=== PATIENT | female | born 1960 | race Caucasian/White ===

== ENCOUNTER 2023-08-17 10:16 | Outpatient (CLI) | payer MEDICARE, BC, SELFPAY ==
--- NOTE | ~2023-08-17 | CT_ITS ---
EXAMINATION: CT soft tissue neck w con DATE: 08/17/2023 10:47 INDICATION: Cystic mass of the tongue. TECHNIQUE: Computed tomography (CT) of the neck was performed with 75 mL Omnipaque-350 intravenous co ntrast. Automated exposure control and iterative reconstruction technique were employed. The dose-funmi gth product was 460.01 mGy-cm. COMPARISON: None FINDINGS: There are nodules in the thyroid measuring up to 5 mm, likely not clinically significant. T here are no pathologically enlarged lymph nodes. The mastoid air cells are normal. The paranasal sinu ses are clear. The tongue is unremarkable. There is severe cervical spondylosis. IMPRESSION: 1. Unremarkable tongue. No evidence of malignancy. Reviewed, dictated and finalized at location A.
[2023-08-17 10:33] LABS: Estimated Glomerular Filt Rate > 60
== END 2023-08-17 10:17 | disposition home or self-care (01) ==
LOC: ANHIMG 10:17
PROVIDERS: PCP Family Medicine; Visit Provider Otolaryngology
DX: K14.8 Other diseases of tongue (principal)
CPT/HCPCS: 70491; Q9967

== ENCOUNTER 2023-12-11 02:23 | Day surgery (SDC) | payer MEDICARE, BC, SELFPAY ==
[2023-12-11 09:16] VITALS: BP 130/81; PULSE 76; RESP 18; TEMP 36.3; O2SAT 98
--- NOTE | 2023-12-11 09:23 | WPDANESEPPF ---
Anes - Initial Pre Proc Eval Procedure: Operation Date: 12/11/23 10:30 Proposed Procedures p Esophagogastroduodenoscopy & Colonoscopy - Joe Bowman MD Date/Time: 12/11/23 09:23 Surgeon: Joe Bowman MD Pre Op Diagnosis: Benign neoplasm of tongue, GERD, Ulcer. colitis Patient Data Age: 63 Gender: F Height: 1.63 m Weight: 78 kg Last Vital Signs Temp 36.3 C L 12/11/23 09:16 Pulse 76 12/11/23 09:16 Resp 18 12/11/23 09:16 BP 130/81 12/11/23 09:16 Pulse Ox 98 12/11/23 09:16 O2 Del Method Room Air 12/11/23 09:16 Allergies Allergy/AdvReac Type Severity Reaction Status Date / Time levofloxacin [From Levaquin] Allergy Unknown Verified 12/11/23 09:15 lisinopril Allergy Unknown Verified 12/11/23 09:15 metformin Allergy Unknown Verified 12/11/23 09:15 NSAIDS (Non-Steroidal Allergy Unknown Verified 12/11/23 09:15 Anti-Inflamma Home Medications Medication Instructions Recorded Confirmed Type atorvastatin 80 mg tablet 80 mg PO HS 08/07/23 12/11/23 History ergocalciferol (vitamin D2) 1,250 1,250 mcg PO MONTHLY 08/07/23 12/11/23 History mcg (50,000 unit) capsule metoprolol succinate 25 mg 25 mg PO HS 08/07/23 12/11/23 History tablet,extended release 24 hr rizatriptan 10 mg tablet See Rx Instructions PO .COMPLEX 08/07/23 12/11/23 History fluticasone propionate 50 2 spray intranasal DAILY #18 mL 09/11/23 12/11/23 Rx mcg/actuation nasal spray,suspension (Flonase Allergy Relief) calcium 1 cap PO DAILY 11/29/23 12/11/23 History denosumab 60 mg/mL subcutaneous 60 mg subcut [id number] 11/29/23 12/11/23 History syringe (Prolia) irbesartan 150 mg tablet 150 mg PO HS 11/29/23 12/11/23 History omeprazole 40 mg capsule,delayed 40 mg PO HS 11/29/23 12/11/23 History release Patient hx anesthesia problems: none Family hx anesthesia problems: none Results Review: All pre-operative results and documents have been reviewed as part of the pre-operative evaluation. [facility] Past Medical History Medical History Gall bladder pain GERD (gastroesophageal reflux disease) Hypertension Family History Family History Father Diabetes mellitus Hypertension Mother Asthma Thyroid condition Social History Social History Smoking status: Never smoker Alcohol intake: current Substance use: never Substance use type: does not use Lack of Food: Never True Current Housing: I Have Housing Concerned About Future Housing: No Difficulty Paying Gas/Electric Bills: No Difficulty Paying for Meds: No Currently Unemployed: No Difficulty w/ Childcare or Family Care: No Living arrangements: with family Spiritual care concerns: No Anes - Eval Final PreProcedure Day of Procedure 12/11/23 09:23 Patient weight: overweight Heart: regular rate and rhythm Lungs: clear to auscultation Airway: Mallampati scale class II Neurological: alert and oriented Last oral intake: >/= 8 hours ASA classification: III Emergent: no Anesthetic plan: proceed Anesthesia type and monitoring: general GIVS and standard monitoring Results Review: All pre-operative results and documents have been reviewed as part of the pre-operative evaluation. Informed Consent: The patient's anesthetic plan and its attendant risks and benefits were discussed with the patient/family/POA. Questions were solicited and answers provided to the satisfaction of the patient/family/POA.
[2023-12-11] MEDS: LACTATED RINGERS 1,000 ML 150 ML IV CONT (09:27)
--- NOTE | 2023-12-11 09:52 | PM.HPGS ---
History of Present Illness History of Present Illness Consent: Risks, benefits, and alternatives have been discussed and questions answered. Patient agrees to proceed with procedure. Chief complaint: Benign neoplasm of tongue, GERD, Ulcer. colitis Narrative: Haley Vallejo is a 63 year old female with gerd on ppi, had bleeding ulcers years ago related to nsaid's, recently developed lesions in tongue- she is seeing ENT. Also needs screening colonoscopy Review of Systems Review of Systems: All systems reviewed & are unremarkable except as noted in HPI and below PMFSH Past Medical History Medical History (Updated 12/11/23 @ 09:54 by Joe Bowman MD) Colon cancer screening Gall bladder pain GERD (gastroesophageal reflux disease) Hypertension Family History Family History Father Diabetes mellitus Hypertension Mother Asthma Thyroid condition Social History Social History Smoking status: Never smoker Alcohol intake: current Substance use: never Substance use type: does not use Lack of Food: Never True Current Housing: I Have Housing Concerned About Future Housing: No Difficulty Paying Gas/Electric Bills: No Difficulty Paying for Meds: No Currently Unemployed: No Difficulty w/ Childcare or Family Care: No Living arrangements: with family Spiritual care concerns: No Meds Home Medications and Allergies Home Medications Medication Instructions Recorded Confirmed Type atorvastatin 80 mg tablet 80 mg PO HS 08/07/23 12/11/23 History ergocalciferol (vitamin D2) 1,250 1,250 mcg PO MONTHLY 08/07/23 12/11/23 History mcg (50,000 unit) capsule metoprolol succinate 25 mg 25 mg PO HS 08/07/23 12/11/23 History tablet,extended release 24 hr rizatriptan 10 mg tablet See Rx Instructions PO .COMPLEX 08/07/23 12/11/23 History fluticasone propionate 50 2 spray intranasal DAILY #18 mL 09/11/23 12/11/23 Rx mcg/actuation nasal spray,suspension (Flonase Allergy Relief) calcium 1 cap PO DAILY 11/29/23 12/11/23 History denosumab 60 mg/mL subcutaneous 60 mg subcut [id number] 11/29/23 12/11/23 History syringe (Prolia) irbesartan 150 mg tablet 150 mg PO HS 11/29/23 12/11/23 History omeprazole 40 mg capsule,delayed 40 mg PO HS 11/29/23 12/11/23 History release Allergies Allergy/AdvReac Type Severity Reaction Status Date / Time levofloxacin [From Levaquin] Allergy Unknown Verified 12/11/23 09:15 lisinopril Allergy Unknown Verified 12/11/23 09:15 metformin Allergy Unknown Verified 12/11/23 09:15 NSAIDS (Non-Steroidal Allergy Unknown Verified 12/11/23 09:15 Anti-Inflamma Vital Signs Vital Signs - 24 hr 12/11/23 09:16 Temperature 97.3 F L Pulse Rate 76 Respiratory Rate 18 Blood Pressure 130/81 Pulse Oximetry 98 Oxygen Delivery Room Air Exam Const: General: comfortable and no acute distress HENMT: Face/Nose/Sinus: Normal nares present Eyes: General: appearance normal, both eyes and all related structures Neck: Neck: no JVD Resp: Auscultation: clear to auscultation bilaterally Cardio: Rate: regular rate Rhythm: regular rhythm GI: Inspection: non-distended GI Palp: Yes Soft to palpation Skin: General skin exam: normal color Neuro: General: gait normal Speech: normal speech Extrem: General: normal to inspection Psych: Mental Status: mental status grossly normal Assessment and Plan Assessment and plan (1) Laryngopharyngeal reflux: Code(s): K21.9 - Gastro-esophageal reflux disease without esophagitis Status: Acute (2) GERD (gastroesophageal reflux disease): Code(s): K21.9 - Gastro-esophageal reflux disease without esophagitis Status: Acute Assessment and Plan: egd, on ppi (3) Colon cancer screening: Code(s): Z12.11 - Encounter for screening for malignant neoplasm of
--- NOTE | 2023-12-11 10:04 | SUR.OPER ---
EGD start 957 end 1001, Colonoscopy start 1006.
[2023-12-11 10:18] VITALS: BP 108/67; PULSE 87; RESP 22; O2SAT 93
[2023-12-11 10:28] VITALS: BP 121/73; PULSE 83; RESP 20; O2SAT 92
[2023-12-11 10:38] VITALS: BP 140/82; PULSE 71; RESP 16; O2SAT 95
== END 2023-12-11 10:52 | disposition home or self-care (01) ==
PROVIDERS: PCP Family Medicine; Referring Provider Otolaryngology; Visit Provider Internal Medicine Gastroenterology
PROC: 0DJ08ZZ Inspection of Upper Intestinal Tract, Via Natural or Artificial Opening Endoscopic (ICD-10-PCS; CPT 43235; principal; 2023-12-11 10:30)
DX: Z12.11 Encounter for screening for malignant neoplasm of colon (principal); K64.8 Other hemorrhoids; K29.50 Unspecified chronic gastritis without bleeding; K21.00 Gastro-esophageal reflux disease with esophagitis, without bleeding; I10 Essential (primary) hypertension; K14.8 Other diseases of tongue
CPT/HCPCS: 43239; G0121; 88305; J1596; J2704; J7120

== ENCOUNTER 2024-06-26 12:23 | Outpatient (CLI) | payer MEDICARE, BC, SELFPAY ==
--- NOTE | ~2024-06-26 | XR_ITS ---
Supine and upright views of the abdomen Clinical history: Diarrhea Findings: Bowel gas pattern is nonspecific. No evidence for obstruction or free air. Multiple rounded calcifications of the densities are present the right upper quadrant. Osseous structures are intact. Impression: Probable cholelithiasis, versus possibly artifactual/external densities. Reviewed, dictated and finalized at [facility]. 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
--- NOTE | ~2024-06-26 | XR_ITS ---
Thoracic spine: Clinical Indication: Pain AP and lateral views were performed. No fracture is seen. There is normal alignment of the vertebrae. There is mild degenerative disc akanksha rowing at the mid thoracic spine. Paravertebral soft tissues appear normal. Impression: Mild degenerative disc narrowing at the mid thoracic spine region. Reviewed, dictated and finalized at [facility]. [employer]G AID CONSULTANT Impression: Mild degenerative disc narrowing at the mid thoracic spine region.
--- NOTE | ~2024-06-26 | XR_ITS ---
Lumbosacral Spine: AP and lateral views Clinical History: Pain Findings: The normal lordotic curve is maintained. No fracture seen. There is 14 mm anterolisthesis o f L4 over L5, with severe degenerative disc narrowing at L4-L5. There is moderate facet arthropathy f rom L3 through S1. The sacroiliac joints are normally outlined. Rounded calcifications and right uppe r quadrant suggest cholelithiasis. Impression: 14 mm anterolisthesis of L4 over L5, with associated degenerative spondylosis, as above. Rounded calcifications/densities right upper quadrant are consistent with cholelithiasis. Reviewed, dictated and finalized at location . [employer] Impression: 14 mm anterolisthesis of L4 over L5, with associated degenerative spondylosis, as above. Rounded calcifications/densities right upper quadrant are consistent with amanda lithiasis.
--- OUTSIDE RECORDS SUMMARY | 2024-06-26 12:26 | XMS_ITS | Encounter Summary ---
Author Organization [facility] Address [facility] [place] [address] Care Team Providers Care Director Of Corporate Marketing Name Role Phone Sterling Freire MD Primary Care Provider [phone] Phi Lopez DO Unavailable [phone] Phi Lopez DO Unavailable [phone] Encounter Details Date Type Department Care Team (Late Contact Info) Description 02/21/2019 Hospital Orders Only [facility] [address] [place] [address] Sterling Freire MD [address] [place] [address] Social History Tobacco Use Types Packs/Day Years Used Date Smoking Tobacco: Never Alcohol Use Standard Drinks/Week Comments No 0 (1 standard drink = 0.6 oz pur e alcohol) AUDIT-C Answer Date Recorded Frequency of Alcohol Consumption Never 05/20/2018 Average Number of Drinks Not on file 019 Frequency of Binge Drinking Not on file 05/07 Comments No Sex and Gender Information Value Date Recorded Sex Assigned at Female 05/31/2024 11:24 AM LENS INSERTER Legal Sex Female 5:20 PM CDT Gender Identity Not on file Sexual Orientation Not on file documented as of this encounter Plan of Treatment Upcoming Encounters Date Type Department Care Team (Late Contact Info) Description 11/20/2024 1:00 PM CDT [facility] [address] [place] [address] 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, LITHOSTRIPPER [address] [facility] [address] [place] [address] documented as of this encounter Visit Diagnoses Not on filedocumented in this encounter Additional Health Concerns Infection Onset Date Last Indicated Resolved Time COVID-19 Rule Out 07/02/2021 07/02/2021 07/02/2021 6:39 PM LENS INSERTER COVID-19 Rule Out 12/21/2022 12/21/2022 12/21/2022 11:19 AM CDT COVID-19 Rule Out 08/29/2023 08/29/2023 08/29/2023 12:10 PM CDT COVID-19 Rule Out 09/02/2023 09/02/2023 09/02/2023 10:10 PM CDT Influenza - Seasonal 05/31/2024 05/31/2024 025 12:32 AM LENS INSERTER documented as of this encounter Care Teams Director Of Corporate Marketing Relationship Specialty Start Date End Date Sterling Freire MD [address] [facility] [place] [address] PCP - General FAMILY PRACTICE 05/17/18 Phi Lopez DO [address] [place] [address] SURGERY 12/10/23 12/10/23 Phi Lopez DO [address] [place] [address] SURGERY 12/10/23 documented as of this encounter
--- OUTSIDE RECORDS SUMMARY | 2024-06-26 12:27 | XMS_ITS | Referral Summary ---
Author Organization [facility] Address [facility] [place] [address] Care Team Providers Care Industrial Commercial Groundskeeper Name Role Phone Unavailable Primary Care Provider Unavailabl e Source Comments [facility],non-owned Affiliates and Associated Physician Practices is amultiple site organization consisting of ambulatory clinics and hospital sitesin [place], [place], [place] and [place]. This disclosure is being madepursuant to the Care Everywhere program and may not contain all information available regarding this patient. Last updated 18.[facility] [employer] Allergies Active Allergy Reactions Criticality Noted Date Comments Levofloxacin Other 01/23/2019 unknown Lisinopril Cough 01/23/2019 Metformin Nausea and/or Vomiting 01/23/2019 Social History Tobacco Use Types Packs/Day Years Used Date Smoking Tobacco: Never Assessed Sex and Gender Information Value Date Recorded Sex Assigned at Not on file Gender Identity Not on file Sexual Orientation Not on file Last Filed Vital Signs Vital Sign Reading Time Taken Comments Blood Pressure 136/84 01/23/2019 11:23 AM CDT Pulse 98 01/23/2019 11:23 AM CDT Temperature 36.8 C (98.2 F) 01/23/2019 11:23 AM CDT Respiratory Rate 16 01/23/2019 11:23 AM CDT Oxygen Saturation 96% 01/23/2019 11:23 AM CDT Inhaled Oxygen Concentration - - Weight 81.6 kg (180 lb) 01/23/2019 11:23 AM CDT Height 162.6 cm (5' 4 ) 01/23/2019 11:23 AM CDT Body Mass Index 30.9 01/23/2019 11:23 AM CDT Plan of Treatment Not on file
--- OUTSIDE RECORDS SUMMARY | 2024-06-26 12:27 | XMS_ITS | Referral Summary ---
Author Organization [facility] Address [address] [place] [address] Care Team Providers Care Mortgage Manager Name Role Phone Sterling Freire MD Primary Care Provider [phone] Allergies Active Allergy Reactions Criticality Noted Date Comments Levofloxacin Other (See comments),Palpitatio ns Low 10/31/2013 unknown Lisinopril Cough Low 03/16/2017 Metformin Stomach upset,Nausea And Vomiting,Swelling Medium 10/31/2013 Nsaids (Non-Steroidal Anti-Inflammatory Drug) Other (See comments) Low 03/16/2017 Avoid with hx of gastric ulcer Medications atorvastatin (LIPITOR) 80 mg tablet Take 1 tablet (80 mg total) by mouth daily 9 Active ergocalciferol (VITAMIN D) 50,000 unit capsule Take by mouth every 30 (thirty) days Active irbesartan (AVAPRO) 150 mg tablet Take 1 tablet (150 mg total) by mouth daily 4 Active irbesartan (AVAPRO) 75 mg tablet 2 tablets (150 mg total) 4 Active fluticasone propionate (FLONASE) 50 mcg/actuation nasal spray Administer 2 sprays into affected nostril(s) daily 4 Active metoprolol XL (TOPROL-XL) 25 mg extended release tablet Take 1 tablet (25 mg total) by mouth daily 0 Active omeprazole (PriLOSEC) 40 mg capsule TAKE 1 CAPSULE EVERY morning on empty STOMACH Active potassium chloride ER 20 mEq CR tablet TAKE 1 TABLET BY MOUTH THREE TIMES A DAY on day 1, then 1 TABLET TWO TIMES A DAY for days 2 THRU 5 4 Active rizatriptan (MAXALT) 10 mg tablet Take 1 tablet (10 mg total) by mouth as needed Active rizatriptan SCHOOL ATHLETIC DIRECTOR (MAXALT-SCHOOL ATHLETIC DIRECTOR) [address] one tablet on tongue and let dissolve slowly without chewing or swallowing at onset of migraine. May repeat in 2 hours if needed. MAXIMUM of 2 TABLETS in 24 hours Active Active Problems Problem Noted Date Diagnosed Date Tongue lesion 01/09/2024 Social History Tobacco Use Types Packs/Day Years Used Date Smoking Tobacco: Never Smokeless Tobacco: Never AUDIT-C Answer Date Recorded Q1: How often do you have a drink containing alc ohol? Monthly or less 01/09/2024 Q2: How many drinks containi ng alcohol do you have on a typical day when you are drinking? 1 or 2 01/09/2024 Frequency of Binge Drinking Not on file 08/2023 Personal Safety Answer Date Recorded Getting School Help Needed Not on file 11/15 Comments Unknown Sex and Gender Information Value Date Recorded Sex Assigned at Not on file Legal Sex Female 6:32 AM TEACHER BALLET Gender Identity Not on file Sexual Orientation Not on file Last Filed Vital Signs Vital Sign Reading Time Taken Comments Blood Pressure 121/83 01/09/2024 4:29 PM CDT Pulse 76 01/09/2024 4:29 PM CDT Temperature - - Respiratory Rate - - Oxygen Saturation - - Inhaled Oxygen Concentration - - Weight 81.1 kg (178 lb 12.8 oz) 01/09/2024 4:29 PM CDT Height 162.6 cm (5' 4 ) 01/09/2024 4:29 PM CDT Body Mass Index 30.69 01/09/2024 4:29 PM CDT Plan of Treatment Not on file Insurance MEDICARE [facility] Care Teams Mortgage Manager Relationship Specialty Start Date End Date Sterling Freire MD [facility] [place] [address] PCP - General Family Medicine 12/14/23
--- OUTSIDE RECORDS SUMMARY | 2024-06-26 12:27 | XMS_ITS | Encounter Summary ---
Author Organization [facility] Address [facility] [place] [address] Care Team Providers Care Movement Therapist Name Role Phone Sterling Freire MD Primary Care Provider Phi Lopez DO Unavailable [phone] Phi Lopez DO Unavailable [phone] Encounter Details Date Type Department Care Team (Late Contact Info) Description 10/12/2018 Abstract [facility] CONVERSION [address] [place] [address] , Generic Conversion, Social History Tobacco Use Types Packs/Day Years Used Date Smoking Tobacco: Never Alcohol Use Standard Drinks/Week Comments No 0 (1 standard drink = 0.6 oz pur e alcohol) AUDIT-C Answer Date Recorded Frequency of Alcohol Consumption Never 05/20/2018 Average Number of Drinks Not on file 019 Frequency of Binge Drinking Not on file 05/07 Comments Unknown Sex and Gender Information Value Date Recorded Sex Assigned at Female 05/31/2024 11:24 AM COMPRESSED GASES TESTER Legal Sex Female 5:20 PM CDT Gender Identity Not on file Sexual Orientation Not on file documented as of this encounter Plan of Treatment Upcoming Encounters Date Type Department Care Team (Late Contact Info) Description 11/20/2024 1:00 PM CDT Office Visit [facility] [address] [place] [address] 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, STAFF PSYCHIATRIST [address] [facility] [address] [address] documented as of this encounter Visit Diagnoses Not on filedocumented in this encounter Additional Health Concerns Infection Onset Date Last Indicated Resolved Time COVID-19 Rule Out 07/02/2021 07/02/2021 07/02/2021 6:39 PM COMPRESSED GASES TESTER COVID-19 Rule Out 12/21/2022 12/21/2022 12/21/2022 11:19 AM CDT COVID-19 Rule Out 08/29/2023 08/29/2023 08/29/2023 12:10 PM CDT COVID-19 Rule Out 09/02/2023 09/02/2023 09/02/2023 10:10 PM CDT Influenza - Seasonal 05/31/2024 05/31/2024 025 12:32 AM COMPRESSED GASES TESTER documented as of this encounter Care Teams Movement Therapist Relationship Specialty Start Date End Date Sterling Freire MD [address] [facility] [address] [place] [address] PCP - General FAMILY PRACTICE 05/17/18 Phi Lopez DO [address] [place] [address] SURGERY 12/10/23 12/10/23 Phi Lopez DO [address] [place] [address] SURGERY 12/10/23 documented as of this encounter
--- OUTSIDE RECORDS SUMMARY | 2024-06-26 12:27 | XMS_ITS | Clinical Summary ---
Author Organization [facility] Address [facility] [place] [address] Care Team Providers [employer] Name Role Phone Melba Freire MD Primary Care Provider [phone] Phi Lopez DO Unavailable Allergies Active Allergy Reactions Criticality Noted Date Comments Levofloxacin Palpitations Low 10/31/2013 Lisinopril Cough 03/16/2017 Metformin Swelling,GI Upset 10/31/2013 Nsaids Other (see comment) 03/16/2017 Avoid with hx of gastric ulcer Medications rizatriptan (MAXALT) 10 MG tablet Take 1 tablet (10 mg total) by mouth as needed. Active atorvastatin 80 MG tablet Take 1 tablet (80 mg total) by mouth daily. 3 05/15/19 19 Active vitamin D2, ergocalciferol, 16181 UNITS capsule Take 1 capsule (1.25 mg total) by mouth monthly. 0 05/06/20 18 Active metoprolol succinate ER 25 MG 24 hr tablet Take 1 tablet (25 mg total) by mouth daily. 07/29/19 20 Active potassium chloride CR (KLOR-CON M) 20 MEQ tablet TAKE 1 TABLET BY MOUTH THREE TIMES A DAY on day 1, then 1 TABLET TWO TIMES A DAY for days 2 THRU 5 08/29/19 24 Active irbesartan (AVAPRO) 75 MG tablet 2 tablets (150 mg total). 08/31/19 24 Active fluticasone propionate (FLONASE) 50 MCG/ACT nasal spray 2 sprays by Each Nostril route daily. 09/11/19 24 Active omeprazole (PRILOSEC) 40 MG capsule Take 1 capsule (40 mg total) by mouth daily. 11/12/19 24 Active oseltamivir (TAMIFLU) 75 MG capsule Take 1 capsule (75 mg total) by mouth 2 (two) times daily. 05/30/19 Active tirzepatide (MOUNJARO) 2.5 MG/0.5ML injectionIndicatio ns:Diabetes Mellitus Inject 2.5 mg into the skin every 7 days. Indications : Diabetes Active Denosumab (PROLIA SC) Inject 60 mg into the skin every 6 (six) months. Active fexofenadine (ATUL) 180 MG tablet Take 1 tablet (180 mg total) by mouth daily. Active predniSONE (DELTASONE) 20 MG tablet Take 2 tablets (40 mg total) by mouth daily. 08/29/19 24 025 Discontinued Calcium Carbonate Antacid 1000 MG Chew Tab Chew 1 tablet by mouth 2 (two) times daily. 025 Discontinued ondansetron (ZOFRAN-ODT) 4 MG disintegrating tablet Take 1 tablet (4 mg total) by mouth every 8 (eight) hours as needed for Nausea. 10 tablet 05/31/19 25 025 Discontinued benzonatate (TESSALON PERLES) 100 MG capsule Take 1 capsule (100 mg total) by mouth 3 (three) times daily as needed for Cough. 20 capsule 06/06/19 025 Active Problems Problem Noted Date Diagnosed Date Encounter for postoperative care 05/29/[address] of brain 03/16/2017 Cholelithiasis 06/04/2015 Allergic rhinitis 10/17/2013 Asthma ([facility]) 10/17/2013 Cough 10/17/2013 Esophageal reflux 10/17/2013 Sebaceous cyst of skin of left breast Vitamin D deficiency Sleep apnea Hypokalemia Hypertension, benign Hyperlipidemia GERD (gastroesophageal reflux disease) Bilateral hearing loss B12 deficiency Anxiety Anemia Osteopenia of spine Lumbar radiculopathy, chronic Insomnia, idiopathic Lumbar arthropathy Urinary frequency Glucose intolerance Prediabetes Resolved Problems Problem Noted Date Diagnosed Date Resolved Date Pre-op examination 11/05/2023 4 Pain of left lower extremity 03/16/2017 05/20/2018 Follow up 06/11/2015 05/20/2018 Backache 06/04/2015 05/20/2018 Sinusitis 10/17/2013 05/20/2018 Encounters Date Type Department Care Team Description 06/06/2024 3:37 PM AIR EXPORT LOGISTICS MANAGER - 06/06/2024 8:00 PM [facility] Emergency [place] [facility] [address] [place] [address] [place] [address] Piotr Vega MD Generalized Weakness Discharge Disposition: Home or Self Care (Routine Discharge) 06/06/2024 Travel 06/02/2024 2:48 PM AIR EXPORT LOGISTICS MANAGER - 06/02/2024 4:50 PM [facility] Emergency [place] [facility] [address] [place] [address] [place] [address] Feliciano Ferrer, DO Generalized Weakness Discharge Disposition: Home or Self Care (Routine Discharge) 06/02/2024 Travel 05/31/2024 11:20 AM AIR EXPORT LOGISTICS MANAGER - 05/31/2024 3:18 PM [facility] Emergency [place] [facility] [address] [place] [address] [place] [address] Ney Pappas, DO Near Syncope Discharge Disposition: Home or Self Care (Routine Discharge) 05/31/2024 Travel 05/15/2024 8:27 AM AIR EXPORT LOGISTICS MANAGER - 05/15/2024 11:59 PM [facility] Hospital Encounter [place] [address] [place] [address] [place] [address] Melba Freire MD Discharge Disposition: Home or Self Care (Routine Discharge) 05/15/2024 8:25 AM AIR EXPORT LOGISTICS MANAGER - 05/15/2024 8:26 AM [facility] Hospital Encounter [facility] [address] [place] [address] [place] [address] Melba Freire MD Injection Discharge Disposition: Home or Self Care (Routine Discharge) 05/15/2024 Travel from Last 3 Months Immunizations Name Administration Dates Next Due Influenza (Generic) 02/04/2013 Influenza Adult (Generic) 02/22/2018,,02/12/2015,01/31/20 11,2010 Pneumococcal (Prevnar 13) 05/07/2014 Tdap (Generic) 06/22/2015 Zoster (Zostavax) 86228 Unt/0.65Ml 06/22/2015 Family History Medical History Relation Comments None Daughter Colon Cancer Father age 85 Emphysema Mother Lupus Mother Thyroid Mother Stroke Paternal Grandmother Cancer Sister None Son Relation Status Comments Daughter Alive Father Mother Alive Paternal Grandmother Sister Son Alive Social History Tobacco Use Types Packs/Day Years Used Date Smoking Tobacco: Never Smokeless Tobacco: Never Tobacco Cessation:Counseling Given: Not Answered Alcohol Use Standard Drinks/Week Comments Yes 0 (1 standard drink = 0.6 oz pur e alcohol) occasionally AUDIT-C Answer Date Recorded Frequency of Alcohol Consumption Monthly or less 09/16/2019 Average Number of Drinks Not on file Frequency of Binge Drinking Not on file 09/04 Comments No Sex and Gender Information Value Date Recorded Sex Assigned at Female 05/31/2024 11:24 AM AIR EXPORT LOGISTICS MANAGER Legal Sex Female 5:20 PM CDT Gender Identity Not on file Sexual Orientation Not on file Last Filed Vital Signs Vital Sign Reading Time Taken Comments Blood Pressure 150/96 06/06/2024 7:00 PM AIR EXPORT LOGISTICS MANAGER Pulse 94 06/06/2024 3:55 PM AIR EXPORT LOGISTICS MANAGER Temperature 36.8 C (98.2 F) 06/06/2024 3:55 PM AIR EXPORT LOGISTICS MANAGER Respiratory Rate 16 06/06/2024 3:55 PM AIR EXPORT LOGISTICS MANAGER Oxygen Saturation 100% 06/06/2024 7:00 PM AIR EXPORT LOGISTICS MANAGER Inhaled Oxygen Concentration - - Weight 79.4 kg (175 lb) 06/06/2024 3:55 PM AIR EXPORT LOGISTICS MANAGER Height 162.6 cm (5' 4 ) 06/06/2024 3:55 PM AIR EXPORT LOGISTICS MANAGER Body Mass Index 30.04 06/06/2024 3:55 PM AIR EXPORT LOGISTICS MANAGER Plan of Treatment Upcoming Encounters Date Type Department Care Team (Late st Contact Info) Description 11/20/2024 1:00 PM CDT Office Visit [facility] eld [address] [place] [address] 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, [employer]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 CONTRACTS SUPERVISOR [address] [facility] [address] [address] Health Maintenance Due Date Last Done Comments ASCVD LDL 1960 ASCVD Statin 1960 Colorectal Cancer Screening Colonoscopy (10 Years) 1960 Hepatitis C 02/19/1976 Zoster Vaccines (2 of 3) 08/17/2015 06/22/2015 RSV Immunization or 60+ Years (1 - Risk 60-74 years 1-dose series) 2018 Annual Medicare Wellness Visit 2023 Dexa Scan (General) 2023 Pneumococcal Vaccine: 65+ Years (3 of 3 - PPSV23 or PCV20) 2023 05/07/2014, 01/15/2014 COVID-19 Vaccine (3 - season) 2024 05/18/2021, 07/19/2020 Influenza Adult (#1) 2024 05/25/2021, 06/11/2019, 02/22/2018, Additional history exists DTaP, Tdap and Td Vaccines (3 - Td or Tdap) 06/22/2025 06/22/2015, 08/10/2014 Mammogram Screening 05/15/2026 05/15/2024, 02/12/2023, 01/02/2022, Additional history exists Colorectal Cancer Screening FIT/FOBT (1 Year) Discontinued 12/18/2018 Meningococcal B Vaccine Aged Out No l onger eligible based on patient's age to complete this topic Meningococcal Vaccine Aged Out No amy moon eligible based on patient's age to complete this topic RSV Immunizations Under 20 Months Aged Out No longer eligible based on patient's age to complete this topic Procedures Procedure Name Priority Date/Time Associated Diagnosis Comments ECG 12-LEAD Routine 06/06/2024 7:31 PM AIR EXPORT LOGISTICS MANAGER CT ABD+PEL W CON STAT 06/06/2024 5:49 PM AIR EXPORT LOGISTICS MANAGER XR CHEST PORTABLE STAT 06/06/2024 5:1 1 PM AIR EXPORT LOGISTICS MANAGER LIPASE STAT 06/06/2024 4:59 PM AIR EXPORT LOGISTICS MANAGER TROPONIN, QUANT STAT 06/06/2024 4:59 PM AIR EXPORT LOGISTICS MANAGER COMPREHENSIVE METABOLIC PANEL STAT 06/06/2024 4:59 PM AIR EXPORT LOGISTICS MANAGER CBC W/DIFF AUTOMATED STAT 06/06/2024 4:59 PM AIR EXPORT LOGISTICS MANAGER URINE BACTERIA CULTURE STAT 3:58 PM AIR EXPORT LOGISTICS MANAGER HC URINALYSIS AUTO W/MICRO STAT 06/06/2024 3:58 PM AIR EXPORT LOGISTICS MANAGER MAGNESIUM STAT 06/02/2024 3:17 PM AIR EXPORT LOGISTICS MANAGER COMPREHENSIVE METABOLIC PANEL STAT 06/02/2024 3:17 PM AIR EXPORT LOGISTICS MANAGER CBC W/DIFF AUTOMATED STAT 06/02/2024 3:17 PM AIR EXPORT LOGISTICS MANAGER CT FACIAL BONES WO CON STAT 2:24 PM AIR EXPORT LOGISTICS MANAGER CT HEAD WO CON STAT 05/31/2024 2:24 PM AIR EXPORT LOGISTICS MANAGER XR SHOULDER LT MIN 2V STAT 05/31/2024 2:23 PM AIR EXPORT LOGISTICS MANAGER HC URINALYSIS AUTO W/MICRO STAT 05/31/2024 12:47 PM AIR EXPORT LOGISTICS MANAGER INFLUENZA A & B STAT 05/31/2024 12:07 PM AIR EXPORT LOGISTICS MANAGER ECG 12-LEAD Routine 05/31/2024 12:04 PM AIR EXPORT LOGISTICS MANAGER TROPONIN, QUANT STAT 05/31/2024 11:57 AM AIR EXPORT LOGISTICS MANAGER COMPREHENSIVE METABOLIC PANEL STAT 05/31/2024 11:57 AM AIR EXPORT LOGISTICS MANAGER CBC W/DIFF AUTOMATED STAT 05/31/2024 11:57 AM AIR EXPORT LOGISTICS MANAGER MG SCREENING W LISA CORETTA DIGI Routine 05/15/2024 9:54 AM AIR EXPORT LOGISTICS MANAGER Visit for screening mammogram OCCULT BLOOD, FECES Routine 12/18/2018 5 :00 PM CDT Chronic diarrhea of unknown origin from Last 3 Months or Most Recently Relevant to Health Maintenance Results * ECG 12 lead (06/06/2024 7:31 PM AIR EXPORT LOGISTICS MANAGER) Only the most recent of2 resultswithin the time period is included. 06/06/2024 7:31 PM AIR EXPORT LOGISTICS MANAGER Narrative [facility] - 06/07/2024 12:03 PM AIR EXPORT LOGISTICS MANAGER [address] 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 [address] Test Date: 2024-06-06 Pat Name: [facility] Department: 3 Room: EXAM 202 Gender: Female Downstream Biomanufacturing Technician: : 1960 Requested By: PIOTR VEGA Order Number: [id number] Reading : Tan Hodges Measurements Intervals [place] Rate: 75 P: 49 PA: 141 QRS: 4 QRSD: 75 T: 48 QT: 398 QTc: 447 Interpretive Statements SINUS RHYTHM LOW QRS VOLTAGE IN PRECORDIAL LEADS EXPORT LOGISTICS MANAGER us Piotr Vega MD ECG ORDERABLES Final Result [facility] * CT ABD+PEL W IV CON ONLY (06/06/2024 5:49 PM AIR EXPORT LOGISTICS MANAGER) Anatomical Region Laterality Modality Abdomen Computed Tomogra phy 06/06/2024 6:18 PM AIR EXPORT LOGISTICS MANAGER Impressions 06/06/2024 6:44 PM AIR EXPORT LOGISTICS MANAGER IMPRESSION: 1) No acute inflammatory change, abscess nor ascites. 2. No evidence of mechanical bowel obstruction or perforation. 3. No evidence of ureteral stone nor hydronephrosis on either side. 4. Cholelithiasis, no secondary findings of cholecystitis. No biliary duct dilatation. Ordered By: PIOTR VEGA Interpreted By: Piyush Burgos MD, 06/06/2024 6:18 PM Narrative 06/06/2024 6:44 PM AIR EXPORT LOGISTICS MANAGER [address] [place] [address] Examination: CT ABD+PEL W CON Exam time: 06/06/2024 5:30 PM Clinical history: Abdominal pain Comparison: 05/21/2022 Technique: Axial images obtained from level of xiphoid process to pubic symphysis with intravenous injection of 80 mL Isovue-370 contrast using low-dose CT technique. Sagittal and coronal reconstruction. Findings: CT ABDOMEN: Visualized portions of the lung bases demonstrate no acute abnormality. No significant hiatal hernia. The liver is normal in size. No significant focal intrahepatic lesion. There is cholelithiasis with numerous small stones in the gallbladder. No secondary findings of cholecystitis. No biliary duct dilatation. The spleen, pancreas, and the adrenal glands are unremarkable. The kidneys demonstrate no evidence of abnormal striated nephrogram nor acute perirenal inflammatory stranding or fluid. There is a 4 mm nonobstructing stone in the right kidney. There is no evidence of ureteral stone nor hydronephrosis on either side. There is no evidence of significant solid renal mass lesion. There is no acute inflammatory change, abscess nor ascites. No evidence of mechanical bowel obstruction or perforation. No significant lymphadenopathy. Abdominal aorta and IVC are unremarkable. CT PELVIS: No pelvic mass or adenopathy. No acute inflammatory change, abscess nor ascites. Chronic degenerative disc disease at L4-5 Procedure Note Piyush Burgos MD - 06/06/[address] [place] [address] Examination: CT ABD+PEL W CON Exam time: 06/06/2024 5:30 PM Clinical history: Abdominal pain Comparison: 05/21/2022 Technique: Axial images obtained from level of xiphoid process to pubicsymphysis with intravenous injection of 80 mL Isovue-370 contrast usinglow-dose CT technique. Sagittal and coronal reconstruction. Findings: CT ABDOMEN: Visualized portions of the lung bases demonstrate no acuteabnormality. No significant hiatal hernia. The liver is normal in size. No significant focal intrahepatic lesion.There is cholelithiasis with numerous small stones in the gallbladder. Nosecondary findings of cholecystitis. No biliary duct dilatation. The spleen, pancreas, and the adrenal glands are unremarkable. The kidneys demonstrate no evidence of abnormal striated nephrogram noracute perirenal inflammatory stranding or fluid. There is a 4 mmnonobstructing stone in the right kidney. There is no evidence of ureteralstone nor hydronephrosis on either side. There is no evidence ofsignificant solid renal mass lesion. There is no acute inflammatory change, abscess nor ascites. No evidence ofmechanical bowel obstruction or perforation. No significantlymphadenopathy. Abdominal aorta and IVC are unremarkable. CT PELVIS: No pelvic mass or adenopathy. No acute inflammatory change,abscess nor ascites. Chronic degenerative disc disease at L4-5 IMPRESSION: 1) No acute inflammatory change, abscess nor ascites. 2. No evidence of mechanical bowel obstruction or perforation. 3. No evidence of ureteral stone nor hydronephrosis on either side. 4. Cholelithiasis, no secondary findings of cholecystitis. No biliary ductdilatation. Ordered By: PIOTR VEGA Interpreted By: Piyush Burgos MD, 06/06/2024 6:18 PM us Piotr Vega MD CT Final Result * XR CHEST PORTABLE (06/06/2024 5:11 PM AIR EXPORT LOGISTICS MANAGER) Anatomical Region Laterality Modality Chest Radiographic Meaghan ging 06/06/2024 6:17 PM AIR EXPORT LOGISTICS MANAGER Impressions 06/06/2024 6:18 PM AIR EXPORT LOGISTICS MANAGER IMPRESSION: 1) No radiographic evidence of active disease the chest. Ordered By: PIOTR VEGA Interpreted By: Piyush Burgos MD, 06/06/2024 6:17 PM Narrative 06/06/2024 6:18 PM AIR EXPORT LOGISTICS MANAGER [address] [place] [address] Examination: XR CHEST PORTABLE Exam time: 06/06/2024 4:55 PM Clinical history: Weakness Comparison: None Technique: AP chest Findings: Heart size within normal limits. Pulmonary vasculature unremarkable. No acute focal pulmonary parenchymal opacity. No pleural effusion. No hyperinflation. Procedure Note Piyush Burgos MD - 06/06/[address] [place] [address] Examination: XR CHEST PORTABLE Exam time: 06/06/2024 4:55 PM Clinical history: Weakness Comparison: None Technique: AP chest Findings: Heart size within normal limits. Pulmonary vasculatureunremarkable. No acute focal pulmonary parenchymal opacity. No pleuraleffusion. No hyperinflation. IMPRESSION: 1) No radiographic evidence of active disease the chest. Ordered By: PIOTR VEGA Interpreted By: Piyush Burgos MD, 06/06/2024 6:17 PM Piotr Vega MD GENERAL IMAGING Final Result * (ABNORMAL) COMPREHENSIVE METABOLIC PANEL (06/06/2024 4:59 PM AIR EXPORT LOGISTICS MANAGER) Only the most recent of3 resultswithin the time period is included. SODIUM S/P/B 140 136 - 145 MMOL/L 06/06/2024 5:23 PM AIR EXPORT LOGISTICS MANAGER [facility] POTASSIUM S/P/B 3.5 3.5 - 5.1 MMOL/L 06/06/2024 5:23 PM AIR EXPORT LOGISTICS MANAGER [facility] CHLORIDE S/P/B 104 98 - 107 MMOL/L 06/06/2024 5:23 PM [facility] CO2 24.8 21.0 - 32.0 MMOL/L 06/06/2024 5:23 PM AIR EXPORT LOGISTICS MANAGER [facility] GLUCOSE 109(H) 70 - 99 MG/DL 06/06/2024 5:23 PM [facility] Comment: FASTING GLUCOSE 100 TO 125 MG/DL IS CONSISTENT WITH IMPAIRED FASTING GLUCOSE. FASTING GLUCOSE >125 MG/DL IS CONSISTENT WITH DIABETES. RANDOM GLUCOSE >200 MG/DL WITH HYPERGLYCEMIC SYMPTOMS IS CONSISTENT WITH DIABETES. PER ADA GUIDELINES BUN 13 6 - 24 MG/DL 06/06/2024 5:23 PM [facility] CREATININE S/P/B 0.85 0.55 - 1.02 MG/DL 06/06/2024 5:23 PM [facility] CALCIUM S/P/B 8.0(L) 8.4 - 10.5 MG/DL 06/06/2024 5:23 PM [facility] BILIRUBIN TOTAL S/P/B 0.8 0.2 - 1.0 MG/DL 06/06/2024 5:23 PM [facility] Comment: THIS ASSAY IS NOT RECOMMENDED FOR PATIENTS UNDERGOING TREATMENT WITH ELTROMBOPAG DUE TO THE POTENTIAL FOR FALSELY ELEVATED RESULTS. ALKALINE PHOSPHATASE S/P/B 84 50 - 130 U/L 06/06/2024 5:23 PM [facility] AST 41(H) 15 - 37 U/L 06/06/2024 5:23 PM [facility] ALT 59 14 - 59 U/L 06/06/2024 5:23 PM [facility] TOTAL PROTEIN S/P/B 6.5 6.4 - 8.2 G/DL 06/06/2024 5:23 PM [facility] ALBUMIN S/P/B 3.6 3.4 - 5.0 G/DL 06/06/2024 5:23 PM [facility] ANION GAP 11.2 5.0 - 15.0 MMOL/L 06/06/2024 5:23 PM [facility] OSMOLALITY (CALC) 291 MOSM/KG 025 5:23 PM [facility] Comment:REFERENCE RANGE NOT ESTABLISHED GFR ESTIMATE 76(L) >89 ML/MIN/1. 73 M2 06/06/2024 5:23 PM [facility] GFR NOTES GFR REFERENCE S: 06/06/2024 5:23 PM [facility] Comment: THE ESTIMATED GFR IS CALCULATED USING THE 2020 CKD-EPI EQUATION. THE FOLLOWING CATEGORIES FOR GRADING RENAL FUNCTION ARE RECOMMENDED BY THE INTERNATIONAL SOCIETY OF NEPHROLOGY (KDIGO 2012 CLINICAL PRACTICE GUIDELINE). G1,NORMAL OR HIGH: >89 ml/min/1.73 m2 G2,MILDLY DECREASED: 60-89 ml/min/1.73 m2 G3A,MILDLY TO MODERATELY DECREASED: 45-59 ml/min/1.73 m2 G3B,MODERATELY TO SEVERELY DECREASED: 30-44 ml/min/1.73 m2 G4,SEVERELY DECREASED: 15-29 ml/min/1.73 m2 G5,KIDNEY FAILURE: <15 ml/min/1.73 m2 06/06/2024 4:59 PM AIR EXPORT LOGISTICS MANAGER us Piotr Vega MD LABORATORY Final Result [facility] [address] [place] [address], * (ABNORMAL) CBC W/DIFF AUTOMATED (06/06/2024 4:59 PM AIR EXPORT LOGISTICS MANAGER) Only the most recent of3 resultswithin the time period is included. WBC 7.19 4.00 - 10.80 x10'3/uL 06/06/2024 5:04 PM [facility] RBC 4.45 4.10 - 5.40 x10'6/uL 06/06/2024 5:04 PM [facility] HGB 13.0 12.0 - 16.0 G/DL 06/06/2024 5:04 PM [facility] HCT 40.2 36.0 - 47.0 % 06/06/2024 5:04 PM [facility] MCV 90.3 78.0 - 100.0 FL 06/06/2024 5:04 PM [facility] MCH 29.2 27.0 - 31.0 PG 06/06/2024 5:04 PM [facility] MCHC 32.3(L) 33.0 - 36.0 G/DL 06/06/2024 5:04 PM [facility] RDW 13.7 11.5 - 14.5 % 06/06/2024 5:04 PM [facility] PLT 329 150 - 350 x10'3/uL 06/06/2024 5:04 PM [facility] MPV 9.4 7.4 - 10.4 FL 06/06/2024 5:04 PM [facility] CBC COMMENT NORMAL REFERENCE RANGE NOT ESTABLISHED FOR THE PROPORTIONAL LEUKOCYTE DIFFERENTIAL. 06/06/2024 5:04 PM [facility] NEUTROPHILS % 62.8 % 06/06/2024 5:04 PM [facility] LYMPHOCYTES % 27.3 % 06/06/2024 5:04 PM [facility] MONOCYTES % 8.5 % 06/06/2024 5:04 PM [facility] EOSINOPHILS % 0.7 % 06/06/2024 5:04 PM [facility] BASOPHILS % 0.1 % 06/06/2024 5:04 PM [facility] IMMATURE GRANS % 0.6 % 06/06/19 5:04 PM [facility] NRBC % 0.0 % 06/06/2024 5:04 PM [facility] ABS. NEUTROPHILS 4.52 1.60 - 8.30 x10'3/uL 06/06/2024 5:04 PM [facility] ABS. LYMPHOCYTES 1.96 0.80 - 4.70 x10'3/uL 06/06/2024 5:04 PM [facility] ABS. MONOCYTES 0.61 0.00 - 1.50 x10'3/uL 06/06/2024 5:04 PM [facility] ABS. EOSINOPHILS 0.05 0.00 - 0.40 x10'3/uL 06/06/2024 5:04 PM [facility] ABS. BASOPHILS 0.01 0.00 - 0.20 x10'3/uL 06/06/2024 5:04 PM [facility] ABS. IMMATURE GRANULOCYTES 0.04(H) 0.00 - 0.03 x10'3/uL 06/06/2024 5:04 PM AIR EXPORT LOGISTICS MANAGER [facility] ABS. NUCLEATED RBC'S 0.00 0.00 - 0.01 x10'3/uL 06/06/2024 5:04 PM AIR EXPORT LOGISTICS MANAGER [facility] 06/06/2024 4:59 PM AIR EXPORT LOGISTICS MANAGER us Piotr Vega MD LABORATORY Final Result Performing Organization Address City/[facility]/ZIP Co de Phone Number [facility] [address] [place] [address], [place] [phone] * TROPONIN, QUANT (06/06/2024 4:59 PM AIR EXPORT LOGISTICS MANAGER) Only the most recent of2 resultswithin the time period is included. TROPONIN I HIGH SENSITIVITY 7 0 - 51 ng/L 06/06/2024 5:23 PM AIR EXPORT LOGISTICS MANAGER [facility] 06/06/2024 4:59 PM AIR EXPORT LOGISTICS MANAGER us Piotr Vega MD LABORATORY Final Result Performing Organization Address [facility] Co de Phone Number [facility] [address] [place] [address], [place] [phone] * LIPASE (06/06/2024 4:59 PM AIR EXPORT LOGISTICS MANAGER) LIPASE 34 16 - 77 UNITS/L 06/06/2024 5:23 PM AIR EXPORT LOGISTICS MANAGER [facility] 06/06/2024 4:59 PM AIR EXPORT LOGISTICS MANAGER us Piotr Vega MD LABORATORY Final Result Performing Organization Address [facility] Co de Phone Number [facility] [address] [place], [place] [address], [place] [phone] * (ABNORMAL) URINALYSIS (06/06/2024 3:58 PM AIR EXPORT LOGISTICS MANAGER) Only the most recent of2 resultswithin the time period is included. COLOR (U) YELLOW 06/06/2024 4:12 PM AIR EXPORT LOGISTICS MANAGER [facility] TRANSPARENCY CLEAR 06/06/2024 4:12 PM AIR EXPORT LOGISTICS MANAGER [facility] SPECIFIC GRAVITY (U) 1.020 1.000 - 1.025 06/06/2024 4:12 PM AIR EXPORT LOGISTICS MANAGER [facility] U PH 8.5(H) 5.0 - 8.0 06/06/2024 4:12 PM AIR EXPORT LOGISTICS MANAGER [facility] LEUKOCYTES (U) NEGATIVE NEGATIVE 06/06/2024 4:12 PM AIR EXPORT LOGISTICS MANAGER [facility] NITRITES NEGATIVE NEGATIVE 06/06/2024 4:12 PM AIR EXPORT LOGISTICS MANAGER [facility] PROTEIN RANDOM (U) 1+(A) NEGATIVE 06/06/2024 4:12 PM AIR EXPORT LOGISTICS MANAGER [facility] GLUCOSE (U) NEGATIVE NEGATIVE 06/06/2024 4:12 PM [facility] KETONES MG/DL (U) 1+(A) NEGATIVE 06/06/2024 4:12 PM [facility] UROBILINOGEN 0.2 <1.0 EU/DL 06/06/2024 4:12 PM AIR EXPORT LOGISTICS MANAGER [facility] BLOOD (U) NEGATIVE NEGATIVE 06/06/2024 4:12 PM AIR EXPORT LOGISTICS MANAGER [facility] WBC/HPF 0-5 0 - 5 /HPF 06/06/2024 4:12 PM [facility] RBC/HPF 0-5 0 - 5 /HPF 06/06/2024 4:12 PM [facility] EPI/LPF RARE /LPF 06/06/2024 4:12 PM [facility] BACTERIA (U) TRACE /HPF 06/06/2024 4:12 PM AIR EXPORT LOGISTICS MANAGER [facility] MUCUS PRESENT 06/06/2024 4:12 PM AIR EXPORT LOGISTICS MANAGER [facility] BILIRUBIN CONF ICTO (U) NEGATIVE NEGATIVE 06/06/2024 4:12 PM [facility] URINE SPECIMEN OBTAINED BY CLEAN CATCH PROCEDURE / Unknown 06/06/2024 3:58 PM AIR EXPORT LOGISTICS MANAGER us Piotr Vega MD URINE ORDERABLES Final Result Performing Organization Address City/[facility]/ZIP Co de Phone Number [facility] [place] [address], * CULTURE URINE (06/06/2024 3:58 PM AIR EXPORT LOGISTICS MANAGER) SPEC DESCRIPTION URINE CLEAN CATCH 06/06/2024 4:01 PM AIR EXPORT LOGISTICS MANAGER [facility] SPECIAL REQUESTS NO SPECIAL REQUEST 06/06/2024 4:01 PM AIR EXPORT LOGISTICS MANAGER [facility] CULTURE RESULT FEW CONTAMINANTS 07/2024 10:34 AM AIR EXPORT LOGISTICS MANAGER [facility] URINE SPECIMEN OBTAINED BY CLEAN CATCH PROCEDURE / Unknown 06/06/2024 3:58 PM AIR EXPORT LOGISTICS MANAGER 06/06/2024 4:02 PM AIR EXPORT LOGISTICS MANAGER Piotr Vega MD MICROBIOLOGY - GENERAL ORDERABLE S Final Result Performing Organization Address [facility] Co de Phone Number [facility] [address] [place] [address], [place] [phone] [facility] [address] [place] [id number], * (ABNORMAL) MAGNESIUM (06/02/2024 3:17 PM AIR EXPORT LOGISTICS MANAGER) MAGNESIUM 2.8(H) 1.8 - 2.4 MG/DL 06/02/2024 3:36 PM AIR EXPORT LOGISTICS MANAGER [facility] 06/02/2024 3:17 PM AIR EXPORT LOGISTICS MANAGER Feliciano Ferrer DO LABORATORY Final Res ult Performing Organization Address City/[facility] Co de Phone Number [facility] [address] [place] [address], * CT HEAD WO CON (05/31/2024 2:24 PM AIR EXPORT LOGISTICS MANAGER) Anatomical Region Laterality Modality Head Computed Tomogra phy 05/31/2024 2:44 PM AIR EXPORT LOGISTICS MANAGER Impressions 05/31/2024 2:48 PM AIR EXPORT LOGISTICS MANAGER IMPRESSION: 1. No definite CT evidence for acute intracranial abnormality. 2. Chronic senescent changes. Please note that CT has limited sensitivity for the detection of acute ischemia Referred By: Interpreted By: Bryn Orona MD, 05/31/2024 2:44 PM Narrative 05/31/2024 2:48 PM AIR EXPORT LOGISTICS MANAGER [address] [place] [address] EXAMINATION: CT of the head CLINICAL HISTORY: Pain after fall COMPARISON: 11/17/2018 TECHNIQUE: CT examination of the head without contrast was performed with axial images obtained. A radiation dose lowering technique was used for this procedure, which may include, but is not limited to, dose reduction technique, automated exposure control, the use of iterative reconstruction, ALARA (As Low As Reasonably Achievable) techniques, and Image Gently techniques. FINDINGS: There is no evidence of acute intracranial hemorrhage, abnormal extra-axial collections, intracranial mass effect, or midline shift. There is mild to moderate volume loss with enlargement of the ventricles and extra-axial/subarachnoid spaces. There are scattered bilateral foci of periventricular and deep white matter hypoattenuation, probably related to chronic small vessel ischemic disease. Atherosclerotic calcifications of the intracranial arterial vasculature are evident. There is no definite CT evidence to suggest acute territorial infarction. The calvarium is unremarkable, without evidence of acute fracture. The visualized mastoid air cells, paranasal sinuses, and orbits are grossly unremarkable. Procedure Note Bryn Orona MD - 05/31/[address] [place] [address] EXAMINATION: CT of the head CLINICAL HISTORY: Pain after fall COMPARISON: 11/17/2018 TECHNIQUE: CT examination of the head without contrast was performed withaxial images obtained. A radiation dose lowering technique was used forthis procedure, which may include, but is not limited to, dose reductiontechnique, automated exposure control, the use of iterativereconstruction, ALARA (As Low As Reasonably Achievable) techniques, andImage Gently techniques. FINDINGS: There is no evidence of acute intracranial hemorrhage, abnormalextra-axial collections, intracranial mass effect, or midline shift. Thereis mild to moderate volume loss with enlargement of the ventricles andextra-axial/subarachnoid spaces. There are scattered bilateral foci ofperiventricular and deep white matter hypoattenuation, probably related tochronic small vessel ischemic disease. Atherosclerotic calcifications ofthe intracranial arterial vasculature are evident. There is no definite CTevidence to suggest acute territorial infarction. The calvarium isunremarkable, without evidence of acute fracture. The visualized mastoidair cells, paranasal sinuses, and orbits are grossly unremarkable. IMPRESSION: 1. No definite CT evidence for acute intracranial abnormality. 2. Chronic senescent changes. Please note that CT has limited sensitivity for the detection of acuteischemia Referred By: Interpreted By: Bryn Orona MD, 05/31/2024 2:44 PM us Ney Pappas DO CT Final Result * CT FACIAL BONES WO CON (05/31/2024 2:24 PM AIR EXPORT LOGISTICS MANAGER) Anatomical Region Laterality Modality Facial Computed Tomogra phy 05/31/2024 2:45 PM AIR EXPORT LOGISTICS MANAGER Impressions 05/31/2024 2:50 PM AIR EXPORT LOGISTICS MANAGER IMPRESSION: 1) No evidence of acute facial bone fracture. Ordered By: NEY PAPPAS Interpreted By: Piyush Burgos MD, 05/31/2024 2:45 PM Narrative 05/31/2024 2:50 PM AIR EXPORT LOGISTICS MANAGER [address] [place] [address] Examination: CT FACIAL BONES WO CON Exam time: 05/31/2024 12:08 PM Clinical history: Trauma Comparison: None Technique: Axial images obtained through the facial bones without contrast using low-dose CT technique. Sagittal and coronal reconstruction. Findings: There is no evidence of acute mandibular fracture. Zygomatic arches and pterygoid plates appear intact. No evidence of acute nasal bone fracture. Nasal septum is midline. Paranasal sinuses are well-developed and well aerated. No evidence of acute fracture involving the paranasal sinuses. Orbit contents are normal in appearance bilaterally. There is no evidence of acute orbital fracture. Mastoid air cells are clear bilaterally. Procedure Note Piyush Burgos MD - 05/31/[address] [place] [address] Examination: CT FACIAL BONES WO CON Exam time: 05/31/2024 12:08 PM Clinical history: Trauma Comparison: None Technique: Axial images obtained through the facial bones without contrastusing low-dose CT technique. Sagittal and coronal reconstruction. Findings: There is no evidence of acute mandibular fracture. Zygomaticarches and pterygoid plates appear intact. No evidence of acute nasal bonefracture. Nasal septum is midline. Paranasal sinuses are well-developed and well aerated. No evidence ofacute fracture involving the paranasal sinuses. Orbit contents are normalin appearance bilaterally. There is no evidence of acute orbital fracture.Mastoid air cells are clear bilaterally. IMPRESSION: 1) No evidence of acute facial bone fracture. Ordered By: NEY PAPPAS Interpreted By: Piyush Burgos MD, 05/31/2024 2:45 PM us Ney Pappas DO CT Final Result * XR SHOULDER LT MIN 2V (05/31/2024 2:23 PM AIR EXPORT LOGISTICS MANAGER) Anatomical Region Laterality Modality Shoulder Radiographic Meaghan ging 05/31/2024 2:39 PM AIR EXPORT LOGISTICS MANAGER Impressions 05/31/2024 2:41 PM AIR EXPORT LOGISTICS MANAGER IMPRESSION: No fracture or dislocation. Referred By: Interpreted By: Emiliano Adam MD, 05/31/2024 2:39 PM Narrative 05/31/2024 2:41 PM AIR EXPORT LOGISTICS MANAGER [address] [place] [address] Examination: XR SHOULDER LT MIN 2V Exam time: 05/31/2024 12:08 PM Indication: pt very combative tried 2 other times to get imaging done due to pt swinging at us and being uncooperative lt shoulder pain after fall Comparison: None Findings: 3 views of left shoulder. No fracture or dislocation. Mild glenohumeral joint osteoarthritis. Degenerative changes in the spine. Procedure Note Emiliano Adam MD - 05/31/2024 [place] [address] [facility] [place] [address] Examination: XR SHOULDER LT MIN 2V Exam time: 05/31/2024 12:08 PM Indication: pt very combative tried 2 other times to get imaging donedue to pt swinging at us and being uncooperative lt shoulder pain after fall Comparison: None Findings: 3 views of left shoulder. No fracture or dislocation. Mildglenohumeral joint osteoarthritis. Degenerative changes in the spine. IMPRESSION: No fracture or dislocation. Referred By: Interpreted By: Emiliano Adam MD, 05/31/2024 2:39 PM Ney Pappas DO GENERAL IMAGING Final Result * (ABNORMAL) INFLUENZA A & B (05/31/2024 12:07 PM AIR EXPORT LOGISTICS MANAGER) SPECIMEN TYPE (INFLUENZA) NASOPHARYNGEAL SWAB 05/31/2024 12:09 PM AIR EXPORT LOGISTICS MANAGER [facility] INFLUENZA A POSITIVE(A) NEGATIVE 05/31/2024 12:57 PM AIR EXPORT LOGISTICS MANAGER [facility] Comment: CALLED TO ROSEMARY HAWKINS [id number] BY AA READ BACK AND VERIFIED INFLUENZA B NEGATIVE NEGATIVE 05/31/2024 12:57 PM AIR EXPORT LOGISTICS MANAGER [facility] NASAL NASOPHARYNGEAL SWAB / Unknown 05/31/2024 12:07 PM AIR EXPORT LOGISTICS MANAGER us Ney Pappas DO MICROBIOLOGY - GENERAL ORDER HILDA Final Result [facility] [address] [place] [address], * MG SCREENING W LISA CORETTA DIGI (05/15/2024 9:54 AM AIR EXPORT LOGISTICS MANAGER) Anatomical Region Laterality Modality Breast Bilateral Mammography 05/15/2024 10:0 8 AM AIR EXPORT LOGISTICS MANAGER Impressions 05/15/2024 10:09 AM AIR EXPORT LOGISTICS MANAGER IMPRESSION: No suspicious change since the previous exams. Recommendation: 1: Routine Screening Bilateral in 1 Year Assessment: ACR BI-RADS 2 - BENIGN FINDING(S) Ordered By: MELBA FREIRE Interpreted By: Merritt Stephens MD, 05/15/2024 10:08 AM Narrative 05/15/2024 10:09 AM AIR EXPORT LOGISTICS MANAGER [place] [address] [facility] [place] [address] Examination: Digital screening mammogram with CAD. Clinical history: Asymptomatic patient presents for routine screening. Comparison: 02/12/2023, 01/02/2022, 12/05/2019, 04/13/2017. Technique: Bilateral digital mammograms. The exam was interpreted with the use of a computer-aided detection (CAD) system. Additional 3-D tomosynthesis images were acquired. Tissue density: There are scattered areas of fibroglandular density. Findings: The breast tissue contains scattered fibroglandular densities. Benign-appearing calcification, benign-appearing intramammary lymph nodes and benign dermal lesions again evident. No suspicious mass, microcalcification or area of architectural distortion can be identified. From a mammographic standpoint, routine followup in one year would seem adequate. Melba Freire MD MAMMO Final Resul t * OCCULT BLOOD, FECES (12/18/2018 5:00 PM CDT) OCCULT BLOOD FECAL NEGATIVE NEGATIVE 12/18/2018 6:09 PM CDT [facility] STOOL SPECIMEN / Unknown 12/18/2018 5:00 PM CDT Harika WRIGHTNP BODY FLUIDS AND STOOLS O RDERABLES Final Result [facility] [address] [place] [address], from Last 3 Months or Most Recently Relevant to Health Maintenance Insurance [facility] MEDICARE [facility] Care Teams [employer] Teacher Relationship Specialty Start Date End Date Melba Freire MD [address] [place] [address] [place] [address] PCP - General FAMILY PRACTICE 05/17/18 Phi Lopez DO [address] [place] [address] SURGERY 12/10/23
--- OUTSIDE RECORDS SUMMARY | 2024-06-26 12:27 | XMS_ITS | Encounter Summary ---
Author Organization [facility] Address [facility] [place] [address] Care Team Providers Care Four Corner Stayer Machine Operator Name Role Phone Sterling Freire MD Primary Care Provider [phone] Phi Lopez DO Unavailable [phone] Phi Lopez DO Unavailable [phone] Encounter Details Date Type Department Care Team (Late Contact Info) Description 03/21/2021 Hospital Orders Only [facility] [address] [facility] [place] [address] Sadia Pereyra, RN Social History Tobacco Use Types Packs/Day Years Used Date Smoking Tobacco: Never Smokeless Tobacco: Never Alcohol Use Standard Drinks/Week Comments Yes 0 (1 standard drink = 0.6 oz pur e alcohol) AUDIT-C Answer Date Recorded Frequency of Alcohol Consumption Monthly or less 09/16/2019 Average Number of Drinks Not on file 020 Frequency of Binge Drinking Not on file 09/04 Comments No Sex and Gender Information Value Date Recorded Sex Assigned at Female 05/31/2024 11:24 AM CHIEF RADIOLOGY Legal Sex Female 5:20 PM CDT Gender Identity Not on file Sexual Orientation Not on file COVID-19 Exposure Response Date Recorded In the last month, have you been in contact with someone who was confirmed or suspected to have Coronavirus / COVID-19? No / Unsure 03/21/2021 11:30 AM CHIEF RADIOLOGY documented as of this encounter Plan of Treatment Upcoming Encounters Date Type Department Care Team (Late Contact Info) Description 11/20/2024 1:00 PM CDT [facility] [address] [place] [address] 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, ELECTRICIANS TOP HELPER [address] [facility] [address] [place] [address] documented as of this encounter Visit Diagnoses Not on filedocumented in this encounter Additional Health Concerns Infection Onset Date Last Indicated Resolved Time COVID-19 Rule Out 07/02/2021 07/02/2021 07/02/2021 6:39 PM CHIEF RADIOLOGY COVID-19 Rule Out 12/21/2022 12/21/2022 12/21/2022 11:19 AM CDT COVID-19 Rule Out 08/29/2023 08/29/2023 08/29/2023 12:10 PM CDT COVID-19 Rule Out 09/02/2023 09/02/2023 09/02/2023 10:10 PM CDT Influenza - Seasonal 05/31/2024 05/31/2024 025 12:32 AM CHIEF RADIOLOGY documented as of this encounter Care Teams [employer] Stayer Machine Operator Relationship Specialty Start Date End Date Sterling Freire MD [address] [facility] [place] [id number] PCP - General FAMILY PRACTICE 05/17/18 Phi Lopez DO [address] [place] [address] SURGERY 12/10/23 12/10/23 Phi Lopez DO [address] [place] [address] SURGERY 12/10/23 documented as of this encounter
--- OUTSIDE RECORDS SUMMARY | 2024-06-26 12:27 | XMS_ITS | Clinical Summary ---
Author Organization [facility] Address [address] [place] [address] Care Team Providers Care Icing Mixer Name Role Phone Sterling Freire MD Primary Care Provider [phone] Allergies Active Allergy Reactions Criticality Noted Date [...] total) by mouth as needed Active rizatriptan PROTOTYPE ENGINEER (MAXALT-PROTOTYPE ENGINEER) [address] one tablet on tongue and let dissolve slowly without chewing or swallowing at onset of migraine. May repeat in 2 hours if needed. MAXIMUM of 2 TABLETS in 24 hours Active Active Problems Problem Noted Date Diagnosed Date Tongue lesion 01/09/2024 Medical History Medical History Date Comments Allergic rhinitis Asthma Dizziness High blood pressure Family History Medical History Relation Name Comments No Known Problems Father No Known Problems Mother Relation Name Status Comments Father Mother Social History Tobacco Use Types Packs/Day Years [...] on file Legal Sex Female 6:32 AM TACK PULLER Gender Identity Not on file Sexual Orientation Not on file Obstetrics History Last Filed Vital Signs Vital Sign Reading [...] 01/09/2024 4:29 PM CDT Plan of Treatment Health Maintenance Due Date Last Done Comments Colon Cancer Screening-Colonoscopy 1960 Depression Screening 1960 Fall Risk Assessment 1960 Hepatitis C Screening 1960 Osteoporosis Screening-Bone Density Scan 1960 Hepatitis B Screening 02/19/1976 Zoster Vaccine (2 of 3) 08/17/2015 06/22/2015 Pneumococcal vaccine 65+ (3 of 3 - PCV20 or PCV21) 05/07/2019 05/07/2014, 01/15/2014 Well Visit 65+ 2023 Covid-19 Vaccine (3 - 2023-2 5 season) 2024 05/18/2021, 07/19/2020 Influenza Vaccine (#1) 2024 , 05/25/2021, 06/11/2019, Additional history exists Breast Cancer Screening-Mammogram 02/13/2024 02/12/2023, 02/12/2023, 01/02/2022, Additional history exists DTaP/Tdap/Td Vaccine (3 - Td or Tdap) 06/22/2025 06/22/2015, 08/10/2014 Insurance MEDICARE [facility] Care Teams Icing Mixer Relationship Specialty [place] [address] [place] [address] [place] [address] PCP - General Family Medicine 12/14/23
--- OUTSIDE RECORDS SUMMARY | 2024-06-26 12:27 | XMS_ITS | Patient Health Summary ---
Author Organization [facility] Address [address] [place] [address] Care Team Providers Care Sheet Catcher Name Role Phone Unavailable Primary Care Provider Unavailabl e Note from [facility],non-owned Affiliates and Associated Physician Practices is amultiple site organization consisting of ambulatory clinics and hospital sitesin [place], [place], [place] and [place]. This disclosure is being madepursuant to the Care Everywhere program and may not contain all information available regarding this patient. Last updated 18.[facility] [employer] Allergies * Levofloxacin(Other) * Lisinopril(Cough) * Metformin(Nausea and/or Vomiting) Social History Tobacco Use Types Packs/Day Years [...]
--- OUTSIDE RECORDS SUMMARY | 2024-06-26 12:27 | XMS_ITS | Clinical Summary ---
Author Organization [facility] Address [address] [place] [address] Care Team Providers Care Accountant Assistant Name Role Phone Unavailable Primary Care Provider Unavailabl e Source Comments [facility],non-owned Affiliates and Associated Physician Practices is amultiple site organization consisting of ambulatory clinics and hospital sitesin [place], [place], [place] and [place]. This disclosure is being madepursuant to the Care Everywhere program and may not contain all information available regarding this patient. Last updated 18.[facility] Allergies Active Allergy Reactions Criticality Noted Date [...] 01/23/2019 11:23 AM CDT Plan of Treatment Health Maintenance Due Date Last Done Comments BONE DENSITY TESTING 1960 COLOGUARD (AGES 45-75) - COLON CA SCREENING 1958 COLON MONITORING 1958 COLONOSCOPY - COLON CA SCREENING 1958 CT COLONOGRAPHY - COLON CA SCREENING 1960 Colorectal Cancer Screening 1960 FIT - COLON CA SCREENING 1958 FLEX SIG - COLON CA SCREENING 1958 LIPID TESTING 1960 MAMMOGRAM 1960 MEDICARE AWV 12 MONTHS 1958 HEPATITIS C SCREENING 02/14/1976 DTAP/TDAP/TD VACCINES (1 - Tdap) 1977 PNEUMOCOCCAL VACCINE 50+ (1 of 1 - PCV) 02/19/2008 ZOSTER VACCINE (1 of 2) 02/19/2008 SCREENING FOR DIABETES 01/23/2019 COVID-19 VACCINE (1 - 2023- season) 2024 INFLUENZA VACCINE (#1) 2024 8, 02/22/2016, 02/12/2015, Additional history exists DEPRESSION SCREENING 05/07/2024 Respiratory Syncytial Virus (RSV) Vaccine Pt: or over 60 yrs (1 - 1-dose 75+ series) 2033 HEPATITIS B VACCINE Aged Out No longe r eligible based on patient's age to complete this topic HIB VACCINE Aged Out No longer eligi ble based on patient's age to complete this topic HPV VACCINE Aged Out No longer eligi ble based on patient's age to complete this topic MENINGOCOCCAL (Group B) VACCINE Aged Out No longer eligible based on patient's age to complete this topic MENINGOCOCCAL VACCINE Aged Out No amy moon eligible based on patient's age to complete this topic
== END 2024-06-26 12:24 | disposition home or self-care (01) ==
PROVIDERS: PCP Family Medicine; Visit Provider Nurse Practitioner Family
DX: R19.7 Diarrhea, unspecified (principal); M54.9 Dorsalgia, unspecified; M51.34 Other intervertebral disc degeneration, thoracic region
CPT/HCPCS: 72070; 72100; 74018

== ENCOUNTER 2024-06-26 13:05 | Outpatient (CLI) | payer MEDICARE, SELFPAY ==
--- NOTE | 2024-06-26 13:22 | ECG_ITS ---
Test Date: 2024-06-26 13:43:39 Measurements Intervals [place] Rate: 87 P: 2 CA: 142 QRS: -27 QRSD: 78 T: 11 QT: 369 QTc: 445 Interpretive Statements SINUS RHYTHM DELAYED PRECORDIAL R/S TRANSITION INFERIOR INFARCT, AGE INDETERMINATE ABNORMAL ECG No previous ECG available for comparison Electronically Signed On 06-26-2024 13:45:56 BRIM BLOCKER by Roberto Pham D.O.
--- OUTSIDE RECORDS SUMMARY | 2024-06-26 13:22 | XMS_ITS | Encounter Summary ---
Author Organization [facility] Address [facility] [place] [address] Care Team Providers Care International Trade Analyst Name Role Phone Sterling Freire MD Primary Care Provider Phi Lopez DO Unavailable [phone] Phi Lopez DO Unavailable [phone] Encounter Details Date Type Department Care Team (Late Contact Info) Description 02/21/2019 Hospital Orders Only [facility] [address] [place] [address] Sterling Freire MD [address] [place] [address] Social History Tobacco Use Types [...] Sex Assigned at Female 05/31/2024 11:24 AM CLOTH BOLT BANDER Legal Sex Female 5:20 PM CDT Gender Identity Not on file Sexual Orientation Not on file documented as of this encounter Plan of Treatment Upcoming Encounters Date Type Department Care Team (Late Contact Info) Description 11/20/2024 1:00 PM CDT [facility] [address] [place] [address] 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, SERVICE DIRECTOR [address] [facility] [address] [place] [address] documented as of this encounter Visit Diagnoses Not on filedocumented in this encounter Additional Health Concerns Infection Onset Date Last Indicated Resolved Time COVID-19 Rule Out 07/02/2021 07/02/2021 07/02/2021 6:39 PM CLOTH BOLT BANDER COVID-19 Rule Out 12/21/2022 12/21/2022 12/21/2022 11:19 AM CDT COVID-19 Rule Out 08/29/2023 08/29/2023 08/29/2023 12:10 PM CDT COVID-19 Rule Out 09/02/2023 09/02/2023 09/02/2023 10:10 PM CDT Influenza - Seasonal 05/31/2024 05/31/2024 025 12:32 AM CLOTH BOLT BANDER documented as of this encounter Care Teams International Trade Analyst Relationship Specialty Start Date End Date Sterling Freire MD [address] [facility] [place] [address] PCP - General FAMILY PRACTICE 05/17/18 Phi Lopez DO [address] [place] [address] SURGERY 12/10/23 12/10/23 Phi Lopez DO [address] [place] [address] SURGERY 12/10/23 documented as of this encounter
--- OUTSIDE RECORDS SUMMARY | 2024-06-26 13:22 | XMS_ITS | Encounter Summary ---
Author Organization [facility] Address [facility] [place] [address] Care Team Providers Care Mixer Crane Operator Name Role Phone Sterling Freire MD Primary Care Provider Phi Lopez DO Unavailable [phone] Phi Lopez DO Unavailable [phone] Encounter Details Date Type Department Care Team (Late Contact Info) Description 03/21/2021 Hospital Orders Only [facility] [address] [place] [address] Sadia Pereyra, RN Social History Tobacco Use [...] Sex Assigned at Female 05/31/2024 11:24 AM REFINERY OPERATOR HELPER Legal Sex Female 5:20 PM CDT Gender Identity Not on file Sexual Orientation Not on file COVID-19 Exposure Response Date Recorded In the last month, have you been in contact with someone who was confirmed or suspected to have Coronavirus / COVID-19? No / Unsure 03/21/2021 11:30 AM REFINERY OPERATOR HELPER documented as of this encounter Plan of Treatment Upcoming Encounters Date Type Department Care Team (Late Contact Info) Description 11/20/2024 1:00 PM CDT [facility] [address] [place] [address] 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, FRAUD PREVENTION ANALYST [address] [facility] [address] [place] [address] documented as of this encounter Visit Diagnoses Not on filedocumented in this encounter Additional Health Concerns Infection Onset Date Last Indicated Resolved Time COVID-19 Rule Out 07/02/2021 07/02/2021 07/02/2021 6:39 PM REFINERY OPERATOR HELPER COVID-19 Rule Out 12/21/2022 12/21/2022 12/21/2022 11:19 AM CDT COVID-19 Rule Out 08/29/2023 08/29/2023 08/29/2023 12:10 PM CDT COVID-19 Rule Out 09/02/2023 09/02/2023 09/02/2023 10:10 PM CDT Influenza - Seasonal 05/31/2024 05/31/2024 025 12:32 AM REFINERY OPERATOR HELPER documented as of this encounter Care Teams Mixer Crane Operator Relationship Specialty Start Date End Date Sterling Freire MD [address] [facility] [facility] [place] [id number] PCP - General FAMILY PRACTICE 05/17/18 Phi Lopez DO [address] [place] [address] SURGERY 12/10/23 12/10/23 Phi Lopez DO [address] [place] [address] SURGERY 12/10/23 documented as of this encounter
--- OUTSIDE RECORDS SUMMARY | 2024-06-26 13:23 | XMS_ITS | Encounter Summary ---
Author Organization [facility] Address [facility] [place] [address] Care Team Providers Care Water Plant Pump Operator Supervisor Name Role Phone Sterling Freire MD Primary Care Provider Phi Lopez DO Unavailable [phone] Phi Lopez DO Unavailable [phone] Encounter Details Date Type Department Care Team (Late Contact Info) Description 10/12/2018 Abstract [facility] CONVERSION [address] [place] [address] , Generic Conversion, Social History Tobacco Use [...] Sex Assigned at Female 05/31/2024 11:24 AM CIRCULATING NURSE Legal Sex Female 5:20 PM CDT Gender Identity Not on file Sexual Orientation Not on file documented as of this encounter Plan of Treatment Upcoming Encounters Date Type Department Care Team (Late Contact Info) Description 11/20/2024 1:00 PM CDT Office Visit [facility] [address] [place] [address] 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, STOREROOM ATTENDANT [address] [facility] [address] [address] documented as of this encounter Visit Diagnoses Not on filedocumented in this encounter Additional Health Concerns Infection Onset Date Last Indicated Resolved Time COVID-19 Rule Out 07/02/2021 07/02/2021 07/02/2021 6:39 PM CIRCULATING NURSE COVID-19 Rule Out 12/21/2022 12/21/2022 12/21/2022 11:19 AM CDT COVID-19 Rule Out 08/29/2023 08/29/2023 08/29/2023 12:10 PM CDT COVID-19 Rule Out 09/02/2023 09/02/2023 09/02/2023 10:10 PM CDT Influenza - Seasonal 05/31/2024 05/31/2024 025 12:32 AM CIRCULATING NURSE documented as of this encounter Care Teams Water Plant Pump Operator Supervisor Relationship Specialty Start Date End Date Sterling Freire MD [address] [place] [address] PCP - General FAMILY PRACTICE 05/17/18 Phi Lopez DO [address] [place] [address] SURGERY 12/10/23 12/10/23 Phi Lopez DO [address] [place] [address] SURGERY 12/10/23 documented as of this encounter
--- OUTSIDE RECORDS SUMMARY | 2024-06-26 13:23 | XMS_ITS | Clinical Summary ---
Author Organization [facility] Address [address] [place] [address] Care Team Providers Care Compressor Operator Portable Name Role Phone Unavailable Primary Care Provider Unavailabl e Source Comments [facility],non-owned Affiliates and Associated Physician Practices is amultiple site organization consisting of ambulatory clinics and hospital sitesin [place], [place], [place] and [place]. This disclosure is being madepursuant to the Care Everywhere program and may not contain all information available regarding this patient. Last updated 18.[facility] Allergies Active Allergy Reactions Criticality Noted Date [...]
--- OUTSIDE RECORDS SUMMARY | 2024-06-26 13:23 | XMS_ITS | Referral Summary ---
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 [place] [address] PCP - General Family Medicine 12/14/23
--- OUTSIDE RECORDS SUMMARY | 2024-06-26 13:23 | XMS_ITS | Clinical Summary ---
Author Organization [facility] Address [address] [place] [phone] Care Team Providers Care Animal Behaviorist Name Role Phone Sterling Freire MD Primary Care Provider [phone] Allergies Active Allergy Reactions Criticality Noted Date [...] total) by mouth as needed Active rizatriptan HAT MENDER (MAXALT-HAT MENDER) [address] tablet [address] one tablet [...] on file Legal Sex Female 6:32 AM CUT OFF MAN Gender Identity Not on file Sexual Orientation [...] or Tdap) 06/22/2025 06/22/2015, 08/10/2014 Insurance MEDICARE [facility]LY [facility] Care Teams Animal Behaviorist Relationship Specialty [place] [address] [place] [address] [place] [address] PCP - General Family Medicine 12/14/23
--- OUTSIDE RECORDS SUMMARY | 2024-06-26 13:23 | XMS_ITS | Clinical Summary ---
Author Organization [facility] Address Pending sale to [facility] [place] [address] Care Team Providers Care Inventory Management Specialist Name Role Phone Melba Freire MD Primary Care Provider [phone] Phi Lopez DO Unavailable [phone] Allergies Active Allergy Reactions Criticality Noted Date [...] 3 05/15/19 19 Active vitamin D2, ergocalciferol, 19775 UNITS capsule Take 1 capsule (1.25 mg [...] 03/16/2017 Cholelithiasis 06/04/2015 Allergic rhinitis 10/17/2013 Asthma ([facility]) 10/17/2013 Cough 10/17/2013 Esophageal reflux 10/17/2013 Sebaceous [...] Department Care Team Description 06/06/2024 3:37 PM MEAT CUTTING BLOCK REPAIRER - 06/06/2024 8:00 PM [facility] Emergency [facility] [address] [place] [address] [place] [address] Piotr Vega MD Generalized Weakness Discharge Disposition: Home or Self Care (Routine Discharge) 06/06/2024 Travel 06/02/2024 2:48 PM MEAT CUTTING BLOCK REPAIRER - 06/02/2024 4:50 PM [facility] Emergency [facility] [address] [place] [address] [place] [address] Feliciano Ferrer, DO Generalized Weakness Discharge Disposition: Home or Self Care (Routine Discharge) 06/02/2024 Travel 05/31/2024 11:20 AM MEAT CUTTING BLOCK REPAIRER - 05/31/2024 3:18 PM [facility] Emergency [facility] [address] [place] [address] [place] [address] Ney Pappas, DO Near Syncope Discharge Disposition: Home or Self Care (Routine Discharge) 05/31/2024 Travel 05/15/2024 8:27 AM MEAT CUTTING BLOCK REPAIRER - 05/15/2024 11:59 PM [facility] Hospital Encounter [facility] [address] [place] [address] [place] [address] Melba Freire MD Discharge Disposition: Home or Self Care (Routine Discharge) 05/15/2024 8:25 AM MEAT CUTTING BLOCK REPAIRER - 05/15/2024 8:26 AM [facility] Hospital Encounter [facility] [address] [place] [address] [place] [address] Melba Freire MD Injection Discharge Disposition: Home or Self Care (Routine Discharge) 05/15/2024 Travel from Last 3 Months Immunizations Name Administration Dates Next Due Influenza (Generic) 02/04/2013 Influenza Adult (Generic) 02/22/2018,,02/12/2015,01/31/20 11,2010 Pneumococcal (Prevnar 13) 05/07/2014 Tdap (Generic) 06/22/2015 Zoster (Zostavax) 91236 Unt/0.65Ml 06/22/2015 Family History Medical History Relation [...] Sex Assigned at Female 05/31/2024 11:24 AM MEAT CUTTING BLOCK REPAIRER Legal Sex Female 5:20 PM CDT Gender Identity Not on file Sexual Orientation Not on file Last Filed Vital Signs Vital Sign Reading Time Taken Comments Blood Pressure 150/96 06/06/2024 7:00 PM MEAT CUTTING BLOCK REPAIRER Pulse 94 06/06/2024 3:55 PM MEAT CUTTING BLOCK REPAIRER Temperature 36.8 C (98.2 F) 06/06/2024 3:55 PM MEAT CUTTING BLOCK REPAIRER Respiratory Rate 16 06/06/2024 3:55 PM MEAT CUTTING BLOCK REPAIRER Oxygen Saturation 100% 06/06/2024 7:00 PM MEAT CUTTING BLOCK REPAIRER Inhaled Oxygen Concentration - - Weight 79.4 kg (175 lb) 06/06/2024 3:55 PM MEAT CUTTING BLOCK REPAIRER Height 162.6 cm (5' 4 ) 06/06/2024 3:55 PM MEAT CUTTING BLOCK REPAIRER Body Mass Index 30.04 06/06/2024 3:55 PM MEAT CUTTING BLOCK REPAIRER Plan of Treatment Upcoming Encounters Date Type Department Care Team (Late st Contact Info) Description 11/20/2024 1:00 PM CDT Office Visit [facility] eld [address] [place] [address] 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, ELEVATOR INSTALLER [address] [facility] [address] [address] Health Maintenance Due Date Last Done Comments [...] Comments ECG 12-LEAD Routine 06/06/2024 7:31 PM MEAT CUTTING BLOCK REPAIRER CT ABD+PEL W CON STAT 06/06/2024 5:49 PM MEAT CUTTING BLOCK REPAIRER XR CHEST PORTABLE STAT 06/06/2024 5:1 1 PM MEAT CUTTING BLOCK REPAIRER LIPASE STAT 06/06/2024 4:59 PM MEAT CUTTING BLOCK REPAIRER TROPONIN, QUANT STAT 06/06/2024 4:59 PM MEAT CUTTING BLOCK REPAIRER COMPREHENSIVE METABOLIC PANEL STAT 06/06/2024 4:59 PM MEAT CUTTING BLOCK REPAIRER CBC W/DIFF AUTOMATED STAT 06/06/2024 4:59 PM MEAT CUTTING BLOCK REPAIRER URINE BACTERIA CULTURE STAT 3:58 PM MEAT CUTTING BLOCK REPAIRER HC URINALYSIS AUTO W/MICRO STAT 06/06/2024 3:58 PM MEAT CUTTING BLOCK REPAIRER MAGNESIUM STAT 06/02/2024 3:17 PM MEAT CUTTING BLOCK REPAIRER COMPREHENSIVE METABOLIC PANEL STAT 06/02/2024 3:17 PM MEAT CUTTING BLOCK REPAIRER CBC W/DIFF AUTOMATED STAT 06/02/2024 3:17 PM MEAT CUTTING BLOCK REPAIRER CT FACIAL BONES WO CON STAT 2:24 PM MEAT CUTTING BLOCK REPAIRER CT HEAD WO CON STAT 05/31/2024 2:24 PM MEAT CUTTING BLOCK REPAIRER XR SHOULDER LT MIN 2V STAT 05/31/2024 2:23 PM MEAT CUTTING BLOCK REPAIRER HC URINALYSIS AUTO W/MICRO STAT 05/31/2024 12:47 PM MEAT CUTTING BLOCK REPAIRER INFLUENZA A & B STAT 05/31/2024 12:07 PM MEAT CUTTING BLOCK REPAIRER ECG 12-LEAD Routine 05/31/2024 12:04 PM MEAT CUTTING BLOCK REPAIRER TROPONIN, QUANT STAT 05/31/2024 11:57 AM MEAT CUTTING BLOCK REPAIRER COMPREHENSIVE METABOLIC PANEL STAT 05/31/2024 11:57 AM MEAT CUTTING BLOCK REPAIRER CBC W/DIFF AUTOMATED STAT 05/31/2024 11:57 AM MEAT CUTTING BLOCK REPAIRER MG SCREENING W LISA CORETTA DIGI Routine 05/15/2024 9:54 AM MEAT CUTTING BLOCK REPAIRER Visit for screening mammogram OCCULT BLOOD, FECES Routine 12/18/2018 5 :00 PM CDT Chronic diarrhea of unknown origin from Last 3 Months or Most Recently Relevant to Health Maintenance Results * ECG 12 lead (06/06/2024 7:31 PM MEAT CUTTING BLOCK REPAIRER) Only the most recent of2 resultswithin the time period is included. 06/06/2024 7:31 PM MEAT CUTTING BLOCK REPAIRER Narrative [facility] - 06/07/2024 12:03 PM MEAT CUTTING BLOCK REPAIRER [address] [place] [address] Test Date: 2024-06-06 Pat Name: [facility] Department: 3 Room: EXAM 202 Gender: Female Psychological Operations Officer: : 1960 Requested By: PIOTR VEGA Order Number: [id number] Reading : Tan Hodges Measurements Intervals Weldon Rate: 75 P: 49 TX: 141 QRS: 4 QRSD: 75 T: 48 QT: 398 QTc: 447 Interpretive Statements SINUS RHYTHM LOW QRS VOLTAGE IN PRECORDIAL LEADS CUTTING BLOCK REPAIRER Procedure Note Tan Hodges MD - 06/07/[address] [place] [address] Test Date: 2024-06-06 Pat Name: [facility] Department: 3 Room: EXAM 202 Gender: Female Psychological Operations Officer: : 1960 Requested By: PIOTR VEGA Order Number: [id number] Reading : Tan Hodges Measurements Intervals Weldon Rate: 75 P: 49 TX: 141 QRS: 4 QRSD: 75 T: 48 QT: 398 QTc: 447 Interpretive Statements SINUS RHYTHM LOW QRS VOLTAGE IN PRECORDIAL LEADS CUTTING BLOCK REPAIRER us Piotr Vega MD ECG ORDERABLES Final Result [facility] * CT ABD+PEL W IV CON ONLY (06/06/2024 5:49 PM MEAT CUTTING BLOCK REPAIRER) Anatomical Region Laterality Modality Abdomen Computed Tomogra phy 06/06/2024 6:18 PM MEAT CUTTING BLOCK REPAIRER Impressions 06/06/2024 6:44 PM MEAT CUTTING BLOCK REPAIRER IMPRESSION: 1) No acute inflammatory change, abscess nor ascites. 2. No evidence of mechanical bowel obstruction or perforation. 3. No evidence of ureteral stone nor hydronephrosis on either side. 4. Cholelithiasis, no secondary findings of cholecystitis. No biliary duct dilatation. Ordered By: PIOTR VEGA Interpreted By: Piyush Burgos MD, 06/06/2024 6:18 PM Narrative 06/06/2024 6:44 PM MEAT CUTTING BLOCK REPAIRER [address] [place] [address] Examination: CT ABD+PEL W CON Exam time: [...] Procedure Note Piyush Burgos MD - 06/06/[address] [place] [address] Examination: CT ABD+PEL W CON Exam time: [...] * XR CHEST PORTABLE (06/06/2024 5:11 PM MEAT CUTTING BLOCK REPAIRER) Anatomical Region Laterality Modality Chest Radiographic Meaghan ging 06/06/2024 6:17 PM MEAT CUTTING BLOCK REPAIRER Impressions 06/06/2024 6:18 PM MEAT CUTTING BLOCK REPAIRER IMPRESSION: 1) No radiographic evidence of active disease the chest. Ordered By: PIOTR VEGA Interpreted By: Piyush Burgos MD, 06/06/2024 6:17 PM Narrative 06/06/2024 6:18 PM MEAT CUTTING BLOCK REPAIRER [address] [place] [address] Examination: XR CHEST PORTABLE Exam time: 06/06/2024 4:55 PM Clinical history: Weakness Comparison: None Technique: AP chest Findings: Heart size within normal limits. Pulmonary vasculature unremarkable. No acute focal pulmonary parenchymal opacity. No pleural effusion. No hyperinflation. Procedure Note Piyush Burgos MD - 06/06/[address] [place] [address] Examination: XR CHEST PORTABLE Exam time: 06/06/2024 [...] (ABNORMAL) COMPREHENSIVE METABOLIC PANEL (06/06/2024 4:59 PM MEAT CUTTING BLOCK REPAIRER) Only the most recent of3 resultswithin the time period is included. SODIUM S/P/B 140 136 - 145 MMOL/L 06/06/2024 5:23 PM MEAT CUTTING BLOCK REPAIRER [facility] POTASSIUM S/P/B 3.5 3.5 - 5.1 MMOL/L 06/06/2024 5:23 PM MEAT CUTTING BLOCK REPAIRER [facility] CHLORIDE S/P/B 104 98 - 107 MMOL/L 06/06/2024 5:23 PM [facility] CO2 24.8 21.0 - 32.0 MMOL/L 06/06/2024 5:23 PM MEAT CUTTING BLOCK REPAIRER [facility] GLUCOSE 109(H) 70 - 99 MG/DL 06/06/2024 5:23 PM [facility] Comment: FASTING GLUCOSE 100 TO 125 MG/DL IS CONSISTENT WITH IMPAIRED FASTING GLUCOSE. FASTING GLUCOSE >125 MG/DL IS CONSISTENT WITH DIABETES. RANDOM GLUCOSE >200 MG/DL WITH HYPERGLYCEMIC SYMPTOMS IS CONSISTENT WITH DIABETES. PER ADA GUIDELINES BUN 13 6 - 24 MG/DL 06/06/2024 5:23 PM [facility] CREATININE S/P/B 0.85 0.55 - 1.02 MG/DL 06/06/2024 5:23 PM [facility] CALCIUM S/P/B 8.0(L) 8.4 - 10.5 MG/DL 06/06/2024 5:23 PM [facility] BILIRUBIN TOTAL S/P/B 0.8 0.2 - 1.0 MG/DL 06/06/2024 5:23 PM [facility] Comment: THIS ASSAY IS NOT RECOMMENDED FOR PATIENTS UNDERGOING TREATMENT WITH ELTROMBOPAG DUE TO THE POTENTIAL FOR FALSELY ELEVATED RESULTS. ALKALINE PHOSPHATASE S/P/B 84 50 - 130 U/L 06/06/2024 5:23 PM [facility] AST 41(H) 15 - 37 U/L 06/06/2024 5:23 PM [facility] ALT 59 14 - 59 U/L 06/06/2024 5:23 PM [facility] TOTAL PROTEIN S/P/B 6.5 6.4 - 8.2 G/DL 06/06/2024 5:23 PM [facility] ALBUMIN S/P/B 3.6 3.4 - 5.0 G/DL 06/06/2024 5:23 PM [facility] ANION GAP 11.2 5.0 - 15.0 MMOL/L 06/06/2024 5:23 PM [facility] OSMOLALITY (CALC) 291 MOSM/KG 025 5:23 PM [facility] Comment:REFERENCE RANGE NOT ESTABLISHED GFR ESTIMATE 76(L) >89 ML/MIN/1. 73 M2 06/06/2024 5:23 PM [facility] GFR NOTES GFR REFERENCE S: 06/06/2024 5:23 PM [facility] Comment: THE ESTIMATED GFR IS CALCULATED [...] FAILURE: <15 ml/min/1.73 m2 06/06/2024 4:59 PM MEAT CUTTING BLOCK REPAIRER us Piotr Vega MD LABORATORY Final Result [facility] [address] [place] [address], * (ABNORMAL) CBC W/DIFF AUTOMATED (06/06/2024 4:59 PM MEAT CUTTING BLOCK REPAIRER) Only the most recent of3 resultswithin the time period is included. WBC 7.19 4.00 - 10.80 x10'3/uL 06/06/2024 5:04 PM [facility] RBC 4.45 4.10 - 5.40 x10'6/uL 06/06/2024 5:04 PM [facility] HGB 13.0 12.0 - 16.0 G/DL 06/06/2024 5:04 PM [facility] HCT 40.2 36.0 - 47.0 % 06/06/2024 5:04 PM [facility] MCV 90.3 78.0 - 100.0 FL 06/06/2024 5:04 PM [facility] MCH 29.2 27.0 - 31.0 PG 06/06/2024 5:04 PM [facility] MCHC 32.3(L) 33.0 - 36.0 G/DL 06/06/2024 5:04 PM [facility] RDW 13.7 11.5 - 14.5 % 06/06/2024 5:04 PM [facility] PLT 329 150 - 350 x10'3/uL 06/06/2024 5:04 PM [facility] MPV 9.4 7.4 - 10.4 FL 06/06/2024 5:04 PM [facility] CBC COMMENT NORMAL REFERENCE RANGE NOT ESTABLISHED FOR THE PROPORTIONAL LEUKOCYTE DIFFERENTIAL. 06/06/2024 5:04 PM [facility] NEUTROPHILS % 62.8 % 06/06/2024 5:04 PM [facility] LYMPHOCYTES % 27.3 % 06/06/2024 5:04 PM [facility] MONOCYTES % 8.5 % 06/06/2024 5:04 PM [facility] EOSINOPHILS % 0.7 % 06/06/2024 5:04 PM [facility] BASOPHILS % 0.1 % 06/06/2024 5:04 PM [facility] IMMATURE GRANS % 0.6 % 06/06/19 5:04 PM [facility] NRBC % 0.0 % 06/06/2024 5:04 PM [facility] ABS. NEUTROPHILS 4.52 1.60 - 8.30 x10'3/uL 06/06/2024 5:04 PM [facility] ABS. LYMPHOCYTES 1.96 0.80 - 4.70 x10'3/uL 06/06/2024 5:04 PM [facility] ABS. MONOCYTES 0.61 0.00 - 1.50 x10'3/uL 06/06/2024 5:04 PM [facility] ABS. EOSINOPHILS 0.05 0.00 - 0.40 x10'3/uL 06/06/2024 5:04 PM [facility] ABS. BASOPHILS 0.01 0.00 - 0.20 x10'3/uL 06/06/2024 5:04 PM [facility] ABS. IMMATURE GRANULOCYTES 0.04(H) 0.00 - 0.03 x10'3/uL 06/06/2024 5:04 PM MEAT CUTTING BLOCK REPAIRER [facility] ABS. NUCLEATED RBC'S 0.00 0.00 - 0.01 x10'3/uL 06/06/2024 5:04 PM MEAT CUTTING BLOCK REPAIRER [facility] 06/06/2024 4:59 PM MEAT CUTTING BLOCK REPAIRER us Piotr Vega MD LABORATORY Final Result Performing Organization Address City/[facility]/ZIP Co de Phone Number [facility] [address] [place] [address], [place] [phone] * TROPONIN, QUANT (06/06/2024 4:59 PM MEAT CUTTING BLOCK REPAIRER) Only the most recent of2 resultswithin the time period is included. TROPONIN I HIGH SENSITIVITY 7 0 - 51 ng/L 06/06/2024 5:23 PM MEAT CUTTING BLOCK REPAIRER [facility] 06/06/2024 4:59 PM MEAT CUTTING BLOCK REPAIRER us Piotr Vega MD LABORATORY Final Result Performing Organization Address [facility] Co de Phone Number [facility] [address] [place] [address], [place] [phone] * LIPASE (06/06/2024 4:59 PM MEAT CUTTING BLOCK REPAIRER) LIPASE 34 16 - 77 UNITS/L 06/06/2024 5:23 PM MEAT CUTTING BLOCK REPAIRER [facility] 06/06/2024 4:59 PM MEAT CUTTING BLOCK REPAIRER us Piotr Vega MD LABORATORY Final Result Performing Organization Address [facility] Co de Phone Number [facility] [address] [place], [place] [id number], [place] [phone] * (ABNORMAL) URINALYSIS (06/06/2024 3:58 PM MEAT CUTTING BLOCK REPAIRER) Only the most recent of2 resultswithin the time period is included. COLOR (U) YELLOW 06/06/2024 4:12 PM MEAT CUTTING BLOCK REPAIRER [facility] TRANSPARENCY CLEAR 06/06/2024 4:12 PM MEAT CUTTING BLOCK REPAIRER [facility] SPECIFIC GRAVITY (U) 1.020 1.000 - 1.025 06/06/2024 4:12 PM MEAT CUTTING BLOCK REPAIRER [facility] U PH 8.5(H) 5.0 - 8.0 06/06/2024 4:12 PM MEAT CUTTING BLOCK REPAIRER [facility] LEUKOCYTES (U) NEGATIVE NEGATIVE 06/06/2024 4:12 PM MEAT CUTTING BLOCK REPAIRER [facility] NITRITES NEGATIVE NEGATIVE 06/06/2024 4:12 PM MEAT CUTTING BLOCK REPAIRER [facility] PROTEIN RANDOM (U) 1+(A) NEGATIVE 06/06/2024 4:12 PM MEAT CUTTING BLOCK REPAIRER [facility] GLUCOSE (U) NEGATIVE NEGATIVE 06/06/2024 4:12 PM [facility] KETONES MG/DL (U) 1+(A) NEGATIVE 06/06/2024 4:12 PM [facility] UROBILINOGEN 0.2 <1.0 EU/DL 06/06/2024 4:12 PM MEAT CUTTING BLOCK REPAIRER [facility] BLOOD (U) NEGATIVE NEGATIVE 06/06/2024 4:12 PM MEAT CUTTING BLOCK REPAIRER [facility] WBC/HPF 0-5 0 - 5 /HPF 06/06/2024 4:12 PM [facility] RBC/HPF 0-5 0 - 5 /HPF 06/06/2024 4:12 PM [facility] EPI/LPF RARE /LPF 06/06/2024 4:12 PM [facility] BACTERIA (U) TRACE /HPF 06/06/2024 4:12 PM MEAT CUTTING BLOCK REPAIRER [facility] MUCUS PRESENT 06/06/2024 4:12 PM MEAT CUTTING BLOCK REPAIRER [facility] BILIRUBIN CONF ICTO (U) NEGATIVE NEGATIVE 06/06/2024 4:12 PM [facility] URINE SPECIMEN OBTAINED BY CLEAN CATCH PROCEDURE / Unknown 06/06/2024 3:58 PM MEAT CUTTING BLOCK REPAIRER us Piotr Vega MD URINE ORDERABLES Final Result Performing Organization Address City/[facility]/ZIP Co de Phone Number [facility] [place] [address], * CULTURE URINE (06/06/2024 3:58 PM MEAT CUTTING BLOCK REPAIRER) SPEC DESCRIPTION URINE CLEAN CATCH 06/06/2024 4:01 PM MEAT CUTTING BLOCK REPAIRER [facility] SPECIAL REQUESTS NO SPECIAL REQUEST 06/06/2024 4:01 PM MEAT CUTTING BLOCK REPAIRER [facility] CULTURE RESULT FEW CONTAMINANTS 07/2024 10:34 AM MEAT CUTTING BLOCK REPAIRER [facility] URINE SPECIMEN OBTAINED BY CLEAN CATCH PROCEDURE / Unknown 06/06/2024 3:58 PM MEAT CUTTING BLOCK REPAIRER 06/06/2024 4:02 PM MEAT CUTTING BLOCK REPAIRER Piotr Vega MD MICROBIOLOGY - GENERAL ORDERABLE S Final Result Performing Organization Address [facility] Co de Phone Number [facility] [address] [place] [address], [place] [phone] [facility] [address] [place] [phone], * (ABNORMAL) MAGNESIUM (06/02/2024 3:17 PM MEAT CUTTING BLOCK REPAIRER) MAGNESIUM 2.8(H) 1.8 - 2.4 MG/DL 06/02/2024 3:36 PM MEAT CUTTING BLOCK REPAIRER [facility] 06/02/2024 3:17 PM MEAT CUTTING BLOCK REPAIRER Feliciano Ferrer DO LABORATORY Final Res ult Performing Organization Address City/[facility] Co de Phone Number [facility] [address] [place] [phone], * CT HEAD WO CON (05/31/2024 2:24 PM MEAT CUTTING BLOCK REPAIRER) Anatomical Region Laterality Modality Head Computed Tomogra phy 05/31/2024 2:44 PM MEAT CUTTING BLOCK REPAIRER Impressions 05/31/2024 2:48 PM MEAT CUTTING BLOCK REPAIRER IMPRESSION: 1. No definite CT evidence for acute intracranial abnormality. 2. Chronic senescent changes. Please note that CT has limited sensitivity for the detection of acute ischemia Referred By: Interpreted By: Bryn Orona MD, 05/31/2024 2:44 PM Narrative 05/31/2024 2:48 PM MEAT CUTTING BLOCK REPAIRER [address] [place] [address] EXAMINATION: CT of the head CLINICAL HISTORY: [...] Procedure Note Bryn Orona MD - 05/31/[address] [place] [address] EXAMINATION: CT of the head CLINICAL HISTORY: [...] Bryn Orona MD, 05/31/2024 2:44 PM us eNy Pappas DO CT Final Result * CT FACIAL BONES WO CON (05/31/2024 2:24 PM MEAT CUTTING BLOCK REPAIRER) Anatomical Region Laterality Modality Facial Computed Tomogra phy 05/31/2024 2:45 PM MEAT CUTTING BLOCK REPAIRER Impressions 05/31/2024 2:50 PM MEAT CUTTING BLOCK REPAIRER IMPRESSION: 1) No evidence of acute facial bone fracture. Ordered By: NEY PAPPAS Interpreted By: Piyush Burgos MD, 05/31/2024 2:45 PM Narrative 05/31/2024 2:50 PM MEAT CUTTING BLOCK REPAIRER [address] [place] [address] Examination: CT FACIAL BONES WO CON Exam [...] Procedure Note Piyush Burgos MD - 05/31/[address] [place] [address] Examination: CT FACIAL BONES WO CON Exam [...] SHOULDER LT MIN 2V (05/31/2024 2:23 PM MEAT CUTTING BLOCK REPAIRER) Anatomical Region Laterality Modality Shoulder Radiographic Meaghan ging 05/31/2024 2:39 PM MEAT CUTTING BLOCK REPAIRER Impressions 05/31/2024 2:41 PM MEAT CUTTING BLOCK REPAIRER IMPRESSION: No fracture or dislocation. Referred By: Interpreted By: Emiliano Adam MD, 05/31/2024 2:39 PM Narrative 05/31/2024 2:41 PM MEAT CUTTING BLOCK REPAIRER [address] [place] [address] Examination: XR SHOULDER LT MIN 2V Exam [...] Procedure Note Emiliano Adam MD - 05/31/2024 [place] [address] [facility] [place] [address] Examination: XR SHOULDER LT MIN 2V Exam [...] INFLUENZA A & B (05/31/2024 12:07 PM MEAT CUTTING BLOCK REPAIRER) SPECIMEN TYPE (INFLUENZA) NASOPHARYNGEAL SWAB 05/31/2024 12:09 PM MEAT CUTTING BLOCK REPAIRER [facility] INFLUENZA A POSITIVE(A) NEGATIVE 05/31/2024 12:57 PM MEAT CUTTING BLOCK REPAIRER [facility] Comment: CALLED TO ROSEMARY HAWKINS [id number] BY AA READ BACK AND VERIFIED INFLUENZA B NEGATIVE NEGATIVE 05/31/2024 12:57 PM MEAT CUTTING BLOCK REPAIRER [facility] NASAL NASOPHARYNGEAL SWAB / Unknown 05/31/2024 12:07 PM MEAT CUTTING BLOCK REPAIRER us Ney Pappas DO MICROBIOLOGY - GENERAL ORDER HILDA Final Result [facility] [address] [place] [address], * MG SCREENING W LISA CORETTA DIGI (05/15/2024 9:54 AM MEAT CUTTING BLOCK REPAIRER) Anatomical Region Laterality Modality Breast Bilateral Mammography 05/15/2024 10:0 8 AM MEAT CUTTING BLOCK REPAIRER Impressions 05/15/2024 10:09 AM MEAT CUTTING BLOCK REPAIRER IMPRESSION: No suspicious change since the previous exams. Recommendation: 1: Routine Screening Bilateral in 1 Year Assessment: ACR BI-RADS 2 - BENIGN FINDING(S) Ordered By: MELBA FREIRE Interpreted By: Merritt Stephens MD, 05/15/2024 10:08 AM Narrative 05/15/2024 10:09 AM MEAT CUTTING BLOCK REPAIRER [place] [id number] [facility] [place] [address] Examination: Digital screening mammogram with CAD. Clinical [...] FECAL NEGATIVE NEGATIVE 12/18/2018 6:09 PM CDT [facility] STOOL SPECIMEN / Unknown 12/18/2018 5:00 PM CDT Harika WRIGHTNP BODY FLUIDS AND STOOLS O RDERABLES Final Result [facility] [address] [place] [address], from Last 3 Months or Most Recently Relevant to Health Maintenance Insurance [facility] MEDICARE [facility] Care Teams Inventory Management Specialist Relationship Specialty Start Date End Date Melba Freire MD [address] [place] [address] [place] [address] PCP - General FAMILY PRACTICE 05/17/18 Phi Lopez DO [address] [place] [place] [address] SURGERY 12/10/23
--- OUTSIDE RECORDS SUMMARY | 2024-06-26 13:23 | XMS_ITS | Patient Health Summary ---
Author Organization [facility] Address [address] [place] [address] Care Team Providers Care Ophthalmologist Name Role Phone Unavailable Primary Care Provider Unavailabl e Note from [facility],non-owned Affiliates and Associated Physician Practices is amultiple site organization consisting of ambulatory clinics and hospital sitesin [place], [place], [place] and [place]. This disclosure is being madepursuant to the Care Everywhere program and may not contain all information available regarding this patient. Last updated 18.[facility] [employer] Allergies * Levofloxacin(Other) * Lisinopril(Cough) * Metformin(Nausea [...]
--- OUTSIDE RECORDS SUMMARY | 2024-06-26 13:23 | XMS_ITS | Referral Summary ---
Author Organization [facility] [employer] Address [facility] [place] [address] Care Team Providers Care Security Professional Name Role Phone Unavailable Primary Care Provider Unavailabl e Source Comments [facility],non-owned Affiliates and Associated Physician Practices is amultiple site organization consisting of ambulatory clinics and hospital sitesin [place], [place] and [place]. This disclosure is being madepursuant to the Care Everywhere program and may not contain all information available regarding this patient. Last updated 18.[facility] [employer] Allergies Active Allergy Reactions Criticality Noted Date [...]
[2024-06-26 14:01] LABS: Basophils Percent Auto 0.4 % (0.2-1.2); Eosinophils Absolute Auto 0.1 K/mm3 (0-0.3); Eosinophils Percent Auto 2.5 % (0-4.4); Hematocrit 41.5 % (37.0-47.0); Hemoglobin 13.1 g/dL (12.0-15.0); Immature Granulocyte Absolute 0.01 K/mm3 (0.00-0.031); Immature Granulocyte Percent A 0.2 % (0-0.5); Lymphocytes Absolute Auto 1.97 K/mm3 (0.9-3.2); Lymphocytes Percent Auto 34.9 % (18.3-44.2); Mean Corpuscular HGB Conc 31.6 g/dl (32-36); Mean Corpuscular Hemoglobin 29.4 pg (26-34); Mean Corpuscular Volume 93.3 fl (80-100); Mean Platelet Volume 10.6 fl (7.4-10.4); Monocytes Absolute Auto 0.4 K/mm3 (0.1-0.6); Monocytes Percent Auto 7.6 % (2.6-8.5); Neutrophils Absolute Auto 3.1 K/mm3 (1.3-6.7); Neutrophils Percent Auto 54.4 % (45.5-73.1); Platelet Count Result 283 k/mm3 (150-375); Red Blood Count 4.45 M/mm3 (4.2-5.4); White Blood Count 5.7 K/mm3 (4.5-10.0)
== END 2024-06-26 13:06 | disposition home or self-care (01) ==
PROVIDERS: PCP Family Medicine; Visit Provider Obstetrics & Gynecology
DX: N80.9 Endometriosis, unspecified (principal); I10 Essential (primary) hypertension; M51.34 Other intervertebral disc degeneration, thoracic region
CPT/HCPCS: 36415; 85025; 86850; 86900; 86901; 93005

== ENCOUNTER 2024-06-27 13:18 | Outpatient (NON) | payer MEDICARE, SELFPAY ==
--- OUTSIDE RECORDS SUMMARY | 2024-06-27 13:22 | XMS_ITS | Clinical Summary ---
Author Organization [facility] Address [facility] [place] [address] Care Team Providers Care Cloth Handler Name Role Phone Melba Freire MD Primary Care Provider Phi Lopez DO Unavailable Allergies Active Allergy [...] 3 05/15/19 19 Active vitamin D2, ergocalciferol, 82489 UNITS capsule Take 1 capsule (1.25 mg [...] 03/16/2017 Cholelithiasis 06/04/2015 Allergic rhinitis 10/17/2013 Asthma ([facility]) 10/17/2013 Cough 10/17/2013 Esophageal reflux 10/17/2013 Sebaceous [...] Department Care Team Description 06/06/2024 3:37 PM HEALTH RECORD TECHNICIAN - 06/06/2024 8:00 PM [facility] Emergency [facility] [address] [place] [address] [place] [address] Piotr Vega MD Generalized Weakness Discharge Disposition: Home or Self Care (Routine Discharge) 06/06/2024 Travel 06/02/2024 2:48 PM HEALTH RECORD TECHNICIAN - 06/02/2024 4:50 PM [facility] Emergency [facility] [address] [place] [address] [place] [address] Feliciano Ferrer, DO Generalized Weakness Discharge Disposition: Home or Self Care (Routine Discharge) 06/02/2024 Travel 05/31/2024 11:20 AM HEALTH RECORD TECHNICIAN - 05/31/2024 3:18 PM [facility] Emergency [facility] [address] [place] [address] [place] [address] Ney Pappas, DO Near Syncope Discharge Disposition: Home or Self Care (Routine Discharge) 05/31/2024 Travel 05/15/2024 8:27 AM HEALTH RECORD TECHNICIAN - 05/15/2024 11:59 PM [facility] Hospital Encounter [facility] [address] [place] [address] [place] [address] Melba Freire MD Discharge Disposition: Home or Self Care (Routine Discharge) 05/15/2024 8:25 AM HEALTH RECORD TECHNICIAN - 05/15/2024 8:26 AM [facility] Hospital Encounter [facility] [address] [place] [address] [place] [address] Melba Freire MD Injection Discharge Disposition: Home or Self Care (Routine Discharge) 05/15/2024 Travel from Last 3 Months Immunizations Name Administration Dates Next Due Influenza (Generic) 02/04/2013 Influenza Adult (Generic) 02/22/2018,,02/12/2015,01/31/20 11,2010 Pneumococcal (Prevnar 13) 05/07/2014 Tdap (Generic) 06/22/2015 Zoster (Zostavax) 24060 Unt/0.65Ml 06/22/2015 Family History Medical History Relation [...] Sex Assigned at Female 05/31/2024 11:24 AM HEALTH RECORD TECHNICIAN Legal Sex Female 5:20 PM CDT Gender Identity Not on file Sexual Orientation Not on file Last Filed Vital Signs Vital Sign Reading Time Taken Comments Blood Pressure 150/96 06/06/2024 7:00 PM HEALTH RECORD TECHNICIAN Pulse 94 06/06/2024 3:55 PM HEALTH RECORD TECHNICIAN Temperature 36.8 C (98.2 F) 06/06/2024 3:55 PM HEALTH RECORD TECHNICIAN Respiratory Rate 16 06/06/2024 3:55 PM HEALTH RECORD TECHNICIAN Oxygen Saturation 100% 06/06/2024 7:00 PM HEALTH RECORD TECHNICIAN Inhaled Oxygen Concentration - - Weight 79.4 kg (175 lb) 06/06/2024 3:55 PM HEALTH RECORD TECHNICIAN Height 162.6 cm (5' 4 ) 06/06/2024 3:55 PM HEALTH RECORD TECHNICIAN Body Mass Index 30.04 06/06/2024 3:55 PM HEALTH RECORD TECHNICIAN Plan of Treatment Upcoming Encounters Date Type Department Care Team (Late st Contact Info) Description 11/20/2024 1:00 PM CDT Office Visit [facility] eld [address] [place] [address] 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, MACHINE TECH [address] [facility] [address] [address] Health Maintenance Due Date Last Done Comments [...] Comments ECG 12-LEAD Routine 06/06/2024 7:31 PM [address] RECORD [address]IAN CT ABD+PEL W CON STAT 06/06/2024 5:49 PM HEALTH RECORD TECHNICIAN XR CHEST PORTABLE STAT 06/06/2024 5:1 1 PM HEALTH RECORD TECHNICIAN LIPASE STAT 06/06/2024 4:59 PM HEALTH RECORD TECHNICIAN TROPONIN, QUANT STAT 06/06/2024 4:59 PM HEALTH RECORD TECHNICIAN COMPREHENSIVE METABOLIC PANEL STAT 06/06/2024 4:59 PM HEALTH RECORD TECHNICIAN CBC W/DIFF AUTOMATED STAT 06/06/2024 4:59 PM HEALTH RECORD TECHNICIAN URINE BACTERIA CULTURE STAT 3:58 PM HEALTH RECORD TECHNICIAN HC URINALYSIS AUTO W/MICRO STAT 06/06/2024 3:58 PM HEALTH RECORD TECHNICIAN MAGNESIUM STAT 06/02/2024 3:17 PM HEALTH RECORD TECHNICIAN COMPREHENSIVE METABOLIC PANEL STAT 06/02/2024 3:17 PM HEALTH RECORD TECHNICIAN CBC W/DIFF AUTOMATED STAT 06/02/2024 3:17 [address] FACIAL BONES WO CON STAT 2:24 PM HE[address] RECORD TECH[address]ICIAN CT HEAD WO CON STAT 05/31/2024 2:24 PM HEALTH RECORD TECHNICIAN XR SHOULDER LT MIN 2V STAT 05/31/2024 2:23 PM HEALTH RECORD TECHNICIAN HC URINALYSIS AUTO W/MICRO STAT 05/31/2024 12:47 PM HEALTH RECORD TECHNICIAN INFLUENZA A & B STAT 05/31/2024 12:07 PM HEALTH RECORD TECHNICIAN ECG 12-LEAD Routine 05/31/2024 12:04 PM HEALTH RECORD TECHNICIAN TROPONIN, QUANT STAT 05/31/2024 11:57 AM HEALTH RECORD TECHNICIAN COMPREHENSIVE METABOLIC PANEL STAT 05/31/2024 11:57 AM HEALTH RECORD TECHNICIAN CBC W/DIFF AUTOMATED STAT 05/31/2024 11:57 AM HEALTH RECORD TECHNICIAN MG SCREENING W LISA CORETTA DIGI Routine 05/15/2024 9:54 AM HEALTH RECORD TECHNICIAN Visit for screening mammogram OCCULT BLOOD, FECES Routine 12/18/2018 5 :00 PM CDT Chronic diarrhea of unknown origin from Last 3 Months or Most Recently Relevant to Health Maintenance Results * ECG 12 lead (06/06/2024 7:31 PM HEALTH RECORD TECHNICIAN) Only the most recent of2 resultswithin the time period is included. 06/06/2024 7:31 PM HEALTH RECORD TECHNICIAN Narrative [facility] - 06/07/2024 12:03 PM HEALTH RECORD TECHNICIAN [address] 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1960 Requested By: PIOTR VEGA Order Number: [id number] Reading : Tan Hodges Measurements Intervals [place] Rate: 75 P: 49 CO: 141 QRS: 4 QRSD: 75 T: 48 QT: 398 QTc: 447 Interpretive Statements SINUS RHYTHM LOW QRS VOLTAGE IN PRECORDIAL LEADS TH RECORD TECHNICIAN us Piotr Vega MD ECG ORDERABLES Final Result [facility] * CT ABD+PEL W IV CON ONLY (06/06/2024 5:49 PM HEALTH RECORD TECHNICIAN) Anatomical Region Laterality Modality Abdomen Computed Tomogra phy 06/06/2024 6:18 PM HEALTH RECORD TECHNICIAN Impressions 06/06/2024 6:44 PM HEALTH RECORD TECHNICIAN IMPRESSION: 1) No acute inflammatory change, abscess nor ascites. 2. No evidence of mechanical bowel obstruction or perforation. 3. No evidence of ureteral stone nor hydronephrosis on either side. 4. Cholelithiasis, no secondary findings of cholecystitis. No biliary duct dilatation. Ordered By: PIOTR VEGA Interpreted By: Piyush Burgos MD, 06/06/2024 6:18 PM Narrative 06/06/2024 6:44 PM HEALTH RECORD TECHNICIAN [address] [place] [address] Examination: CT ABD+PEL W CON Exam time: [...] Procedure Note Piyush Burgos MD - 06/06/[address] [place] [address] Examination: CT ABD+PEL W CON Exam time: [...] * XR CHEST PORTABLE (06/06/2024 5:11 PM HEALTH RECORD TECHNICIAN) Anatomical Region Laterality Modality Chest Radiographic Meaghan ging 06/06/2024 6:17 PM HEALTH RECORD TECHNICIAN Impressions 06/06/2024 6:18 PM HEALTH RECORD TECHNICIAN IMPRESSION: 1) No radiographic evidence of active disease the chest. Ordered By: PIOTR VEGA Interpreted By: Piyush Burgos MD, 06/06/2024 6:17 PM Narrative 06/06/2024 6:18 PM HEALTH RECORD TECHNICIAN [address] [place] [address] Examination: XR CHEST PORTABLE Exam time: 06/06/2024 4:55 PM Clinical history: Weakness Comparison: None Technique: AP chest Findings: Heart size within normal limits. Pulmonary vasculature unremarkable. No acute focal pulmonary parenchymal opacity. No pleural effusion. No hyperinflation. Procedure Note Piyush Burgos MD - 06/06/[address] [place] [address] Examination: XR CHEST PORTABLE Exam time: 06/06/2024 [...] (ABNORMAL) COMPREHENSIVE METABOLIC PANEL (06/06/2024 4:59 PM HEALTH RECORD TECHNICIAN) Only the most recent of3 resultswithin the time period is included. SODIUM S/P/B 140 136 - 145 MMOL/L 06/06/2024 5:23 PM HEALTH RECORD TECHNICIAN [facility] POTASSIUM S/P/B 3.5 3.5 - 5.1 MMOL/L 06/06/2024 5:23 PM HEALTH RECORD TECHNICIAN [facility] CHLORIDE S/P/B 104 98 - 107 MMOL/L 06/06/2024 5:23 PM [facility] CO2 24.8 21.0 - 32.0 MMOL/L 06/06/2024 5:23 PM HEALTH RECORD TECHNICIAN [facility] GLUCOSE 109(H) 70 - 99 MG/DL 06/06/2024 5:23 PM [facility] Comment: FASTING GLUCOSE 100 TO 125 MG/DL IS CONSISTENT WITH IMPAIRED FASTING GLUCOSE. FASTING GLUCOSE >125 MG/DL IS CONSISTENT WITH DIABETES. RANDOM GLUCOSE >200 MG/DL WITH HYPERGLYCEMIC SYMPTOMS IS CONSISTENT WITH DIABETES. PER ADA GUIDELINES BUN 13 6 - 24 MG/DL 06/06/2024 5:23 PM [facility] CREATININE S/P/B 0.85 0.55 - 1.02 MG/DL 06/06/2024 5:23 PM [facility] CALCIUM S/P/B 8.0(L) 8.4 - 10.5 MG/DL 06/06/2024 5:23 PM [facility] BILIRUBIN TOTAL S/P/B 0.8 0.2 - 1.0 MG/DL 06/06/2024 5:23 PM [facility] Comment: THIS ASSAY IS NOT RECOMMENDED FOR PATIENTS UNDERGOING TREATMENT WITH ELTROMBOPAG DUE TO THE POTENTIAL FOR FALSELY ELEVATED RESULTS. ALKALINE PHOSPHATASE S/P/B 84 50 - 130 U/L 06/06/2024 5:23 PM [facility] AST 41(H) 15 - 37 U/L 06/06/2024 5:23 PM [facility] ALT 59 14 - 59 U/L 06/06/2024 5:23 PM [facility] TOTAL PROTEIN S/P/B 6.5 6.4 - 8.2 G/DL 06/06/2024 5:23 PM [facility] ALBUMIN S/P/B 3.6 3.4 - 5.0 G/DL 06/06/2024 5:23 PM [facility] ANION GAP 11.2 5.0 - 15.0 MMOL/L 06/06/2024 5:23 PM [facility] OSMOLALITY (CALC) 291 MOSM/KG 025 5:23 PM [facility] Comment:REFERENCE RANGE NOT ESTABLISHED GFR ESTIMATE 76(L) >89 ML/MIN/1. 73 M2 06/06/2024 5:23 PM [facility] GFR NOTES GFR REFERENCE S: 06/06/2024 5:23 PM [facility] Comment: THE ESTIMATED GFR IS CALCULATED [...] FAILURE: <15 ml/min/1.73 m2 06/06/2024 4:59 PM HEALTH RECORD TECHNICIAN us Piotr Vega MD LABORATORY Final Result [facility] [address] [place] [address], * (ABNORMAL) CBC W/DIFF AUTOMATED (06/06/2024 4:59 PM HEALTH RECORD TECHNICIAN) Only the most recent of3 resultswithin the time period is included. WBC 7.19 4.00 - 10.80 x10'3/uL 06/06/2024 5:04 PM [facility] RBC 4.45 4.10 - 5.40 x10'6/uL 06/06/2024 5:04 PM [facility] HGB 13.0 12.0 - 16.0 G/DL 06/06/2024 5:04 PM [facility] HCT 40.2 36.0 - 47.0 % 06/06/2024 5:04 PM [facility] MCV 90.3 78.0 - 100.0 FL 06/06/2024 5:04 PM [facility] MCH 29.2 27.0 - 31.0 PG 06/06/2024 5:04 PM [facility] MCHC 32.3(L) 33.0 - 36.0 G/DL 06/06/2024 5:04 PM [facility] RDW 13.7 11.5 - 14.5 % 06/06/2024 5:04 PM [facility] PLT 329 150 - 350 x10'3/uL 06/06/2024 5:04 PM [facility] MPV 9.4 7.4 - 10.4 FL 06/06/2024 5:04 PM [facility] CBC COMMENT NORMAL REFERENCE RANGE NOT ESTABLISHED FOR THE PROPORTIONAL LEUKOCYTE DIFFERENTIAL. 06/06/2024 5:04 PM [facility] NEUTROPHILS % 62.8 % 06/06/2024 5:04 PM [facility] LYMPHOCYTES % 27.3 % 06/06/2024 5:04 PM [facility] MONOCYTES % 8.5 % 06/06/2024 5:04 PM [facility] EOSINOPHILS % 0.7 % 06/06/2024 5:04 PM [facility] BASOPHILS % 0.1 % 06/06/2024 5:04 PM [facility] IMMATURE GRANS % 0.6 % 06/06/19 5:04 PM [facility] NRBC % 0.0 % 06/06/2024 5:04 PM [facility] ABS. NEUTROPHILS 4.52 1.60 - 8.30 x10'3/uL 06/06/2024 5:04 PM [facility] ABS. LYMPHOCYTES 1.96 0.80 - 4.70 x10'3/uL 06/06/2024 5:04 PM [facility] ABS. MONOCYTES 0.61 0.00 - 1.50 x10'3/uL 06/06/2024 5:04 PM [facility] ABS. EOSINOPHILS 0.05 0.00 - 0.40 x10'3/uL 06/06/2024 5:04 PM [facility] ABS. BASOPHILS 0.01 0.00 - 0.20 x10'3/uL 06/06/2024 5:04 PM [facility] ABS. IMMATURE GRANULOCYTES 0.04(H) 0.00 - 0.03 x10'3/uL 06/06/2024 5:04 PM HEALTH RECORD TECHNICIAN [facility] ABS. NUCLEATED RBC'S 0.00 0.00 - 0.01 x10'3/uL 06/06/2024 5:04 PM HEALTH RECORD TECHNICIAN [facility] 06/06/2024 4:59 PM HEALTH RECORD TECHNICIAN us Piotr Vega MD LABORATORY Final Result Performing Organization Address City/[facility]/ZIP Co de Phone Number [facility] [address] [place] [address], [place] [phone] * TROPONIN, QUANT (06/06/2024 4:59 PM HEALTH RECORD TECHNICIAN) Only the most recent of2 resultswithin the time period is included. TROPONIN I HIGH SENSITIVITY 7 0 - 51 ng/L 06/06/2024 5:23 PM HEALTH RECORD TECHNICIAN [facility] 06/06/2024 4:59 PM HEALTH RECORD TECHNICIAN us Piotr Vega MD LABORATORY Final Result Performing Organization Address [facility] Co de Phone Number [facility] [address] [place] [address], [place] [phone] * LIPASE (06/06/2024 4:59 PM HEALTH RECORD TECHNICIAN) LIPASE 34 16 - 77 UNITS/L 06/06/2024 5:23 PM HEALTH RECORD TECHNICIAN [facility] 06/06/2024 4:59 PM HEALTH RECORD TECHNICIAN us Piotr Vega MD LABORATORY Final Result Performing Organization Address [facility] Co de Phone Number [facility] [address] [place], [place] [address], [place] [phone] * (ABNORMAL) URINALYSIS (06/06/2024 3:58 PM HEALTH RECORD TECHNICIAN) Only the most recent of2 resultswithin the time period is included. COLOR (U) YELLOW 06/06/2024 4:12 PM HEALTH RECORD TECHNICIAN [facility] TRANSPARENCY CLEAR 06/06/2024 4:12 PM HEALTH RECORD TECHNICIAN [facility] SPECIFIC GRAVITY (U) 1.020 1.000 - 1.025 06/06/2024 4:12 PM HEALTH RECORD TECHNICIAN [facility] U PH 8.5(H) 5.0 - 8.0 06/06/2024 4:12 PM HEALTH RECORD TECHNICIAN [facility] LEUKOCYTES (U) NEGATIVE NEGATIVE 06/06/2024 4:12 PM HEALTH RECORD TECHNICIAN [facility] NITRITES NEGATIVE NEGATIVE 06/06/2024 4:12 PM HEALTH RECORD TECHNICIAN [facility] PROTEIN RANDOM (U) 1+(A) NEGATIVE 06/06/2024 4:12 PM HEALTH RECORD TECHNICIAN [facility] GLUCOSE (U) NEGATIVE NEGATIVE 06/06/2024 4:12 PM [facility] KETONES MG/DL (U) 1+(A) NEGATIVE 06/06/2024 4:12 PM [facility] UROBILINOGEN 0.2 <1.0 EU/DL 06/06/2024 4:12 PM HEALTH RECORD TECHNICIAN [facility] BLOOD (U) NEGATIVE NEGATIVE 06/06/2024 4:12 PM HEALTH RECORD TECHNICIAN [facility] WBC/HPF 0-5 0 - 5 /HPF 06/06/2024 4:12 PM [facility] RBC/HPF 0-5 0 - 5 /HPF 06/06/2024 4:12 PM [facility] EPI/LPF RARE /LPF 06/06/2024 4:12 PM [facility] BACTERIA (U) TRACE /HPF 06/06/2024 4:12 PM HEALTH RECORD TECHNICIAN [facility] MUCUS PRESENT 06/06/2024 4:12 PM HEALTH RECORD TECHNICIAN [facility] BILIRUBIN CONF ICTO (U) NEGATIVE NEGATIVE 06/06/2024 4:12 PM [facility] URINE SPECIMEN OBTAINED BY CLEAN CATCH PROCEDURE / Unknown 06/06/2024 3:58 PM HEALTH RECORD TECHNICIAN us Piotr Vega MD URINE ORDERABLES Final Result Performing Organization Address City/[facility]/ZIP Co de Phone Number [facility] [place] [address], * CULTURE URINE (06/06/2024 3:58 PM HEALTH RECORD TECHNICIAN) SPEC DESCRIPTION URINE CLEAN CATCH 06/06/2024 4:01 PM HEALTH RECORD TECHNICIAN [facility] SPECIAL REQUESTS NO SPECIAL REQUEST 06/06/2024 4:01 PM HEALTH RECORD TECHNICIAN [facility] CULTURE RESULT FEW CONTAMINANTS 07/2024 10:34 AM HEALTH RECORD TECHNICIAN [facility] URINE SPECIMEN OBTAINED BY CLEAN CATCH PROCEDURE / Unknown 06/06/2024 3:58 PM HEALTH RECORD TECHNICIAN 06/06/2024 4:02 PM HEALTH RECORD TECHNICIAN Piotr Vega MD MICROBIOLOGY - GENERAL ORDERABLE S Final Result Performing Organization Address [facility] Co de Phone Number [facility] [address] [place] [address], [place] [phone] [facility] [address] [place] [address], * (ABNORMAL) MAGNESIUM (06/02/2024 3:17 PM HEALTH RECORD TECHNICIAN) MAGNESIUM 2.8(H) 1.8 - 2.4 MG/DL 06/02/2024 3:36 PM HEALTH RECORD TECHNICIAN [facility] 06/02/2024 3:17 PM HEALTH RECORD TECHNICIAN Feliciano Ferrer DO LABORATORY Final Res ult Performing Organization Address City/[facility] Co de Phone Number [facility] [address] [place] [phone], * CT HEAD WO CON (05/31/2024 2:24 PM HEALTH RECORD TECHNICIAN) Anatomical Region Laterality Modality Head Computed Tomogra phy 05/31/2024 2:44 PM HEALTH RECORD TECHNICIAN Impressions 05/31/2024 2:48 PM HEALTH RECORD TECHNICIAN IMPRESSION: 1. No definite CT evidence for acute intracranial abnormality. 2. Chronic senescent changes. Please note that CT has limited sensitivity for the detection of acute ischemia Referred By: Interpreted By: Bryn Orona MD, 05/31/2024 2:44 PM Narrative 05/31/2024 2:48 PM HEALTH RECORD TECHNICIAN [address] [place] [address] EXAMINATION: CT of the head CLINICAL HISTORY: [...] Procedure Note Bryn Orona MD - 05/31/[address] [place] [address] EXAMINATION: CT of the head CLINICAL HISTORY: [...] FACIAL BONES WO CON (05/31/2024 2:24 PM HEALTH RECORD TECHNICIAN) Anatomical Region Laterality Modality Facial Computed Tomogra phy 05/31/2024 2:45 PM HEALTH RECORD TECHNICIAN Impressions 05/31/2024 2:50 PM HEALTH RECORD TECHNICIAN IMPRESSION: 1) No evidence of acute facial bone fracture. Ordered By: NEY PAPPAS Interpreted By: Piyush Burgos MD, 05/31/2024 2:45 PM Narrative 05/31/2024 2:50 PM HEALTH RECORD TECHNICIAN [address] [place] [address] Examination: CT FACIAL BONES WO CON Exam [...] Procedure Note Piyush Burgos MD - 05/31/[address] [place] [address] Examination: CT FACIAL BONES WO CON Exam [...] SHOULDER LT MIN 2V (05/31/2024 2:23 PM HEALTH RECORD TECHNICIAN) Anatomical Region Laterality Modality Shoulder Radiographic Meaghan ging 05/31/2024 2:39 PM HEALTH RECORD TECHNICIAN Impressions 05/31/2024 2:41 PM HEALTH RECORD TECHNICIAN IMPRESSION: No fracture or dislocation. Referred By: Interpreted By: Emiliano Adam MD, 05/31/2024 2:39 PM Narrative 05/31/2024 2:41 PM HEALTH RECORD TECHNICIAN [address] [place] [address] Examination: XR SHOULDER LT MIN 2V Exam [...] Procedure Note Emiliano Adam MD - 05/31/2024 [place] [address] [facility] [place] [address] Examination: XR SHOULDER LT MIN 2V Exam [...] INFLUENZA A & B (05/31/2024 12:07 PM HEALTH RECORD TECHNICIAN) SPECIMEN TYPE (INFLUENZA) NASOPHARYNGEAL SWAB 05/31/2024 12:09 PM HEALTH RECORD TECHNICIAN [facility] INFLUENZA A POSITIVE(A) NEGATIVE 05/31/2024 12:57 PM HEALTH RECORD TECHNICIAN [facility] Comment: CALLED TO ROSEMARY HAWKINS [id number] BY AA READ BACK AND VERIFIED INFLUENZA B NEGATIVE NEGATIVE 05/31/2024 12:57 PM HEALTH RECORD TECHNICIAN [facility] NASAL NASOPHARYNGEAL SWAB / Unknown 05/31/2024 12:07 PM HEALTH RECORD TECHNICIAN us Ney Pappas DO MICROBIOLOGY - GENERAL ORDER HILDA Final Result [facility] [address] [place] [address], * MG SCREENING W LISA CORETTA DIGI (05/15/2024 9:54 AM HEALTH RECORD TECHNICIAN) Anatomical Region Laterality Modality Breast Bilateral Mammography 05/15/2024 10:0 8 AM HEALTH RECORD TECHNICIAN Impressions 05/15/2024 10:09 AM HEALTH RECORD TECHNICIAN IMPRESSION: No suspicious change since the previous exams. Recommendation: 1: Routine Screening Bilateral in 1 Year Assessment: ACR BI-RADS 2 - BENIGN FINDING(S) Ordered By: MELBA FREIRE Interpreted By: Merritt Stephens MD, 05/15/2024 10:08 AM Narrative 05/15/2024 10:09 AM HEALTH RECORD TECHNICIAN [place] [id number] [facility] [place] [address] Examination: Digital screening mammogram with CAD. Clinical [...] FECAL NEGATIVE NEGATIVE 12/18/2018 6:09 PM CDT [facility] STOOL SPECIMEN / Unknown 12/18/2018 5:00 PM CDT Harika WRIGHTNP BODY FLUIDS AND STOOLS O RDERABLES Final Result [facility] [address] [place] [address], from Last 3 Months or Most Recently Relevant to Health Maintenance Insurance [facility] MEDICARE [facility] Care Teams Cloth Handler Relationship Specialty Start Date End Date Melba Freire MD [address] [place] [address] [place] [address] PCP - General FAMILY PRACTICE 05/17/18 Phi Lopez DO [address] [place] [address] SURGERY 12/10/23
--- OUTSIDE RECORDS SUMMARY | 2024-06-27 13:22 | XMS_ITS | Clinical Summary ---
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
--- OUTSIDE RECORDS SUMMARY | 2024-06-27 13:22 | XMS_ITS | Encounter Summary ---
Author Organization [facility] Address [facility] [place] [address] Care Team Providers Care Mill Hand Name Role Phone Sterling Freire MD Primary Care Provider Phi Lopez DO Unavailable [phone] Phi Lopez DO Unavailable [phone] Encounter Details Date Type Department Care Team (Late Contact Info) Description 02/21/2019 Hospital Orders Only [facility] [address] [place] [address] Sterling Freire MD [address] [place] [address] Social History Tobacco Use Types [...] Sex Assigned at Female 05/31/2024 11:24 AM DICTAPHONE TECHNICIAN Legal Sex Female 5:20 PM CDT Gender Identity Not on file Sexual Orientation Not on file documented as of this encounter Plan of Treatment Upcoming Encounters Date Type Department Care Team (Late Contact Info) Description 11/20/2024 1:00 PM CDT Office Visit [facility] [address] [place] [address] 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, CLASSIFICATION ANALYST [address] [facility] [address] [place] [address] documented as of this encounter Visit Diagnoses Not on filedocumented in this encounter Additional Health Concerns Infection Onset Date Last Indicated Resolved Time COVID-19 Rule Out 07/02/2021 07/02/2021 07/02/2021 6:39 PM DICTAPHONE TECHNICIAN COVID-19 Rule Out 12/21/2022 12/21/2022 12/21/2022 11:19 AM CDT COVID-19 Rule Out 08/29/2023 08/29/2023 08/29/2023 12:10 PM CDT COVID-19 Rule Out 09/02/2023 09/02/2023 09/02/2023 10:10 PM CDT Influenza - Seasonal 05/31/2024 05/31/2024 025 12:32 AM DICTAPHONE TECHNICIAN documented as of this encounter Care Teams Mill Hand Relationship Specialty Start Date End Date Sterling Freire MD [address] [facility] [place] [address] PCP - General FAMILY PRACTICE 05/17/18 Phi Lopez DO [address] [place] [address] SURGERY 12/10/23 12/10/23 Phi Lopez DO [address] [place] [address] SURGERY 12/10/23 documented as of this encounter
--- OUTSIDE RECORDS SUMMARY | 2024-06-27 13:22 | XMS_ITS | Patient Health Summary ---
Author Organization [facility] Address [address] [place] [address] Care Team Providers Care Stone Gluer Name Role Phone Unavailable Primary Care Provider Unavailabl e Note from [facility],non-owned Affiliates and Associated Physician Practices is amultiple site organization consisting of ambulatory clinics and hospital sitesin [place], [place], [place] and [place]. This disclosure is being madepursuant to the Care Everywhere program and may not contain all information available regarding this patient. Last updated 18.[facility] Allergies * Levofloxacin(Other) * Lisinopril(Cough) * Metformin(Nausea [...]
--- OUTSIDE RECORDS SUMMARY | 2024-06-27 13:22 | XMS_ITS | Data Portability ---
Author Organization [facility], [address] [place] [address] [place]rology ([place]) Address [address] [place] [address] Care Team Providers Care Transfer Engineer Name Role Phone EMI DILLARD Primary Care Provider [facility] Referring Provider [phone] Assessment No assessment recorded. Plan of Treatment Reminders Order Date Submit Date Provider Last Modified By Organization Details Last Modified Time Details Appointments New Patient Visit 15.NEW 2024 09:00A M Mia Moon Not available Not available Not available Establish ed Patient 10.EST 2024 11:20A M Dr. Taty Chairez Not available Not available Not available Lab None recorded. Referral None recorded. Procedures None recorded. Surgeries None recorded. Imaging None recorded. Medication Orders None recorded. Patient TargetsNo targets recorded. Patient InstructionsNo instructions recorded. Reason for Referral None Reported. Problems Name Problem SNOMED Code Status Onset Date Resolution Date Notes Provider Name and Address Organization Details Recorded Time Lentiginos is 315872061 Active 2023 Joanna Thayer [facility] 4 12:19:44 Seborrheic keratosis 980581868 Active 2023 Joanna Thayer [facility] 4 12:19:49 Multiple benign melanocyti c nevi 381381601 Active 2023 Joanna Thayer [facility] 4 12:19:53 Open comedone 834618768 Active 2023 Joanna Leka [facility] 4 12:24:52 Rhytide of forehead 996356733 Active 2023 Joanna Thayer [facility] 4 12:25:24 Wrinkled skin 437665528 Active 2023 Joanna Thayer [facility] 4 12:25:34 Pain of left shoulder joint 417318529199 95753 Active 2024 Yajaira Last [facility] 5 14:57:49 Problem Notes None recorded. Procedures Surgical History Date Name Laterality Status Provider Name and Address Organization Details Recorded Time Colonoscopy with biopsy completed Not Available Health Note 05/18/2024 15:22:44 Imaging Results None recorded. Procedure Notes None recorded. Medical Equipment None Reported. Allergies Allergen ID Allergen Name Allergen Category Reaction Reaction Severity Criticality Documentation Date Start Date Code Code System Note Provider Name and Address Organization Details Recorded Time 480126 metformin hydrochlo ride medicatio n Not available Not available Not available 06/04/20232008 57215 3 RxNorm Not Available Not Available Not Available 170906 Non-stero idal anti-infl ammatory agent (product) medicatio n Not available Not available Not available 06/04/20232019 14313 005 SNOMED Not Available Not Available Not Available 136664 lisinopri l medicatio n Not available Not available Not available 06/04/20232019 68263 RxNorm Not Available Not Available Not Available 937966 Levaquin medicatio n Not available Not available Not available 06/04/20232019 77152 2 RxNorm Not Available Not Available Not Available Medications Name Sig Start Date Stop Date Status Note LastModified by Organization Details LastModified Time atorvastatin 80 mg tablet Take 1 tablet every day by oral route. active Not Available Not Available No t Available Klor-Con 10 mEq tablet,exten ded release Take 1 tablet every day by oral route. active Not Available Not Available No t Available Maxalt-WORKFORCE ADVISOR 10 mg disintegrati ng tablet Take by oral route. active Not Available Not Available Not Available prednisone 20 mg tablet TAKE 2 TABLETS BY MOUTH EVERY DAY active Not Available Not Available No t Available Maxalt 10 mg tablet Take by oral route. active Not Available Not Available Not Available omeprazole 40 mg capsule,nas yed release TAKE 1 CAPSULE BY MOUTH AT BEDTIME active Not Available Not Available No t Available amoxicillin 875 mg tablet TAKE 1 TABLET BY MOUTH TWO TIMES A DAY FOR 10 DAYS UNTIL ALL IS GONE active Not Available Not Available No t Available potassium chloride ER 20 mEq tablet,exten ded release(part /cryst) TAKE 1 TABLET BY MOUTH THREE TIMES A DAY on day 1, then 1 TABLET TWO TIMES A DAY for days two thru five active Not Available Not Available No t Available benzonatate 100 mg capsule TAKE 1 CAPSULE (100 MG TOTAL) BY MOUTH 3 (THREE) TIMES DAILY NEEDED FOR COUGH active Not Available Not Available No t Available oseltamivir 75 mg capsule TAKE 1 CAPSULE BY MOUTH TWO TIMES A DAY FOR 5 DAYS active Not Available Not Available N ot Available irbesartan 75 mg tablet TAKE 1 TABLET BY MOUTH EVERY DAY for hypertensio n active Not Available Not Available No t Available metoprolol succinate ER 25 mg tablet,exten ded release 24 hr Take 1 tablet every day by oral route. active Not Available Not Available No t Available ergocalcifer ol (vitamin D2) 1,250 mcg (50,000 unit) capsule TAKE 1 CAPSULE BY MOUTH EVERY MONTH active Not Available Not Available No t Available irbesartan 150 mg tablet Take 1 tablet every day by oral route. active Not Available Not Available No t Available ondansetron 4 mg disintegrati ng tablet Place one tablet on tongue and let dissolve slowly without chewing or swallowing EVERY EIGHT HOURS NEEDED for nausea active Not Available Not Available No t Available fluticasone propionate 50 mcg/actuatio n nasal spray,suspen sonal Instill two sprays IN EACH NOSTRIL EVERY DAY for allergy symptoms active Not Available Not Available No t Available amoxicillin 875 mg-potassium clavulanate 125 mg tablet Take 1 tablet (875 mg total) by mouth 2 (two) times daily for 10 days. active Not Available Not Available No t Available Prolia 60 mg/mL subcutaneous syringe Inject 1 mL by subcutaneou s route. active Not Available Not Available No t Available Vitals None Recorded Social History Question Answer Notes LastModified by Organizat ion Details LastModified Time Tobacco Smoking Status Never Smoker Not Available Health Note 06/23/2024 18:35:48 Do You Have An Advance Directive? No [email or web address] Information not available 06/23/2024 What Is Your Level Of Alcohol Consumption? Occasional [email or web address] Information not available 06/23/2024 How Many Times Per Week Do You Consume Alcohol? Less Than 1 Time Per Week [email or web address] Information not available 06/23/2024 What Is Your Level Of Caffeine Consumption? Heavy [email or web address] Information not available 06/23/2024 Are You Currently Employed? No [email or web address] Information not available 06/23/2024 What Is Your Occupation? Retired [email or web address] Information not available 06/23/2024 How Many Times Per Week Do You Exercise? Less Than 1 Time Per Week [email or web address] Information not available 06/23/2024 What Was The Date Of Your Most Recent Tobacco Screening? 06/30/2024 [email or web address] Information not available 06/23/2024 What Is Your Relationship Status? [email or web address] Information not available 06/23/2024 Do You Use Any Illicit Or Recreational Drugs? No [email or web address] Information not available 06/23/2024 Sex: Unknown Functional Status Question Answer Note LastModified by Organization D etails LastModified Time What is your exercise level? None [email or web address] Information not available 06/23/2024 Mental Status None recorded. Family History Relationship Description Onset Age of this Age Resolved Age Notes LastModified by Organization Details LastModified Time Mother Arthritis [email or web address] Not available 05/18/2024 15:22:43 Mother Family history of malignant neoplasm [email or web address] Not available 2024 15:22:43 Mother Chronic obstructive pulmonary disease [email or web address] Not available 2024 15:22:43 Mother Hypertensive disorder [email or web address] Not available 2024 15:22:43 Mother Hypercholest erolemia [email or web address] Not available 2024 15:22:43 Mother Osteoporosis [email or web address] Not availa ble 05/18/2024 15:22:43 Mother Disorder of thyroid gland [email or web address] Not available 2024 15:22:43 Mother Asthma [email or web address] Not available 18:35:47 Father Arthritis [email or web address] Not available 05/18/2024 15:22:43 Father Family history of malignant neoplasm [email or web address] Not available 2024 15:22:43 Father Diabetes mellitus [email or web address] Not available 2024 15:22:43 Father Hypertensive disorder [email or web address] Not available 2024 15:22:43 Father Cerebrovascu lar accident [email or web address] Not available 18:35:47 Paternal Grandmother Cerebrovascu lar accident [email or web address] Not available 04/2025 15:22:43 Maternal Grandfather Hypercholest erolemia [email or web address] Not available 2024 18:35:47 Medical History Condition Response Anxiety Disorder N Diabetes N Attention-deficit Hyperactivity Disorder N Bleeding Disorder N High Blood Pressure Y Arthritis N Hyperlipidemia N Cancer N Stroke N Thyroid Problems N Asthma N Depression N COPD N Anemia N Seizures N Heart Disease N Fibromyalgia N Osteoporosis Y Kidney Disease N Gynecological HistoryNo gynecological history recorded. Obstetrics History GPAL:G 0 P 0 0 0 0 Past Encounters Encounter ID Performer Location Encounter Start Date Encounter Closed Date Diagnosis/Indication Diagnosis SNOMED-CT Code Diagnosis ICD10 Code Diagnosis Note [id number] TTAY CHAIREZ MD [facility] [address] [place] [address] 03/25/2024 12:03:46 03/25/2024 13:47:57 Lentiginosis 529959181 L81.4 Lentigines (Sun damaged skin)The benign nature of these spots was reviewed with the patient, but that they do indicate a history of sun-damage . We discussed that they should be watched for change, and are related to chronic sun exposure.W e discussed the importance of UV protection and its role in the aid of prevention of sun damage and skin cancers. Advised the patient on daily sunscreen use, use of wide brimmed hats, and other protective measures. Seborrheic keratosis 394 942385 L82.1 Seborrheic keratoses, numerous- Discussed benign etiology. Reassuranc e provided. No treatment required.- Lesions on chest were treated with liquid nitrogen. No charge for this procedure. The patient tolerated the procedure well. Post-treat ment instructio ns were discussed. - pt is interested in cosmetic Sk removal. Contract signed today. Multiple b enign melanocytic nevi 616418258 D22.9 Multiple melanocyti c nevi of trunk and extremitie s - family hx of skin cancer (father)Th e patient was reassured of benign exam today. We discussed the need to call if there are any concerning changes in the color, size, shape, or symptoms of the lesions, or if certain lesions begin to stand out as being different from the rest ( u gly duckling sign ). Open comedone 028316454 L70.0 open comedone- Discussed benign etiology. Reassuranc e provided. No treatment required. Wrinkled skin 459615750 L98.8 Wrinkles, acne scars- recommende d ablative laser treatments for optimal results- discussed use of OTC retinol vs rx retinoid. She would like to hold off at this time. [id number] TATY CHAIREZ MD [facility] [address] [place] [address] 05/19/2024 13:11:10 05/19/2024 15:19:05 Seborrheic keratosis 002029392 L82.1 Seborrheic keratoses We discussed the benign nature of the lesions. None of these lesions are clinically inflamed. We discussed the fact that insurance will not cover removal of these lesions as this is considered a cosmetic procedure. The patient understand s and wishes to proceed with treatment. The risks and benefits of the procedure, the risks and benefits of alternativ e procedures , as well as the possible consequenc es of not undergoing the procedure were discussed. The potential for recurrence and developmen t of further lesions was discussed. The potential pigmentary changes was discussed. The patient verbalizes understand ing and gives consent to proceed with treatment. Lesions (approxima tely 40) on the {{_ trunk, neck, and face#}} were treated with liquid nitrogen. The patient tolerated the procedure well. Post-treat ment instructio ns were discussed. Health Concerns Section Related Observation LastModified by Organization Detai ls LastModified Time None Recorded Concern Status LastModified by Organization Details LastModified Time None Recorded Advance Directives Directive N: Payers Encounter Date Sequence Insurance Name Policy Number Policy Carty Covered Member ID Carty Member ID Guarantor Name 03/25/2024 1 [place] Haley A Spinner [id number] 1 Haley A Spinner 05/19/2024 1 [place] Haley A Spinner [id number] 1 Haley A Spinner 05/19/2024 2 [place] [id number] Haley Arnold Spinner [id number] Haley Arnold Spinkal Notes Date Note Type Note Provider Name and Address Organization Details Recorded Time 03/25/2024 text/html Haley is here for follow up. They have no history of skin cancer. Here today for a total body skin exam.They deny any concerning spots on their skin today. No growing, bleeding, or changing lesions that they have noticed. TATY CHAIREZ MD [address] [place] [address], [phone], [facility] 03/25/2024 13:13:42 05/19/2024 text/html Haley is here today for cosmetic treatment of {{seborrheic keratoses* milia acrochorda}} with {{cryotherapy* co medone extraction}}. They have picked some spots out that they would like treated. TATY CHAIREZ MD [address] [place] [address], [phone], [facility] 05/19/2024 14:49:57 OBGyn Episode No OBEpisode recorded.
--- OUTSIDE RECORDS SUMMARY | 2024-06-27 13:22 | XMS_ITS | Clinical Summary ---
Author Organization [facility] Address [address] [place] [address] Care Team Providers Care Manager Registration Name Role Phone Unavailable Primary Care Provider Unavailabl e Source Comments [facility],non-owned Affiliates and Associated Physician Practices is amultiple site organization consisting of ambulatory clinics and hospital sitesin [place], [place], [place]. This disclosure is being madepursuant to the Care Everywhere program and may not contain all information available regarding this patient. Last updated 18.[facility] Allergies Active Allergy Reactions Criticality Noted Date [...]
--- OUTSIDE RECORDS SUMMARY | 2024-06-27 13:22 | XMS_ITS | Encounter Summary ---
Author Organization [facility] Address [facility] [place] [address] Care Team Providers Care Chaser Apprentice Name Role Phone Sterling Freire MD Primary Care Provider Phi Lopez DO Unavailable [phone] Phi Lopez DO Unavailable [phone] Encounter Details Date Type Department Care Team (Late Contact Info) Description 03/21/2021 Hospital Orders Only [facility] [address] [facility] [place] [address] Sadia Pereyra, RN Social History Tobacco Use [...] Sex Assigned at Female 05/31/2024 11:24 AM FINANCIAL AID ADVISOR Legal Sex Female 5:20 PM CDT Gender Identity Not on file Sexual Orientation Not on file COVID-19 Exposure Response Date Recorded In the last month, have you been in contact with someone who was confirmed or suspected to have Coronavirus / COVID-19? No / Unsure 03/21/2021 11:30 AM FINANCIAL AID ADVISOR documented as of this encounter Plan of Treatment Upcoming Encounters Date Type Department Care Team (Late Contact Info) Description 11/20/2024 1:00 PM CDT [facility] [address] [place] [address] 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, GRAIN WAFER MACHINE OPERATOR [address] [facility] [address] [place] [address] documented as of this encounter Visit Diagnoses Not on filedocumented in this encounter Additional Health Concerns Infection Onset Date Last Indicated Resolved Time COVID-19 Rule Out 07/02/2021 07/02/2021 07/02/2021 6:39 PM FINANCIAL AID ADVISOR COVID-19 Rule Out 12/21/2022 12/21/2022 12/21/2022 11:19 AM CDT COVID-19 Rule Out 08/29/2023 08/29/2023 08/29/2023 12:10 PM CDT COVID-19 Rule Out 09/02/2023 09/02/2023 09/02/2023 10:10 PM CDT Influenza - Seasonal 05/31/2024 05/31/2024 025 12:32 AM FINANCIAL AID ADVISOR documented as of this encounter Care Teams Chaser Apprentice Relationship Specialty Start Date End Date Sterling Freire MD [address] [place] [address] PCP - General FAMILY PRACTICE 05/17/18 Phi Lopez DO [address] [place] [address] SURGERY 12/10/23 12/10/23 Phi Lopez DO [address] [place] [address] SURGERY 12/10/23 documented as of this encounter
--- OUTSIDE RECORDS SUMMARY | 2024-06-27 13:22 | XMS_ITS | Referral Summary ---
Author Organization [facility] Address [facility] [place] [address] Care Team Providers Care Serology Technician Name Role Phone Unavailable Primary Care Provider Unavailabl e Source Comments [facility],non-owned Affiliates and Associated Physician Practices is amultiple site organization consisting of ambulatory clinics and hospital sitesin [place], [place], [place] and [place]. This disclosure is being madepursuant to the Care Everywhere program and may not contain all information available regarding this patient. Last updated 18.[facility] Allergies Active Allergy Reactions Criticality Noted Date [...]
--- OUTSIDE RECORDS SUMMARY | 2024-06-27 13:22 | XMS_ITS | Encounter Summary ---
Author Organization [facility] Address [facility] [place] [address] Care Team Providers Care Grain Farmer Name Role Phone Sterling Freire MD Primary Care Provider Phi Lopez DO Unavailable [phone] Phi Lopez DO Unavailable [phone] Encounter Details Date Type Department Care Team (Late Contact Info) Description 10/12/2018 Abstract [facility] CONVERSION [address] [place] [address] , Generic Conversion, Social History Tobacco Use [...] Sex Assigned at Female 05/31/2024 11:24 AM CORROSION CONTROL SPECIALIST Legal Sex Female 5:20 PM CDT Gender Identity Not on file Sexual Orientation Not on file documented as of this encounter Plan of Treatment Upcoming Encounters Date Type Department Care Team (Late Contact Info) Description 11/20/2024 1:00 PM CDT Office Visit [facility] [address] [place] [address] 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, IOS ARCHITECT [address] [facility] [address] [address] documented as of this encounter Visit Diagnoses Not on filedocumented in this encounter Additional Health Concerns Infection Onset Date Last Indicated Resolved Time COVID-19 Rule Out 07/02/2021 07/02/2021 07/02/2021 6:39 PM CORROSION CONTROL SPECIALIST COVID-19 Rule Out 12/21/2022 12/21/2022 12/21/2022 11:19 AM CDT COVID-19 Rule Out 08/29/2023 08/29/2023 08/29/2023 12:10 PM CDT COVID-19 Rule Out 09/02/2023 09/02/2023 09/02/2023 10:10 PM CDT Influenza - Seasonal 05/31/2024 05/31/2024 025 12:32 AM CORROSION CONTROL SPECIALIST documented as of this encounter Care Teams Grain Farmer Relationship Specialty Start Date End Date Sterling Freire MD [address] [place] [address] PCP - General FAMILY PRACTICE 05/17/18 Phi Lopez DO [address] [place] [address] SURGERY 12/10/23 12/10/23 Phi Lopez DO [address] [place] [address] SURGERY 12/10/23 documented as of this encounter
--- OUTSIDE RECORDS SUMMARY | 2024-06-27 13:22 | XMS_ITS | Referral Summary ---
Author Organization [facility] Address [address] [place] [address] Care Team Providers Care Engineering Test Mechanic Name Role Phone Sterling Freire MD Primary Care Provider [phone] Allergies Active Allergy Reactions Criticality Noted Date [...] total) by mouth as needed Active rizatriptan AIR CARGO GROUND CREW SUPERVISOR (MAXALT-AIR CARGO GROUND CREW SUPERVISOR) [address] one tablet [...] on file Legal Sex Female 6:32 AM OUTPATIENT CLERK Gender Identity Not on file Sexual Orientation [...] of Treatment Not on file Insurance MEDICARE [facility] Care Teams Engineering Test Mechanic Relationship Specialty Start Date End Date Sterling Freire MD [facility] [place] [address] PCP - General Family Medicine 12/14/23
== END 2024-06-27 13:19 | disposition home or self-care (01) ==
LOC: ANHLAB 13:19
PROVIDERS: PCP Family Medicine; Visit Provider Nurse Practitioner Family
DX: R14.0 Abdominal distension (gaseous) (principal); R19.7 Diarrhea, unspecified
CPT/HCPCS: 82653; 87045; 87177; 87209; 87269; 87427; 87449; 87493

== ENCOUNTER 2024-06-29 08:12 | Emergency (ER) | payer MEDICARE, SELFPAY ==
--- NOTE | ~2024-06-29 | CT_ITS ---
EXAMINATION: CT abdomen pelvis w con DATE: 06/29/2024 09:22 INDICATION: Abdominal pain. TECHNIQUE: Computed tomography (CT) of the abdomen and pelvis was performed with 100 mL Omnipaque 350 intravenous contrast. Automated exposure control and iterative reconstruction technique were employe d. The dose-length product was 744.66 mGy-cm. COMPARISON: None. FINDINGS: The visualized portions of the lung bases demonstrate minimal atelectasis. There are 3 mm 2 mm nodules in left lower lobe, likely benign. No pleural effusion. The heart size is normal. No uma cardial effusion. The liver and spleen are normal. There are gallstones in the gallbladder which is n ormal in size. The pancreas and adrenal glands are normal. There is a 4 mm stone in right kidney. The re are peripelvic cysts in the kidneys measuring up to 2.0 cm on the right. There are no dilated loop s of bowel. The appendix is normal. There are no pathologically enlarged lymph nodes. There is no bob e intraperitoneal fluid. There is severe lumbar spondylosis. IMPRESSION: 1. No specific etiology for the patient's symptoms. Reviewed, dictated and finalized at location A. N OPERATOR
--- OUTSIDE RECORDS SUMMARY | 2024-06-29 08:14 | XMS_ITS | Patient Health Summary ---
Author Organization [facility] Address [address] [place] [address] Care Team Providers Care Certified Detention Deputy Name Role Phone Unavailable Primary Care Provider Unavailabl e Note from [facility],non-owned Affiliates and Associated Physician Practices is amultiple site organization consisting of ambulatory clinics and hospital sitesin [place], [place], [place] and [place]. This disclosure is being madepursuant to the Care Everywhere program and may not contain all information available regarding this patient. Last updated 18.[facility] Allergies * Levofloxacin(Other) * Lisinopril(Cough) * Metformin(Nausea [...]
--- OUTSIDE RECORDS SUMMARY | 2024-06-29 08:14 | XMS_ITS | Referral Summary ---
Author Organization [facility] [place] Address [facility] [place] [address] Care Team Providers Care Pharmacy Technician Assistant Name Role Phone Unavailable Primary Care Provider Unavailabl e Source Comments [facility],non-owned Affiliates and Associated Physician Practices is amultiple site organization consisting of ambulatory clinics and hospital sitesin [place], [place], [place] and [place]. This disclosure is being madepursuant to the Care Everywhere program and may not contain all information available regarding this patient. Last updated 18.[facility] [place] Allergies Active Allergy Reactions Criticality Noted Date [...]
--- OUTSIDE RECORDS SUMMARY | 2024-06-29 08:14 | XMS_ITS | Clinical Summary ---
Author Organization [facility] Address [address] [place] [address] Care Team Providers Care Photo Specialist Name Role Phone Unavailable Primary Care Provider Unavailabl e Source Comments [facility],non-owned Affiliates and Associated Physician Practices is amultiple site organization consisting of ambulatory clinics and hospital sitesin [place], [place], [place] and [place]. This disclosure is being madepursuant to the Care Everywhere program and may not contain all information available regarding this patient. Last updated 18.[facility] Allergies Active Allergy Reactions Criticality Noted Date [...]
--- OUTSIDE RECORDS SUMMARY | 2024-06-29 08:14 | XMS_ITS | Data Portability ---
Author Organization [facility], [address] [place] [address] Neurology ([place]) Address [address] [place] [address] Care Team Providers Care Honey Blender Name Role Phone EMI DILLARD Primary Care Provider [facility] Referring Provider Assessment No assessment recorded. Plan of Treatment [...] Address Organization Details Recorded Time Lentiginos is 238903374 Active 2023 Joanna Thayer [facility] 4 12:19:44 Seborrheic keratosis 551307043 Active 2023 Joanna Thayer [facility] 4 12:19:49 Multiple benign melanocyti c nevi 774181747 Active 2023 Joanna Thayer [facility] 4 12:19:53 Open comedone 984303553 Active 2023 Joanna Leka [facility] 4 12:24:52 Rhytide of forehead 361630870 Active 2023 Joanna Thayer [facility] 4 12:25:24 Wrinkled skin 979182381 Active 2023 Joanna Thayer [facility] 4 12:25:34 Pain of left shoulder joint 889561807874 99372 Active 2024 Yajaira Last [facility] 5 14:57:49 Problem Notes None recorded. [...] Name and Address Organization Details Recorded Time 109984 metformin hydrochlo ride medicatio n Not available Not available Not available 06/04/20232008 42510 3 RxNorm Not Available Not Available Not Available 084100 Non-stero idal anti-infl ammatory agent (product) medicatio n Not available Not available Not available 06/04/20232019 18117 005 SNOMED Not Available Not Available Not Available 033713 lisinopri l medicatio n Not available Not available Not available 06/04/20232019 23341 RxNorm Not Available Not Available Not Available 553783 Levaquin medicatio n Not available Not available Not available 06/04/20232019 21650 2 RxNorm Not Available Not Available Not [...] Not Available Not Available No t Available Maxalt-PROSTHETIC TECHNICIAN 10 mg disintegrati ng tablet Take by [...] Condition Response Anxiety Disorder N Diabetes N Bleeding Disorder N Attention-deficit Hyperactivity Disorder N High Blood Pressure Y Arthritis N Hyperlipidemia N Cancer N Thyroid Problems N Stroke N COPD N Depression N Asthma N Seizures N Anemia N Heart Disease N Fibromyalgia N Osteoporosis Y Kidney Disease N Gynecological HistoryNo gynecological history recorded. Obstetrics History GPAL:G 0 P 0 0 0 0 Past Encounters Encounter ID Performer Location Encounter Start Date Encounter Closed Date Diagnosis/Indication Diagnosis SNOMED-CT Code Diagnosis ICD10 Code Diagnosis Note [id number] TATY CHAIREZ MD [facility] [address] [place] [address] 03/25/2024 12:03:46 03/25/2024 13:47:57 Lentiginosis 506272671 L81.4 Lentigines (Sun damaged skin)The benign nature [...] and other protective measures. Seborrheic keratosis 394 157257 L82.1 Seborrheic keratoses, numerous- Discussed benign etiology. Reassuranc e provided. No treatment required.- Lesions on chest were treated with liquid nitrogen. No charge for this procedure. The patient tolerated the procedure well. Post-treat ment instructio ns were discussed. - pt is interested in cosmetic Sk removal. Contract signed today. Multiple b enign melanocytic nevi 316090332 D22.9 Multiple melanocyti c nevi of trunk and extremitie s - family hx of skin cancer (father)Th e patient was reassured of benign exam today. We discussed the need to call if there are any concerning changes in the color, size, shape, or symptoms of the lesions, or if certain lesions begin to stand out as being different from the rest ( ugly duckling sign ). Open comedone 219943545 L70.0 open comedone- Discussed benign etiology. Reassuranc e provided. No treatment required. Wrinkled skin 304590122 L98.8 Wrinkles, acne scars- recommende d ablative laser treatments for optimal results- discussed use of OTC retinol vs rx retinoid. She would like to hold off at this time. [id number] TATY CHAIREZ MD [facility] [address] [place] [address] 05/19/2024 13:11:10 05/19/2024 15:19:05 Seborrheic keratosis 262725569 L82.1 Seborrheic keratoses We discussed the benign [...] 03/25/2024 1 [place] Haley A Spinner [id number] 1 Haley A Spinner 05/19/2024 1 [place] Haley A Spinner [id number] 1 Haley A Spinner 05/19/2024 2 [place] [id number] Haley Arnold Spinner [id number] Haley Arnold Spinkal Notes Date Note Type Note Provider Name and Address Organization Details Recorded Time 03/25/2024 text/html Haley is here for follow up. They have no history of skin cancer. Here today for a total body skin exam.They deny any concerning spots on their skin today. No growing, bleeding, or changing lesions that they have noticed. TATY CHAIREZ MD [address] [place] [address], [phone], [facility] 03/25/2024 13:13:42 05/19/2024 text/html Haley is here today for cosmetic treatment of {{seborrheic keratoses* milia acrochorda}} with {{cryotherapy* co medone extraction}}. They have picked some spots out that they would like treated. TATY CHAIREZ MD [address] [place] [address], [phone], [facility] 05/19/2024 14:49:57 OBGyn Episode No OBEpisode recorded.
--- OUTSIDE RECORDS SUMMARY | 2024-06-29 08:14 | XMS_ITS | Clinical Summary ---
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
--- OUTSIDE RECORDS SUMMARY | 2024-06-29 08:14 | XMS_ITS | Referral Summary ---
Author Organization [facility] Address [address] [place] [address] Care Team Providers Care Deck Specialist Name Role Phone Sterling Freire MD Primary Care Provider [phone] Allergies Active Allergy Reactions Criticality Noted Date [...] total) by mouth as needed Active rizatriptan AUTO COLLISION REPAIR INSTRUCTOR (MAXALT-AUTO COLLISION REPAIR INSTRUCTOR) [address] one tablet [...] on file Legal Sex Female 6:32 AM ADHESIVE SPRAYER Gender Identity Not on file Sexual Orientation [...] of Treatment Not on file Insurance MEDICARE [facility] Care Teams Deck Specialist Relationship Specialty Start Date End Date Sterling Freire MD [facility] [place] [address] PCP - General Family Medicine 12/14/23
[2024-06-29 08:20] VITALS: BP 122/92; PULSE 112; RESP 18; TEMP 36.3; O2SAT 100
--- NOTE | 2024-06-29 08:24 | ECG_ITS ---
Test Date: 2024-06-29 08:44:37 Measurements Intervals [place] Rate: 94 P: 33 [place]: 138 QRS: -22 QRSD: 73 T: 36 QT: 354 QTc: 444 Interpretive Statements SINUS RHYTHM INFERIOR INFARCT, AGE INDETERMINATE BASELINE WANDER- V5-V6 ABNORMAL ECG Compared to ECG 06/26/2024 13:43:39 NO SIGNIFICANT CHANGE Electronically Signed On 06-29-2024 10:09:45 SPLICING MACHINE OPERATOR AUTOMATIC by Roberto Pham D.O.
--- OUTSIDE RECORDS SUMMARY | 2024-06-29 08:25 | XMS_ITS | Encounter Summary ---
Author Organization [facility] Address Pending sale to [facility] [place] [address] Care Team Providers Care Statistical Developer Name Role Phone Sterling Freire MD Primary Care Provider [phone] Phi Lopez DO Unavailable [phone] Phi Lopez DO Unavailable [phone] Encounter Details Date Type Department Care Team (Late Contact Info) Description 02/21/2019 Hospital Orders Only [facility] [address] [place] [address] Sterling Freire MD [address] [place] [address] Social History Tobacco Use Types [...] Sex Assigned at Female 05/31/2024 11:24 AM FIREARMS INSTRUCTOR Legal Sex Female 5:20 PM CDT Gender Identity Not on file Sexual Orientation Not on file documented as of this encounter Plan of Treatment Upcoming Encounters Date Type Department Care Team (Late Contact Info) Description 11/20/2024 1:00 PM CDT Office Visit [facility] [address] [place] [address] 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, GASTROENTEROLOGIST [address] [facility] [address] [place] [address] documented as of this encounter Visit Diagnoses Not on filedocumented in this encounter Additional Health Concerns Infection Onset Date Last Indicated Resolved Time COVID-19 Rule Out 07/02/2021 07/02/2021 07/02/2021 6:39 PM FIREARMS INSTRUCTOR COVID-19 Rule Out 12/21/2022 12/21/2022 12/21/2022 11:19 AM CDT COVID-19 Rule Out 08/29/2023 08/29/2023 08/29/2023 12:10 PM CDT COVID-19 Rule Out 09/02/2023 09/02/2023 09/02/2023 10:10 PM CDT Influenza - Seasonal 05/31/2024 05/31/2024 025 12:32 AM FIREARMS INSTRUCTOR documented as of this encounter Care Teams Statistical Developer Relationship Specialty Start Date End Date Sterling Freire MD [address] [facility] [place] [address] PCP - General FAMILY PRACTICE 05/17/18 Phi Lopez DO [address] [place] [address] SURGERY 12/10/23 12/10/23 Phi Lopez DO [address] [place] [address] SURGERY 12/10/23 documented as of this encounter
--- OUTSIDE RECORDS SUMMARY | 2024-06-29 08:25 | XMS_ITS | Encounter Summary ---
Author Organization [facility] Address [facility] [place] [address] Care Team Providers Care Freezing Machine Operator Name Role Phone Sterling Freire MD Primary Care Provider Phi Lopez DO Unavailable [phone] Phi Lopez DO Unavailable [phone] Encounter Details Date Type Department Care Team (Late Contact Info) Description 10/12/2018 Abstract [facility] CONVERSION [address] [place] [address] , Generic Conversion, Social History Tobacco Use [...] Sex Assigned at Female 05/31/2024 11:24 AM ARTIFICIAL FLOWER MAKER Legal Sex Female 5:20 PM CDT Gender Identity Not on file Sexual Orientation Not on file documented as of this encounter Plan of Treatment Upcoming Encounters Date Type Department Care Team (Late Contact Info) Description 11/20/2024 1:00 PM CDT Office Visit [facility] [address] [place] [address] 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, SERVER ASSISTANT [address] [facility] [address] [address] documented as of this encounter Visit Diagnoses Not on filedocumented in this encounter Additional Health Concerns Infection Onset Date Last Indicated Resolved Time COVID-19 Rule Out 07/02/2021 07/02/2021 07/02/2021 6:39 PM ARTIFICIAL FLOWER MAKER COVID-19 Rule Out 12/21/2022 12/21/2022 12/21/2022 11:19 AM CDT COVID-19 Rule Out 08/29/2023 08/29/2023 08/29/2023 12:10 PM CDT COVID-19 Rule Out 09/02/2023 09/02/2023 09/02/2023 10:10 PM CDT Influenza - Seasonal 05/31/2024 05/31/2024 025 12:32 AM ARTIFICIAL FLOWER MAKER documented as of this encounter Care Teams Freezing Machine Operator Relationship Specialty Start Date End Date Sterling Freire MD [address] [place] [address] PCP - General FAMILY PRACTICE 05/17/18 Phi Lopez DO [address] [place] [address] SURGERY 12/10/23 12/10/23 Phi Lopez DO [address] [place] [address] SURGERY 12/10/23 documented as of this encounter
--- OUTSIDE RECORDS SUMMARY | 2024-06-29 08:25 | XMS_ITS | Encounter Summary ---
Author Organization [facility] Address [facility] [place] [address] Care Team Providers Care Dietitian Research Name Role Phone Sterling Freire MD Primary Care Provider Phi Lopez DO Unavailable [phone] Phi Lopez DO Unavailable [phone] Encounter Details Date Type Department Care Team (Late Contact Info) Description 03/21/2021 Hospital Orders Only [facility] [address] [facility] [facility] [place] [address] Sadia Pereyra, RN Social History Tobacco Use [...] Sex Assigned at Female 05/31/2024 11:24 AM CATTLE INSPECTOR Legal Sex Female 5:20 PM CDT Gender Identity Not on file Sexual Orientation Not on file COVID-19 Exposure Response Date Recorded In the last month, have you been in contact with someone who was confirmed or suspected to have Coronavirus / COVID-19? No / Unsure 03/21/2021 11:30 AM CATTLE INSPECTOR documented as of this encounter Plan of Treatment Upcoming Encounters Date Type Department Care Team (Late Contact Info) Description 11/20/2024 1:00 PM CDT [facility] [address] [place] [address] 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, HOSE WRAPPER [address] [facility] [address] [place] [address] documented as of this encounter Visit Diagnoses Not on filedocumented in this encounter Additional Health Concerns Infection Onset Date Last Indicated Resolved Time COVID-19 Rule Out 07/02/2021 07/02/2021 07/02/2021 6:39 PM CATTLE INSPECTOR COVID-19 Rule Out 12/21/2022 12/21/2022 12/21/2022 11:19 AM CDT COVID-19 Rule Out 08/29/2023 08/29/2023 08/29/2023 12:10 PM CDT COVID-19 Rule Out 09/02/2023 09/02/2023 09/02/2023 10:10 PM CDT Influenza - Seasonal 05/31/2024 05/31/2024 025 12:32 AM CATTLE INSPECTOR documented as of this encounter Care Teams Dietitian Research Relationship Specialty Start Date End Date Sterling Freire MD [address] [place] [address] PCP - General FAMILY PRACTICE 05/17/18 Phi Lopez DO [address] [place] [address] SURGERY 12/10/23 12/10/23 Phi Lopez DO [address] [place] [address] SURGERY 12/10/23 documented as of this encounter
--- OUTSIDE RECORDS SUMMARY | 2024-06-29 08:25 | XMS_ITS | Clinical Summary ---
Author Organization [facility] Address [facility] [place] [address] Care Team Providers Care Water Filter Cleaner Name Role Phone Melba Freire MD Primary [...] 3 05/15/19 19 Active vitamin D2, ergocalciferol, 22104 UNITS capsule Take 1 capsule (1.25 mg [...] 03/16/2017 Cholelithiasis 06/04/2015 Allergic rhinitis 10/17/2013 Asthma ([facility]) 10/17/2013 Cough 10/17/2013 Esophageal reflux [...] Department Care Team Description 06/06/2024 3:37 PM CHARTERED FINANCIAL ANALYST - 06/06/2024 8:00 PM [facility] Emergency [place] [address] [place] [address] [place] [address] Piotr Vega MD Generalized Weakness Discharge Disposition: Home or Self Care (Routine Discharge) 06/06/2024 Travel 06/02/2024 2:48 PM CHARTERED FINANCIAL ANALYST - 06/02/2024 4:50 PM [facility] Emergency [facility] [address] [place] [address] [place] [address] Feliciano Ferrer, DO Generalized Weakness Discharge Disposition: Home or Self Care (Routine Discharge) 06/02/2024 Travel 05/31/2024 11:20 AM CHARTERED FINANCIAL ANALYST - 05/31/2024 3:18 PM [facility] Emergency [place] [address] [place] [address] [place] [address] Ney Pappas, DO Near Syncope Discharge Disposition: Home or Self Care (Routine Discharge) 05/31/2024 Travel 05/15/2024 8:27 AM CHARTERED FINANCIAL ANALYST - 05/15/2024 11:59 PM [facility] Hospital Encounter [facility] [address] [place] [address] [place] [address] Melba Freire MD Discharge Disposition: Home or Self Care (Routine Discharge) 05/15/2024 8:25 AM CHARTERED FINANCIAL ANALYST - 05/15/2024 8:26 AM [facility] Hospital Encounter [place] [address] [place] [address] [place] [address] Melba Freire MD Injection Discharge Disposition: Home or Self Care (Routine Discharge) 05/15/2024 Travel from Last 3 Months Immunizations Name Administration Dates Next Due Influenza (Generic) 02/04/2013 Influenza Adult (Generic) 02/22/2018,,02/12/2015,01/31/20 11,2010 Pneumococcal (Prevnar 13) 05/07/2014 Tdap (Generic) 06/22/2015 Zoster (Zostavax) 87661 Unt/0.65Ml 06/22/2015 Family History Medical History Relation [...] Sex Assigned at Female 05/31/2024 11:24 AM CHARTERED FINANCIAL ANALYST Legal Sex Female 5:20 PM CDT Gender Identity Not on file Sexual Orientation Not on file Last Filed Vital Signs Vital Sign Reading Time Taken Comments Blood Pressure 150/96 06/06/2024 7:00 PM CHARTERED FINANCIAL ANALYST Pulse 94 06/06/2024 3:55 PM CHARTERED FINANCIAL ANALYST Temperature 36.8 C (98.2 F) 06/06/2024 3:55 PM CHARTERED FINANCIAL ANALYST Respiratory Rate 16 06/06/2024 3:55 PM CHARTERED FINANCIAL ANALYST Oxygen Saturation 100% 06/06/2024 7:00 PM CHARTERED FINANCIAL ANALYST Inhaled Oxygen Concentration - - Weight 79.4 kg (175 lb) 06/06/2024 3:55 PM CHARTERED FINANCIAL ANALYST Height 162.6 cm (5' 4 ) 06/06/2024 3:55 PM CHARTERED FINANCIAL ANALYST Body Mass Index 30.04 06/06/2024 3:55 PM CHARTERED FINANCIAL ANALYST Plan of Treatment Upcoming Encounters Date Type Department Care Team (Late st Contact Info) Description 11/20/2024 1:00 PM CDT Office Visit [facility] eld [address] [place] [address] 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, DIRECTOR OUTCOMES [address] [facility] [address] [address] Health Maintenance Due Date Last Done Comments [...] Comments ECG 12-LEAD Routine 06/06/2024 7:31 PM CHARTERED FINANCIAL ANALYST CT ABD+PEL W CON STAT 06/06/2024 5:49 PM CHARTERED FINANCIAL ANALYST XR CHEST PORTABLE STAT 06/06/2024 5:1 1 PM CHARTERED FINANCIAL ANALYST LIPASE STAT 06/06/2024 4:59 PM CHARTERED FINANCIAL ANALYST TROPONIN, QUANT STAT 06/06/2024 4:59 PM CHARTERED FINANCIAL ANALYST COMPREHENSIVE METABOLIC PANEL STAT 06/06/2024 4:59 PM CHARTERED FINANCIAL ANALYST CBC W/DIFF AUTOMATED STAT 06/06/2024 4:59 PM CHARTERED FINANCIAL ANALYST URINE BACTERIA CULTURE STAT 3:58 PM CHARTERED FINANCIAL ANALYST HC URINALYSIS AUTO W/MICRO STAT 06/06/2024 3:58 PM CHARTERED FINANCIAL ANALYST MAGNESIUM STAT 06/02/2024 3:17 PM CHARTERED FINANCIAL ANALYST COMPREHENSIVE METABOLIC PANEL STAT 06/02/2024 3:17 PM CHARTERED FINANCIAL ANALYST CBC W/DIFF AUTOMATED STAT 06/02/2024 3:17 PM CHARTERED FINANCIAL ANALYST CT FACIAL BONES WO CON STAT 2:24 PM CHARTERED FINANCIAL ANALYST CT HEAD WO CON STAT 05/31/2024 2:24 PM CHARTERED FINANCIAL ANALYST XR SHOULDER LT MIN 2V STAT 05/31/2024 2:23 PM CHARTERED FINANCIAL ANALYST HC URINALYSIS AUTO W/MICRO STAT 05/31/2024 12:47 PM CHARTERED FINANCIAL ANALYST INFLUENZA A & B STAT 05/31/2024 12:07 PM CHARTERED FINANCIAL ANALYST ECG 12-LEAD Routine 05/31/2024 12:04 PM CHARTERED FINANCIAL ANALYST TROPONIN, QUANT STAT 05/31/2024 11:57 AM CHARTERED FINANCIAL ANALYST COMPREHENSIVE METABOLIC PANEL STAT 05/31/2024 11:57 AM CHARTERED FINANCIAL ANALYST CBC W/DIFF AUTOMATED STAT 05/31/2024 11:57 AM CHARTERED FINANCIAL ANALYST MG SCREENING W LISA CORETTA DIGI Routine 05/15/2024 9:54 AM CHARTERED FINANCIAL ANALYST Visit for screening mammogram OCCULT BLOOD, FECES Routine 12/18/2018 5 :00 PM CDT Chronic diarrhea of unknown origin from Last 3 Months or Most Recently Relevant to Health Maintenance Results * ECG 12 lead (06/06/2024 7:31 PM CHARTERED FINANCIAL ANALYST) Only the most recent of2 resultswithin the time period is included. 06/06/2024 7:31 PM CHARTERED FINANCIAL ANALYST Narrative [facility] - 06/07/2024 12:03 PM CHARTERED FINANCIAL ANALYST [address] [place] [address] Test Date: 2024-06-06 Pat Name: [facility] Department: 3 Room: EXAM 202 Gender: Female Feed In Worker: : 1960 Requested By: PIOTR VEGA Order Number: [id number] Reading : Tan Hodges Measurements Intervals [place] Rate: 75 P: 49 GA: 141 QRS: 4 QRSD: 75 T: 48 QT: 398 QTc: 447 Interpretive Statements SINUS RHYTHM LOW QRS VOLTAGE IN PRECORDIAL LEADS TERED FINANCIAL ANALYST Procedure Note Tan Hodges MD - 06/07/[address] [place] [address] Test Date: 2024-06-06 Pat Name: [facility] Department: 3 Room: EXAM 202 Gender: Female Feed In Worker: : 1960 Requested By: PIOTR VEGA Order Number: [id number] Reading : Tan Hodges Measurements Intervals [place] Rate: 75 P: 49 GA: 141 QRS: 4 QRSD: 75 T: 48 QT: 398 QTc: 447 Interpretive Statements SINUS RHYTHM LOW QRS VOLTAGE IN PRECORDIAL LEADS TERED FINANCIAL ANALYST us Piotr Vega MD ECG ORDERABLES Final Result [facility] * CT ABD+PEL W IV CON ONLY (06/06/2024 5:49 PM CHARTERED FINANCIAL ANALYST) Anatomical Region Laterality Modality Abdomen Computed Tomogra phy 06/06/2024 6:18 PM CHARTERED FINANCIAL ANALYST Impressions 06/06/2024 6:44 PM CHARTERED FINANCIAL ANALYST IMPRESSION: 1) No acute inflammatory change, abscess nor ascites. 2. No evidence of mechanical bowel obstruction or perforation. 3. No evidence of ureteral stone nor hydronephrosis on either side. 4. Cholelithiasis, no secondary findings of cholecystitis. No biliary duct dilatation. Ordered By: PIOTR VEGA Interpreted By: Piyush Burgos MD, 06/06/2024 6:18 PM Narrative 06/06/2024 6:44 PM CHARTERED FINANCIAL ANALYST [address] [place] [address] Examination: CT ABD+PEL W CON Exam time: [...] Procedure Note Piyush Burgos MD - 06/06/[address] [place] [address] Examination: CT ABD+PEL W CON Exam time: [...] * XR CHEST PORTABLE (06/06/2024 5:11 PM CHARTERED FINANCIAL ANALYST) Anatomical Region Laterality Modality Chest Radiographic Meaghan ging 06/06/2024 6:17 PM CHARTERED FINANCIAL ANALYST Impressions 06/06/2024 6:18 PM CHARTERED FINANCIAL ANALYST IMPRESSION: 1) No radiographic evidence of active disease the chest. Ordered By: PIOTR VEGA Interpreted By: Piyush Burgos MD, 06/06/2024 6:17 PM Narrative 06/06/2024 6:18 PM CHARTERED FINANCIAL ANALYST [address] [place] [address] Examination: XR CHEST PORTABLE Exam time: 06/06/2024 4:55 PM Clinical history: Weakness Comparison: None Technique: AP chest Findings: Heart size within normal limits. Pulmonary vasculature unremarkable. No acute focal pulmonary parenchymal opacity. No pleural effusion. No hyperinflation. Procedure Note Piyush Burgos MD - 06/06/[address] [place] [address] Examination: XR CHEST PORTABLE Exam time: 06/06/2024 [...] (ABNORMAL) COMPREHENSIVE METABOLIC PANEL (06/06/2024 4:59 PM CHARTERED FINANCIAL ANALYST) Only the most recent of3 resultswithin the time period is included. SODIUM S/P/B 140 136 - 145 MMOL/L 06/06/2024 5:23 PM CHARTERED FINANCIAL ANALYST [facility] POTASSIUM S/P/B 3.5 3.5 - 5.1 MMOL/L 06/06/2024 5:23 PM CHARTERED FINANCIAL ANALYST [facility] CHLORIDE S/P/B 104 98 - 107 MMOL/L 06/06/2024 5:23 PM [facility] CO2 24.8 21.0 - 32.0 MMOL/L 06/06/2024 5:23 PM CHARTERED FINANCIAL ANALYST [facility] GLUCOSE 109(H) 70 - 99 MG/DL 06/06/2024 5:23 PM [facility] Comment: FASTING GLUCOSE 100 TO 125 MG/DL IS CONSISTENT WITH IMPAIRED FASTING GLUCOSE. FASTING GLUCOSE >125 MG/DL IS CONSISTENT WITH DIABETES. RANDOM GLUCOSE >200 MG/DL WITH HYPERGLYCEMIC SYMPTOMS IS CONSISTENT WITH DIABETES. PER ADA GUIDELINES BUN 13 6 - 24 MG/DL 06/06/2024 5:23 PM [facility] CREATININE S/P/B 0.85 0.55 - 1.02 MG/DL 06/06/2024 5:23 PM [facility] CALCIUM S/P/B 8.0(L) 8.4 - 10.5 MG/DL 06/06/2024 5:23 PM [facility] BILIRUBIN TOTAL S/P/B 0.8 0.2 - 1.0 MG/DL 06/06/2024 5:23 PM [facility] Comment: THIS ASSAY IS NOT RECOMMENDED FOR PATIENTS UNDERGOING TREATMENT WITH ELTROMBOPAG DUE TO THE POTENTIAL FOR FALSELY ELEVATED RESULTS. ALKALINE PHOSPHATASE S/P/B 84 50 - 130 U/L 06/06/2024 5:23 PM [facility] AST 41(H) 15 - 37 U/L 06/06/2024 5:23 PM [facility] ALT 59 14 - 59 U/L 06/06/2024 5:23 PM [facility] TOTAL PROTEIN S/P/B 6.5 6.4 - 8.2 G/DL 06/06/2024 5:23 PM [facility] ALBUMIN S/P/B 3.6 3.4 - 5.0 G/DL 06/06/2024 5:23 PM [facility] ANION GAP 11.2 5.0 - 15.0 MMOL/L 06/06/2024 5:23 PM [facility] OSMOLALITY (CALC) 291 MOSM/KG 025 5:23 PM [facility] Comment:REFERENCE RANGE NOT ESTABLISHED GFR ESTIMATE 76(L) >89 ML/MIN/1. 73 M2 06/06/2024 5:23 PM [facility] GFR NOTES GFR REFERENCE S: 06/06/2024 5:23 PM [facility] Comment: THE ESTIMATED GFR IS CALCULATED [...] FAILURE: <15 ml/min/1.73 m2 06/06/2024 4:59 PM CHARTERED FINANCIAL ANALYST us Piotr Vega MD LABORATORY Final Result [facility] [address] [place] [address], * (ABNORMAL) CBC W/DIFF AUTOMATED (06/06/2024 4:59 PM CHARTERED FINANCIAL ANALYST) Only the most recent of3 resultswithin the time period is included. WBC 7.19 4.00 - 10.80 x10'3/uL 06/06/2024 5:04 PM [facility] RBC 4.45 4.10 - 5.40 x10'6/uL 06/06/2024 5:04 PM [facility] HGB 13.0 12.0 - 16.0 G/DL 06/06/2024 5:04 PM [facility] HCT 40.2 36.0 - 47.0 % 06/06/2024 5:04 PM [facility] MCV 90.3 78.0 - 100.0 FL 06/06/2024 5:04 PM [facility] MCH 29.2 27.0 - 31.0 PG 06/06/2024 5:04 PM [facility] MCHC 32.3(L) 33.0 - 36.0 G/DL 06/06/2024 5:04 PM [facility] RDW 13.7 11.5 - 14.5 % 06/06/2024 5:04 PM [facility] PLT 329 150 - 350 x10'3/uL 06/06/2024 5:04 PM [facility] MPV 9.4 7.4 - 10.4 FL 06/06/2024 5:04 PM [facility] CBC COMMENT NORMAL REFERENCE RANGE NOT ESTABLISHED FOR THE PROPORTIONAL LEUKOCYTE DIFFERENTIAL. 06/06/2024 5:04 PM [facility] NEUTROPHILS % 62.8 % 06/06/2024 5:04 PM [facility] LYMPHOCYTES % 27.3 % 06/06/2024 5:04 PM [facility] MONOCYTES % 8.5 % 06/06/2024 5:04 PM [facility] EOSINOPHILS % 0.7 % 06/06/2024 5:04 PM [facility] BASOPHILS % 0.1 % 06/06/2024 5:04 PM [facility] IMMATURE GRANS % 0.6 % 06/06/19 5:04 PM [facility] NRBC % 0.0 % 06/06/2024 5:04 PM [facility] ABS. NEUTROPHILS 4.52 1.60 - 8.30 x10'3/uL 06/06/2024 5:04 PM [facility] ABS. LYMPHOCYTES 1.96 0.80 - 4.70 x10'3/uL 06/06/2024 5:04 PM [facility] ABS. MONOCYTES 0.61 0.00 - 1.50 x10'3/uL 06/06/2024 5:04 PM [facility] ABS. EOSINOPHILS 0.05 0.00 - 0.40 x10'3/uL 06/06/2024 5:04 PM [facility] ABS. BASOPHILS 0.01 0.00 - 0.20 x10'3/uL 06/06/2024 5:04 PM [facility] ABS. IMMATURE GRANULOCYTES 0.04(H) 0.00 - 0.03 x10'3/uL 06/06/2024 5:04 PM CHARTERED FINANCIAL ANALYST [facility] ABS. NUCLEATED RBC'S 0.00 0.00 - 0.01 x10'3/uL 06/06/2024 5:04 PM CHARTERED FINANCIAL ANALYST [facility] 06/06/2024 4:59 PM CHARTERED FINANCIAL ANALYST us Piotr Vega MD LABORATORY Final Result Performing Organization Address City/[facility]/ZIP Co de Phone Number [facility] [address] [place] [address], [place] [phone] * TROPONIN, QUANT (06/06/2024 4:59 PM CHARTERED FINANCIAL ANALYST) Only the most recent of2 resultswithin the time period is included. TROPONIN I HIGH SENSITIVITY 7 0 - 51 ng/L 06/06/2024 5:23 PM CHARTERED FINANCIAL ANALYST [facility] 06/06/2024 4:59 PM CHARTERED FINANCIAL ANALYST us Piotr Vega MD LABORATORY Final Result Performing Organization Address [facility] Co de Phone Number [facility] [address] [place] [address], [place] [phone] * LIPASE (06/06/2024 4:59 PM CHARTERED FINANCIAL ANALYST) LIPASE 34 16 - 77 UNITS/L 06/06/2024 5:23 PM CHARTERED FINANCIAL ANALYST [facility] 06/06/2024 4:59 PM CHARTERED FINANCIAL ANALYST us Piotr Vega MD LABORATORY Final Result Performing Organization Address [facility] Co de Phone Number [facility] [address] [place], [place] [id number], [place] [phone] * (ABNORMAL) URINALYSIS (06/06/2024 3:58 PM CHARTERED FINANCIAL ANALYST) Only the most recent of2 resultswithin the time period is included. COLOR (U) YELLOW 06/06/2024 4:12 PM CHARTERED FINANCIAL ANALYST [facility] TRANSPARENCY CLEAR 06/06/2024 4:12 PM CHARTERED FINANCIAL ANALYST [facility] SPECIFIC GRAVITY (U) 1.020 1.000 - 1.025 06/06/2024 4:12 PM CHARTERED FINANCIAL ANALYST [facility] U PH 8.5(H) 5.0 - 8.0 06/06/2024 4:12 PM CHARTERED FINANCIAL ANALYST [facility] LEUKOCYTES (U) NEGATIVE NEGATIVE 06/06/2024 4:12 PM CHARTERED FINANCIAL ANALYST [facility] NITRITES NEGATIVE NEGATIVE 06/06/2024 4:12 PM CHARTERED FINANCIAL ANALYST [facility] PROTEIN RANDOM (U) 1+(A) NEGATIVE 06/06/2024 4:12 PM CHARTERED FINANCIAL ANALYST [facility] GLUCOSE (U) NEGATIVE NEGATIVE 06/06/2024 4:12 PM [facility] KETONES MG/DL (U) 1+(A) NEGATIVE 06/06/2024 4:12 PM [facility] UROBILINOGEN 0.2 <1.0 EU/DL 06/06/2024 4:12 PM CHARTERED FINANCIAL ANALYST [facility] BLOOD (U) NEGATIVE NEGATIVE 06/06/2024 4:12 PM CHARTERED FINANCIAL ANALYST [facility] WBC/HPF 0-5 0 - 5 /HPF 06/06/2024 4:12 PM [facility] RBC/HPF 0-5 0 - 5 /HPF 06/06/2024 4:12 PM [facility] EPI/LPF RARE /LPF 06/06/2024 4:12 PM [facility] BACTERIA (U) TRACE /HPF 06/06/2024 4:12 PM CHARTERED FINANCIAL ANALYST [facility] MUCUS PRESENT 06/06/2024 4:12 PM CHARTERED FINANCIAL ANALYST [facility] BILIRUBIN CONF ICTO (U) NEGATIVE NEGATIVE 06/06/2024 4:12 PM [facility] URINE SPECIMEN OBTAINED BY CLEAN CATCH PROCEDURE / Unknown 06/06/2024 3:58 PM CHARTERED FINANCIAL ANALYST us Piotr Vega MD URINE ORDERABLES Final Result Performing Organization Address City/[facility]/ZIP Co de Phone Number [facility] [place] [address], * CULTURE URINE (06/06/2024 3:58 PM CHARTERED FINANCIAL ANALYST) SPEC DESCRIPTION URINE CLEAN CATCH 06/06/2024 4:01 PM CHARTERED FINANCIAL ANALYST [facility] SPECIAL REQUESTS NO SPECIAL REQUEST 06/06/2024 4:01 PM CHARTERED FINANCIAL ANALYST [facility] CULTURE RESULT FEW CONTAMINANTS 07/2024 10:34 AM CHARTERED FINANCIAL ANALYST [facility] URINE SPECIMEN OBTAINED BY CLEAN CATCH PROCEDURE / Unknown 06/06/2024 3:58 PM CHARTERED FINANCIAL ANALYST 06/06/2024 4:02 PM CHARTERED FINANCIAL ANALYST Piotr Vega MD MICROBIOLOGY - GENERAL ORDERABLE S Final Result Performing Organization Address [facility] Co de Phone Number [facility] [address] [place] [address], [place] [phone] [facility] [address] [place] [phone], * (ABNORMAL) MAGNESIUM (06/02/2024 3:17 PM CHARTERED FINANCIAL ANALYST) MAGNESIUM 2.8(H) 1.8 - 2.4 MG/DL 06/02/2024 3:36 PM CHARTERED FINANCIAL ANALYST [facility] 06/02/2024 3:17 PM CHARTERED FINANCIAL ANALYST Feliciano Ferrer DO LABORATORY Final Res ult Performing Organization Address City/[facility] Co de Phone Number [facility] [address] [place] [phone], * CT HEAD WO CON (05/31/2024 2:24 PM CHARTERED FINANCIAL ANALYST) Anatomical Region Laterality Modality Head Computed Tomogra phy 05/31/2024 2:44 PM CHARTERED FINANCIAL ANALYST Impressions 05/31/2024 2:48 PM CHARTERED FINANCIAL ANALYST IMPRESSION: 1. No definite CT evidence for acute intracranial abnormality. 2. Chronic senescent changes. Please note that CT has limited sensitivity for the detection of acute ischemia Referred By: Interpreted By: Bryn Orona MD, 05/31/2024 2:44 PM Narrative 05/31/2024 2:48 PM CHARTERED FINANCIAL ANALYST [address] [place] [address] EXAMINATION: CT of the head CLINICAL HISTORY: [...] Procedure Note Bryn Orona MD - 05/31/[address] [place] [address] EXAMINATION: CT of the head CLINICAL HISTORY: [...] FACIAL BONES WO CON (05/31/2024 2:24 PM CHARTERED FINANCIAL ANALYST) Anatomical Region Laterality Modality Facial Computed Tomogra phy 05/31/2024 2:45 PM CHARTERED FINANCIAL ANALYST Impressions 05/31/2024 2:50 PM CHARTERED FINANCIAL ANALYST IMPRESSION: 1) No evidence of acute facial bone fracture. Ordered By: NEY PAPPAS Interpreted By: Piyush Burgos MD, 05/31/2024 2:45 PM Narrative 05/31/2024 2:50 PM CHARTERED FINANCIAL ANALYST [address] [place] [address] Examination: CT FACIAL BONES WO CON Exam [...] Procedure Note Piyush Burgos MD - 05/31/[address] [place] [address] Examination: CT FACIAL BONES WO CON Exam [...] SHOULDER LT MIN 2V (05/31/2024 2:23 PM CHARTERED FINANCIAL ANALYST) Anatomical Region Laterality Modality Shoulder Radiographic Meaghan ging 05/31/2024 2:39 PM CHARTERED FINANCIAL ANALYST Impressions 05/31/2024 2:41 PM CHARTERED FINANCIAL ANALYST IMPRESSION: No fracture or dislocation. Referred By: Interpreted By: Emiliano Adam MD, 05/31/2024 2:39 PM Narrative 05/31/2024 2:41 PM CHARTERED FINANCIAL ANALYST [address] [place] [address] Examination: XR SHOULDER LT MIN 2V Exam [...] Procedure Note Emiliano Adam MD - 05/31/2024 [place] [address] [place] [address] Examination: XR SHOULDER LT MIN 2V Exam [...] INFLUENZA A & B (05/31/2024 12:07 PM CHARTERED FINANCIAL ANALYST) SPECIMEN TYPE (INFLUENZA) NASOPHARYNGEAL SWAB 05/31/2024 12:09 PM CHARTERED FINANCIAL ANALYST [facility] INFLUENZA A POSITIVE(A) NEGATIVE 05/31/2024 12:57 PM CHARTERED FINANCIAL ANALYST [facility] Comment: CALLED TO ROSEMARY HAWKINS [id number] BY AA READ BACK AND VERIFIED INFLUENZA B NEGATIVE NEGATIVE 05/31/2024 12:57 PM CHARTERED FINANCIAL ANALYST [facility] NASAL NASOPHARYNGEAL SWAB / Unknown 05/31/2024 12:07 PM CHARTERED FINANCIAL ANALYST us Ney Pappas DO MICROBIOLOGY - GENERAL ORDER HILDA Final Result [facility] [address] [place] [address], * MG SCREENING W LISA CORETTA DIGI (05/15/2024 9:54 AM CHARTERED FINANCIAL ANALYST) Anatomical Region Laterality Modality Breast Bilateral Mammography 05/15/2024 10:0 8 AM CHARTERED FINANCIAL ANALYST Impressions 05/15/2024 10:09 AM CHARTERED FINANCIAL ANALYST IMPRESSION: No suspicious change since the previous exams. Recommendation: 1: Routine Screening Bilateral in 1 Year Assessment: ACR BI-RADS 2 - BENIGN FINDING(S) Ordered By: MELBA FREIRE Interpreted By: Merritt Stephens MD, 05/15/2024 10:08 AM Narrative 05/15/2024 10:09 AM CHARTERED FINANCIAL ANALYST [place] [id number] [facility] [address] Examination: Digital screening mammogram with CAD. Clinical [...] FECAL NEGATIVE NEGATIVE 12/18/2018 6:09 PM CDT [facility] STOOL SPECIMEN / Unknown 12/18/2018 5:00 PM CDT Harika WRIGHTNP BODY FLUIDS AND STOOLS O RDERABLES Final Result [facility] [address] [place] [address], from Last 3 Months or Most Recently Relevant to Health Maintenance Insurance [facility] MEDICARE [facility] Care Teams Water Filter Cleaner Relationship Specialty Start Date End Date Melba Freire MD [address] [place] [address] [place] [address] PCP - General FAMILY PRACTICE 05/17/18 Phi Lopez DO [address] [place] [address] SURGERY 12/10/23
[2024-06-29 08:37] VITALS: PULSE 88
[2024-06-29 08:46] VITALS: BP 112/87; PULSE 95; RESP 20; O2SAT 100
[2024-06-29 08:46] LABS: Basophils Percent Auto 0.5 % (0.2-1.2); Eosinophils Absolute Auto 0.2 K/mm3 (0-0.3); Eosinophils Percent Auto 3.2 % (0-4.4); Hemoglobin 14.4 g/dL (12.0-15.0); Immature Granulocyte Absolute 0.01 K/mm3 (0.00-0.031); Immature Granulocyte Percent A 0.2 % (0-0.5); Lymphocytes Absolute Auto 2.03 K/mm3 (0.9-3.2); Lymphocytes Percent Auto 31.2 % (18.3-44.2); Mean Corpuscular Hemoglobin 29.6 pg (26-34); Mean Corpuscular Volume 92.4 fl (80-100); Mean Platelet Volume 10.2 fl (7.4-10.4); Monocytes Absolute Auto 0.5 K/mm3 (0.1-0.6); Monocytes Percent Auto 7.8 % (2.6-8.5); Neutrophils Absolute Auto 3.7 K/mm3 (1.3-6.7); Neutrophils Percent Auto 57.1 % (45.5-73.1); Platelet Count Result 332 k/mm3 (150-375); Red Blood Count 4.87 M/mm3 (4.2-5.4); Red Cell Distribution Width 14.2 % (11.5-14.5); White Blood Count 6.5 K/mm3 (4.5-10.0)
--- NOTE | 2024-06-29 08:48 | ED.GENADULT ---
HPI - General Adult General Chief complaint: Weakness Stated complaint: diarrhea, back pain Time Seen by Provider: 06/29/24 08:17 History of Present Illness HPI narrative: 64-year-old female presented to the emergency department for evaluation for multiple complaints. Patient reports she has had chronic issues with her back. Patient stated she recently had EGD done at Dr. Nash's office, after clarification she had an EKG.. Patient states she is scheduled to have hysterectomy by OB [facility] on the . Patient states she has had increased nausea vomiting and abdominal bloating. Patient does report chronic back pain and she was worried that the abdominal bloating was worsening her back pain. Related Data Home Medications ?Medication ?Instructions ?Recorded ?Confirmed ?Last Taken ?Type atorvastatin 80 mg tablet 80 mg PO HS 08/07/23 06/26/24 Unknown History ergocalciferol (vitamin D2) 1,250 1,250 mcg PO MONTHLY 08/07/23 06/26/24 Unknown History mcg (50,000 unit) capsule rizatriptan 10 mg tablet See Rx Instructions PO .COMPLEX 08/07/23 06/26/24 Unknown History calcium 1 cap PO DAILY 11/29/23 06/26/24 Unknown History denosumab 60 mg/mL subcutaneous 60 mg subcut [id number] 11/29/23 06/26/24 Unknown History syringe (Prolia) irbesartan 150 mg tablet 150 mg PO HS 11/29/23 06/26/24 Unknown History fexofenadine 180 mg tablet 180 mg PO Q24H 06/23/24 06/26/24 Unknown History fluticasone propionate 50 2 spray intranasal DAILY PRN nasal 06/23/24 06/26/24 Unknown History mcg/actuation nasal congestion spray,suspension (Flonase Allergy Relief) Allergies Allergy/AdvReac Type Severity Reaction Status Date / Time levofloxacin (From Levaquin) Allergy Unknown Verified 06/29/24 09:02 lisinopril Allergy Unknown Verified 06/29/24 09:02 metformin Allergy Unknown Verified 06/29/24 09:02 aspirin AdvReac AVOIDS- Verified 06/29/24 09:02 MULTIPLE BLEEDING ULCERS NSAIDS (Non-Steroidal AdvReac AVOIDS-MULTIPLE Verified 06/29/24 09:02 Anti-Inflamma BLEEDING ULCERS Review of Systems Review of Systems: All systems reviewed & are unremarkable except as noted in HPI and below PMFSH Past Medical History Medical History (Updated 06/29/24 @ 10:48 by Conor Hurtado MD) Belching Diarrhea Colon cancer screening Hypertension GERD (gastroesophageal reflux disease) Gall bladder pain Family History Family History Father Diabetes mellitus Hypertension Mother Asthma Thyroid condition Social History Social History Smoking status: Never smoker Alcohol intake: current Substance use: never Substance use type: does not use Lack of Food: Never True Current Housing: I Have Housing Concerned About Future Housing: No Difficulty Paying Gas/Electric Bills: No Difficulty Paying for Meds: No Currently Unemployed: No Difficulty w/ Childcare or Family Care: No Living arrangements: with family Additional living arrangements comments: [facility] Spiritual care concerns: No Exam Narrative: APPEARANCE: Well appearing, no pain, no distress, well-nourished. HEAD: normocephalic, atraumatic. EYES: PERRLA/EOMI, conjunctivae clear. NOSE: Normal no drainage EARS:TMS clear with good light reflex. THROAT: Pharynx clear, no exudate. NECK: Supple. No adenopathy, no masses. RESPIRATORY: Airway patent, respirations nonlabored. Clear to auscultation bilaterally, no rales, rhonchi, wheezing. CARDIOVASCULAR: Regular rate and rhythm without murmurs rubs or gallops. ABDOMINAL: Soft, nontender, nondistended, normal bowel sounds MUSCULOSKELETAL: Moves all extremities. Strength/ROM intact, No edema, No calf tenderness. NEURO: Alert. Cranial nerves II through XII intact. Good gait. Good coordination SKIN: Warm, dry. Normal Color Course Vital Signs Vital signs: Vital Signs Temperature 97.3 F L 06/29/24 08:20 Pulse Rate 112 H 06/29/24 08:20 Respiratory Rate 18 06/29/24 08:20 Blood Pressure 122/92 H 06/29/24 08:20 Pulse Oximetry 100 06/29/24 08:20 Oxygen Delivery Room Air 06/29/24 08:20 Temperature 97.3 F L 06/29/24 08:20 Pulse Rate 80 06/29/24 11:03 Respiratory Rate 20 06/29/24 11:03 Blood Pressure 100/67 06/29/24 11:03 Pulse Oximetry 97 02/23/25 11:03 Oxygen Delivery Room Air 06/29/24 08:20 Medical Decision Making MDM Narrative Medical decision making narrative: 64-year-old female presents to the emergency department for evaluation for abdominal discomfort. Patient does have a hysterectomy scheduled for the . Patient clarified stated that she had an EKG not an EGD done recently. Patient was advised that if she has history of ulcers that she will need to have close follow-up with GI again. Patient is currently afebrile with no leukocytosis and hemoglobin of 14.4, normal platelets, INR 0.9. Patient has no significant abnormalities on her CMP, UA was negative for infection, patient was negative for C diff influenza RSV and for COVID, no acute abnormalities were identified on the CT scan. Patient was advised to switch to a clear liquid diet if she is having persistent diarrhea. Patient was also encouraged close follow-up with GI. Differential Diagnosis Differential Diagnosis: Colitis, diverticulitis, pneumonia, cover RSV, influenza, UTI Vital Signs Vital Signs: Vital Signs Temperature 97.3 F L 06/29/24 08:20 Pulse Rate 112 H 06/29/24 08:20 Respiratory Rate 18 06/29/24 08:20 Blood Pressure 122/92 H 06/29/24 08:20 Pulse Oximetry 100 06/29/24 08:20 Oxygen Delivery Room Air 06/29/24 08:20 Temperature 97.3 F L 06/29/24 08:20 Pulse Rate 80 06/29/24 11:03 Respiratory Rate 20 06/29/24 11:03 Blood Pressure 100/67 06/29/24 11:03 Pulse Oximetry 97 06/29/24 11:03 Oxygen Delivery Room Air 06/29/24 08:20 Lab Data Lab results reviewed: Yes I reviewed the patient's lab results. 06/29/24 08:38 06/29/24 08:38 Labs: Lab Results 06/29/24 06/29/24 Range/Units 08:38 09:46 WBC 6.5 (4.5-10.0) K/mm3 RBC 4.87 (4.2-5.4) M/mm3 Hgb 14.4 (12.0-15.0) g/dL Hct 45.0 (37.0-47.0) % MCV 92.4 (80-100) fl MCH 29.6 (26-34) pg MCHC 32.0 (32-36) g/dl RDW 14.2 (11.5-14.5) % Plt Count 332 (150-375) k/mm3 MPV 10.2 (7.4-10.4) fl Immature Gran % (Auto) 0.2 (0-0.5) % Neut % (Auto) 57.1 (45.5-73.1) % Lymph % (Auto) 31.2 (18.3-44.2) % [place] % (Auto) 7.8 (2.6-8.5) % Eos % (Auto) 3.2 (0-4.4) % Baso % (Auto) 0.5 (0.2-1.2) % Lymph # (Auto) 2.03 (0.9-3.2) K/mm3 [place] # (Auto) 0.5 (0.1-0.6) K/mm3 Eos # (Auto) 0.2 (0-0.3) K/mm3 Baso # (Auto) 0.0 (0.0-0.1) K/mm3 Abs Immat Gran (auto) 0.01 (0.00-0.031) K/mm3 Absolute Neuts (auto) 3.7 (1.3-6.7) K/mm3 Absolute Nucleated RBC 0.000 (0.0-0.012) K/mm3 Nucleated RBC % 0.0 (0.0-0.2) % PT 12.5 (11.1-14.7) Seconds INR 0.9 APTT 25.5 (22.3-36.8) Seconds Sodium 138 (137-145) mmol/L Potassium 3.5 (3.4-5.0) mmol/L Chloride 101 (98-107) mmol/L Carbon Dioxide 26 (22-30) mmol/L Anion Gap 11 (4-12) mmol/L BUN 11 (7-17) mg/dL Creatinine 0.63 L (0.7-1.0) mg/dL Estim Creat Clear Calc 74 ml/min Estimated GFR > 60 (59 - ) Glucose 133 H (65-110) mg/dL Calcium 9.3 (8.4-10.2) mg/dL Total Bilirubin 0.8 (0.2-1.3) mg/dL AST 47 H (14-36) U/L ALT 29 (6-35) U/L Alkaline Phosphatase 93 (38-126) U/L Total Protein 7.0 (6.3-8.2) g/dL Albumin 4.3 (3.5-5.1) g/dL Urine Color Yellow (Yellow) Urine Appearance Clear (Clear) Urine pH >=9.0 H (5.0-9.0) Ur Specific [place] > 1.045 H (1.001-1.035) Urine Protein 1+ H (Negative) mg/dL Urine Glucose (UA) Negative (Negative) mg/dL Urine Ketones Negative (Negative) mg/dL Ur Blood (Man) Negative (Negative) Urine Nitrate Negative (Negative) Urine Bilirubin Negative (Negative) Urine Urobilinogen 0.2 (<2.0) mg/dL Add Ur Microanalysis Reviewed Leukocyte Esterase Rfl Negative (Negative) EUGENE/UL Urine RBC 6-10 H (0-2) /hpf Urine WBC 0-5 (0-3) /hpf Ur Squamous Epith Cells None seen (Few) /hpf Urine Bacteria None seen /hpf Urine Casts 0-2 C. difficile (PCR) Negative (NEGATIVE) Influenza A (RT-PCR) Negative (Negative) Influenza B (RT-PCR) Negative (Negative) RSV (RT-PCR) Negative (Negative) SARS-CoV-2 RNA (RT-PCR) Negative (Negative) Imaging Data Radiologist's impression: Impressions Abdomen/Pelvis CT 06/29/24 09:25 IMPRESSION: 1. No specific etiology for the patient's symptoms. Discharge Plan Discharge Clinical Impression: Abdominal pain, Diarrhea Patient Disposition: Home, Self-Care Condition: Stable Instructions: Antibiotic Form, Clear Liquid Diet (ED), Abdominal Pain (ED) Additional Instructions: Continue home medications as directed. I recommend you follow a clear liquid diet for the next 1-3 days to help with the diarrhea. You would also benefit from follow-up with GI. If you have any worsening symptoms then please call or return to the emergency department. Patient Language: Ivorian Prescriptions: No Action atorvastatin 80 mg tablet 80 mg PO HS ergocalciferol (vitamin D2) 1,250 mcg (50,000 unit) capsule 1,250 mcg PO MONTHLY rizatriptan 10 mg tablet See Rx Instructions PO .COMPLEX Rx Instructions: take 1 tab at onset of headache; if no relief may repeat 1 tab after at least 2 hrs; max = 3 tabs/24 hr PO Xifaxan 550 mg tablet 550 mg PO TID 14 Days Qty: 42 2RF irbesartan 150 mg tablet 150 mg PO HS Prolia 60 mg/mL Syringe 60 mg SUBCUT [id number] calcium 1 cap PO DAILY fluticasone propionate [Flonase Allergy Relief] 50 mcg/actuation spray,suspension 2 spray intranasal DAILY PRN (Reason: nasal congestion) Rx Instructions: administer into each nostril fexofenadine 180 mg tablet 180 mg PO Q24H omeprazole 40 mg capsule,delayed release(DR/EC) 40 mg PO HS Qty: 30 5RF Follow-up/Referrals: Sterling Freire M.D. [Primary Care Provider] -
[2024-06-29 08:56] LABS: Alanine Aminotransferase 29 U/L (6-35); Albumin Level 4.3 g/dL (3.5-5.1); Alkaline Phosphatase 93 U/L (38-126); Anion Gap 11 mmol/L (4-12); Aspartate Amino Transferase 47 U/L (14-36); Bilirubin,Total 0.8 mg/dL (0.2-1.3); Blood Urea Nitrogen 11 mg/dL (7-17); Calcium 9.3 mg/dL (8.4-10.2); Carbon Dioxide 26 mmol/L (22-30); Chloride 101 mmol/L (98-107); Estimated CRCL calculation 74 ml/min; Estimated Glomerular Filt Rate > 60; Glucose 133 mg/dL (65-110); INR 0.9; Potassium 3.5 mmol/L (3.4-5.0); Prothrombin Time 12.5 Seconds (11.1-14.7); Sodium 138 mmol/L (137-145)
[2024-06-29 08:57] LABS: Partial Thromboplastin Time 25.5 Seconds (22.3-36.8)
[2024-06-29] MEDS: SODIUM CHLORIDE 0.9% IV 1,000 ML 999 ML IV CONT (09:02)
[2024-06-29] MEDS: ONDANSETRON INJ 4 MG/2 ML VIAL IV PUSH (09:02)
[2024-06-29 09:51] LABS: Influenza A QL RT-PCR Negative (Negative); Influenza B QL RT-PCR Negative (Negative); RSV RNA, RT-PCR Negative (Negative); SARS-CoV-2 RNA PCR Negative (Negative)
[2024-06-29 10:09] LABS: Add Urine Microscopic? YES; Appearance Urine Clear (Clear); Bacteria Urine None Seen /hpf; Bilirubin Urine Negative (Negative); Blood Urine Negative (Negative); Color Urine Yellow (Yellow); Glucose Urine UA Negative (Negative); Ketones Urine Negative (Negative); Leukocyte Esterase Ur Negative LEU/UL (Negative); Need Manual Microscopic Reviewed; Nitrate Urine Negative (Negative); Non Pathogenic Casts 0-2; Protein Urine 1+ mg/dL (Negative); Specific Grav Ur > 1.045 (1.001-1.035); Squamous Epithelial Cell Urine None Seen /hpf (Few); Urobilinogen Urine 0.2 mg/dL (<2.0); WBC Urine 0-5 /hpf (0-3); pH Urine >=9.0 (5.0-9.0)
[2024-06-29 10:41] LABS: Toxigenic C. Diff NEGATIVE (NEGATIVE)
[2024-06-29 11:03] VITALS: BP 100/67; PULSE 80; RESP 20; O2SAT 97
[2024-06-29] MEDS: HYDROcodone/acetaminophen (*CRX) 5-325 MG TABLET 1 TAB PO (11:04)
== END 2024-06-29 11:20 | disposition home or self-care (01) ==
PROVIDERS: Emergency Provider Emergency Medicine; PCP Family Medicine
DX: R19.7 Diarrhea, unspecified (principal); R10.9 Unspecified abdominal pain; Z20.822 Contact with and (suspected) exposure to COVID-19; I10 Essential (primary) hypertension; K21.9 Gastro-esophageal reflux disease without esophagitis; Z79.899 Other long term (current) drug therapy
CPT/HCPCS: 36415; 74177; 80053; 81001; 85025; 85610; 85730; 87493; 87637; 93005; 96361; 96374; 99284; A9270; J2405; J7030; Q9967

== ENCOUNTER 2024-07-04 01:05 | Day surgery (SDC) | payer MEDICARE, SELFPAY ==
[2024-06-23 10:38] VITALS: BMI 29.5
--- NOTE | 2024-06-23 14:30 | PC.NURSE ---
Report to the Outpatient Waiting Room, entrance under the green pavilion located off [facility], at time __6:00AM____ on date ____07/04/24___. Planned Procedure Time: ___7:30AM .? Time changes happen often and if your time is changed the preop area will call you the afternoon before. - You and your visitor will be asked to self-screen and do not enter if you have any COVID symptoms. Please call surgeon if you need to reschedule. - A mask is optional within the hospital at this time. Patients may have clear liquids (water, carbonated beverages, clear teas, apple juice) until 3 hours prior to surgery (4:30AM) with a maximum of 20 ounces. - No food from midnight until time of surgery and no smoking, or chewing tobacco (or any form of nicotine). No chewing gum, candy or mints. Take only the following medications with a SIP of water on the morning of surgery: __NONE DO NOT STOP ANY OF YOUR OTHER PRESCRIPTION MEDICATIONS PRIOR TO SURGERY EXCEPT THE FOLLOWING Hold all vitamins and supplements for 3 days per anesthesiologist -LAST DOSE 06/30/24. Please no make-up, nail moroccan, hairspray, perfume, deodorant, or body powder the day of surgery.? No jewelry (including any body piercings) or valuables the day of surgery, leave them at home.? Please take a shower or bath the night before, or the morning of, surgery with an antibacterial soap.? Wear comfortable, loose fitting clothing.? - Jewelry must be removed prior to entering the operating room.? Rings and piercings that are not removed may be cut off. - The hospital will not accept responsibility for valuables.? - Please leave all valuables, including medications, at home the day of surgery. If you are going home after surgery, a licensed regional flatbed truck driver must drive you home.? - NO public transportation without another adult if you receive anesthesia. - We recommend that an adult stay with you for 24 hours following discharge. - We also recommend that you do not drive, make important decision, drink alcoholic beverages, or take any drugs that were not prescribed by your health care provider for at least 24 hours after your discharge time. Follow any additional instructions given to you from your surgeon. Telephone instructions given to ____PATIENT and asked if any additional questions and then verbalized understanding. Patient advised to call surgeon office or pre surgery nurse liaison [phone] if any additional questions.
--- NOTE | 2024-07-02 12:12 | P.HP_ITS ---
H&P: HPI History of Present Illness Date/Time: 07/02/24 12:12 Chief Complaint: Enlarged uterus/pelvic pain Narrative: 64-year-old female admitted for hysterectomy bilateral salpingo-oophorectomy robotically secondary to severe pelvic pain and dyspareunia. The uterus is enlarged. Risks and benefits were reviewed including but not exclusive of , aspiration pneumonia, bleeding, transfusion, perforation injury to bowel, bladder, ureters, or other internal organs with need for open laparotomy. She received the ACOG handout entitled hysterectomy as well as the Sal handout. She had all questions answered. She asked to proceed. Review of Systems Review of Systems: All systems reviewed & are unremarkable except as noted in HPI and below PMFSH Past Medical History Medical History Belching Diarrhea Colon cancer screening Hypertension GERD (gastroesophageal reflux disease) Gall bladder pain Family History Family History Father Diabetes mellitus Hypertension Mother Asthma Thyroid condition Social History Social History Smoking status: Never smoker Alcohol intake: current Substance use: never Substance use type: does not use Lack of Food: Never True Current Housing: I Have Housing Concerned About Future Housing: No Difficulty Paying Gas/Electric Bills: No Difficulty Paying for Meds: No Currently Unemployed: No Difficulty w/ Childcare or Family Care: No Living arrangements: with family Additional living arrangements comments: [facility] Spiritual care concerns: No Meds Home Medications and Allergies Home Medications ?Medication ?Instructions ?Recorded ?Confirmed ?Type atorvastatin 80 mg tablet 80 mg PO HS 08/07/23 06/26/24 History ergocalciferol (vitamin D2) 1,250 1,250 mcg PO MONTHLY 08/07/23 06/26/24 History mcg (50,000 unit) capsule rizatriptan 10 mg tablet See Rx Instructions PO .COMPLEX 08/07/23 06/26/24 History calcium 1 cap PO DAILY 11/29/23 06/26/24 History denosumab 60 mg/mL subcutaneous 60 mg subcut [id number] 11/29/23 06/26/24 History syringe (Prolia) irbesartan 150 mg tablet 150 mg PO HS 11/29/23 06/26/24 History omeprazole 40 mg capsule,delayed 40 mg PO HS #30 caps 04/23/24 06/26/24 Rx release fexofenadine 180 mg tablet 180 mg PO Q24H 06/23/24 06/26/24 History fluticasone propionate 50 2 spray intranasal DAILY PRN nasal 06/23/24 06/26/24 History mcg/actuation nasal congestion spray,suspension (Flonase Allergy Relief) rifaximin 550 mg tablet (Xifaxan) 550 mg PO TID 2 weeks #42 tabs 06/26/24 06/26/24 Rx Allergies Allergy/AdvReac Type Severity Reaction Status Date / Time levofloxacin (From Levaquin) Allergy Unknown Verified 06/29/24 09:02 lisinopril Allergy Unknown Verified 06/29/24 09:02 metformin Allergy Unknown Verified 06/29/24 09:02 aspirin AdvReac AVOIDS- Verified 06/29/24 09:02 MULTIPLE BLEEDING ULCERS NSAIDS (Non-Steroidal AdvReac AVOIDS-MULTIPLE Verified 06/29/24 09:02 Anti-Inflamma BLEEDING ULCERS Exam Const: General: cooperative, healthy appearing and comfortable Nutritional Appearance: overweight Orientation/consciousness: oriented to person, oriented to place and oriented to time HENMT: Head: normal to inspection Resp: Effort & Inspection: normal respiratory effort Cardio: Rate: regular rate Rhythm: regular rhythm Heart sounds: S1 normal heart sound present and S2 normal heart sound present GI: Inspection: normal to inspection : External Female Exam: normal external appearance Speculum Exam - Vagina: normal appearance of the vagina Speculum Exam - Cervix: normal appearance of the cervix Bimanual exam- vagina & uterus: Cervical tenderness present and enlarged Bimanual Exam- Adnexa, other: normal adnexae Assessment and Plan Assessment and plan (1) Enlarged uterus: Code(s): N85.2 - Hypertrophy of uterus Status: Acute (2) Pelvic pain: Code(s): R10.2 - Pelvic and perineal pain Status: Acute (3) Dyspareunia: Status: Acute Plan Proceed with robotic total vaginal hysterectomy and bilateral salpingo- oophorectomy
[2024-07-04 06:05] VITALS: BP 129/82; PULSE 89; RESP 18; TEMP 36.5; O2SAT 100
--- NOTE | 2024-07-04 06:47 | SUR.PREOP ---
Dr. Cordell Hawthorne notified of concerns of patient surgery possibly needing to be cancelled d/t acute stabbing left flank pain with diarrhea along with other concerns voiced by patient associated with multiple ER visits in the last couple of weeks. Per Dr Cordell Hawthorne okay to proceed as long as anesthesia is okay with proceeding. Dr. Shoemaker in room talking to patient at this time.
--- NOTE | 2024-07-04 07:07 | SUR.PREOP ---
Procedure cancelled and patient d/c. Patient taken to [place] ER upon patient and spouse request by Nurse Aircraft Pneudraulics Repairer, Victoria Venegas, via wheelchair.
== END 2024-07-04 07:07 | disposition home or self-care (01) ==
PROVIDERS: PCP Family Medicine; Visit Provider Obstetrics & Gynecology
DX: R10.2 Pelvic and perineal pain (principal); N94.10 Unspecified dyspareunia; F43.0 Acute stress reaction; I10 Essential (primary) hypertension; K21.9 Gastro-esophageal reflux disease without esophagitis; Z53.8 Procedure and treatment not carried out for other reasons
CPT/HCPCS: 99212; G0463

== ENCOUNTER 2024-07-04 07:07 | Emergency (ER) | payer MEDICARE, SELFPAY ==
[2024-07-04 07:12] VITALS: BP 140/96; PULSE 83; RESP 21; TEMP 36.6; O2SAT 100
--- NOTE | 2024-07-04 07:26 | ED.ABDPAIN ---
HPI - Abdominal Pain General Chief Complaint: Abdominal Pain Stated Complaint: abd pain Time Seen by Provider: 07/04/24 07:26 Source: patient Mode of arrival: ambulatory History of Present Illness HPI narrative: 64 years old white female came from home with her by private car complaining of abdominal pain, patient is scheduled for hysterectomy this morning. She denies any fever or chills. Related Data Home Medications ?Medication ?Instructions ?Recorded ?Confirmed ?Last Taken ?Type atorvastatin 80 mg tablet 80 mg PO HS 08/07/23 06/26/24 Unknown History ergocalciferol (vitamin D2) 1,250 1,250 mcg PO MONTHLY 08/07/23 06/26/24 Unknown History mcg (50,000 unit) capsule rizatriptan 10 mg tablet See Rx Instructions PO .COMPLEX 08/07/23 06/26/24 Unknown History calcium 1 cap PO DAILY 11/29/23 06/26/24 Unknown History denosumab 60 mg/mL subcutaneous 60 mg subcut [id number] 11/29/23 06/26/24 Unknown History syringe (Prolia) irbesartan 150 mg tablet 150 mg PO HS 11/29/23 06/26/24 Unknown History fexofenadine 180 mg tablet 180 mg PO Q24H 06/23/24 06/26/24 Unknown History fluticasone propionate 50 2 spray intranasal DAILY PRN nasal 06/23/24 06/26/24 Unknown History mcg/actuation nasal congestion spray,suspension (Flonase Allergy Relief) Allergies Allergy/AdvReac Type Severity Reaction Status Date / Time levofloxacin (From Levaquin) Allergy Unknown Verified 07/04/24 07:26 lisinopril Allergy Unknown Verified 07/04/24 07:26 metformin Allergy Unknown Verified 07/04/24 07:26 oseltamivir (From Tamiflu) Allergy Unknown Verified 07/04/24 07:26 aspirin AdvReac AVOIDS- Verified 07/04/24 07:26 MULTIPLE BLEEDING ULCERS NSAIDS (Non-Steroidal AdvReac AVOIDS-MULTIPLE Verified 07/04/24 07:26 Anti-Inflamma BLEEDING ULCERS Review of Systems Review of Systems: All systems reviewed & are unremarkable except as noted in HPI and below PMFSH Past Medical History Medical History Belching Diarrhea Colon cancer screening Hypertension GERD (gastroesophageal reflux disease) Gall bladder pain Family History Family History Father Diabetes mellitus Hypertension Mother Asthma Thyroid condition Social History Social History Smoking status: Never smoker Alcohol intake: current Substance use: never Substance use type: does not use Lack of Food: Never True Current Housing: I Have Housing Concerned About Future Housing: No Difficulty Paying Gas/Electric Bills: No Difficulty Paying for Meds: No Currently Unemployed: No Difficulty w/ Childcare or Family Care: No Living arrangements: with family Additional living arrangements comments: [facility] Spiritual care concerns: No Exam Narrative: General appearance: Well-developed, well-nourished, crying, restless, hyperventilating Skin: Normal color Head: Normocephalic, nontraumatic Eyes: Clear conjunctiva ENT: Oropharynx normal, ears normal, nose normal Neck: Supple, nontender Chest and respiratory: Airway patent, no respiratory distress, no accessory muscle use Heart: Regular rate/rhythm Abdomen: Soft, diffuse abdominal tenderness, no organomegaly, quiet bowel sounds Vascular: Normal peripheral pulses, normal capillary refill. Musculoskeletal: Normal range of motion, nontender back Neurologic: Alert and oriented ?3, DOCUMENT CONTROL CLERK is normal as tested, no gross motor deficit Course Consultations Consultation #1: DR ACOSTA AGREED WITH THE PLAN TO DISCHARGE PATIENT HOME, OUTPATIENT FOLLOW-UP FOR FUTURE HYSTERECTOMY Date: 07/04/24 Vital Signs Vital signs: Vital Signs Temperature 36.6 C 07/04/24 07:12 Pulse Rate 83 07/04/24 07:12 Respiratory Rate 21 H 07/04/24 07:12 Blood Pressure 140/96 H 07/04/24 07:12 Pulse Oximetry 100 07/04/24 07:12 Oxygen Delivery Room Air 07/04/24 07:12 Temperature 36.6 C 07/04/24 07:12 Pulse Rate 87 07/04/24 09:41 Respiratory Rate 18 07/04/24 09:41 Blood Pressure 118/66 07/04/24 09:41 Pulse Oximetry 97 07/04/24 09:41 Oxygen Delivery Room Air 07/04/24 09:41 Oxygen Flow Rate 2 07/04/24 08:38 MDM - Abdominal Pain MDM Narrative Medical decision making narrative: Patient came with abdominal pain and anxiety like symptoms Vital signs are stable Physical examination showing hyperventilating, anxious, restless patient with mild diffuse abdominal pain Differential diagnosis include anxiety like symptoms, cholecystitis appendicitis diverticulitis colitis esophagitis gastritis constipation Blood workup today includes CBC, CMP, lactic acid, lipase showed lactic acid of 2.8 otherwise within normal limit Urinalysis showed no significant abnormalities Chest x-ray showed slight pleural effusion CT abdomen and pelvis with IV contrast showed cholelithiasis no evidence of cholecystitis DR. ACOSTA REQUESTED TO DISCHARGE PATIENT HOME AND RESCHEDULE FOR HYSTERECTOMY OUTPATIENT Differential Diagnosis Differential diagnosis: Likely other (As above) Medical Records Attestation: I reviewed the patient's medical records. Lab Data Attestation: I reviewed the patient's lab results. 07/04/24 07:43 07/04/24 07:43 Labs: Lab Results 07/04/24 07/04/24 Range/Units 07:43 08:30 WBC 4.8 (4.5-10.0) K/mm3 RBC 4.56 (4.2-5.4) M/mm3 Hgb 13.7 (12.0-15.0) g/dL Hct 41.7 (37.0-47.0) % MCV 91.4 (80-100) fl MCH 30.0 (26-34) pg MCHC 32.9 (32-36) g/dl RDW 14.6 H (11.5-14.5) % Plt Count 346 (150-375) k/mm3 MPV 9.9 (7.4-10.4) fl Immature Gran % (Auto) 0.2 (0-0.5) % Neut % (Auto) 48.7 (45.5-73.1) % Lymph % (Auto) 40.2 (18.3-44.2) % [place] % (Auto) 8.2 (2.6-8.5) % Eos % (Auto) 2.1 (0-4.4) % Baso % (Auto) 0.6 (0.2-1.2) % Lymph # (Auto) 1.92 (0.9-3.2) K/mm3 [place] # (Auto) 0.4 (0.1-0.6) K/mm3 Eos # (Auto) 0.1 (0-0.3) K/mm3 Baso # (Auto) 0.0 (0.0-0.1) K/mm3 Abs Immat Gran (auto) 0.01 (0.00-0.031) K/mm3 Absolute Neuts (auto) 2.3 (1.3-6.7) K/mm3 Absolute Nucleated RBC 0.000 (0.0-0.012) K/mm3 Nucleated RBC % 0.0 (0.0-0.2) % Sodium 138 (137-145) mmol/L Potassium 3.7 (3.4-5.0) mmol/L Chloride 106 (98-107) mmol/L Carbon Dioxide 21 L (22-30) mmol/L Anion Gap 11 (4-12) mmol/L BUN 8 (7-17) mg/dL Creatinine 0.57 L (0.7-1.0) mg/dL Estim Creat Clear Calc 83 ml/min Estimated GFR > 60 (59 - ) Glucose 108 (65-110) mg/dL Lactic Acid 2.8 H (0.7-2.0) mmol/L Calcium 8.3 L (8.4-10.2) mg/dL Total Bilirubin 1.0 (0.2-1.3) mg/dL AST 44 H (14-36) U/L ALT 33 (6-35) U/L Alkaline Phosphatase 88 (38-126) U/L Total Protein 7.0 (6.3-8.2) g/dL Albumin 4.0 (3.5-5.1) g/dL Lipase 114 (23-300) U/L Urine Color Yellow (Yellow) Urine Appearance Clear (Clear) Urine pH >=9.0 H (5.0-9.0) Ur Specific [place] 1.019 (1.001-1.035) Urine Protein 1+ H (Negative) mg/dL Urine Glucose (UA) Negative (Negative) mg/dL Urine Ketones 2+ H (Negative) mg/dL Ur Blood (Man) Negative (Negative) Urine Nitrate Negative (Negative) Urine Bilirubin Negative (Negative) Urine Urobilinogen 1.0 (<2.0) mg/dL Add Ur Microanalysis Reviewed Leukocyte Esterase Rfl Negative (Negative) EUGENE/UL Urine RBC 6-10 H (0-2) /hpf Urine WBC 0-5 (0-3) /hpf Ur Squamous Epith Cells None seen (Few) /hpf Urine Bacteria None seen /hpf Urine Casts 0-2 Imaging Data Radiologist's impression: ITS Impressions Abdomen/Pelvis CT 07/04/24 09:06 IMPRESSION: 1. Cholelithiasis. No evidence of acute cholecystitis. Chest X-Ray 07/04/24 09:07 IMPRESSION: Prominence of the superior mediastinum, possibly secondary to patient rotation and positioning. Small left-sided pleural effusion. Critical Care Time Critical Care Time Critical Care Time: No Discharge Plan Discharge Clinical Impression: Panic attack, Abdominal pain Patient Disposition: Home, Self-Care Condition: Improved Instructions: Abdominal Pain (ED) Additional Instructions: RETURN IF SYMPTOMS ARE WORSENING , CALL YOUR FAMILY PHYSICIAN FOR APPOINTMENT, TAKE TYLENOL NEEDED FOR ACHES AND PAIN, CONTINUE HOME MEDICATIONS. Patient Language: Gambian Prescriptions: No Action atorvastatin 80 mg tablet 80 mg PO HS ergocalciferol (vitamin D2) 1,250 mcg (50,000 unit) capsule 1,250 mcg PO MONTHLY rizatriptan 10 mg tablet See Rx Instructions PO .COMPLEX Rx Instructions: take 1 tab at onset of headache; if no relief may repeat 1 tab after at least 2 hrs; max = 3 tabs/24 hr PO Xifaxan 550 mg tablet 550 mg PO TID 14 Days Qty: 42 2RF irbesartan 150 mg tablet 150 mg PO HS Prolia 60 mg/mL Syringe 60 mg SUBCUT [id number] calcium 1 cap PO DAILY fluticasone propionate [Flonase Allergy Relief] 50 mcg/actuation spray,suspension 2 spray intranasal DAILY PRN (Reason: nasal congestion) Rx Instructions: administer into each nostril fexofenadine 180 mg tablet 180 mg PO Q24H omeprazole 40 mg capsule,delayed release(DR/EC) 40 mg PO HS Qty: 30 5RF Follow-up/Referrals: Sterling Freire M.D. [Primary Care Provider] -
[2024-07-04 07:54] LABS: Basophils Percent Auto 0.6 % (0.2-1.2); Eosinophils Absolute Auto 0.1 K/mm3 (0-0.3); Eosinophils Percent Auto 2.1 % (0-4.4); Hematocrit 41.7 % (37.0-47.0); Hemoglobin 13.7 g/dL (12.0-15.0); Immature Granulocyte Absolute 0.01 K/mm3 (0.00-0.031); Immature Granulocyte Percent A 0.2 % (0-0.5); Lymphocytes Absolute Auto 1.92 K/mm3 (0.9-3.2); Lymphocytes Percent Auto 40.2 % (18.3-44.2); Mean Corpuscular HGB Conc 32.9 g/dl (32-36); Mean Corpuscular Volume 91.4 fl (80-100); Mean Platelet Volume 9.9 fl (7.4-10.4); Monocytes Absolute Auto 0.4 K/mm3 (0.1-0.6); Monocytes Percent Auto 8.2 % (2.6-8.5); Neutrophils Absolute Auto 2.3 K/mm3 (1.3-6.7); Neutrophils Percent Auto 48.7 % (45.5-73.1); Platelet Count Result 346 k/mm3 (150-375); Red Blood Count 4.56 M/mm3 (4.2-5.4); Red Cell Distribution Width 14.6 % (11.5-14.5); White Blood Count 4.8 K/mm3 (4.5-10.0)
[2024-07-04 08:07] LABS: Lactic Acid Reflex 2.8 mmol/L (0.7-2.0)
[2024-07-04] MEDS: SODIUM CHLORIDE 0.9% IV 1,000 ML 999 ML IV CONT (08:07)
[2024-07-04 08:08] LABS: Alanine Aminotransferase 33 U/L (6-35); Alkaline Phosphatase 88 U/L (38-126); Anion Gap 11 mmol/L (4-12); Aspartate Amino Transferase 44 U/L (14-36); Blood Urea Nitrogen 8 mg/dL (7-17); Calcium 8.3 mg/dL (8.4-10.2); Carbon Dioxide 21 mmol/L (22-30); Chloride 106 mmol/L (98-107); Estimated CRCL calculation 83 ml/min; Estimated Glomerular Filt Rate > 60; Glucose 108 mg/dL (65-110); Lipase 114 U/L (23-300); Potassium 3.7 mmol/L (3.4-5.0); Sodium 138 mmol/L (137-145)
[2024-07-04] MEDS: HYDROmorphone HCL INJ (*CRX) 1 MG/ML SYR 0.5 MG IV PUSH (08:13)
[2024-07-04 08:16] VITALS: BP 146/97; PULSE 94; RESP 24; O2SAT 100
[2024-07-04] MEDS: LORazepam INJ (*CRX) 2 MG/ML VIAL 1 MG IV PUSH (08:22)
[2024-07-04 08:38] VITALS: O2SAT 98
[2024-07-04 09:03] LABS: Add Urine Microscopic? YES; Appearance Urine Clear (Clear); Bacteria Urine None Seen /hpf; Bilirubin Urine Negative (Negative); Blood Urine Negative (Negative); Color Urine Yellow (Yellow); Glucose Urine UA Negative (Negative); Ketones Urine 2+ mg/dL (Negative); Leukocyte Esterase Ur Negative LEU/UL (Negative); Need Manual Microscopic Reviewed; Nitrate Urine Negative (Negative); Non Pathogenic Casts 0-2; Protein Urine 1+ mg/dL (Negative); Specific Grav Ur 1.019 (1.001-1.035); Squamous Epithelial Cell Urine None Seen /hpf (Few); WBC Urine 0-5 /hpf (0-3); pH Urine >=9.0 (5.0-9.0)
[2024-07-04 09:41] VITALS: BP 118/66; PULSE 87; RESP 18; O2SAT 97
[2024-07-04 10:33] VITALS: BP 124/83; PULSE 80; RESP 11; O2SAT 100
[2024-07-04 10:51] LABS: Reflex Lactic Acid Yes or No Add Lactic
[2024-07-04 10:53] VITALS: BP 124/83; PULSE 80; RESP 16; TEMP 36.4; O2SAT 100
== END 2024-07-04 10:54 | disposition home or self-care (01) ==
PROVIDERS: Emergency Provider Emergency Medicine; PCP Family Medicine
DX: F41.0 Panic disorder [episodic paroxysmal anxiety] (principal); R10.9 Unspecified abdominal pain; I10 Essential (primary) hypertension; K21.9 Gastro-esophageal reflux disease without esophagitis; Z79.899 Other long term (current) drug therapy; K80.20 Calculus of gallbladder without cholecystitis without obstruction
CPT/HCPCS: 36415; 71045; 74177; 80053; 81001; 83605; 83690; 85025; 96361; 96374; 96375; 99284; J1171; J2060; J7030; Q9967

== ENCOUNTER 2024-07-15 01:06 | Day surgery (SDC) | payer MEDICARE, SELFPAY ==
[2024-07-14 14:57] VITALS: BMI 28.3
--- OUTSIDE RECORDS SUMMARY | 2024-07-15 01:10 | XMS_ITS | Data Portability ---
Author Organization [facility], [address] [place] [address] [place]rology ([place]) Address [address] [place] [address] Care Team Providers Care Obgyn Nurse Name Role Phone EMI DILLARD Primary Care Provider [facility] Referring Provider Assessment Encounter Date Assessment Date Assessment LastModified by Organization Details LastModified Time 06/30/2024 06/30/2024 Chief complaint: Left shoulder and right thumb pain History of present illness: Patient is a 64-year-old female presenting to the clinic for evaluation of left shoulder and right thumb pain. Patient reports that she has had left shoulder pain for the last 3 years or so. She denies any known injury. She reports her symptoms have been worsening over the last year or so. Patient describes a deep achy pain and frequent grinding and popping of the left shoulder. She does not report any significant issues with movement of the left shoulder but also states she tries to use the left shoulder as little as possible to prevent the pain. Patient images taken in office today which show evidence of glenohumeral joint osteoarthritis of the left shoulder. Patient also has pain at the base of her right thumb reports catching and locking of this finger. She denies any known injury. She denies any numbness and tingling. Exam: Patient is in no acute distress and is well-dressed and well-nourished. Patient has appropriate mood and affect. Respirations are nonlabored. Sclera are nonicteric. Patient is able to fully forward flex and abduct the left shoulder with mild pain. She has a negative empty can and speeds test. Negative Johnson impingement signs. She is able to externally rotate the left shoulder to 60 degrees and internally rotate to the region of T12. Patient has good strength of the left shoulder on exam. Patient is tender over the A1 deny of the right thumb and this visibly triggers in office today. Patient has good sap specialist strength and is able to flex and extend all other fingers without difficulty. Assessment: Left glenohumeral joint osteoarthritis and right trigger thumb Plan: Treatment options for the patient's shoulder including observation, oral medications, and injections were discussed with the patient in office today. Treatment options for the patient's trigger thumb including observation, oral medications, injections, and surgery were discussed with the patient as well. Patient would like an injection for her left glenohumeral joint osteoarthritis and right trigger thumb but is set up for total hysterectomy in 4 days. She would like to wait until the surgery is completed to go forward with further treatment for these 2 issues. Patient will follow-up in a month or so for these injections. She will call the office with any questions or concerns. jina Not available 06/30/2024 10:43:07 Plan of Treatment Reminders Order Date Submit Date Provider Last Modified By Organization Details Last Modified Time Details Appointments Establish ed Patient 15.EST 2024 09:30A M Mia Moon Not available Not available [...] Address Organization Details Recorded Time Lentiginos is 881374015 Active 2023 Joanna Leka [facility] 4 12:19:44 Seborrheic keratosis 377232277 Active 2023 Joanna Leka [facility] 4 12:19:49 Multiple benign melanocyti c nevi 936085825 [facility] 12:[facility] Open comedone 408653854 Active 2023 Joanna Thayer [facility] 4 12:24:52 Rhytide of forehead 537664349 Active 2023 Joanna Thayer [facility] 4 12:25:24 Wrinkled skin 072639574 Active 2023 Joanna Thayer [facility] 4 12:25:34 Pain of left shoulder joint 085161615548 65705 Active 2024 Yajaira Last [facility] 5 14:57:49 Osteoarthr itis of left glenohumer al joint 164781425645 9104 Active 2024 MIA MOON PA-C [address] [place] [address], [phone], [facility] 5 10:37:23 Trigger thumb of right hand 869150657249 105 Active 2024 MIA MOON PA-C [address] [place] [address], [phone], [facility] 5 10:37:33 Problem Notes None recorded. Procedures Surgical History [...] Name and Address Organization Details Recorded Time 762255 metformin hydrochlo ride medicatio n Not available Not available Not available 06/04/20232008 06581 3 RxNorm Not Available Not Available Not Available 013658 Non-stero idal anti-infl ammatory agent (product) medicatio n Not available Not available Not available 06/04/20232019 08156 005 SNOMED Not Available Not Available Not Available 964941 lisinopri l medicatio n Not available Not available Not available 06/04/20232019 92692 RxNorm Not Available Not Available Not Available 570366 Levaquin medicatio n Not available Not available Not available 06/04/20232019 44216 2 RxNorm Not Available Not Available Not [...] Not Available Not Available No t Available Maxalt-SCREEN PRINTING PRESS OPERATOR 10 mg disintegrati ng tablet Take by oral route. active Not Available Not Available Not Available hydrocodone 5 mg-acetamino phen 325 mg tablet TAKE 1 OR 2 TABLETS TWO TIMES A DAY for severe pain active Not Available Not Available No t Available sucralfate 1 gram tablet TAKE 1 TABLET BY MOUTH FOUR TIMES A DAY active Not Available Not Available Not Available prednisone 20 mg tablet TAKE 2 TABLETS BY MOUTH EVERY DAY active Not Available Not Available No t Available Maxalt 10 mg tablet Take by oral route. active Not Available Not Available Not Available omeprazole 40 mg capsule,nas yed release TAKE 1 CAPSULE BY MOUTH TWO TIMES A DAY active Not Available Not Available Not Available amoxicillin 875 mg tablet TAKE 1 [...] Not Available Not Available N ot Available nitrofuranto in macrocrystal 100 mg capsule TAKE 1 CAPSULE BY MOUTH TWO TIMES A DAY FOR 7 DAYS UNTIL ALL IS GONE active Not Available Not Available No t Available irbesartan 75 mg tablet TAKE 1 [...] Not Available Not Available No t Available metocloprami de 10 mg tablet TAKE 1 TABLET BY MOUTH TWO TIMES A DAY NEEDED FOR NAUSEA AND/OR VOMITING FOR 2 WEEKS active Not Available Not Available Not Available amoxicillin 875 mg-potassium clavulanate 125 mg tablet Take 1 tablet (875 mg total) by mouth 2 (two) times daily for 10 days. active Not Available Not Available No t Available Xifaxan 550 mg tablet TAKE 1 TABLET BY MOUTH THREE TIMES A DAY FOR 14 DAYS active Not Available Not Available Not Available Prolia 60 mg/mL subcutaneous syringe Inject [...] Cancer N Thyroid Problems N Stroke N Asthma N Depression N COPD N Seizures N Anemia N Heart Disease N Fibromyalgia N Osteoporosis Y Kidney Disease N Gynecological HistoryNo gynecological history recorded. Obstetrics History GPAL:G 0 P 0 0 0 0 Past Encounters Encounter ID Performer Location Encounter Start Date Encounter Closed Date Diagnosis/Indication Diagnosis SNOMED-CT Code Diagnosis ICD10 Code Diagnosis Note [id number] TATY CHAIREZ MD [facility] ([place]) [address] [place] [address] 03/25/2024 12:03:46 03/25/2024 13:47:57 Lentiginosis 179463183 L81.4 Lentigines (Sun damaged skin)The benign nature [...] and other protective measures. Seborrheic keratosis 394 671782 L82.1 Seborrheic keratoses, numerous- Discussed benign etiology. Reassuranc e provided. No treatment required.- Lesions on chest were treated with liquid nitrogen. No charge for this procedure. The patient tolerated the procedure well. Post-treat ment instructio ns were discussed. - pt is interested in cosmetic Sk removal. Contract signed today. Multiple b enign melanocytic nevi 735360884 D22.9 Multiple melanocyti c nevi of trunk [...] ( ugly duckling sign ). Open comedone 148781693 L70.0 open comedone- Discussed benign etiology. Reassuranc e provided. No treatment required. Wrinkled skin 800570258 L98.8 Wrinkles, acne scars- recommende d ablative laser treatments for optimal results- discussed use of OTC retinol vs rx retinoid. She would like to hold off at this time. [id number] TATY CHAIREZ MD [facility] ([place]) [address] [facility] [place] [address] 05/19/2024 13:11:10 05/19/2024 15:19:05 Seborrheic keratosis 816364915 L82.1 Seborrheic keratoses We discussed the benign [...] well. Post-treat ment instructio ns were discussed. [id number] Tushar Caruso MD [facility] ([place]) [address] [place] [address] 06/30/2024 10:17:04 06/30/2024 10:46:18 Osteoarthritis of left glenohumeral joint 2676596356 351527 M19.012 Trigger th umb of right hand 1057636216 40359 M65.311 [id number] MIA MOON PA-C [facility] ([place]) [address] [place] [address] 07/14/2024 11:35:27 07/14/2024 12:34:44 Osteoarthritis of left glenohumeral joint 4521978466 867034 M19.012 Trigger th umb of right hand 8974847904 77274 M65.311 Health Concerns Section Related Observation LastModified by Organization Detai ls LastModified Time None Recorded Concern Status LastModified by Organization Details LastModified Time None Recorded Advance Directives Directive N: Payers Encounter Date Sequence Insurance Name Policy Number Policy Carty Covered Member ID Carty Member ID Guarantor Name 03/25/2024 1 [place] Haley A Spinner [id number] 1 Haley A Spinner 05/19/2024 1 [place] Haley A Spinner [id number] Haley A Spinner 05/19/2024 2 [place] [id number] Haley A Spinner [id number] Haley A Spinner 06/30/2024 1 [place] Haley Arnold Spinner [id number] Haley A Spinner 06/30/2024 2 [place] [id number] Haley A Spinner [id number] Haley A Spinner Notes Date Note Type Note Provider Name and Address Organization Details Recorded Time 4 text/html Haley is here for follow up. They have no history of skin cancer. Here today for a total body skin exam.They deny any concerning spots on their skin today. No growing, bleeding, or changing lesions that they have noticed. TATY CHAIREZ MD [address] [place] [address], [phone], [facility] 03/25/2024 13:13:42 5 text/html Haley is here today for cosmetic treatment of {{seborrheic keratoses* milia acrocho repair service dispatcher}} with {{cryotherapy* comedone extraction}}. They have picked some spots out that they would like treated. TATY CHAIREZ MD [address] [place] [address], [phone], [facility] 05/19/2024 14:49:57 5 text/html Haley Vallejois a 64 year oldfemalepresenting for care. MIA MOON PA-C [address] [place] [address], [phone], [facility] 07/04/2024 10:31:23 OBGyn Episode No OBEpisode recorded.
--- OUTSIDE RECORDS SUMMARY | 2024-07-15 01:10 | XMS_ITS | Encounter Summary ---
Author Organization [facility] Address [facility] [place] [address] Care Team Providers Care Operative Supervisor Name Role Phone Sterling Freire MD Primary Care Provider [phone] Phi Lopez DO Unavailable [phone] Phi Lopez DO Unavailable [phone] Encounter Details Date Type Department Care Team (Late Contact Info) Description 02/21/2019 Hospital Orders Only [facility] [address] [place] [address] Sterling Freire MD [address] [place] [address] Social History Tobacco Use Types [...] Sex Assigned at Female 05/31/2024 11:24 AM LOCUM TENENS PSYCHIATRIST Legal Sex Female 5:20 PM CDT Gender Identity Not on file Sexual Orientation Not on file documented as of this encounter Plan of Treatment Upcoming Encounters Date Type Department Care Team (Late Contact Info) Description 11/20/2024 1:00 PM CDT Office Visit [facility] [address] [place] [address] 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, RADIAL DRILL PRESS SET UP OPERATOR [address] [facility] [address] [place] [address] documented as of this encounter Visit Diagnoses Not on filedocumented in this encounter Additional Health Concerns Infection Onset Date Last Indicated Resolved Time COVID-19 Rule Out 07/02/2021 07/02/2021 07/02/2021 6:39 PM LOCUM TENENS PSYCHIATRIST COVID-19 Rule Out 12/21/2022 12/21/2022 12/21/2022 11:19 AM CDT COVID-19 Rule Out 08/29/2023 08/29/2023 08/29/2023 12:10 PM CDT COVID-19 Rule Out 09/02/2023 09/02/2023 09/02/2023 10:10 PM CDT Influenza - Seasonal 05/31/2024 05/31/2024 025 12:32 AM LOCUM TENENS PSYCHIATRIST documented as of this encounter Care Teams Operative Supervisor Relationship Specialty Start Date End Date Sterling Freire MD [address] [place] [address] PCP - General FAMILY PRACTICE 05/17/18 Phi Lopez DO [address] [place] [address] SURGERY 12/10/23 12/10/23 Phi Lopez DO [address] [place] [address] SURGERY 12/10/23 documented as of this encounter
--- OUTSIDE RECORDS SUMMARY | 2024-07-15 01:11 | XMS_ITS | Clinical Summary ---
Author Organization [facility] Address [address] [place] [address] Care Team Providers Care Hand Coke Drawer Name Role Phone Unavailable Primary Care Provider Unavailabl e Source Comments [facility],non-owned Affiliates and Associated Physician Practices is amultiple site organization consisting of ambulatory clinics and hospital sitesin [place], [place], [place] and [place]. This disclosure is being madepursuant to the Care Everywhere program and may not contain all information available regarding this patient. Last updated 18.[facility] Allergies Active Allergy Reactions Criticality Noted Date [...]
--- OUTSIDE RECORDS SUMMARY | 2024-07-15 01:11 | XMS_ITS | Encounter Summary ---
Author Organization [facility] Address [facility] [place] [address] Care Team Providers Care Peeler Operator Name Role Phone Sterling Freire MD Primary Care Provider Phi Lopez DO Unavailable [phone] Phi Lopez DO Unavailable [phone] Encounter Details Date Type Department Care Team (Late Contact Info) Description 03/21/2021 Hospital Orders Only [facility] [address] [place] [address] Sadia Pereyra, RN Social History Tobacco Use [...] Sex Assigned at Female 05/31/2024 11:24 AM ENROLLMENT SPECIALIST Legal Sex Female 5:20 PM CDT Gender Identity Not on file Sexual Orientation Not on file COVID-19 Exposure Response Date Recorded In the last month, have you been in contact with someone who was confirmed or suspected to have Coronavirus / COVID-19? No / Unsure 03/21/2021 11:30 AM ENROLLMENT SPECIALIST documented as of this encounter Plan of Treatment Upcoming Encounters Date Type Department Care Team (Late Contact Info) Description 11/20/2024 1:00 PM CDT [facility] [address] [place] [address] 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, REROLLING MACHINE OPERATOR [address] [facility] [address] [place] [address] documented as of this encounter Visit Diagnoses Not on filedocumented in this encounter Additional Health Concerns Infection Onset Date Last Indicated Resolved Time COVID-19 Rule Out 07/02/2021 07/02/2021 07/02/2021 6:39 PM ENROLLMENT SPECIALIST COVID-19 Rule Out 12/21/2022 12/21/2022 12/21/2022 11:19 AM CDT COVID-19 Rule Out 08/29/2023 08/29/2023 08/29/2023 12:10 PM CDT COVID-19 Rule Out 09/02/2023 09/02/2023 09/02/2023 10:10 PM CDT Influenza - Seasonal 05/31/2024 05/31/2024 025 12:32 AM ENROLLMENT SPECIALIST documented as of this encounter Care Teams Peeler Operator Relationship Specialty Start Date End Date Sterling Freire MD [address] [facility] [place] [id number] PCP - General FAMILY PRACTICE 05/17/18 Phi Lopez DO [address] [place] [address] SURGERY 12/10/23 12/10/23 Phi Lopez DO [address] [place] [address] SURGERY 12/10/23 documented as of this encounter
--- OUTSIDE RECORDS SUMMARY | 2024-07-15 01:11 | XMS_ITS | Patient Health Summary ---
Author Organization [facility] Address [address] [place] [address] Care Team Providers Care Guest Relations Officer Name Role Phone Unavailable Primary Care Provider Unavailabl e Note from [facility],non-owned Affiliates and Associated Physician Practices is amultiple site organization consisting of ambulatory clinics and hospital sitesin [place], [place], [place] and [place]. This disclosure is being madepursuant to the Care Everywhere program and may not contain all information available regarding this patient. Last updated 18.[facility] Abcodia Allergies * Levofloxacin(Other) * Lisinopril(Cough) * Metformin(Nausea [...]
--- OUTSIDE RECORDS SUMMARY | 2024-07-15 01:11 | XMS_ITS | Clinical Summary ---
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 3 05/15/2018 Active vitamin D2, ergocalciferol, 53299 UNITS capsule Take 1 capsule (1.25 mg total) by mouth monthly. 0 05/06/2018 Active metoprolol succinate ER 25 MG 24 hr tablet Take 1 tablet (25 mg total) by mouth daily. 07/29/2019 Active potassium chloride CR (KLOR-CON M) 20 MEQ tablet TAKE 1 TABLET BY MOUTH THREE TIMES A DAY on day 1, then 1 TABLET TWO TIMES A DAY for days 2 THRU 5 08/29/2023 Active irbesartan (AVAPRO) 75 MG tablet 2 tablets (150 mg total). 08/31/2023 Active fluticasone propionate (FLONASE) 50 MCG/ACT nasal spray 2 sprays by Each Nostril route daily. 09/11/2023 Active omeprazole (PRILOSEC) 40 MG capsule Take 1 capsule (40 mg total) by mouth daily. 11/12/2023 Active oseltamivir (TAMIFLU) 75 MG capsule Take 1 capsule (75 mg total) by mouth 2 (two) times daily. 05/30/2024 Active tirzepatide (MOUNJARO) 2.5 MG/0.5ML injectionIndica tions:Diabetes Mellitus Inject 2.5 mg into the skin every 7 days. Indications: Diabetes Active Denosumab (PROLIA SC) Inject 60 mg into the skin every 6 (six) months. Active fexofenadine (ATUL) 180 MG tablet Take 1 tablet (180 mg total) by mouth daily. Active Active Problems Problem Noted Date Diagnosed Date Encounter for postoperative care 05/29/[address] of brain 03/16/2017 Cholelithiasis 06/04/2015 Allergic rhinitis 10/17/2013 Asthma ([facility]) 10/17/2013 Cough 10/17/2013 Esophageal reflux 10/17/2013 Sebaceous cyst of skin of left breast Vitamin D deficiency Sleep apnea Hypokalemia Hypertension, benign Hyperlipidemia GERD (gastroesophageal reflux disease) Bilateral hearing loss B12 deficiency Anxiety Anemia Osteopenia of spine Lumbar radiculopathy, chronic Insomnia, idiopathic Lumbar arthropathy Urinary frequency Glucose intolerance Prediabetes Resolved Problems Problem Noted Date Diagnosed Date Resolved Date Pre-op examination 11/05/2023 Pain of left lower extremity 03/16/2017 05/20/2018 Follow up 06/11/2015 05/20/2018 Backache 06/04/2015 05/20/2018 Sinusitis 10/17/2013 05/20/2018 Encounters Date Type Department Care Team Description 07/11/2024 10:39 AM [facility] - 07/11/2024 11:59 PM [facility] Hospital Encounter [facility] [address] [place] [address] Melba Freire MD Discharge Disposition: Home or Self Care (Routine Discharge) 07/11/2024 Travel 06/06/2024 3:37 PM [facility] - 06/06/2024 8:00 PM [facility] Emergency [place] [address] [place] [address] Piotr Vega MD Generalized Weakness Discharge Disposition: Home or Self Care (Routine Discharge) 06/06/2024 Travel 06/02/2024 2:48 PM RN PROVIDER RELATIONS - 06/02/2024 4:50 PM [facility] Emergency [place] [facility] [address] [place] [address] [place] [address] Feliciano Ferrer, DO Generalized Weakness Discharge Disposition: Home or Self Care (Routine Discharge) 06/02/2024 Travel 05/31/2024 11:20 AM RN PROVIDER RELATIONS - 05/31/2024 3:18 PM [facility] Emergency [facility] [address] [place] [address] [place] [address] Ney Pappas, DO Near Syncope Discharge Disposition: Home or Self Care (Routine Discharge) 05/31/2024 Travel 05/15/2024 8:27 AM RN PROVIDER RELATIONS - 05/15/2024 11:59 PM RN PROVIDER RELATIONS Hospital Encounter [facility] [address] [place] [address] [place] [address] Melba Freire MD Discharge Disposition: Home or Self Care (Routine Discharge) 05/15/2024 8:25 AM RN PROVIDER RELATIONS - 05/15/2024 8:26 AM RN PROVIDER RELATIONS Hospital Encounter [facility] [address] [place] [address] [place] [address] Melba Freire MD Injection Discharge Disposition: Home or Self Care (Routine Discharge) 05/15/2024 Travel from Last 3 Months Immunizations Name Administration Dates Next Due Influenza (Generic) 02/04/2013 Influenza Adult (Generic) 02/22/2018,,02/12/2015,01/31/20 11,2010 Pneumococcal (Prevnar 13) 05/07/2014 Tdap (Generic) 06/22/2015 Zoster (Zostavax) 47541 Unt/0.65Ml 06/22/2015 Family History Medical History Relation [...] Sex Assigned at Female 05/31/2024 11:24 AM RN PROVIDER RELATIONS Legal Sex Female 5:20 PM CDT Gender Identity Not on file Sexual Orientation Not on file Last Filed Vital Signs Vital Sign Reading Time Taken Comments Blood Pressure 150/96 06/06/2024 7:00 PM RN PROVIDER RELATIONS Pulse 94 06/06/2024 3:55 PM RN PROVIDER RELATIONS Temperature 36.8 C (98.2 F) 06/06/2024 3:55 PM RN PROVIDER RELATIONS Respiratory Rate 16 06/06/2024 3:55 PM RN PROVIDER RELATIONS Oxygen Saturation 100% 06/06/2024 7:00 PM RN PROVIDER RELATIONS Inhaled Oxygen Concentration - - Weight 79.4 kg (175 lb) 06/06/2024 3:55 PM RN PROVIDER RELATIONS Height 162.6 cm (5' 4 ) 06/06/2024 3:55 PM RN PROVIDER RELATIONS Body Mass Index 30.04 06/06/2024 3:55 PM RN PROVIDER RELATIONS Plan of Treatment Upcoming Encounters Date Type Department Care Team (Late st Contact Info) Description 11/20/2024 1:00 PM CDT Office Visit [facility] [address] [place] [address] 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, 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 [address] [facility] [address] [address] Health Maintenance Due Date Last Done Comments [...] Procedure Name Priority Date/Time Associated Diagnosis Comments MRI LUMB SPINE WO CON Routine 07/11/2024 11:56 AM RN PROVIDER RELATIONS Thoracic back pain, unspecified back pain laterality, unspecified chronicity MRI THOR SPINE WO CON Routine 07/11/2024 11:28 AM RN PROVIDER RELATIONS Thoracic back pain, unspecified back pain laterality, unspecified chronicity ECG 12-LEAD Routine 06/06/2024 7:31 PM RN PROVIDER RELATIONS CT ABD+PEL W CON STAT 06/06/2024 5:49 PM RN PROVIDER RELATIONS XR CHEST PORTABLE STAT 06/06/2024 5:1 1 PM RN PROVIDER RELATIONS LIPASE STAT 06/06/2024 4:59 PM RN PROVIDER RELATIONS TROPONIN, QUANT STAT 06/06/2024 4:59 PM RN PROVIDER RELATIONS COMPREHENSIVE METABOLIC PANEL STAT 06/06/2024 4:59 PM RN PROVIDER RELATIONS CBC W/DIFF AUTOMATED STAT 06/06/2024 4:59 PM RN PROVIDER RELATIONS URINE BACTERIA CULTURE STAT 3:58 PM RN PROVIDER RELATIONS HC URINALYSIS AUTO W/MICRO STAT 06/06/2024 3:58 PM RN PROVIDER RELATIONS MAGNESIUM STAT 06/02/2024 3:17 PM RN PROVIDER RELATIONS COMPREHENSIVE METABOLIC PANEL STAT 06/02/2024 3:17 PM RN PROVIDER RELATIONS CBC W/DIFF AUTOMATED STAT 06/02/2024 3:17 PM RN PROVIDER RELATIONS CT FACIAL BONES WO CON STAT 2:24 PM RN PROVIDER RELATIONS CT HEAD WO CON STAT 05/31/2024 2:24 PM RN PROVIDER RELATIONS XR SHOULDER LT MIN 2V STAT 05/31/2024 2:23 PM RN PROVIDER RELATIONS HC URINALYSIS AUTO W/MICRO STAT 05/31/2024 12:47 PM RN PROVIDER RELATIONS INFLUENZA A & B STAT 05/31/2024 12:07 PM RN PROVIDER RELATIONS ECG 12-LEAD Routine 05/31/2024 12:04 PM RN PROVIDER RELATIONS TROPONIN, QUANT STAT 05/31/2024 11:57 AM RN PROVIDER RELATIONS COMPREHENSIVE METABOLIC PANEL STAT 05/31/2024 11:57 AM RN PROVIDER RELATIONS CBC W/DIFF AUTOMATED STAT 05/31/2024 11:57 AM RN PROVIDER RELATIONS MG SCREENING W LISA CORETTA DIGI Routine 05/15/2024 9:54 AM RN PROVIDER RELATIONS Visit for screening mammogram OCCULT BLOOD, FECES Routine 12/18/2018 5 :00 PM CDT Chronic diarrhea of unknown origin from Last 3 Months or Most Recently Relevant to Health Maintenance Results * MRI LUMB SPINE WO CON (07/11/2024 11:56 AM RN PROVIDER RELATIONS) Anatomical Region Laterality Modality Spine Magnetic Resonan ce 07/14/2024 4:03 PM CDT Impressions 07/14/2024 4:10 PM CDT IMPRESSION: Multilevel lumbar spondylosis as detailed within the body of the report. Findings are again most notable at L4-L5, where there is anterolisthesis and severe bilateral neural foraminal stenosis. Ordered By: MELBA FREIRE Interpreted By: Maciej Campa MD, 07/14/2024 4:03 PM Narrative 07/14/2024 4:10 PM CDT [place] [id number] [place] [address] EXAMINATION: MRI lumbar spine without contrast. INDICATION: Back pain. TECHNIQUE: Sagittal STIR, and sagittal and axial T1 and T2 images of the lumbosacral spine were obtained. COMPARISON: CT June 06, 2024. MRI December 01, 2019. FINDINGS: There are 5 lumbar type vertebral bodies designated as L1 through L5; using this numbering system, the conus medullaris terminates at L1-L2 and appears unremarkable. Degenerative anterolisthesis of L4-L5 redemonstrated measuring approximately 7.5 mm, similar to the previous MRI from 2019. The vertebral body heights are preserved. Significant degenerative disc space narrowing with endplate marrow signal changes at L4-L5, also similar to prior. Facet alignment is preserved. Multiple T2 hyperintense perineural cysts are identified at the sacral levels, similar to prior. Visualized portions of the soft tissues reveal bilateral parapelvic cysts also similar to prior. T12-L1: Facet arthropathy. No spinal canal or neural foraminal stenosis. L1-L2: Facet arthropathy and ligamentous thickening. No spinal canal or neural foraminal stenosis. L2-L3: Facet arthropathy and ligamentous thickening. Small diffuse disc bulge. Minimal spinal canal stenosis. Mild bilateral neural foraminal stenosis. L3-L4: Facet arthropathy and ligamentous thickening. Tiny disc bulge. No significant spinal canal stenosis. Mild bilateral neural foraminal stenosis. L4-L5: Facet arthropathy. Anterolisthesis with uncovering of the disc and small superimposed disc bulge. Mild spinal canal stenosis. Severe narrowing of the bilateral lateral recesses and neural foramina. L5-S1: Facet arthropathy. No significant spinal canal or neural foraminal stenosis. Procedure Note Maciej Campa MD - 07/14/2024 [place] [id number] [place] [address] EXAMINATION: MRI lumbar spine without contrast. INDICATION: Back pain. TECHNIQUE: Sagittal STIR, and sagittal and axial T1 and T2 images of the lumbosacralspine were obtained. COMPARISON: CT June 06, 2024. MRI December 01, 2019. FINDINGS: There are 5 lumbar type vertebral bodies designated as L1 through L5;using this numbering system, the conus medullaris terminates at L1-L2 andappears unremarkable. Degenerative anterolisthesis of L4-L5 redemonstratedmeasuring approximately 7.5 mm, similar to the previous MRI from 2019. Thevertebral body heights are preserved. Significant degenerative disc spacenarrowing with endplate marrow signal changes at L4-L5, also similar toprior. Facet alignment is preserved. Multiple T2 hyperintense perineuralcysts are identified at the sacral levels, similar to prior. Visualizedportions of the soft tissues reveal bilateral parapelvic cysts alsosimilar to prior. T12-L1: Facet arthropathy. No spinal canal or neural foraminal stenosis. L1-L2: Facet arthropathy and ligamentous thickening. No spinal canal orneural foraminal stenosis. L2-L3: Facet arthropathy and ligamentous thickening. Small diffuse discbulge. Minimal spinal canal stenosis. Mild bilateral neural foraminalstenosis. L3-L4: Facet arthropathy and ligamentous thickening. Tiny disc bulge. Nosignificant spinal canal stenosis. Mild bilateral neural foraminalstenosis. L4-L5: Facet arthropathy. Anterolisthesis with uncovering of the disc andsmall superimposed disc bulge. Mild spinal canal stenosis. Severenarrowing of the bilateral lateral recesses and neural foramina. L5-S1: Facet arthropathy. No significant spinal canal or neural foraminalstenosis. IMPRESSION: Multilevel lumbar spondylosis as detailed within the body of the report.Findings are again most notable at L4-L5, where there is anterolisthesisand severe bilateral neural foraminal stenosis. Ordered By: MELBA FREIRE Interpreted By: Maciej Campa MD, 07/14/2024 4:03 PM us Melba Freire MD MRI Final Resul t * MRI THOR SPINE WO CON (07/11/2024 11:28 AM RN PROVIDER RELATIONS) Anatomical Region Laterality Modality Spine Magnetic Resonan ce 07/14/2024 4:10 PM CDT Impressions 07/14/2024 4:15 PM CDT IMPRESSION: 1. Mild multilevel thoracic spondylosis as described. No clinically significant spinal canal or neural foraminal stenosis is identified. 2. Provided furnace mason images of the cervical spine demonstrate multiple levels of disc osteophyte complexes of uncertain clinical significance. Could further correlate with dedicated MRI of the cervical spine if clinically warranted. Ordered By: MELBA FREIRE Interpreted By: Maciej Campa MD, 07/14/2024 4:10 PM Narrative 07/14/2024 4:15 PM [address] [place] [address] Examination: MRI THOR SPINE WO CON Exam time: 07/11/2024 11:07 AM Clinical history: Back pain. Comparison: CT 06/06/2024 and MRI 01/21/2020. Technique: Multiplanar, multisequence MR images of the thoracic spine were obtained without contrast. Findings: There is normal alignment of the thoracic spine. Vertebral body heights are preserved. Mild multilevel degenerative disc space narrowing with small marginal osteophytes. Facet alignment appears preserved bilaterally. No fracture or destructive bone process. No marrow replacing lesion is seen. The thoracic spinal cord demonstrates no abnormal signal. Paraspinous soft tissues demonstrate no distinct abnormalities. There are multiple small disc bulges throughout the thoracic spine, most notable at T8-T9. No clinically significant spinal canal or neural foraminal stenosis is identified throughout the thoracic spine. Provided furnace mason images of the cervical spine demonstrate multiple levels of disc osteophyte complexes of uncertain clinical significance. Procedure Note Maciej Campa MD - 07/14/[address] [place] [address] Examination: MRI THOR SPINE WO CON Exam time: 07/11/2024 11:07 AM Clinical history: Back pain. Comparison: CT 06/06/2024 and MRI 01/21/2020. Technique: Multiplanar, multisequence MR images of the thoracic spine wereobtained without contrast. Findings: There is normal alignment of the thoracic spine. Vertebral body heightsare preserved. Mild multilevel degenerative disc space narrowing withsmall marginal osteophytes. Facet alignment appears preserved bilaterally.No fracture or destructive bone process. No marrow replacing lesion isseen. The thoracic spinal cord demonstrates no abnormal signal.Paraspinous soft tissues demonstrate no distinct abnormalities. There are multiple small disc bulges throughout the thoracic spine, mostnotable at T8-T9. No clinically significant spinal canal or neuralforaminal stenosis is identified throughout the thoracic spine. Provided furnace mason images of the cervical spine demonstrate multiple levels ofdisc osteophyte complexes of uncertain clinical significance. IMPRESSION: 1. Mild multilevel thoracic spondylosis as described. No clinicallysignificant spinal canal or neural foraminal stenosis is identified. 2. Provided furnace mason images of the cervical spine demonstrate multiplelevels of disc osteophyte complexes of uncertain clinical significance.Could further correlate with dedicated MRI of the cervical spine ifclinically warranted. Ordered By: MELBA FREIRE Interpreted By: Maciej Campa MD, 07/14/2024 4:10 PM Melba Freire MD MRI Final Resul t * ECG 12 lead (06/06/2024 7:31 PM RN PROVIDER RELATIONS) Only the most recent of2 resultswithin the time period is included. 06/06/2024 7:31 PM RN PROVIDER RELATIONS Narrative [facility] - 06/07/2024 12:03 PM RN PROVIDER RELATIONS [place] [id number] 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1960 Requested By: PIOTR VEGA Order Number: [id number] Reading MD: Tan Hodges Measurements Intervals Marion Rate: 75 P: 49 VT: 141 QRS: 4 QRSD: 75 T: 48 QT: 398 QTc: 447 Interpretive Statements SINUS RHYTHM LOW QRS VOLTAGE IN PRECORDIAL LEADS PROVIDER RELATIONS us Piotr Vega MD ECG ORDERABLES Final Result [facility] * CT ABD+PEL W IV CON ONLY (06/06/2024 5:49 PM RN PROVIDER RELATIONS) Anatomical Region Laterality Modality Abdomen Computed Tomogra phy 06/06/2024 6:18 PM RN PROVIDER RELATIONS Impressions 06/06/2024 6:44 PM RN PROVIDER RELATIONS IMPRESSION: 1) No acute inflammatory change, abscess nor ascites. 2. No evidence of mechanical bowel obstruction or perforation. 3. No evidence of ureteral stone nor hydronephrosis on either side. 4. Cholelithiasis, no secondary findings of cholecystitis. No biliary duct dilatation. Ordered By: PIOTR VEGA Interpreted By: Piyush Burgos MD, 06/06/2024 6:18 PM Narrative 06/06/2024 6:44 PM RN PROVIDER RELATIONS [address] [place] [address] Examination: CT ABD+PEL W CON Exam time: [...] Procedure Note Piyush Burgos MD - 06/06/2024 [place] [id number] [place] [address] Examination: CT ABD+PEL W CON Exam time: [...] By: Piyush Burgos MD, 06/06/2024 6:18 PM Piotr Vega MD CT Final Result * XR CHEST PORTABLE (06/06/2024 5:11 PM RN PROVIDER RELATIONS) Anatomical Region Laterality Modality Chest Radiographic Meaghan ging 06/06/2024 6:17 PM RN PROVIDER RELATIONS Impressions 06/06/2024 6:18 PM RN PROVIDER RELATIONS IMPRESSION: 1) No radiographic evidence of active disease the chest. Ordered By: PIOTR VEGA Interpreted By: Piyush Burgos MD, 06/06/2024 6:17 PM Narrative 06/06/2024 6:18 PM RN PROVIDER RELATIONS [place] [address] [place] [address] Examination: XR CHEST PORTABLE Exam time: 06/06/2024 4:55 PM Clinical history: Weakness Comparison: None Technique: AP chest Findings: Heart size within normal limits. Pulmonary vasculature unremarkable. No acute focal pulmonary parenchymal opacity. No pleural effusion. No hyperinflation. Procedure Note Piyush Burgos MD - 06/06/[address] [facility] [address] [place] [address] Examination: XR CHEST PORTABLE Exam time: 06/06/2024 4:55 PM Clinical history: Weakness Comparison: None Technique: AP chest Findings: Heart size within normal limits. Pulmonary vasculatureunremarkable. No acute focal pulmonary parenchymal opacity. No pleuraleffusion. No hyperinflation. IMPRESSION: 1) No radiographic evidence of active disease the chest. Ordered By: PIOTR VEGA Interpreted By: Piyush Burgos MD, 06/06/2024 6:17 PM us Piotr Vega MD GENERAL IMAGING Final Result * (ABNORMAL) COMPREHENSIVE METABOLIC PANEL (06/06/2024 4:59 PM RN PROVIDER RELATIONS) Only the most recent of3 resultswithin the time period is included. SODIUM S/P/B 140 136 - 145 MMOL/L 06/06/2024 5:23 PM [facility] POTASSIUM S/P/B 3.5 3.5 - 5.1 MMOL/L 06/06/2024 5:23 PM [facility] CHLORIDE S/P/B 104 98 - 107 MMOL/L 06/06/2024 5:23 PM [facility] CO2 24.8 21.0 - 32.0 MMOL/L 06/06/2024 5:23 PM [facility] GLUCOSE 109(H) 70 - 99 MG/DL 06/06/2024 5:23 PM [facility] Comment: FASTING GLUCOSE 100 TO 125 MG/DL IS CONSISTENT WITH IMPAIRED FASTING GLUCOSE. FASTING GLUCOSE >125 MG/DL IS CONSISTENT WITH DIABETES. RANDOM GLUCOSE >200 MG/DL WITH HYPERGLYCEMIC SYMPTOMS IS CONSISTENT WITH DIABETES. PER ADA GUIDELINES BUN 13 6 - 24 MG/DL 06/06/2024 5:23 PM [facility] CREATININE S/P/B 0.85 0.55 - 1.02 MG/DL 06/06/2024 5:23 PM [facility] CALCIUM S/P/B 8.0(L) 8.4 - 10.5 MG/DL 06/06/2024 5:23 PM [facility] BILIRUBIN TOTAL S/P/B 0.8 0.2 - 1.0 MG/DL 06/06/2024 5:23 PM [facility] Comment: THIS ASSAY IS NOT RECOMMENDED FOR PATIENTS UNDERGOING TREATMENT WITH ELTROMBOPAG DUE TO THE POTENTIAL FOR FALSELY ELEVATED RESULTS. ALKALINE PHOSPHATASE S/P/B 84 50 - 130 U/L 06/06/2024 5:23 PM [facility] AST 41(H) 15 - 37 U/L 06/06/2024 5:23 PM [facility] ALT 59 14 - 59 U/L 06/06/2024 5:23 PM [facility] TOTAL PROTEIN S/P/B 6.5 6.4 - 8.2 G/DL 06/06/2024 5:23 PM [facility] ALBUMIN S/P/B 3.6 3.4 - 5.0 G/DL 06/06/2024 5:23 PM [facility] ANION GAP 11.2 5.0 - 15.0 MMOL/L 06/06/2024 5:23 PM [facility] OSMOLALITY (CALC) 291 MOSM/KG 025 5:23 PM [facility] Comment:REFERENCE RANGE NOT ESTABLISHED GFR ESTIMATE 76(L) >89 ML/MIN/1. 73 M2 06/06/2024 5:23 PM [facility] GFR NOTES GFR REFERENCE S: 06/06/2024 5:23 PM [facility] Comment: THE ESTIMATED GFR IS CALCULATED [...] FAILURE: <15 ml/min/1.73 m2 06/06/2024 4:59 PM RN PROVIDER RELATIONS Piotr Vega MD LABORATORY Final Result [facility] [address] [place] [address], * (ABNORMAL) CBC W/DIFF AUTOMATED (06/06/2024 4:59 PM RN PROVIDER RELATIONS) Only the most recent of3 resultswithin the time period is included. WBC 7.19 4.00 - 10.80 x10'3/uL 06/06/2024 5:04 PM RN PROVIDER RELATIONS [facility] RBC 4.45 4.10 - 5.40 x10'6/uL 06/06/2024 5:04 PM [facility] HGB 13.0 12.0 - 16.0 G/DL 06/06/2024 5:04 PM [facility] HCT 40.2 36.0 - 47.0 % 06/06/2024 5:04 PM [facility] MCV 90.3 78.0 - 100.0 FL 06/06/2024 5:04 PM [facility] MCH 29.2 27.0 - 31.0 PG 06/06/2024 5:04 PM [facility] MCHC 32.3(L) 33.0 - 36.0 G/DL 06/06/2024 5:04 PM [facility] RDW 13.7 11.5 - 14.5 % 06/06/2024 5:04 PM [facility] PLT 329 150 - 350 x10'3/uL 06/06/2024 5:04 PM [facility] MPV 9.4 7.4 - 10.4 FL 06/06/2024 5:04 PM [facility] CBC COMMENT NORMAL REFERENCE RANGE NOT ESTABLISHED FOR THE PROPORTIONAL LEUKOCYTE DIFFERENTIAL. 06/06/2024 5:04 PM [facility] NEUTROPHILS % 62.8 % 06/06/2024 5:04 PM RN PROVIDER RELATIONS [facility] LYMPHOCYTES % 27.3 % 06/06/2024 5:04 PM RN PROVIDER RELATIONS [facility] MONOCYTES % 8.5 % 06/06/2024 5:04 PM RN PROVIDER RELATIONS [facility] EOSINOPHILS % 0.7 % 06/06/2024 5:04 PM RN PROVIDER RELATIONS [facility] BASOPHILS % 0.1 % 06/06/2024 5:04 PM RN PROVIDER RELATIONS [facility] IMMATURE GRANS % 0.6 % 06/06/19 5:04 PM RN PROVIDER RELATIONS [facility] NRBC % 0.0 % 06/06/2024 5:04 PM RN PROVIDER RELATIONS [facility] ABS. NEUTROPHILS 4.52 1.60 - 8.30 x10'3/uL 06/06/2024 5:04 PM RN PROVIDER RELATIONS [facility] ABS. LYMPHOCYTES 1.96 0.80 - 4.70 x10'3/uL 06/06/2024 5:04 PM RN PROVIDER RELATIONS [facility] ABS. MONOCYTES 0.61 0.00 - 1.50 x10'3/uL 06/06/2024 5:04 PM RN PROVIDER RELATIONS [facility] ABS. EOSINOPHILS 0.05 0.00 - 0.40 x10'3/uL 06/06/2024 5:04 PM RN PROVIDER RELATIONS [facility] ABS. BASOPHILS 0.01 0.00 - 0.20 x10'3/uL 06/06/2024 5:04 PM RN PROVIDER RELATIONS [facility] ABS. IMMATURE GRANULOCYTES 0.04(H) 0.00 - 0.03 x10'3/uL 06/06/2024 5:04 PM RN PROVIDER RELATIONS [facility] ABS. NUCLEATED RBC'S 0.00 0.00 - 0.01 x10'3/uL 06/06/2024 5:04 PM RN PROVIDER RELATIONS [facility] 06/06/2024 4:59 PM RN PROVIDER RELATIONS us Piotr Vega MD LABORATORY Final Result [facility] [address] [place] [address], * TROPONIN, QUANT (06/06/2024 4:59 PM RN PROVIDER RELATIONS) Only the most recent of2 resultswithin the time period is included. TROPONIN I HIGH SENSITIVITY 7 0 - 51 ng/L 06/06/2024 5:23 PM RN PROVIDER RELATIONS [facility] 06/06/2024 4:59 PM RN PROVIDER RELATIONS us Piotr Vega MD LABORATORY Final Result Performing Organization Address City/[facility]/ZIP Co de Phone Number [facility] [address] [place] [address], * LIPASE (06/06/2024 4:59 PM RN PROVIDER RELATIONS) LIPASE 34 16 - 77 UNITS/L 06/06/2024 5:23 PM RN PROVIDER RELATIONS [facility] [facility] 06/06/2024 4:59 PM RN PROVIDER RELATIONS us Piotr Vega MD LABORATORY Final Result Performing Organization Address [facility]/ZIP Co de Phone Number [facility] [address] [place] [address], * (ABNORMAL) URINALYSIS (06/06/2024 3:58 PM RN PROVIDER RELATIONS) Only the most recent of2 resultswithin the time period is included. COLOR (U) YELLOW 06/06/2024 4:12 PM RN PROVIDER RELATIONS [facility] TRANSPARENCY CLEAR 06/06/2024 4:12 PM RN PROVIDER RELATIONS [facility] SPECIFIC GRAVITY (U) 1.020 1.000 - 1.025 06/06/2024 4:12 PM RN PROVIDER RELATIONS [facility] U PH 8.5(H) 5.0 - 8.0 06/06/2024 4:12 PM RN PROVIDER RELATIONS [facility] LEUKOCYTES (U) NEGATIVE NEGATIVE 06/06/2024 4:12 PM RN PROVIDER RELATIONS [facility] NITRITES NEGATIVE NEGATIVE 06/06/2024 4:12 PM RN PROVIDER RELATIONS [facility] PROTEIN RANDOM (U) 1+(A) NEGATIVE 06/06/2024 4:12 PM RN PROVIDER RELATIONS [facility] GLUCOSE (U) NEGATIVE NEGATIVE 06/06/2024 4:12 PM RN PROVIDER RELATIONS [facility] KETONES MG/DL (U) 1+(A) NEGATIVE 06/06/2024 4:12 PM RN PROVIDER RELATIONS [facility] UROBILINOGEN 0.2 <1.0 EU/DL 06/06/2024 4:12 PM RN PROVIDER RELATIONS [facility] BLOOD (U) NEGATIVE NEGATIVE 06/06/2024 4:12 PM RN PROVIDER RELATIONS [facility] WBC/HPF 0-5 0 - 5 /HPF 06/06/2024 4:12 PM RN PROVIDER RELATIONS [facility] RBC/HPF 0-5 0 - 5 /HPF 06/06/2024 4:12 PM RN PROVIDER RELATIONS [facility] EPI/LPF RARE /LPF 06/06/2024 4:12 PM RN PROVIDER RELATIONS [facility] BACTERIA (U) TRACE /HPF 06/06/2024 4:12 PM RN PROVIDER RELATIONS [facility] MUCUS PRESENT 06/06/2024 4:12 PM RN PROVIDER RELATIONS [facility] BILIRUBIN CONF ICTO (U) NEGATIVE NEGATIVE 06/06/2024 4:12 PM RN PROVIDER RELATIONS [facility] URINE SPECIMEN OBTAINED BY CLEAN CATCH PROCEDURE / Unknown 06/06/2024 3:58 PM RN PROVIDER RELATIONS Piotr Vega MD URINE ORDERABLES Final Result [facility] [address] [place] [address], * CULTURE URINE (06/06/2024 3:58 PM RN PROVIDER RELATIONS) SPEC DESCRIPTION URINE CLEAN CATCH 06/06/2024 4:01 PM RN PROVIDER RELATIONS [facility] SPECIAL REQUESTS NO SPECIAL REQUEST 06/06/2024 4:01 PM RN PROVIDER RELATIONS [facility] CULTURE RESULT FEW CONTAMINANTS 07/2024 10:34 AM RN PROVIDER RELATIONS [facility] URINE SPECIMEN OBTAINED BY CLEAN CATCH PROCEDURE / Unknown 06/06/2024 3:58 PM RN PROVIDER RELATIONS 06/06/2024 4:02 PM RN PROVIDER RELATIONS Piotr Vega MD MICROBIOLOGY - GENERAL ORDERABLE S Final Result Performing Organization Address [facility] Co de Phone Number [facility] [address] [place] [address], [place] [phone] [facility] [address] [place] [address], [place] [phone] * (ABNORMAL) MAGNESIUM (06/02/2024 3:17 PM RN PROVIDER RELATIONS) MAGNESIUM 2.8(H) 1.8 - 2.4 MG/DL 06/02/2024 3:36 PM RN PROVIDER RELATIONS [facility] 06/02/2024 3:17 PM RN PROVIDER RELATIONS Feliciano Ferrer DO LABORATORY Final Res ult Performing Organization Address [facility] Co de Phone Number [address] [address], * CT HEAD WO CON (05/31/2024 2:24 PM RN PROVIDER RELATIONS) Anatomical Region Laterality Modality Head Computed Tomogra phy 05/31/2024 2:44 PM RN PROVIDER RELATIONS Impressions 05/31/2024 2:48 PM RN PROVIDER RELATIONS IMPRESSION: 1. No definite CT evidence for acute intracranial abnormality. 2. Chronic senescent changes. Please note that CT has limited sensitivity for the detection of acute ischemia Referred By: Interpreted By: Bryn Orona MD, 05/31/2024 2:44 PM Narrative 05/31/2024 2:48 PM RN PROVIDER RELATIONS [address] [place] [address] EXAMINATION: CT of the head CLINICAL HISTORY: [...] Procedure Note Bryn Orona MD - 05/31/2024 [place] [id number] [place] [address] EXAMINATION: CT of the head CLINICAL HISTORY: [...] By: Bryn Orona MD, 05/31/2024 2:44 PM Ney Pappas DO CT Final Result * CT FACIAL BONES WO CON (05/31/2024 2:24 PM RN PROVIDER RELATIONS) Anatomical Region Laterality Modality Facial Computed Tomogra phy 05/31/2024 2:45 PM RN PROVIDER RELATIONS Impressions 05/31/2024 2:50 PM RN PROVIDER RELATIONS IMPRESSION: 1) No evidence of acute facial bone fracture. Ordered By: NEY PAPPAS Interpreted By: Piyush Burgos MD, 05/31/2024 2:45 PM Narrative 05/31/2024 2:50 PM RN PROVIDER RELATIONS [address] [place] [address] Examination: CT FACIAL BONES WO CON Exam [...] Procedure Note Piyush Burgos MD - 05/31/[address] [place] [address] Examination: CT FACIAL BONES WO CON Exam [...] SHOULDER LT MIN 2V (05/31/2024 2:23 PM RN PROVIDER RELATIONS) Anatomical Region Laterality Modality Shoulder Radiographic Meaghan ging 05/31/2024 2:39 PM RN PROVIDER RELATIONS Impressions 05/31/2024 2:41 PM RN PROVIDER RELATIONS IMPRESSION: No fracture or dislocation. Referred By: Interpreted By: Emiliano Adam MD, 05/31/2024 2:39 PM Narrative 05/31/2024 2:41 PM RN PROVIDER RELATIONS [address] [place] [address] Examination: XR SHOULDER LT MIN 2V Exam [...] Procedure Note Emiliano Adam MD - 05/31/[address] [place] [address] Examination: XR SHOULDER LT MIN 2V Exam [...] INFLUENZA A & B (05/31/2024 12:07 PM RN PROVIDER RELATIONS) SPECIMEN TYPE (INFLUENZA) NASOPHARYNGEAL SWAB 05/31/2024 12:09 PM RN PROVIDER RELATIONS [facility] INFLUENZA A POSITIVE(A) NEGATIVE 05/31/2024 12:57 PM RN PROVIDER RELATIONS [facility] Comment: CALLED TO ROSEMARY HAWKINS [id number] BY AA READ BACK AND VERIFIED INFLUENZA B NEGATIVE NEGATIVE 05/31/2024 12:57 PM RN PROVIDER RELATIONS [facility] NASAL NASOPHARYNGEAL SWAB / Unknown 05/31/2024 12:07 PM RN PROVIDER RELATIONS Ney Pappas DO MICROBIOLOGY - GENERAL ORDER HILDA Final Result [facility] [address] [place] [address], * MG SCREENING W LISA CORETTA DIGI (05/15/2024 9:54 AM RN PROVIDER RELATIONS) Anatomical Region Laterality Modality Breast Bilateral Mammography 05/15/2024 10:0 8 AM RN PROVIDER RELATIONS Impressions 05/15/2024 10:09 AM RN PROVIDER RELATIONS IMPRESSION: No suspicious change since the previous exams. Recommendation: 1: Routine Screening Bilateral in 1 Year Assessment: ACR BI-RADS 2 - BENIGN FINDING(S) Ordered By: MELBA FREIRE Interpreted By: Merritt Stephens MD, 05/15/2024 10:08 AM Narrative 05/15/2024 10:09 AM RN PROVIDER RELATIONS [address] [place] [address] Examination: Digital screening mammogram with CAD. Clinical [...] FECAL NEGATIVE NEGATIVE 12/18/2018 6:09 PM CDT [facility] STOOL SPECIMEN / Unknown 12/18/2018 5:00 PM CDT Harika Freire APJOEL BODY FLUIDS AND STOOLS O RDERABLES Final Result [facility] [place] [address], from Last 3 Months or Most Recently Relevant to Health Maintenance Insurance MEDICARE [employer] Care Teams Boat Worker Relationship Specialty Start Date End Date Melba Freire MD [address] [place] [address] [place] [address] PCP - General FAMILY PRACTICE 05/17/18 Phi Lopez DO [address] [place] [address] SURGERY 12/10/23
--- OUTSIDE RECORDS SUMMARY | 2024-07-15 01:11 | XMS_ITS | Encounter Summary ---
Author Organization [facility] Address [facility] [place] [address] Care Team Providers Care Digital Computer Operator Name Role Phone Sterling Freire MD Primary Care Provider [phone] Phi Lopez DO Unavailable [phone] Phi Lopez DO Unavailable [phone] Encounter Details Date Type Department Care Team (Late Contact Info) Description 10/12/2018 Abstract SFL CONVERSION [address] [place] [address] , Generic Conversion, Social History Tobacco Use [...] Assigned at Female 05/31/2024 11:24 AM HEALTH UNIT CLERK Legal Sex Female 5:20 PM CDT Gender Identity Not on file Sexual Orientation Not on file documented as of this encounter Plan of Treatment Upcoming Encounters Date Type Department Care Team (Late Contact Info) Description 11/20/2024 1:00 PM CDT Office Visit [facility] eld [address] [place] [address] 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, TRADE SHOW MANAGER [address] [facility] [address] [address] documented as of this encounter Visit Diagnoses Not on filedocumented in this encounter Additional Health Concerns Infection Onset Date Last Indicated Resolved Time COVID-19 Rule Out 07/02/2021 07/02/2021 07/02/2021 6:39 PM HEALTH UNIT CLERK COVID-19 Rule Out 12/21/2022 12/21/2022 12/21/2022 11:19 AM CDT COVID-19 Rule Out 08/29/2023 08/29/2023 08/29/2023 12:10 PM CDT COVID-19 Rule Out 09/02/2023 09/02/2023 09/02/2023 10:10 PM CDT Influenza - Seasonal 05/31/2024 05/31/2024 025 12:32 AM HEALTH UNIT CLERK documented as of this encounter Care Teams Digital Computer Operator Relationship Specialty Start Date End Date Sterling Freire MD [address] [place] [address] PCP - General FAMILY PRACTICE 05/17/18 Phi Lopez DO [address] [place] [address] SURGERY 12/10/23 12/10/23 Phi Lopez DO [address] [place] [address] SURGERY 12/10/23 documented as of this encounter
--- OUTSIDE RECORDS SUMMARY | 2024-07-15 01:11 | XMS_ITS | Clinical Summary ---
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
--- OUTSIDE RECORDS SUMMARY | 2024-07-15 01:11 | XMS_ITS | Referral Summary ---
Author Organization [facility] Address [address] [place] [address] Care Team Providers Care Fine Grader Name Role Phone Unavailable Primary Care Provider Unavailabl e Source Comments [facility],non-owned Affiliates and Associated Physician Practices is amultiple site organization consisting of ambulatory clinics and hospital sitesin [place], [place], [place]. This disclosure is being madepursuant to the Care Everywhere program and may not contain all information available regarding this patient. Last updated 18.[facility] Allergies Active Allergy Reactions Criticality Noted Date [...]
--- OUTSIDE RECORDS SUMMARY | 2024-07-15 01:11 | XMS_ITS | Referral Summary ---
Author Organization [facility] Address [address] [place] [address] Care Team Providers Care Paper Testing Supervisor Name Role Phone Sterling Freire MD Primary Care Provider [phone] Allergies Active Allergy Reactions Criticality Noted Date [...] total) by mouth as needed Active rizatriptan PROFESSOR OF PHYSICAL EDUCATION (MAXALT-PROFESSOR OF PHYSICAL EDUCATION) [address] one tablet [...] on file Legal Sex Female 6:32 AM RESIDENTIAL PROGRAM MANAGER Gender Identity Not on file Sexual Orientation [...] of Treatment Not on file Insurance MEDICARE [facility] Care Teams Paper Testing Supervisor Relationship Specialty Start Date End Date Sterling Freire MD [facility] [place] [address] PCP - General Family Medicine 12/14/23
[2024-07-15 10:30] VITALS: BP 133/88; PULSE 91; RESP 16; TEMP 36.6; O2SAT 98
[2024-07-15] MEDS: LACTATED RINGERS 1,000 ML 150 ML IV CONT (10:49)
--- NOTE | 2024-07-15 11:01 | P.PNAN_ITS ---
Anes - Initial Pre Proc Eval Procedure: Operation Date: 07/15/24 11:45 Proposed Procedures p Esophagogastroduodenoscopy EGD - Joe Bowman MD Date/Time: 07/15/24 11:01 Surgeon: Joe Bowman MD Pre Op Diagnosis: Eructation, Gaseous, GERD Patient Data Age: 64 Gender: F Height: 1.63 m Weight: 76 kg Last Vital Signs Temp 36.6 C 07/15/24 10:30 Pulse 91 07/15/24 10:30 Resp 16 07/15/24 10:30 BP 133/88 07/15/24 10:30 Pulse Ox 98 07/15/24 10:30 O2 Del Method Room Air 07/15/24 10:30 Allergies Allergy/AdvReac Type Severity Reaction Status Date / Time levofloxacin (From Levaquin) Allergy Unknown Verified 07/15/24 10:20 lisinopril Allergy Unknown Verified 07/15/24 10:20 metformin Allergy Unknown Verified 07/15/24 10:20 oseltamivir (From Tamiflu) Allergy Unknown Verified 07/15/24 10:20 aspirin AdvReac AVOIDS- Verified 07/15/24 10:20 MULTIPLE BLEEDING ULCERS NSAIDS (Non-Steroidal AdvReac AVOIDS-MULTIPLE Verified 07/15/24 10:20 Anti-Inflamma BLEEDING ULCERS Home Medications ?Medication ?Instructions ?Recorded ?Confirmed ?Type atorvastatin 80 mg tablet 80 mg PO HS 08/07/23 07/15/24 History ergocalciferol (vitamin D2) 1,250 1,250 mcg PO MONTHLY 08/07/23 07/14/24 History mcg (50,000 unit) capsule rizatriptan 10 mg tablet See Rx Instructions PO .COMPLEX 08/07/23 07/14/24 History calcium 1 cap PO DAILY 11/29/23 07/15/24 History denosumab 60 mg/mL subcutaneous 60 mg subcut [id number] 11/29/23 07/14/24 History syringe (Prolia) irbesartan 150 mg tablet 150 mg PO HS 11/29/23 07/15/24 History omeprazole 40 mg capsule,delayed 40 mg PO HS #30 caps 04/23/24 07/15/24 Rx release fexofenadine 180 mg tablet 180 mg PO Q24H 06/23/24 07/15/24 History fluticasone propionate 50 2 spray intranasal DAILY PRN nasal 06/23/24 07/15/24 History mcg/actuation nasal congestion spray,suspension (Flonase Allergy Relief) metoclopramide HCl 10 mg tablet 10 mg PO BID PRN nausea and 07/09/24 07/15/24 Rx (Reglan) vomiting 2 weeks #28 tabs hydrocodone 5 mg-acetaminophen 325 1 - 2 tablet PO Q12H PRN pain 07/14/24 07/15/24 History mg tablet nitrofurantoin macrocrystal 100 mg 100 mg PO BID 07/14/24 07/15/24 History capsule rifaximin 550 mg tablet (Xifaxan) 550 mg PO TID 07/14/24 07/14/24 History Patient hx anesthesia problems: none Family hx anesthesia problems: none Results Review: All pre-operative results and documents have been reviewed as part of the pre- operative evaluation. [facility] Past Medical History Medical History Belching Diarrhea Colon cancer screening Hypertension GERD (gastroesophageal reflux disease) Gall bladder pain Family History Family History Father Diabetes mellitus Hypertension Mother Asthma Thyroid condition Social History Social History Smoking status: Never smoker Alcohol intake: current Alcohol use details: 1 per month Substance use: never Substance use type: does not use Lack of Food: Never True Current Housing: I Have Housing Concerned About Future Housing: No Difficulty Paying Gas/Electric Bills: No Difficulty Paying for Meds: No Currently Unemployed: No Difficulty w/ Childcare or Family Care: No Living arrangements: with family Additional living arrangements comments: [facility] Spiritual care concerns: No Anes - Eval Final PreProcedure Day of Procedure 07/15/24 11:01 Patient weight: overweight Heart: regular rate and rhythm Lungs: clear to auscultation Airway: Mallampati scale class II Neurological: alert and oriented Last oral intake: >/= 8 hours ASA classification: III Emergent: no Anesthetic plan: proceed Anesthesia type and monitoring: general Results Review: All pre-operative results and documents have been reviewed as part of the pre- operative evaluation. Informed Consent: The patient's anesthetic plan and its attendant risks and benefits were discussed with the patient/family/POA. Questions were solicited and answers provided to the satisfaction of the patient/family/POA.
--- NOTE | 2024-07-15 11:06 | WPDHPUPDATE1 ---
History and Physical Update Update Date/Time: 07/15/24 11:06 History and Physical has been reviewed, including an updated exam of the patient. There are NO changes in the patient's condition. Risks, benefits, and alternatives have been discussed and questions answered. Patient agrees to proceed with procedure.
[2024-07-15 11:16] VITALS: BP 114/72; PULSE 83; RESP 24; O2SAT 97
[2024-07-15 11:26] VITALS: BP 105/53; PULSE 78; RESP 19; O2SAT 97
[2024-07-15 11:36] VITALS: BP 127/79; PULSE 78; RESP 21; O2SAT 99
== END 2024-07-15 11:55 | disposition home or self-care (01) ==
PROVIDERS: PCP Family Medicine; Referring Provider Nurse Practitioner Family; Visit Provider Internal Medicine Gastroenterology
PROC: 0DJ08ZZ Inspection of Upper Intestinal Tract, Via Natural or Artificial Opening Endoscopic (ICD-10-PCS; CPT 43239; principal; 2024-07-15 11:45)
DX: K21.9 Gastro-esophageal reflux disease without esophagitis (principal); R14.0 Abdominal distension (gaseous); R14.2 Eructation
CPT/HCPCS: 43239; 88305; J2704; J7120

== ENCOUNTER 2024-07-31 14:41 | Outpatient (NON) | payer MEDICARE, SELFPAY ==
--- OUTSIDE RECORDS SUMMARY | 2024-07-31 15:32 | XMS_ITS | Encounter Summary ---
Author Organization [facility] Address [address] [place] [address] Care Team Providers Care Drill Sharpener Operator Name Role Phone Sterling Freire MD Primary Care Provider Phi Lopez DO Unavailable [phone] Phi Lopez DO Unavailable [phone] Marichuy Suarez MD Unavailable Yajaira Cannon [facility] Unavailable [phone] Encounter Details Date Type Department Care Team (Late Contact Info) Description 03/21/2021 Hospital Orders Only [facility] [address] [facility] [place] [id number] Sadia Pereyra, RN Social History Tobacco Use [...] Sex Assigned at Female 05/31/2024 11:24 AM ADDICTIONS COUNSELOR ASSISTANT Legal Sex Female 5:20 PM CDT Gender Identity Not on file Sexual Orientation Not on file COVID-19 Exposure Response Date Recorded In the last month, have you been in contact with someone who was confirmed or suspected to have Coronavirus / COVID-19? No / Unsure 03/21/2021 11:30 AM ADDICTIONS COUNSELOR ASSISTANT documented as of this encounter Plan of Treatment Upcoming Encounters Date Type Department Care Team (Late Contact Info) Description 11/21/2024 1:45 PM CDT Office Visit [facility] eld [address] [place] [address] Marichuy Suarez MD [address] [place] [address] documented as of this encounter Visit Diagnoses Not on filedocumented in this encounter Additional Health Concerns Infection Onset Date Last Indicated Resolved Time COVID-19 Rule Out 07/02/2021 07/02/2021 07/02/2021 6:39 PM ADDICTIONS COUNSELOR ASSISTANT COVID-19 Rule Out 12/21/2022 12/21/2022 12/21/2022 11:19 AM CDT COVID-19 Rule Out 08/29/2023 08/29/2023 08/29/2023 12:10 PM CDT COVID-19 Rule Out 09/02/2023 09/02/2023 09/02/2023 10:10 PM CDT Influenza - Seasonal 05/31/2024 05/31/2024 025 12:32 AM ADDICTIONS COUNSELOR ASSISTANT documented as of this encounter Care Teams Drill Sharpener Operator Relationship Specialty Start Date End Date Sterling Freire MD [address] [facility] [place] [address] PCP - General FAMILY PRACTICE 05/17/18 Phi Lopez DO [address] [place] [address] SURGERY 12/10/23 12/10/23 Phi Lopez DO [address] [place] [address] SURGERY 12/10/23 Marichuy Suarez MD [address] [place] [address] Consulting Physician CARDIOVASCULAR DISEASE 07/28/24 Yajaira Cannon, ANP- [address] [facility] [address] [place] [phone] NURSE PRACTITIONER ADULT HEALTH 07/28/24 documented as of this encounter
--- OUTSIDE RECORDS SUMMARY | 2024-07-31 15:32 | XMS_ITS | Data Portability ---
Author Organization [facility], [address] [place] [address] [place]rology ([place]) Address [address] [place] [address] Care Team Providers Care Tobacco Stemmer Machine Name Role Phone EMI DILLARD Primary Care Provider [facility] Referring Provider [phone] Assessment Encounter Date Assessment Date Assessment LastModified [...] triggers in office today. 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 jina Not available 06/30/2024 10:43:07 07/14/2024 07/14/2024 Chief complaint: Left shoulder and right thumb pain History of present illness: Patient is a 64-year-old female presenting to the clinic requesting a left shoulder and right thumb injection. Patient was seen in office 2 weeks ago for left shoulder and right thumb pain. For treatment she had decided on a left glenohumeral joint and right trigger thumb corticosteroid injection however she was scheduled for a major surgery a few days following her last appointment. This surgery ended up being canceled she she is returning today for these injections. He denies any injuries or changes since she was last seen. Exam: Patient is in no acute distress and is well-dressed and well-nourished. Patient has appropriate mood and affect. Respirations are nonlabored. Sclera are nonicteric. Patient has good range of motion and strength on exam of the left shoulder. She is tender over the A1 deny of the right thumb and this visibly triggers in office today. Assessment: Left glenohumeral joint osteoarthritis and right trigger thumb Plan: The patient did receive a left glenohumeral joint and right trigger thumb corticosteroid injection. Risks and benefits were discussed with the patient and she voiced her understanding. She will follow-up in 6 weeks for reevaluation if necessary. She will call the office with any questions or concerns. Procedure: Informed consent was discussed and obtained. An explanation of the procedure was provided. The risks and benefits of the procedure, the risks and benefits of alternative procedures, as well as the possible consequences of not undergoing the procedure were discussed. The patient verbalized understanding and gives consent to proceed. The left shoulder was sterilely prepped. A mixture of 2 mL of betamethasone 6 mg/mL combined with 4 mL of 0.5% Bupivacaine without epinephrine was injected into the shoulder joint without difficulty. The patient was given the appropriate instructions for after-care of the injection into the shoulder joint. Informed consent was discussed and obtained. An explanation of the procedure was provided. The risks and benefits of the procedure, the risks and benefits of alternative procedures, as well as the possible consequences of not undergoing the procedure were discussed. The patient verbalized understanding and gives consent to proceed. The right hand was sterilely prepped. A trigger injection was performed in the region of the A1 deny of the right thumb. The injection included 0.5 mL of betamethasone 6 mg/mL mixed 0.5 mL of 0.5% Bupivicaine without epinephrine. The patient was given the appropriate instructions and after-care of the injection. jina Not available 07/14/2024 11:45:47 Plan of Treatment Reminders Order Date Submit [...] Address Organization Details Recorded Time Lentiginos is 593376480 Active 2023 [facility] 4 12:19:44 Seborrheic keratosis 722132036 Active 2023 [facility] 4 12:19:49 Multiple benign melanocyti c nevi 785584182 Active 2023 Joanna Thayer [facility] 4 12:19:53 Open comedone 246986021 Active 2023 Joanna Thayer [facility] 4 12:24:52 Rhytide of forehead 703033631 Active 2023 Joanna Thayer [facility] 4 12:25:24 Wrinkled skin 457732205 [facility] 2023 [facility] 4 12:25:34 Pain of left shoulder joint 983377913370 99554 Active 2024 Yajaira Last [facility] 5 14:57:49 Osteoarthr itis of left glenohumer al joint 988589613348 9104 Active 2024 MIA MOON PA-C [address] [place] [address], [phone], [facility] 5 10:37:23 Trigger thumb of right hand 168188549245 105 Active 2024 MIA MOON PA-C [address] [place] [address], [phone], [facility] 5 10:37:33 Problem Notes None recorded. Procedures [...] Name and Address Organization Details Recorded Time 843412 metformin hydrochlo ride medicatio n Not available Not available Not available 06/04/20232008 09948 3 RxNorm Not Available Not Available Not Available 749829 Non-stero idal anti-infl ammatory agent (product) medicatio n Not available Not available Not available 06/04/20232019 55509 005 SNOMED Not Available Not Available Not Available 198888 lisinopri l medicatio n Not available Not available Not available 06/04/20232019 01629 RxNorm Not Available Not Available Not Available 671135 Levaquin medicatio n Not available Not available Not available 06/04/20232019 64832 2 RxNorm Not Available Not Available Not [...] Not Available Not Available No t Available [employer]-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 Seborrheic keratosis 394 908929 L82.1 Seborrheic keratoses, numerous- Discussed benign etiology. Reassuranc e provided. No treatment required.- Lesions on chest were treated with liquid nitrogen. No charge for this procedure. The patient tolerated the procedure well. Post-treat ment instructio ns were discussed. - pt is interested in cosmetic Sk removal. Contract signed today. Multiple b enign melanocytic nevi 627511718 D22.9 Multiple melanocyti c nevi of trunk and extremitie s - family hx of skin cancer (father) e patient was reassured of benign exam today. We discussed the need to call if there are any concerning changes in the color, size, shape, or symptoms of the lesions, or if certain lesions begin to stand out as being different from the rest ( ugly duckling sign ). Open comedone 908503007 L70.0 open comedone- Discussed benign etiology. Reassuranc e provided. No treatment required. Wrinkled skin 169582395 L98.8 Wrinkles, acne scars- recommende d ablative laser treatments for optimal results- discussed use of OTC retinol vs rx retinoid. She would like to hold off at this time. [id number] TATY CHAIREZ MD [facility] 4[facility] ([place]) [address] [facility]4[address] [place] [address] 05/19/2024 13:11:10 05/19/2024 15:19:05 Seborrheic keratosis 904871683 L82.1 Seborrheic keratoses We discussed the benign [...] well. Post-treat ment instructio ns were discussed. [id number] Tushar Caruso MD [facility] ([place]) [address] [place] [address] 06/30/2024 10:17:04 06/30/2024 10:46:18 Osteoarthritis of left glenohumeral joint 2894299366 398442 M19.012 Trigger th umb of right hand 9849783675 82559 M65.311 [id number] Tushar Caruso MD [facility] ([place]) [address] [place] [address] 07/14/2024 11:35:27 07/14/2024 12:34:44 Osteoarthritis of left glenohumeral joint 2111842682 435607 M19.012 Trigger th umb of right hand 2016444350 89963 M65.311 Health Concerns Section Related Observation LastModified by Organization Detai ls LastModified Time None Recorded Concern Status LastModified by Organization Details LastModified Time None Recorded Advance Directives Directive N: Payers Encounter Date Sequence Insurance Name Policy Number Policy Carty Covered Member ID Carty Member ID Guarantor Name 03/25/2024 1 [place] Haley A Spinner [id number] 1 Haley A Spinner 05/19/2024 1 [place] Haley A Spinner [id number] Haley A Spinner 05/19/2024 2 [place] [id number] Haley A Spinner [id number] Haley A Spinner 06/30/2024 1 [place] Haley A Spinner [id number] 1 Haley A Spinner 06/30/2024 2 [id number] Haley A Spinner [id number] Haley A Spinner 07/14/2024 1 [place] Haley A Spinner [id number] Haley A Spinner 07/14/2024 2 [place] [id number] Haley A Spinner [id number] Haley A Spinner Notes Date Note Type Note Provider Name and Address Organization Details Recorded Time 4 text/html Haley is here for follow up. They have no history of skin cancer. Here today for a total body skin exam.They deny any concerning spots on their skin today. No growing, bleeding, or changing lesions that they have noticed. 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 They have picked some spots out that they would like treated. TATY CHAIREZ MD [address] [place] [address], [phone], [facility] 05/19/2024 14:49:57 5 text/html Haley Vallejois a 64 year oldfemalepresenting for care. MIA MOON PA-C [address] [place] [address], [phone], [facility] 07/04/2024 10:31:23 OBGyn Episode No OBEpisode recorded.
--- OUTSIDE RECORDS SUMMARY | 2024-07-31 15:32 | XMS_ITS | Encounter Summary ---
Author Organization [facility] Address [facility] [place] [address] Care Team Providers Care Thermal Spray Operator Name Role Phone Sterling Freire MD Primary Care Provider [phone] Phi Lopez DO Unavailable [phone] Phi Lopez DO Unavailable [phone] Marichuy Suarez MD Unavailable Yajaira Cannon [facility] Unavailable [phone] Encounter Details Date Type Department Care Team (Late st Contact Info) Description 02/21/2019 Hospital Orders Only [facility] [address] [place] [address] Sterling Freire MD [address] [place] [address] Social History Tobacco Use Types [...] Sex Assigned at Female 05/31/2024 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 Legal Sex Female 5:20 PM CDT Gender Identity Not on file Sexual Orientation Not on file documented as of this encounter Plan of Treatment Upcoming Encounters Date Type Department Care Team (Late st Contact Info) Description 11/21/2024 1:45 PM CDT Office Visit [facility] [address] [place] [address] Marichuy Suarez MD [address] [place] [address] documented as of this encounter Visit Diagnoses Not on filedocumented in this encounter Additional Health Concerns Infection Onset Date Last Indicated Resolved Time COVID-19 Rule Out 07/02/2021 07/02/2021 07/02/2021 6:39 PM FURNITURE REMOVALIST COVID-19 Rule Out 12/21/2022 12/21/2022 12/21/2022 11:19 AM CDT COVID-19 Rule Out 08/29/2023 08/29/2023 08/29/2023 12:10 PM CDT COVID-19 Rule Out 09/02/2023 09/02/2023 09/02/2023 10:10 PM CDT Influenza - Seasonal 05/31/2024 05/31/2024 025 12:32 AM FURNITURE REMOVALIST documented as of this encounter Care Teams Thermal Spray Operator Relationship Specialty Start Date End Date Sterling Freire MD [address] [place] [id number] PCP - General FAMILY PRACTICE 05/17/18 Phi Lopez DO [address] [place] [phone] SURGERY 12/10/23 12/10/23 Phi Lopez DO [address] [place] [address] SURGERY 12/10/23 Marichuy Suarez MD [address] [place], [place] [address] Consulting Physician CARDIOVASCULAR DISEASE 07/28/24 Yajaira Cannon, ANP- [address] [facility] [address] [place] [address] NURSE PRACTITIONER ADULT HEALTH 07/28/24 documented as of this encounter
--- OUTSIDE RECORDS SUMMARY | 2024-07-31 15:33 | XMS_ITS | Clinical Summary ---
Author Organization [facility] Address [address] [place] [address] Care Team Providers Care Integration Assistant Name Role Phone Unavailable Primary Care Provider Unavailabl e Source Comments [facility],non-owned Affiliates and Associated Physician Practices is amultiple site organization consisting of ambulatory clinics and hospital sitesin [place], [place], [place]. This disclosure is being madepursuant to the Care Everywhere program and may not contain all information available regarding this patient. Last updated 18.[facility] Allergies Active Allergy Reactions Criticality Noted Date [...] complete this topic MENINGOCOCCAL (Group B) VACCINE SHARED DECISION-MAKING Aged Out No longer eligible based on patient's age to complete this topic MENINGOCOCCAL GROUPS A/C/Y/W VACCINE Aged Out No longer eligible based on patient's age to complete this topic
--- OUTSIDE RECORDS SUMMARY | 2024-07-31 15:33 | XMS_ITS | Clinical Summary ---
Author Organization [facility] Address [address] [place] [address] Care Team Providers Care In Flight Refueling Manager Name Role Phone Melba Freire MD Primary Care Provider Phi Lopez DO Unavailable [phone] Marichuy Suarez MD Unavailable Yajaira Cannon [facility]- Unavailable [phone] Allergies Active Allergy Reactions Criticality Noted Date [...] daily. 3 05/15/2018 Active vitamin D2, ergocalciferol, 60882 UNITS capsule Take 1 capsule (1.25 mg [...] 03/16/2017 Cholelithiasis 06/04/2015 Allergic rhinitis 10/17/2013 Asthma ([facility]) 10/17/2013 Cough 10/17/2013 Esophageal reflux [...] Encounters Date Type Department Care Team Description 07/28/2024 Telephone [facility] [address] [place] [address] Marichuy Suarez MD Reschedule 07/11/2024 10:39 AM CLASSIFICATION CLERK - 07/11/2024 11:59 PM CLASSIFICATION CLERK Hospital Encounter [facility] [address] [place] [address] eMlba Freire MD Discharge Disposition: Home or Self Care (Routine Discharge) 07/11/2024 Travel 06/06/2024 3:37 PM CLASSIFICATION CLERK - 06/06/2024 8:00 PM [facility] [address] [place] [address] [place] [address] Piotr Vega MD Generalized Weakness Discharge Disposition: Home or Self Care (Routine Discharge) 06/06/2024 Travel 06/02/2024 2:48 PM CLASSIFICATION CLERK - 06/02/2024 4:50 PM [facility] [address] [place] [address] [place] [address] Feliciano Ferrer, DO Generalized Weakness Discharge Disposition: Home or Self Care (Routine Discharge) 06/02/2024 Travel 05/31/2024 11:20 AM CLASSIFICATION CLERK - 05/31/2024 3:18 PM [facility] [address] [place] [address] [place] [address] Ney Pappas, DO Near Syncope Discharge Disposition: Home or Self Care (Routine Discharge) 05/31/2024 Travel 05/15/2024 8:27 AM CLASSIFICATION CLERK - 05/15/2024 11:59 PM CLASSIFICATION CLERK Hospital Encounter [facility] [address] [place] [address] [place] [address] Melba Freire MD Discharge Disposition: Home or Self Care (Routine Discharge) 05/15/2024 8:25 AM CLASSIFICATION CLERK - 05/15/2024 8:26 AM [facility] Hospital Encounter [facility] [address] [place] [address] [place] [address] Melba Freire MD Injection Discharge Disposition: Home or Self Care (Routine Discharge) 05/15/2024 Travel from Last 3 Months Immunizations Name Administration Dates Next Due Influenza (Generic) 02/04/2013 Influenza Adult (Generic) 02/22/2018,,02/12/2015,01/31/20 11,2010 Pneumococcal (Prevnar 13) 05/07/2014 Tdap (Generic) 06/22/2015 Zoster (Zostavax) [address] Unt/0.65Ml 06/22/2015 Family History Medical History Relation [...] Sex Assigned at Female 05/31/2024 11:24 AM CLASSIFICATION CLERK Legal Sex Female 5:20 PM CDT Gender Identity Not on file Sexual Orientation Not on file Last Filed Vital Signs Vital Sign Reading Time Taken Comments Blood Pressure 150/96 06/06/2024 7:00 PM CLASSIFICATION CLERK Pulse 94 06/06/2024 3:55 PM CLASSIFICATION CLERK Temperature 36.8 C (98.2 F) 06/06/2024 3:55 PM CLASSIFICATION CLERK Respiratory Rate 16 06/06/2024 3:55 PM CLASSIFICATION CLERK Oxygen Saturation 100% 06/06/2024 7:00 PM CLASSIFICATION CLERK Inhaled Oxygen Concentration - - Weight 79.4 kg (175 lb) 06/06/2024 3:55 PM CLASSIFICATION CLERK Height 162.6 cm (5' 4 ) 06/06/2024 3:55 PM CLASSIFICATION CLERK Body Mass Index 30.04 06/06/2024 3:55 PM CLASSIFICATION CLERK Plan of Treatment Upcoming Encounters Date Type Department Care Team (Late st Contact Info) Description 11/21/2024 1:45 PM CDT [facility] [address] [place] [phone] Marichuy Suarez MD [address] [place] [address] Health Maintenance Due Date Last Done Comments [...] SPINE WO CON Routine 07/11/2024 11:56 AM CLASSIFICATION CLERK Thoracic back pain, unspecified back pain laterality, unspecified chronicity MRI THOR SPINE WO CON Routine 07/11/2024 11:28 AM CLASSIFICATION CLERK Thoracic back pain, unspecified back pain laterality, unspecified chronicity ECG 12-LEAD Routine 06/06/2024 7:[address] ABD+PEL W CON STAT 06/06/2024 5:49 PM CLASSIFICATION CLERK XR CHEST PORTABLE STAT 06/06/2024 5:1 1 PM CLASSIFICATION CLERK LIPASE STAT 06/06/2024 4:59 PM CLASSIFICATION CLERK TROPONIN, QUANT STAT 06/06/2024 4:59 PM CLASSIFICATION CLERK COMPREHENSIVE METABOLIC PANEL STAT 06/06/2024 4:59 PM CLASSIFICATION CLERK CBC W/DIFF AUTOMATED STAT 06/06/2024 4:59 PM CLASSIFICATION CLERK URINE BACTERIA CULTURE STAT 3:58 PM CLASSIFICATION CLERK HC URINALYSIS AUTO W/MICRO STAT 06/06/2024 3:58 PM CLASSIFICATION CLERK MAGNESIUM STAT 06/02/2024 3:17 PM CLASSIFICATION CLERK COMPREHENSIVE METABOLIC PANEL STAT 06/02/2024 3:17 PM CLASSIFICATION CLERK CBC W/DIFF AUTOMATED STAT 06/02/2024 3:[address] FACIAL BONES WO CON STAT 2:[address] HEAD WO CON STAT 05/31/2024 2:24 PM CLASSIFICATION CLERK XR SHOULDER LT MIN 2V STAT 05/31/2024 2:23 PM CLASSIFICATION CLERK HC URINALYSIS AUTO W/MICRO STAT 05/31/2024 12:47 PM CLASSIFICATION CLERK INFLUENZA A & B STAT 05/31/2024 12:07 PM CLASSIFICATION CLERK ECG 12-LEAD Routine 05/31/2024 12:04 PM CLASSIFICATION CLERK TROPONIN, QUANT STAT 05/31/2024 11:57 AM CLASSIFICATION CLERK COMPREHENSIVE METABOLIC PANEL STAT 05/31/2024 11:57 AM CLASSIFICATION CLERK CBC W/DIFF AUTOMATED STAT 05/31/2024 11:57 AM CLASSIFICATION CLERK MG SCREENING W LISA CORETTA DIGI Routine 05/15/2024 9:54 AM CLASSIFICATION CLERK Visit for screening mammogram OCCULT BLOOD, FECES Routine 12/18/2018 5 :00 PM CDT Chronic diarrhea of unknown origin from Last 3 Months or Most Recently Relevant to Health Maintenance Results * MRI LUMB SPINE WO CON (07/11/2024 11:56 AM CLASSIFICATION CLERK) Anatomical Region Laterality Modality Spine Magnetic Resonan ce 07/14/2024 4:03 PM CDT Impressions 07/14/2024 4:10 PM CDT IMPRESSION: Multilevel lumbar spondylosis as detailed within the body of the report. Findings are again most notable at L4-L5, where there is anterolisthesis and severe bilateral neural foraminal stenosis. Ordered By: MELBA FREIRE Interpreted By: Maciej Campa MD, 07/14/2024 4:03 PM Narrative 07/14/2024 4:[address] [place] [address] EXAMINATION: MRI lumbar spine without contrast. INDICATION: [...] Procedure Note Maciej Campa MD - 07/14/2024 [facility] [address] [place] [address] EXAMINATION: MRI lumbar spine without contrast. INDICATION: [...] THOR SPINE WO CON (07/11/2024 11:28 AM CLASSIFICATION CLERK) Anatomical Region Laterality Modality Spine Magnetic Resonan ce 07/14/2024 4:10 PM CDT Impressions 07/14/2024 4:15 PM CDT IMPRESSION: 1. Mild multilevel thoracic spondylosis as described. No clinically significant spinal canal or neural foraminal stenosis is identified. 2. Provided aircraft line assembler images of the cervical spine demonstrate multiple levels of disc osteophyte complexes of uncertain clinical significance. Could further correlate with dedicated MRI of the cervical spine if clinically warranted. Ordered By: MELBA FREIRE Interpreted By: Maciej Campa MD, 07/14/2024 4:10 PM Narrative 07/14/2024 4:15 PM [address] [place] [address] Examination: MRI THOR SPINE WO CON Exam [...] is identified throughout the thoracic spine. Provided aircraft line assembler images of the cervical spine demonstrate multiple levels of disc osteophyte complexes of uncertain clinical significance. Procedure Note Maciej Campa MD - 07/14/[address] [place] [address] Examination: MRI THOR SPINE WO CON Exam [...] is identified throughout the thoracic spine. Provided aircraft line assembler images of the cervical spine demonstrate multiple levels ofdisc osteophyte complexes of uncertain clinical significance. IMPRESSION: 1. Mild multilevel thoracic spondylosis as described. No clinicallysignificant spinal canal or neural foraminal stenosis is identified. 2. Provided aircraft line assembler images of the cervical spine demonstrate multiplelevels of disc osteophyte complexes of uncertain clinical significance.Could further correlate with dedicated MRI of the cervical spine ifclinically warranted. Ordered By: MELBA FREIRE Interpreted By: Maciej Campa MD, 07/14/2024 4:10 PM us Melba Freire MD MRI Final Resul t * ECG 12 lead (06/06/2024 7:31 PM CLASSIFICATION CLERK) Only the most recent of2 resultswithin the time period is included. 06/06/2024 7:31 PM CLASSIFICATION CLERK Narrative [facility] - 06/07/2024 12:03 PM CLASSIFICATION CLERK [address] [place] [address] Test Date: 2024-06-06 Pat Name: HALEY FRANCE Department: 3 Room: EXAM 202 Gender: Female Manager Financial Reporting: : 1960 Requested By: PIOTR VEGA Order Number: [id number] Reading DYLAN Hodges Measurements Intervals [place] Rate: 75 P: 49 SD: 141 QRS: 4 QRSD: 75 T: 48 QT: 398 QTc: 447 Interpretive Statements SINUS RHYTHM LOW QRS VOLTAGE IN PRECORDIAL LEADS SIFICATION CLERK Procedure Note Tan Hodges MD - 06/07/[address] [place] [address] Test Date: 2024-06-06 Pat Name: HALEY FRANCE Department: 3 Room: EXAM 202 Gender: Female Manager Financial Reporting: : 1960 Requested By: PIOTR VEGA Order Number: [id number] Reading MDAlvaro Hodges Measurements Intervals [place] Rate: 75 P: 49 SD: 141 QRS: 4 QRSD: 75 T: 48 QT: 398 QTc: 447 Interpretive Statements SINUS RHYTHM LOW QRS VOLTAGE IN PRECORDIAL LEADS SIFICATION CLERK us Piotr Vega MD ECG ORDERABLES Final Result [facility] * CT ABD+PEL W IV CON ONLY (06/06/2024 5:49 PM CLASSIFICATION CLERK) Anatomical Region Laterality Modality Abdomen Computed Tomogra phy 06/06/2024 6:18 PM CLASSIFICATION CLERK Impressions 06/06/2024 6:44 PM CLASSIFICATION CLERK IMPRESSION: 1) No acute inflammatory change, abscess nor ascites. 2. No evidence of mechanical bowel obstruction or perforation. 3. No evidence of ureteral stone nor hydronephrosis on either side. 4. Cholelithiasis, no secondary findings of cholecystitis. No biliary duct dilatation. Ordered By: PIOTR VEGA Interpreted By: Piyush Burgos MD, 06/06/2024 6:18 PM Narrative 06/06/2024 6:44 PM CLASSIFICATION CLERK [address] [place] [address] Examination: CT ABD+PEL W CON Exam time: [...] Procedure Note Piyush Burgos MD - 06/06/[address] [place] [address] Examination: CT ABD+PEL W CON Exam time: [...] * XR CHEST PORTABLE (06/06/2024 5:11 PM CLASSIFICATION CLERK) Anatomical Region Laterality Modality Chest Radiographic Meaghan ging 06/06/2024 6:17 PM CLASSIFICATION CLERK Impressions 06/06/2024 6:18 PM CLASSIFICATION CLERK IMPRESSION: 1) No radiographic evidence of active disease the chest. Ordered By: PIOTR VEGA Interpreted By: Piyush Burgos MD, 06/06/2024 6:17 PM Narrative 06/06/2024 6:18 PM CLASSIFICATION CLERK [address] [place] [address] Examination: XR CHEST PORTABLE Exam time: 06/06/2024 4:55 PM Clinical history: Weakness Comparison: None Technique: AP chest Findings: Heart size within normal limits. Pulmonary vasculature unremarkable. No acute focal pulmonary parenchymal opacity. No pleural effusion. No hyperinflation. Procedure Note Piyush Burgos MD - 06/06/2024 [facility] [address] [place] [address] Examination: XR CHEST PORTABLE Exam time: 06/06/2024 [...] (ABNORMAL) COMPREHENSIVE METABOLIC PANEL (06/06/2024 4:59 PM CLASSIFICATION CLERK) Only the most recent of3 resultswithin the time period is included. SODIUM S/P/B 140 136 - 145 MMOL/L 06/06/2024 5:23 PM CLASSIFICATION CLERK [facility] POTASSIUM S/P/B 3.5 3.5 - 5.1 MMOL/L 06/06/2024 5:23 PM CLASSIFICATION CLERK [facility] CHLORIDE S/P/B 104 98 - 107 MMOL/L 06/06/2024 5:23 PM [facility] CO2 24.8 21.0 - 32.0 MMOL/L 06/06/2024 5:23 PM CLASSIFICATION CLERK [facility] GLUCOSE 109(H) 70 - 99 MG/DL 06/06/2024 5:23 PM [facility] Comment: FASTING GLUCOSE 100 TO 125 MG/DL IS CONSISTENT WITH IMPAIRED FASTING GLUCOSE. FASTING GLUCOSE >125 MG/DL IS CONSISTENT WITH DIABETES. RANDOM GLUCOSE >200 MG/DL WITH HYPERGLYCEMIC SYMPTOMS IS CONSISTENT WITH DIABETES. PER ADA GUIDELINES BUN 13 6 - 24 MG/DL 06/06/2024 5:23 PM [facility] CREATININE S/P/B 0.85 0.55 - 1.02 MG/DL 06/06/2024 5:23 PM [facility] CALCIUM S/P/B 8.0(L) 8.4 - 10.5 MG/DL 06/06/2024 5:23 PM [facility] BILIRUBIN TOTAL S/P/B 0.8 0.2 - 1.0 MG/DL 06/06/2024 5:23 PM [facility] Comment: THIS ASSAY IS NOT RECOMMENDED FOR PATIENTS UNDERGOING TREATMENT WITH ELTROMBOPAG DUE TO THE POTENTIAL FOR FALSELY ELEVATED RESULTS. ALKALINE PHOSPHATASE S/P/B 84 50 - 130 U/L 06/06/2024 5:23 PM [facility] AST 41(H) 15 - 37 U/L 06/06/2024 5:23 PM [facility] ALT 59 14 - 59 U/L 06/06/2024 5:23 PM [facility] TOTAL PROTEIN S/P/B 6.5 6.4 - 8.2 G/DL 06/06/2024 5:23 PM [facility] ALBUMIN S/P/B 3.6 3.4 - 5.0 G/DL 06/06/2024 5:23 PM [facility] ANION GAP 11.2 5.0 - 15.0 MMOL/L 06/06/2024 5:23 PM [facility] OSMOLALITY (CALC) 291 MOSM/KG 025 5:23 PM [facility] Comment:REFERENCE RANGE NOT ESTABLISHED GFR ESTIMATE 76(L) >89 ML/MIN/1. 73 M2 06/06/2024 5:23 PM [facility] GFR NOTES GFR REFERENCE S: 06/06/2024 5:23 PM [facility] Comment: THE ESTIMATED GFR IS [...] FAILURE: <15 ml/min/1.73 m2 06/06/2024 4:59 PM CLASSIFICATION CLERK us Piotr Vega MD LABORATORY Final Result [facility] [address] [place] [address], * (ABNORMAL) CBC W/DIFF AUTOMATED (06/06/2024 4:59 PM CLASSIFICATION CLERK) Only the most recent of3 resultswithin the time period is included. WBC 7.19 4.00 - 10.80 x10'3/uL 06/06/2024 5:04 PM [facility] RBC 4.45 4.10 - 5.40 x10'6/uL 06/06/2024 5:04 PM [facility] HGB 13.0 12.0 - 16.0 G/DL 06/06/2024 5:04 PM [facility] HCT 40.2 36.0 - 47.0 % 06/06/2024 5:04 PM [facility] MCV 90.3 78.0 - 100.0 FL 06/06/2024 5:04 PM [facility] MCH 29.2 27.0 - 31.0 PG 06/06/2024 5:04 PM [facility] MCHC 32.3(L) 33.0 - 36.0 G/DL 06/06/2024 5:04 PM [facility] RDW 13.7 11.5 - 14.5 % 06/06/2024 5:04 PM [facility] PLT 329 150 - 350 x10'3/uL 06/06/2024 5:04 PM [facility] MPV 9.4 7.4 - 10.4 FL 06/06/2024 5:04 PM [facility] CBC COMMENT NORMAL REFERENCE RANGE NOT ESTABLISHED FOR THE PROPORTIONAL LEUKOCYTE DIFFERENTIAL. 06/06/2024 5:04 PM [facility] NEUTROPHILS % 62.8 % 06/06/2024 5:04 PM [facility] LYMPHOCYTES % 27.3 % 06/06/2024 5:04 PM [facility] MONOCYTES % 8.5 % 06/06/2024 5:04 PM [facility] EOSINOPHILS % 0.7 % 06/06/2024 5:04 PM [facility] BASOPHILS % 0.1 % 06/06/2024 5:04 PM [facility] IMMATURE GRANS % 0.6 % 06/06/19 5:04 PM [facility] NRBC % 0.0 % 06/06/2024 5:04 PM [facility] ABS. NEUTROPHILS 4.52 1.60 - 8.30 x10'3/uL 06/06/2024 5:04 PM [facility] ABS. LYMPHOCYTES 1.96 0.80 - 4.70 x10'3/uL 06/06/2024 5:04 PM [facility] ABS. MONOCYTES 0.61 0.00 - 1.50 x10'3/uL 06/06/2024 5:04 PM [facility] ABS. EOSINOPHILS 0.05 0.00 - 0.40 x10'3/uL 06/06/2024 5:04 PM [facility] ABS. BASOPHILS 0.01 0.00 - 0.20 x10'3/uL 06/06/2024 5:04 PM [facility] ABS. IMMATURE GRANULOCYTES 0.04(H) 0.00 - 0.03 x10'3/uL 06/06/2024 5:04 PM [facility] ABS. NUCLEATED RBC'S 0.00 0.00 - 0.01 x10'3/uL 06/06/2024 5:04 PM CLASSIFICATION CLERK [facility] 06/06/2024 4:59 PM CLASSIFICATION CLERK us Piotr Vega MD LABORATORY Final Result Performing Organization Address City/[facility]/ZIP Co de Phone Number [facility] [address] [place] [phone], * TROPONIN, QUANT (06/06/2024 4:59 PM CLASSIFICATION CLERK) Only the most recent of2 resultswithin the time period is included. TROPONIN I HIGH SENSITIVITY 7 0 - 51 ng/L 06/06/2024 5:23 PM CLASSIFICATION CLERK [facility] 06/06/2024 4:59 PM CLASSIFICATION CLERK us Piotr Vega MD LABORATORY Final Result Performing Organization Address [facility] Co de Phone Number [facility] [address] [place] [address], * LIPASE (06/06/2024 4:59 PM CLASSIFICATION CLERK) LIPASE 34 16 - 77 UNITS/L 06/06/2024 5:23 PM CLASSIFICATION CLERK [facility] 06/06/2024 4:59 PM CLASSIFICATION CLERK us Piotr Vega MD LABORATORY Final Result Performing Organization Address [facility] Co de Phone Number [facility] [address] [place] [phone], [place] [phone] * (ABNORMAL) URINALYSIS (06/06/2024 3:58 PM CLASSIFICATION CLERK) Only the most recent of2 resultswithin the time period is included. COLOR (U) YELLOW 06/06/2024 4:12 PM CLASSIFICATION CLERK [facility] TRANSPARENCY CLEAR 06/06/2024 4:12 PM CLASSIFICATION CLERK [facility] SPECIFIC GRAVITY (U) 1.020 1.000 - 1.025 06/06/2024 4:12 PM CLASSIFICATION CLERK [facility] U PH 8.5(H) 5.0 - 8.0 06/06/2024 4:12 PM CLASSIFICATION CLERK [facility] LEUKOCYTES (U) NEGATIVE NEGATIVE 06/06/2024 4:12 PM CLASSIFICATION CLERK [facility] NITRITES NEGATIVE NEGATIVE 06/06/2024 4:12 PM CLASSIFICATION CLERK [facility] PROTEIN RANDOM (U) 1+(A) NEGATIVE 06/06/2024 4:12 PM CLASSIFICATION CLERK [facility] GLUCOSE (U) NEGATIVE NEGATIVE 06/06/2024 4:12 PM CLASSIFICATION CLERK [facility] KETONES MG/DL (U) 1+(A) NEGATIVE 06/06/2024 4:12 PM CLASSIFICATION CLERK [facility] UROBILINOGEN 0.2 <1.0 EU/DL 06/06/2024 4:12 PM CLASSIFICATION CLERK [facility] BLOOD (U) NEGATIVE NEGATIVE 06/06/2024 4:12 PM CLASSIFICATION CLERK [facility] WBC/HPF 0-5 0 - 5 /HPF 06/06/2024 4:12 PM CLASSIFICATION CLERK [facility] RBC/HPF 0-5 0 - 5 /HPF 06/06/2024 4:12 PM CLASSIFICATION CLERK [facility] EPI/LPF RARE /LPF 06/06/2024 4:12 PM CLASSIFICATION CLERK [facility] BACTERIA (U) TRACE /HPF 06/06/2024 4:12 PM CLASSIFICATION CLERK [facility] MUCUS PRESENT 06/06/2024 4:12 PM CLASSIFICATION CLERK [facility] BILIRUBIN CONF ICTO (U) NEGATIVE NEGATIVE 06/06/2024 4:12 PM CLASSIFICATION CLERK [facility] URINE SPECIMEN OBTAINED BY CLEAN CATCH PROCEDURE / Unknown 06/06/2024 3:58 PM CLASSIFICATION CLERK us Piotr Vega MD URINE ORDERABLES Final Result [facility] [address] [place] [address], * CULTURE URINE (06/06/2024 3:58 PM CLASSIFICATION CLERK) SPEC DESCRIPTION URINE CLEAN CATCH 06/06/2024 4:01 PM CLASSIFICATION CLERK [facility] SPECIAL REQUESTS NO SPECIAL REQUEST 06/06/2024 4:01 PM CLASSIFICATION CLERK [facility] CULTURE RESULT FEW CONTAMINANTS 07/2024 10:34 AM CLASSIFICATION CLERK [facility] URINE SPECIMEN OBTAINED BY CLEAN CATCH PROCEDURE / Unknown 06/06/2024 3:58 PM CLASSIFICATION CLERK 06/06/2024 4:02 PM CLASSIFICATION CLERK Piotr Vega MD MICROBIOLOGY - GENERAL ORDERABLE S Final Result Performing Organization Address [facility]/ZIP Co de Phone Number [facility] [address] [place] [address], [id number] [facility] [address] [place] [address], * (ABNORMAL) MAGNESIUM (06/02/2024 3:17 PM CLASSIFICATION CLERK) MAGNESIUM 2.8(H) 1.8 - 2.4 MG/DL 06/02/2024 3:36 PM CLASSIFICATION CLERK [facility] 06/02/2024 3:17 PM CLASSIFICATION CLERK Feliciano Ferrer DO LABORATORY Final Res ult Performing Organization Address City/[facility]/ZIP Co de Phone Number [facility] [address] [place] [phone], * CT HEAD WO CON (05/31/2024 2:24 PM CLASSIFICATION CLERK) Anatomical Region Laterality Modality Head Computed Tomogra phy 05/31/2024 2:44 PM CLASSIFICATION CLERK Impressions 05/31/2024 2:48 PM CLASSIFICATION CLERK IMPRESSION: 1. No definite CT evidence for acute intracranial abnormality. 2. Chronic senescent changes. Please note that CT has limited sensitivity for the detection of acute ischemia Referred By: Interpreted By: Bryn Orona MD, 05/31/2024 2:44 PM Narrative 05/31/2024 2:48 PM CLASSIFICATION CLERK [address] [place] [address] EXAMINATION: CT of the head CLINICAL HISTORY: [...] Procedure Note Bryn Orona MD - 05/31/[address] [place] [address] EXAMINATION: CT of the head CLINICAL HISTORY: [...] FACIAL BONES WO CON (05/31/2024 2:24 PM CLASSIFICATION CLERK) Anatomical Region Laterality Modality Facial Computed Tomogra phy 05/31/2024 2:45 PM CLASSIFICATION CLERK Impressions 05/31/2024 2:50 PM CLASSIFICATION CLERK IMPRESSION: 1) No evidence of acute facial bone fracture. Ordered By: NEY PAPPAS Interpreted By: Piyush Burgos MD, 05/31/2024 2:45 PM Narrative 05/31/2024 2:50 PM CLASSIFICATION CLERK [address] [place] [address] Examination: CT FACIAL BONES WO CON Exam [...] Procedure Note Piyush Burgos MD - 05/31/[address] [place] [address] Examination: CT FACIAL BONES WO CON Exam [...] SHOULDER LT MIN 2V (05/31/2024 2:23 PM CLASSIFICATION CLERK) Anatomical Region Laterality Modality Shoulder Radiographic Meaghan ging 05/31/2024 2:39 PM CLASSIFICATION CLERK Impressions 05/31/2024 2:41 PM CLASSIFICATION CLERK IMPRESSION: No fracture or dislocation. Referred By: Interpreted By: Emiliano Adam MD, 05/31/2024 2:39 PM Narrative 05/31/2024 2:41 PM CLASSIFICATION CLERK [facility] [address] [place] [address] Examination: XR SHOULDER LT MIN 2V Exam [...] Procedure Note Emiliano Adam MD - 05/31/2024 [id number] [place] [address] Examination: XR SHOULDER LT MIN 2V Exam [...] Emiliano Adam MD, 05/31/2024 2:39 PM Ney Papaps DO GENERAL IMAGING Final Result * (ABNORMAL) INFLUENZA A & B (05/31/2024 12:07 PM CLASSIFICATION CLERK) SPECIMEN TYPE (INFLUENZA) NASOPHARYNGEAL SWAB 05/31/2024 12:09 PM CLASSIFICATION CLERK [facility] INFLUENZA A POSITIVE(A) NEGATIVE 05/31/2024 12:57 PM CLASSIFICATION CLERK [facility] Comment: CALLED [place] [id number] BY AA READ BACK AND VERIFIED INFLUENZA B NEGATIVE NEGATIVE 05/31/2024 12:57 PM CLASSIFICATION CLERK [facility] NASAL NASOPHARYNGEAL SWAB / Unknown 05/31/2024 12:07 PM CLASSIFICATION CLERK Ney Pappas DO MICROBIOLOGY - GENERAL ORDER HILDA Final Result [facility] [address] [place] [address], * MG SCREENING W LISA CORETTA DIGI (05/15/2024 9:54 AM CLASSIFICATION CLERK) Anatomical Region Laterality Modality Breast Bilateral Mammography 05/15/2024 10:0 8 AM CLASSIFICATION CLERK Impressions 05/15/2024 10:09 AM CLASSIFICATION CLERK IMPRESSION: No suspicious change since the previous exams. Recommendation: 1: Routine Screening Bilateral in 1 Year Assessment: ACR BI-RADS 2 - BENIGN FINDING(S) Ordered By: MELBA FREIRE Interpreted By: Merritt Stephens MD, 05/15/2024 10:08 AM Narrative 05/15/2024 10:09 AM CLASSIFICATION CLERK [address] [id number] [place] [address] Examination: Digital screening mammogram with CAD. Clinical [...] FECAL NEGATIVE NEGATIVE 12/18/2018 6:09 PM CDT [facility] STOOL SPECIMEN / Unknown 12/18/2018 5:00 PM CDT Harika Freire APNP BODY FLUIDS AND STOOLS O RDERABLES Final Result [facility] [address] [place] [address], from Last 3 Months or Most Recently Relevant to Health Maintenance Insurance MEDICARE [facility] [facility] Care Teams In Flight Refueling Manager Relationship Specialty [place] [address] [place] [address] [place] [address] PCP - General FAMILY PRACTICE 05/17/18 Phi Lopez DO [address] [place] [address] SURGERY 12/10/23 Marichuy Suarez MD [address] [place] [address] [phone] Consulting Physician CARDIOVASCULAR DISEASE 07/28/24 Yajaira Cannon, ANP-BC [address] [place] [address] [phone] NURSE PRACTITIONER ADULT HEALTH 07/28/24
--- OUTSIDE RECORDS SUMMARY | 2024-07-31 15:33 | XMS_ITS | Clinical Summary ---
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
--- OUTSIDE RECORDS SUMMARY | 2024-07-31 15:33 | XMS_ITS | Encounter Summary ---
Author Organization [facility] Address [facility] [place] [address] Care Team Providers Care Fish Protector Name Role Phone Sterling Freire MD Primary Care Provider [phone] Phi Lopez DO Unavailable [phone] Phi Lopez DO Unavailable [phone] Marichuy Suarez MD Unavailable Yajaira Cannon [facility] Unavailable [phone] Encounter Details Date Type Department Care Team (Late st Contact Info) Description 10/12/2018 Abstract SFL CONVERSION [address] [place] [address] , Generic MD León Social History Tobacco Use Types Packs/Day Years [...] Sex Assigned at Female 05/31/2024 11:24 AM STERILIZATION TECHNICIAN Legal Sex Female 5:20 PM CDT Gender Identity Not on file Sexual Orientation Not on file documented as of this encounter Plan of Treatment Upcoming Encounters Date Type Department Care Team (Late st Contact Info) Description 11/21/2024 1:45 PM CDT [facility] [address] [place] [address] Marichuy Suarez MD [address] [place] [address] documented as of this encounter Visit Diagnoses Not on filedocumented in this encounter Additional Health Concerns Infection Onset Date Last Indicated Resolved Time COVID-19 Rule Out 07/02/2021 07/02/2021 07/02/2021 6:39 PM STERILIZATION TECHNICIAN COVID-19 Rule Out 12/21/2022 12/21/2022 12/21/2022 11:19 AM CDT COVID-19 Rule Out 08/29/2023 08/29/2023 08/29/2023 12:10 PM CDT COVID-19 Rule Out 09/02/2023 09/02/2023 09/02/2023 10:10 PM CDT Influenza - Seasonal 05/31/2024 05/31/2024 025 12:32 AM STERILIZATION TECHNICIAN documented as of this encounter Care Teams Fish Protector Relationship Specialty [place] [address] [place] [address] [place] [address] PCP - General FAMILY PRACTICE 05/17/18 Phi Lopez DO [address] [place] [address] SURGERY 12/10/23 12/10/23 Phi Lopez DO [address] [place] [address] SURGERY 12/10/23 Marichuy Suarez MD [address] [place], [place] 79[address] Consulting Physician CARDIOVASCULAR DISEASE 07/28/24 Yajaira Cannon, ANP- [address] [place] [address] [address] [place] [address] NURSE PRACTITIONER ADULT HEALTH 07/28/24 documented as of this encounter
--- OUTSIDE RECORDS SUMMARY | 2024-07-31 15:33 | XMS_ITS | Referral Summary ---
Author Organization [facility] Address [address] [place] [address] Care Team Providers Care Wastewater Treatment Plant Attendant Name Role Phone Sterling Freire MD Primary Care Provider [phone] Allergies Active Allergy Reactions Criticality Noted Date [...] total) by mouth as needed Active rizatriptan SALES PROMOTION COORDINATOR (MAXALT-SALES PROMOTION COORDINATOR) [address] one tablet [...] on file Legal Sex Female 6:32 AM CURRICULUM DESIGNER Gender Identity Not on file Sexual Orientation [...] of Treatment Not on file Insurance MEDICARE [facility] Care Teams Wastewater Treatment Plant Attendant Relationship Specialty Start Date End Date Sterling Freire MD [facility] [facility] [place] [address] PCP - General Family Medicine 12/14/23
== END 2024-07-31 14:42 | disposition home or self-care (01) ==
LOC: ANHLAB 14:42
PROVIDERS: PCP Family Medicine; Visit Provider Nurse Practitioner Family
DX: R14.0 Abdominal distension (gaseous) (principal); R19.7 Diarrhea, unspecified
CPT/HCPCS: 83993

== ENCOUNTER 2024-08-21 13:02 | Outpatient (CLI) | payer MEDICARE, SELFPAY ==
--- OUTSIDE RECORDS SUMMARY | 2024-08-21 13:22 | XMS_ITS | Encounter Summary ---
Author Organization [facility] Address [facility] [place] [address] Care Team Providers Care Server Programmer Name Role Phone Sterling Freire MD Primary Care Provider Phi Lopez DO Unavailable [phone] Phi Lopez DO Unavailable [phone] Marichuy Suarez MD Unavailable Yajaira Cannon [facility] Unavailable [phone] Encounter Details Date Type Department Care Team (Late st Contact Info) Description 02/21/2019 Hospital Orders Only [facility] [address] [place] [address] Sterling Freire MD [address] [place] [address] Social History Tobacco Use Types [...] Sex Assigned at Female 05/31/2024 11:24 AM EDUCATIONAL PARAPROFESSIONAL Legal Sex Female 5:20 PM CDT Gender Identity Not on file Sexual Orientation Not on file documented as of this encounter Plan of Treatment Upcoming Encounters Date Type Department Care Team (Late st Contact Info) Description 11/21/2024 1:45 PM CDT Office Visit [facility] eld [address] [place] [address] Marichuy Suarez MD [address] [place] [address] documented as of this encounter Visit Diagnoses Not on filedocumented in this encounter Additional Health Concerns Infection Onset Date Last Indicated Resolved Time COVID-19 Rule Out 07/02/2021 07/02/2021 07/02/2021 6:39 PM EDUCATIONAL PARAPROFESSIONAL COVID-19 Rule Out 12/21/2022 12/21/2022 12/21/2022 11:19 AM CDT COVID-19 Rule Out 08/29/2023 08/29/2023 08/29/2023 12:10 PM CDT COVID-19 Rule Out 09/02/2023 09/02/2023 09/02/2023 10:10 PM CDT Influenza - Seasonal 05/31/2024 05/31/2024 025 12:32 AM EDUCATIONAL PARAPROFESSIONAL documented as of this encounter Care Teams Server Programmer Relationship Specialty Start Date End Date Sterling Freire MD [address] [facility] [place] [address] PCP - General FAMILY PRACTICE 05/17/18 Phi Lopez DO [address] [place] [address] SURGERY 12/10/23 12/10/23 Phi Lopez DO [address] [place] [address] SURGERY 12/10/23 Marichuy Suarez MD [address] [place], [place] [address] Consulting Physician CARDIOVASCULAR DISEASE 07/28/24 Yajaira Cannon, ANP- [address] [facility] [address] [place] [address] NURSE PRACTITIONER ADULT HEALTH 07/28/24 documented as of this encounter
--- OUTSIDE RECORDS SUMMARY | 2024-08-21 13:22 | XMS_ITS | Data Portability ---
Author Organization [facility], [address] [place] [address] [place] ([place]) Address [address] [place] [address] Care Team Providers Care Construction Estimator Name Role Phone EMI DILLARD Primary Care Provider [phone] [facility] Referring Provider [phone] Assessment Encounter Date Assessment Date Assessment LastModified [...] triggers in office today. Patient has good waste removalist strength and is able to flex and [...] Address Organization Details Recorded Time Lentiginos is 847593786 Active 2023 [facility] 4 12:19:44 Seborrheic keratosis 367489642 Active 2023 [facility] 4 12:19:49 Multiple benign melanocyti c nevi 843490145 Active 2023 Joanna Thayer [facility] 4 12:19:53 Open comedone 229334454 Active 2023 Joanna Thayer [facility] 4 12:24:52 Rhytide of forehead 579295138 Active 2023 Joanna Thayer [facility] 4 12:25:24 Wrinkled skin 004070634 Active 2023 [facility] 4 12:25:34 Pain of left shoulder joint 578503705829 27768 Active 2024 Yajaira Last [facility] 5 14:57:49 Osteoarthr itis of left glenohumer al joint 593253903813 9104 Active 2024 MIA MOON PA-C [address] [place] [address], [address], [employer] [facility] 5 10:37:23 Trigger thumb of right hand 165778157707 105 Active 2024 MIA MOON PA-C [address] [place] [address], [phone], [employer] [facility] 5 10:37:33 Problem Notes None recorded. Procedures [...] Name and Address Organization Details Recorded Time 291657 metformin hydrochlo ride medicatio n Not available Not available Not available 06/04/20232008 94465 3 RxNorm Not Available Not Available Not Available 495530 Non-stero idal anti-infl ammatory agent (product) medicatio n Not available Not available Not available 06/04/20232019 86761 005 SNOMED Not Available Not Available Not Available 626784 lisinopri l medicatio n Not available Not available Not available 06/04/20232019 07615 RxNorm Not Available Not Available Not Available 104493 Levaquin medicatio n Not available Not available Not available 06/04/20232019 67972 2 RxNorm Not Available Not Available Not [...] Not Available Not Available No t Available Maxalt-ICU STAFF NURSE 10 mg disintegrati ng tablet Take by [...] available 2024 18:35:47 Medical History Condition Response Diabetes N Anxiety Disorder N Bleeding Disorder N Attention-deficit Hyperactivity Disorder N High Blood Pressure Y Arthritis N Hyperlipidemia N Cancer N Thyroid Problems N Stroke N Asthma N COPD N Depression N Anemia N Seizures N Heart Disease N Fibromyalgia N Osteoporosis Y Kidney Disease N Gynecological HistoryNo gynecological history recorded. Obstetrics History GPAL:G 0 P 0 0 0 0 Past Encounters Encounter ID Performer Location Encounter Start Date Encounter Closed Date Diagnosis/Indication Diagnosis SNOMED-CT Code Diagnosis ICD10 Code Diagnosis Note [id number] TATY CHAIREZ MD [facility] ([place] [address] [place] [address] 03/25/2024 12:03:46 03/25/2024 13:47:57 Lentiginosis 071822209 L81.4 Lentigines (Sun damaged skin)The benign nature [...] and other protective measures. Seborrheic keratosis 394 057049 L82.1 Seborrheic keratoses, numerous- Discussed benign etiology. Reassuranc e provided. No treatment required.- Lesions on chest were treated with liquid nitrogen. No charge for this procedure. The patient tolerated the procedure well. Post-treat ment instructio ns were discussed. - pt is interested in cosmetic Sk removal. Contract signed today. Multiple b enign melanocytic nevi 068875326 D22.9 Multiple melanocyti c nevi of trunk [...] ( ugly duckling sign ). Open comedone 638267390 L70.0 open comedone- Discussed benign etiology. Reassuranc e provided. No treatment required. Wrinkled skin 873454048 L98.8 Wrinkles, acne scars- recommende d ablative laser treatments for optimal results- discussed use of OTC retinol vs rx retinoid. She would like to hold off at this time. [id number] TATY CHAIREZ MD [facility] 4th Derm ([place]) [address] [facility] [place] [address] 05/19/2024 13:11:10 05/19/2024 15:19:05 Seborrheic keratosis 185614280 L82.1 Seborrheic keratoses We discussed the benign [...] well. Post-treat ment instructio ns were discussed. [id number] Tushar Caruso MD [facility] [address] [place] [address] 06/30/2024 10:17:04 06/30/2024 10:46:18 Osteoarthritis of left glenohumeral joint 3191150008 278969 M19.012 Trigger th umb of right hand 7837276626 75652 M65.311 [id number] Tushar Caruso MD [facility] [place] [address] [place] [address] 07/14/2024 11:35:27 07/14/2024 12:34:44 Osteoarthritis of left glenohumeral joint 6754989208 716694 M19.012 Trigger th umb of right hand 4005929908 28701 M65.311 Health Concerns Section Related Observation LastModified by Organization Detai ls LastModified Time None Recorded Concern Status LastModified by Organization Details LastModified Time None Recorded Advance Directives Directive N: Payers Encounter Date Sequence Insurance Name Policy Number Policy Carty Covered Member ID Carty Member ID Guarantor Name 03/25/2024 1 [place] Haley A Spinner [id number] 1 Haley A Spinner 05/19/2024 1 [place] Haley A Spinner [id number] 1 Haley A Spinner 05/19/2024 2 [place] [id number] Haley A Spinner [id number] Haley A Spinner 06/30/2024 1 [place] Haley A Spinner [id number] Haley A Spinner 06/30/2024 2 [id number] Haley A Spinner [id number] Haley A Spinner 07/14/2024 1 [place] Haley A Spinner [id number] 1 Haley A Spinner 07/14/2024 2 [place] [id number] Haley A Spinner [id number] Haley A Spinner Notes Date Note [...] noticed. TATY CHAIREZ MD [address] [place] [address], [phone], [employer] 03/25/2024 13:13:42 5 text/html Haley is here today for cosmetic treatment of {{seborrheic keratoses* milia acrocho director advertising}} with {{cryotherapy* comedone extraction}}. They have picked some spots out that they would like treated. TATY CHAIREZ MD [address] [place] [address], [phone], [employer] [facility] 05/19/2024 14:49:57 5 text/html Haley Vallejois a 64 year oldfemalepresenting for care. MIA MOON PA-C [address] [place] [address], [phone], [facility] 07/04/2024 10:31:23 OBGyn Episode No OBEpisode recorded.
--- OUTSIDE RECORDS SUMMARY | 2024-08-21 13:22 | XMS_ITS | Clinical Summary ---
Author Organization [facility] Address [address] [place] [address] Care Team Providers Care Noise Tester Name Role Phone Unavailable Primary Care Provider Unavailabl e Source Comments [facility], [facility],non-owned Affiliates and Associated Physician Practices is amultiple site organization consisting of ambulatory clinics and hospital sitesin [place], [place], [place] and [place]. This disclosure is being madepursuant to the Care Everywhere program and may not contain all information available regarding this patient. Last updated 18.[facility] Allergies Active Allergy Reactions Criticality Noted Date Comments Levofloxacin Other 01/23/2019 unknown Lisinopril Cough 01/23/2019 Metformin Nausea and/or Vomiting 01/23/2019 Social History Tobacco Use Types Packs/Day Years Used Date Smoking Tobacco: Never Assessed Comments No Sex and Gender Information Value Date Recorded Sex Assigned at Not on file Legal Sex Female 10:48 AM CDT Gender Identity Not on file Sexual [...] FOR DIABETES 01/23/2019 COVID-19 VACCINE (1 - season) 2024 DEPRESSION SCREENING 05/07/2024 INFLUENZA VACCINE (Season Ended) 2025 02/22/2018, 02/22/2016, 02/12/2015, Additional history exists Respiratory Syncytial Virus (RSV) Vaccine Pt: or [...] on patient's age to complete this topic Insurance [employer]ICARE SELF PAY NO INSURANCE Member Subscriber Plan / Payer (Ef fective for All Dates) Name:WalterkalHaley Member ID:Not on file Relation to Subscriber:Not on file Name:WALTERKALHALEY Subscriber ID:Not on file (Home) Address: [address] [place] [address] Payer ID:Not on file Group ID:Not on file Type:Self Pay Address: [facility] MEDIC[facility] SALTY
--- OUTSIDE RECORDS SUMMARY | 2024-08-21 13:22 | XMS_ITS | Encounter Summary ---
Author Organization [facility] Address [address] [place] [address] Care Team Providers Care Drop Clipper Name Role Phone Sterling Freire MD Primary Care Provider Phi Lopez DO Unavailable [phone] Phi Lopez DO Unavailable [phone] Marichuy Suarez MD Unavailable Yajaira Cannon [facility] Unavailable [phone] Encounter Details Date Type Department Care Team (Late Contact Info) Description 03/21/2021 Hospital Orders Only [facility] [address] [facility] [id number] Sadia Pereyra, RN Social History Tobacco Use [...] Sex Assigned at Female 05/31/2024 11:24 AM METAL WASHING MACHINE OPERATOR Legal Sex Female 5:20 PM CDT Gender Identity Not on file Sexual Orientation Not on file COVID-19 Exposure Response Date Recorded In the last month, have you been in contact with someone who was confirmed or suspected to have Coronavirus / COVID-19? No / Unsure 03/21/2021 11:30 AM METAL WASHING MACHINE OPERATOR documented as of this encounter Plan of Treatment Upcoming Encounters Date Type Department Care Team (Late Contact Info) Description 11/21/2024 1:45 PM CDT Office Visit [facility] [address] [place] [address] Marichuy Suarez MD [address] [place] [address] documented as of this encounter Visit Diagnoses Not on filedocumented in this encounter Additional Health Concerns Infection Onset Date Last Indicated Resolved Time COVID-19 Rule Out 07/02/2021 07/02/2021 07/02/2021 6:39 PM METAL WASHING MACHINE OPERATOR COVID-19 Rule Out 12/21/2022 12/21/2022 12/21/2022 11:19 AM CDT COVID-19 Rule Out 08/29/2023 08/29/2023 08/29/2023 12:10 PM CDT COVID-19 Rule Out 09/02/2023 09/02/2023 09/02/2023 10:10 PM CDT Influenza - Seasonal 05/31/2024 05/31/2024 025 12:32 AM METAL WASHING MACHINE OPERATOR documented as of this encounter Care Teams Drop Clipper Relationship Specialty Start Date End Date Sterling Freire MD [address] [facility] [place] [address] PCP - General FAMILY PRACTICE 05/17/18 Phi Lopez DO [address] [place] [address] SURGERY 12/10/23 12/10/23 Phi Lopez DO [address] [place] [address] SURGERY 12/10/23 Marichuy Suarez MD [address] [place] [address] Consulting Physician CARDIOVASCULAR DISEASE 07/28/24 Yajaira Cannon, ANP- [address] [facility] [address] [place] [address] NURSE PRACTITIONER ADULT HEALTH 07/28/24 documented as of this encounter
--- OUTSIDE RECORDS SUMMARY | 2024-08-21 13:23 | XMS_ITS | Encounter Summary ---
Author Organization [facility] Address [facility] [place] [address] Care Team Providers Care Dough Molder Name Role Phone Sterling Freire MD Primary Care Provider Phi Lopez DO Unavailable [phone] Phi Lopez DO Unavailable [phone] Marichuy Suarez MD Unavailable Yajaira Cannon [facility] Unavailable [phone] Encounter Details Date Type Department Care Team (Late st Contact Info) Description 10/12/2018 Abstract SFL CONVERSION [address] [place] [address] , Generic MD León Social [...] Sex Assigned at Female 05/31/2024 11:24 AM SEGMENT BLOCK LAYER Legal Sex Female 5:20 PM CDT Gender Identity Not on file Sexual Orientation Not on file documented as of this encounter Plan of Treatment Upcoming Encounters Date Type Department Care Team (Late st Contact Info) Description 11/21/2024 1:45 PM CDT [facility] [address] [place] [address] Marichuy Suarez MD [address] [place] [address] documented as of this encounter Visit Diagnoses Not on filedocumented in this encounter Additional Health Concerns Infection Onset Date Last Indicated Resolved Time COVID-19 Rule Out 07/02/2021 07/02/2021 07/02/2021 6:39 PM SEGMENT BLOCK LAYER COVID-19 Rule Out 12/21/2022 12/21/2022 12/21/2022 11:19 AM CDT COVID-19 Rule Out 08/29/2023 08/29/2023 08/29/2023 12:10 PM CDT COVID-19 Rule Out 09/02/2023 09/02/2023 09/02/2023 10:10 PM CDT Influenza - Seasonal 05/31/2024 05/31/2024 025 12:32 AM SEGMENT BLOCK LAYER documented as of this encounter Care Teams Dough Molder Relationship Specialty [place] [address] [place] [address] [place] [address] PCP - General FAMILY PRACTICE 05/17/18 Phi Lopez DO [address] [place] [address] SURGERY 12/10/23 12/10/23 Phi Lopez DO [address] [place] [address] SURGERY 12/10/23 Marichuy Suarez MD [address] [place], [place] [address] Consulting Physician CARDIOVASCULAR DISEASE 07/28/24 Yajaira Cannon, ANP- [address] [place] [address] [address] [place] [address] NURSE PRACTITIONER ADULT HEALTH 07/28/24 documented as of this encounter
--- OUTSIDE RECORDS SUMMARY | 2024-08-21 13:23 | XMS_ITS | Clinical Summary ---
Author Organization [facility] Address [facility] [place] [address] Care Team Providers Care Shorts Sifter Name Role Phone Melba Freire MD Primary Care Provider Phi Lopez DO Unavailable [phone] Marichuy Suarez MD Unavailable Yajaira Cannon [facility]- Unavailable [phone] Allergies Active Allergy Reactions Criticality Noted Date [...] daily. 3 05/15/2018 Active vitamin D2, ergocalciferol, 49955 UNITS capsule Take 1 capsule (1.25 mg [...] 03/16/2017 Cholelithiasis 06/04/2015 Allergic rhinitis 10/17/2013 Asthma ([facility]) 10/17/2013 Cough 10/17/2013 Esophageal reflux 10/17/2013 Sebaceous [...] Type Department Care Team Description 07/28/2024 Telephone [facility] [address] [place] [address] Marichuy Suarez MD Reschedule 07/11/2024 10:39 AM PATROL MAN - 07/11/2024 11:59 PM PATROL MAN Hospital Encounter [facility] [address] [place] [address] Melba Freire MD Discharge Disposition: Home or Self Care (Routine Discharge) 07/11/2024 Travel 06/06/2024 3:37 PM PATROL MAN - 06/06/2024 8:00 PM [facility] Emergency [facility] [address] [place] [address] [place] [address] Piotr Vega MD Generalized Weakness Discharge Disposition: Home or Self Care (Routine Discharge) 06/06/2024 Travel 06/02/2024 2:48 PM PATROL MAN - 06/02/2024 4:50 PM [facility] Emergency [facility] [address] [place] [address] [place] [address] Feliciano Ferrer, Generalized Weakness Discharge Disposition: Home or Self Care (Routine Discharge) 06/02/2024 Travel 05/31/2024 11:20 AM [facility] - 05/31/2024 3:18 PM [facility] Emergency [facility] [address] [place] [address] [place] [address] Ney Pappas, DO Near Syncope Discharge Disposition: Home or Self Care (Routine Discharge) 05/31/2024 Travel from Last 3 Months Immunizations Immunization Administration Dates Next Due Influenza (Generic) 02/04/2013 Influenza Adult (Generic) 02/22/2018,,02/12/2015,01/31/20 11,2010 Pneumococcal (Prevnar 13) 05/07/2014 Tdap (Generic) 06/22/2015 Zoster (Zostavax) 62374 Unt/0.65Ml 06/22/2015 Family History Medical History Relation [...] Sex Assigned at Female 05/31/2024 11:24 AM PATROL MAN Legal Sex Female 5:20 PM CDT Gender Identity Not on file Sexual Orientation Not on file Last Filed Vital Signs Vital Sign Reading Time Taken Comments Blood Pressure 150/96 06/06/2024 7:00 PM PATROL MAN Pulse 94 06/06/2024 3:55 PM PATROL MAN Temperature 36.8 C (98.2 F) 06/06/2024 3:55 PM PATROL MAN Respiratory Rate 16 06/06/2024 3:55 PM PATROL MAN Oxygen Saturation 100% 06/06/2024 7:00 PM PATROL MAN Inhaled Oxygen Concentration - - Weight 79.4 kg (175 lb) 06/06/2024 3:55 PM PATROL MAN Height 162.6 cm (5' 4 ) 06/06/2024 3:55 PM PATROL MAN Body Mass Index 30.04 06/06/2024 3:55 PM PATROL MAN Plan of Treatment Upcoming Encounters Date Type Department Care Team (Late st Contact Info) Description 11/21/2024 1:45 PM CDT Office Visit [facility] [address] [place] [phone] Marichuy Suarez MD [address] [place] [address] Health Maintenance Due Date Last Done Comments ASCVD LDL 1960 ASCVD Statin 1960 Colorectal Cancer Screening Colonoscopy (10 Years) 1960 Hepatitis C 02/19/1976 Zoster Vaccines (2 of 3) 08/17/2015 06/22/2015 RSV Immunization or 60+ Years (1 - Risk 60-74 years 1-dose series) 2018 Pneumococcal Vaccine: 50+ Years (3 of 3 - PCV20 or PCV21) 05/07/2019 05/07/2014, 01/15/2014 Annual Medicare Wellness Visit 2023 Dexa Scan (General) 2023 COVID-19 Vaccine (3 - season) 2024 05/18/2021, 07/19/2020 DTaP, Tdap and Td Vaccines (3 - [...] SPINE WO CON Routine 07/11/2024 11:56 AM PATROL MAN Thoracic back pain, unspecified back pain laterality, unspecified chronicity MRI THOR SPINE WO CON Routine 07/11/2024 11:28 AM PATROL MAN Thoracic back pain, unspecified back pain laterality, unspecified chronicity ECG 12-LEAD Routine 06/06/2024 7:[address] ABD+PEL W CON STAT 06/06/2024 5:49 PM PATROL MAN XR CHEST PORTABLE STAT 06/06/2024 5:1 1 PM PATROL MAN LIPASE STAT 06/06/2024 4:59 PM PATROL MAN TROPONIN, QUANT STAT 06/06/2024 4:59 PM PATROL MAN COMPREHENSIVE METABOLIC PANEL STAT 06/06/2024 4:59 PM PATROL MAN CBC W/DIFF AUTOMATED STAT 06/06/2024 4:59 PM PATROL MAN URINE BACTERIA CULTURE STAT 3:58 PM PATROL MAN HC URINALYSIS AUTO W/MICRO STAT 06/06/2024 3:58 PM PATROL MAN MAGNESIUM STAT 06/02/2024 3:17 PM PATROL MAN COMPREHENSIVE METABOLIC PANEL STAT 06/02/2024 3:17 PM PATROL MAN CBC W/DIFF AUTOMATED STAT 06/02/2024 3:[address] FACIAL BONES WO CON STAT 2:[address] HEAD WO CON STAT 05/31/2024 2:24 PM PATROL MAN XR SHOULDER LT MIN 2V STAT 05/31/2024 2:23 PM PATROL MAN HC URINALYSIS AUTO W/MICRO STAT 05/31/2024 12:47 PM PATROL MAN INFLUENZA A & B STAT 05/31/2024 12:07 PM PATROL MAN ECG 12-LEAD Routine 05/31/2024 12:04 PM PATROL MAN TROPONIN, QUANT STAT 05/31/2024 11:57 AM PATROL MAN COMPREHENSIVE METABOLIC PANEL STAT 05/31/2024 11:57 AM PATROL MAN CBC W/DIFF AUTOMATED STAT 05/31/2024 11:57 AM PATROL MAN MG SCREENING W LISA CORETTA DIGI Routine 05/15/2024 9:54 AM PATROL MAN Visit for screening mammogram OCCULT BLOOD, FECES Routine 12/18/2018 5 :00 PM CDT Chronic diarrhea of unknown origin from Last 3 Months or Most Recently Relevant to Health Maintenance Results * MRI LUMB SPINE WO CON (07/11/2024 11:56 AM PATROL MAN) Anatomical Region Laterality Modality Spine Magnetic Resonan ce 07/14/2024 4:03 PM CDT Impressions 07/14/2024 4:10 PM CDT IMPRESSION: Multilevel lumbar spondylosis as detailed within the body of the report. Findings are again most notable at L4-L5, where there is anterolisthesis and severe bilateral neural foraminal stenosis. Ordered By: MELBA FREIRE Interpreted By: Maciej Campa MD, 07/14/2024 4:03 PM Narrative 07/14/2024 4:[address] [place] [address] EXAMINATION: MRI lumbar spine without contrast. INDICATION: [...] Procedure Note Maciej Campa MD - 07/14/[address] [place] [address] EXAMINATION: MRI lumbar spine without contrast. INDICATION: [...] THOR SPINE WO CON (07/11/2024 11:28 AM PATROL MAN) Anatomical Region Laterality Modality Spine Magnetic Resonan ce 07/14/2024 4:10 PM CDT Impressions 07/14/2024 4:15 PM CDT IMPRESSION: 1. Mild multilevel thoracic spondylosis as described. No clinically significant spinal canal or neural foraminal stenosis is identified. 2. Provided cognos images of the cervical spine demonstrate multiple levels of disc osteophyte complexes of uncertain clinical significance. Could further correlate with dedicated MRI of the cervical spine if clinically warranted. Ordered By: MELBA FREIRE Interpreted By: Maciej Campa MD, 07/14/2024 4:10 PM Narrative 07/14/2024 4:15 PM CDT [address] [place] [address] Examination: MRI THOR SPINE WO CON Exam [...] is identified throughout the thoracic spine. Provided cognos images of the cervical spine demonstrate multiple levels of disc osteophyte complexes of uncertain clinical significance. Procedure Note Maciej Campa MD - 07/14/[address] [place] [address] Examination: MRI THOR SPINE WO CON Exam [...] is identified throughout the thoracic spine. Provided cognos images of the cervical spine demonstrate multiple levels ofdisc osteophyte complexes of uncertain clinical significance. IMPRESSION: 1. Mild multilevel thoracic spondylosis as described. No clinicallysignificant spinal canal or neural foraminal stenosis is identified. 2. Provided cognos images of the cervical spine demonstrate multiplelevels of disc osteophyte complexes of uncertain clinical significance.Could further correlate with dedicated MRI of the cervical spine ifclinically warranted. Ordered By: MELBA FREIRE Interpreted By: Maciej Campa MD, 07/14/2024 4:10 PM us Melba Freire MD MRI Final Resul t * ECG 12 lead (06/06/2024 7:31 PM PATROL MAN) Only the most recent of2 resultswithin the time period is included. 06/06/2024 7:31 PM PATROL MAN Narrative [facility] - 06/07/2024 12:03 PM PATROL MAN [address] 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1960 Requested By: PIOTR VEGA Order Number: [id number] Reading MD: Tan Hodges Measurements Intervals Alpine Rate: 75 P: 49 VT: 141 QRS: 4 QRSD: 75 T: 48 QT: 398 QTc: 447 Interpretive Statements SINUS RHYTHM LOW QRS VOLTAGE IN PRECORDIAL LEADS OL MAN us Piotr Vega MD ECG ORDERABLES Final Result [facility] * CT ABD+PEL W IV CON ONLY (06/06/2024 5:49 PM PATROL MAN) Anatomical Region Laterality Modality Abdomen Computed Tomogra phy 06/06/2024 6:18 PM PATROL MAN Impressions 06/06/2024 6:44 PM PATROL MAN IMPRESSION: 1) No acute inflammatory change, abscess nor ascites. 2. No evidence of mechanical bowel obstruction or perforation. 3. No evidence of ureteral stone nor hydronephrosis on either side. 4. Cholelithiasis, no secondary findings of cholecystitis. No biliary duct dilatation. Ordered By: PIOTR VEGA Interpreted By: Piyush Burgos MD, 06/06/2024 6:18 PM Narrative 06/06/2024 6:44 PM PATROL MAN [place] [id number] [facility] [place] [address] Examination: CT ABD+PEL W CON Exam time: [...] Procedure Note Piyush Burgos MD - 06/06/[address] [place] [address] Examination: CT ABD+PEL W CON Exam time: [...] * XR CHEST PORTABLE (06/06/2024 5:11 PM PATROL MAN) Anatomical Region Laterality Modality Chest Radiographic Meaghan ging 06/06/2024 6:17 PM PATROL MAN Impressions 06/06/2024 6:18 PM PATROL MAN IMPRESSION: 1) No radiographic evidence of active disease the chest. Ordered By: PIOTR VEGA Interpreted By: Piyush Burgos MD, 06/06/2024 6:17 PM Narrative 06/06/2024 6:18 PM PATROL MAN [address] [place] [address] Examination: XR CHEST PORTABLE Exam time: 06/06/2024 4:55 PM Clinical history: Weakness Comparison: None Technique: AP chest Findings: Heart size within normal limits. Pulmonary vasculature unremarkable. No acute focal pulmonary parenchymal opacity. No pleural effusion. No hyperinflation. Procedure Note Piyush Burgos MD - 06/06/[address] [place] [address] Examination: XR CHEST PORTABLE Exam time: 06/06/2024 [...] (ABNORMAL) COMPREHENSIVE METABOLIC PANEL (06/06/2024 4:59 PM PATROL MAN) Only the most recent of3 resultswithin the time period is included. SODIUM S/P/B 140 136 - 145 MMOL/L 06/06/2024 5:23 PM [facility] POTASSIUM S/P/B 3.5 3.5 - 5.1 MMOL/L 06/06/2024 5:23 PM [facility] CHLORIDE S/P/B 104 98 - 107 MMOL/L 06/06/2024 5:23 PM [facility] CO2 24.8 21.0 - 32.0 MMOL/L 06/06/2024 5:23 PM [facility] GLUCOSE 109(H) 70 - 99 MG/DL 06/06/2024 5:23 PM [facility] Comment: FASTING GLUCOSE 100 TO 125 MG/DL IS CONSISTENT WITH IMPAIRED FASTING GLUCOSE. FASTING GLUCOSE >125 MG/DL IS CONSISTENT WITH DIABETES. RANDOM GLUCOSE >200 MG/DL WITH HYPERGLYCEMIC SYMPTOMS IS CONSISTENT WITH DIABETES. PER ADA GUIDELINES BUN 13 6 - 24 MG/DL 06/06/2024 5:23 PM [facility] CREATININE S/P/B 0.85 0.55 - 1.02 MG/DL 06/06/2024 5:23 PM [facility] CALCIUM S/P/B 8.0(L) 8.4 - 10.5 MG/DL 06/06/2024 5:23 PM [facility] BILIRUBIN TOTAL S/P/B 0.8 0.2 - 1.0 MG/DL 06/06/2024 5:23 PM [facility] Comment: THIS ASSAY IS NOT RECOMMENDED FOR PATIENTS UNDERGOING TREATMENT WITH ELTROMBOPAG DUE TO THE POTENTIAL FOR FALSELY ELEVATED RESULTS. ALKALINE PHOSPHATASE S/P/B 84 50 - 130 U/L 06/06/2024 5:23 PM [facility] AST 41(H) 15 - 37 U/L 06/06/2024 5:23 PM [facility] ALT 59 14 - 59 U/L 06/06/2024 5:23 PM [facility] TOTAL PROTEIN S/P/B 6.5 6.4 - 8.2 G/DL 06/06/2024 5:23 PM [facility] ALBUMIN S/P/B 3.6 3.4 - 5.0 G/DL 06/06/2024 5:23 PM [facility] ANION GAP 11.2 5.0 - 15.0 MMOL/L 06/06/2024 5:23 PM [facility] OSMOLALITY (CALC) 291 MOSM/KG 025 5:23 PM [facility] Comment:REFERENCE RANGE NOT ESTABLISHED GFR ESTIMATE 76(L) >89 ML/MIN/1. 73 M2 06/06/2024 5:23 PM [facility] GFR NOTES GFR REFERENCE S: 06/06/2024 5:23 PM [facility] Comment: THE ESTIMATED GFR IS CALCULATED [...] FAILURE: <15 ml/min/1.73 m2 06/06/2024 4:59 PM PATROL MAN us Piotr Vega MD LABORATORY Final Result [facility] [address] [place] [address], * (ABNORMAL) CBC W/DIFF AUTOMATED (06/06/2024 4:59 PM PATROL MAN) Only the most recent of3 resultswithin the time period is included. WBC 7.19 4.00 - 10.80 x10'3/uL 06/06/2024 5:04 PM [facility] RBC 4.45 4.10 - 5.40 x10'6/uL 06/06/2024 5:04 PM [facility] HGB 13.0 12.0 - 16.0 G/DL 06/06/2024 5:04 PM [facility] HCT 40.2 36.0 - 47.0 % 06/06/2024 5:04 PM [facility] MCV 90.3 78.0 - 100.0 FL 06/06/2024 5:04 PM [facility] MCH 29.2 27.0 - 31.0 PG 06/06/2024 5:04 PM [facility] MCHC 32.3(L) 33.0 - 36.0 G/DL 06/06/2024 5:04 PM [facility] RDW 13.7 11.5 - 14.5 % 06/06/2024 5:04 PM [facility] PLT 329 150 - 350 x10'3/uL 06/06/2024 5:04 PM [facility] MPV 9.4 7.4 - 10.4 FL 06/06/2024 5:04 PM [facility] CBC COMMENT NORMAL REFERENCE RANGE NOT ESTABLISHED FOR THE PROPORTIONAL LEUKOCYTE DIFFERENTIAL. 06/06/2024 5:04 PM [facility] NEUTROPHILS % 62.8 % 06/06/2024 5:04 PM [facility] LYMPHOCYTES % 27.3 % 06/06/2024 5:04 PM [facility] MONOCYTES % 8.5 % 06/06/2024 5:04 PM [facility] EOSINOPHILS % 0.7 % 06/06/2024 5:04 PM [facility] BASOPHILS % 0.1 % 06/06/2024 5:04 PM PATROL MAN [facility] IMMATURE GRANS % 0.6 % 06/06/19 25 5:04 PM PATROL MAN [facility] NRBC % 0.0 % 06/06/2024 5:04 PM PATROL MAN [facility] ABS. NEUTROPHILS 4.52 1.60 - 8.30 x10'3/uL 06/06/2024 5:04 PM PATROL MAN [facility] ABS. LYMPHOCYTES 1.96 0.80 - 4.70 x10'3/uL 06/06/2024 5:04 PM PATROL MAN [facility] ABS. MONOCYTES 0.61 0.00 - 1.50 x10'3/uL 06/06/2024 5:04 PM PATROL MAN [facility] ABS. EOSINOPHILS 0.05 0.00 - 0.40 x10'3/uL 06/06/2024 5:04 PM PATROL MAN [facility] ABS. BASOPHILS 0.01 0.00 - 0.20 x10'3/uL 06/06/2024 5:04 PM PATROL MAN [facility] ABS. IMMATURE GRANULOCYTES 0.04(H) 0.00 - 0.03 x10'3/uL 06/06/2024 5:04 PM PATROL MAN [facility] ABS. NUCLEATED RBC'S 0.00 0.00 - 0.01 x10'3/uL 06/06/2024 5:04 PM PATROL MAN [facility] 06/06/2024 4:59 PM PATROL MAN us Piotr Vega MD LABORATORY Final Result [facility] [address] [place] [address], * TROPONIN, QUANT (06/06/2024 4:59 PM PATROL MAN) Only the most recent of2 resultswithin the time period is included. TROPONIN I HIGH SENSITIVITY 7 0 - 51 ng/L 06/06/2024 5:23 PM PATROL MAN [facility] 06/06/2024 4:59 PM PATROL MAN us Piotr Vega MD LABORATORY Final Result [facility] [address] [place] [address], [place] [phone] * LIPASE (06/06/2024 4:59 PM PATROL MAN) LIPASE 34 16 - 77 UNITS/L 06/06/2024 5:23 PM PATROL MAN [facility] 06/06/2024 4:59 PM PATROL MAN us Piotr Vega MD LABORATORY Final Result Performing Organization Address [facility] de Phone Number [facility] [place] [address], [place] [phone] * (ABNORMAL) URINALYSIS (06/06/2024 3:58 PM PATROL MAN) Only the most recent of2 resultswithin the time period is included. COLOR (U) YELLOW 06/06/2024 4:12 PM PATROL MAN [facility] TRANSPARENCY CLEAR 06/06/2024 4:12 PM PATROL MAN [facility] SPECIFIC GRAVITY (U) 1.020 1.000 - 1.025 06/06/2024 4:12 PM PATROL MAN [facility] U PH 8.5(H) 5.0 - 8.0 06/06/2024 4:12 PM PATROL MAN [facility] LEUKOCYTES (U) NEGATIVE NEGATIVE 06/06/2024 4:12 PM PATROL MAN [facility] NITRITES NEGATIVE NEGATIVE 06/06/2024 4:12 PM PATROL MAN [facility] PROTEIN RANDOM (U) 1+(A) NEGATIVE 06/06/2024 4:12 PM PATROL MAN [facility] GLUCOSE (U) NEGATIVE NEGATIVE 06/06/2024 4:12 PM PATROL MAN [facility] KETONES MG/DL (U) 1+(A) NEGATIVE 06/06/2024 4:12 PM PATROL MAN [facility] UROBILINOGEN 0.2 <1.0 EU/DL 06/06/2024 4:12 PM PATROL MAN [facility] BLOOD (U) NEGATIVE NEGATIVE 06/06/2024 4:12 PM PATROL MAN [facility] WBC/HPF 0-5 0 - 5 /HPF 06/06/2024 4:12 PM PATROL MAN [facility] RBC/HPF 0-5 0 - 5 /HPF 06/06/2024 4:12 PM PATROL MAN [facility] EPI/LPF RARE /LPF 06/06/2024 4:12 PM PATROL MAN [facility] BACTERIA (U) TRACE /HPF 06/06/2024 4:12 PM PATROL MAN [facility] MUCUS PRESENT 06/06/2024 4:12 PM PATROL MAN [facility] BILIRUBIN CONF ICTO (U) NEGATIVE NEGATIVE 06/06/2024 4:12 PM PATROL MAN [facility] URINE SPECIMEN OBTAINED BY CLEAN CATCH PROCEDURE / Unknown 06/06/2024 3:58 PM PATROL MAN us Piotr Vega MD URINE ORDERABLES Final Result [facility] [address] [place] [address], * CULTURE URINE (06/06/2024 3:58 PM PATROL MAN) SPEC DESCRIPTION URINE CLEAN CATCH 06/06/2024 4:01 PM PATROL MAN [facility] SPECIAL REQUESTS NO SPECIAL REQUEST 06/06/2024 4:01 PM PATROL MAN [facility] CULTURE RESULT FEW CONTAMINANTS 07/2024 10:34 AM PATROL MAN [facility] URINE SPECIMEN OBTAINED BY CLEAN CATCH PROCEDURE / Unknown 06/06/2024 3:58 PM PATROL MAN 06/06/2024 4:02 PM PATROL MAN us Piotr Vega MD MICROBIOLOGY - GENERAL ORDERABLE S Final Result [facility] [address] [place] [address], [place] [phone] [id number] [facility] [address] [place] [address], [place] [phone] * (ABNORMAL) MAGNESIUM (06/02/2024 3:17 PM PATROL MAN) MAGNESIUM 2.8(H) 1.8 - 2.4 MG/DL 06/02/2024 3:36 PM PATROL MAN [facility] 06/02/2024 3:17 PM PATROL MAN us Feliciano Ferrer DO LABORATORY Final Res ult [facility] [address] [place] [address], [place] [phone] * CT HEAD WO CON (05/31/2024 2:24 PM PATROL MAN) Anatomical Region Laterality Modality Head Computed Tomogra phy 05/31/2024 2:44 PM PATROL MAN Impressions 05/31/2024 2:48 PM PATROL MAN IMPRESSION: 1. No definite CT evidence for acute intracranial abnormality. 2. Chronic senescent changes. Please note that CT has limited sensitivity for the detection of acute ischemia Referred By: Interpreted By: Bryn Orona MD, 05/31/2024 2:44 PM Narrative 05/31/2024 2:48 PM PATROL MAN [address] [place] [address] EXAMINATION: CT of the head CLINICAL HISTORY: [...] Procedure Note Bryn Orona MD - 05/31/2024 [facility] [address] [address] EXAMINATION: CT of the head CLINICAL HISTORY: [...] FACIAL BONES WO CON (05/31/2024 2:24 PM PATROL MAN) Anatomical Region Laterality Modality Facial Computed Tomogra phy 05/31/2024 2:45 PM PATROL MAN Impressions 05/31/2024 2:50 PM PATROL MAN IMPRESSION: 1) No evidence of acute facial bone fracture. Ordered By: NEY PAPPAS Interpreted By: Piyush Burgos MD, 05/31/2024 2:45 PM Narrative 05/31/2024 2:50 PM PATROL MAN [address] [place] [address] Examination: CT FACIAL BONES WO CON Exam [...] Procedure Note Piyush Burgos MD - 05/31/[address] [place] [address] Examination: CT FACIAL BONES WO CON Exam [...] SHOULDER LT MIN 2V (05/31/2024 2:23 PM PATROL MAN) Anatomical Region Laterality Modality Shoulder Radiographic Meaghan ging 05/31/2024 2:39 PM PATROL MAN Impressions 05/31/2024 2:41 PM PATROL MAN IMPRESSION: No fracture or dislocation. Referred By: Interpreted By: Emiliano Adam MD, 05/31/2024 2:39 PM Narrative 05/31/2024 2:41 PM PATROL MAN [address] [place] [address] Examination: XR SHOULDER LT MIN 2V Exam [...] Procedure Note Emiliano Adam MD - 05/31/[address] [place] [address] Examination: XR SHOULDER LT MIN 2V Exam [...] By: Emiliano Adam MD, 05/31/2024 2:39 PM us Ney Pappas DO GENERAL IMAGING Final Result * (ABNORMAL) INFLUENZA A & B (05/31/2024 12:07 PM PATROL MAN) SPECIMEN TYPE (INFLUENZA) NASOPHARYNGEAL SWAB 05/31/2024 12:09 PM PATROL MAN [facility] INFLUENZA A POSITIVE(A) NEGATIVE 05/31/2024 12:57 PM PATROL MAN [facility] Comment: CALLED TO ROSEMARY HAWKINS [id number] BY LISANDRA READ BACK AND VERIFIED INFLUENZA B NEGATIVE NEGATIVE 05/31/2024 12:57 PM PATROL MAN [facility] NASAL NASOPHARYNGEAL SWAB / Unknown 05/31/2024 12:07 PM PATROL MAN us Ney Pappas DO MICROBIOLOGY - GENERAL ORDER HILDA Final Result [facility] [address] [place] [address], * MG SCREENING W LISA CORETTA DIGI (05/15/2024 9:54 AM PATROL MAN) Anatomical Region Laterality Modality Breast Bilateral Mammography 05/15/2024 10:0 8 AM PATROL MAN Impressions 05/15/2024 10:09 AM PATROL MAN IMPRESSION: No suspicious change since the previous exams. Recommendation: 1: Routine Screening Bilateral in 1 Year Assessment: ACR BI-RADS 2 - BENIGN FINDING(S) Ordered By: MELBA FREIRE Interpreted By: Merritt Stephens MD, 05/15/2024 10:08 AM Narrative 05/15/2024 10:09 AM PATROL MAN [place] [address] [place] [address] Examination: Digital screening mammogram with CAD. Clinical [...] [facility] [address] [place] [address], from Last 3 Months or Most Recently Relevant to Health Maintenance Insurance MEDICARE [facility] Care Teams Shorts Sifter Relationship Specialty Start Date End Date Melba Freire MD [address] [facility] [place] [id number] PCP - General FAMILY PRACTICE 05/17/18 Phi Lopez DO [address] [place] [address] SURGERY 12/10/23 Marichuy Suarez MD [address] [place] [id number] Consulting Physician CARDIOVASCULAR DISEASE 07/28/24 Yajaira Cannon, ANP-BC [address] [place] [address] [id number] NURSE PRACTITIONER ADULT HEALTH 07/28/24
== END 2024-08-21 13:03 | disposition home or self-care (01) ==
LOC: ANHAUDIO 13:03
PROVIDERS: Visit Provider Otolaryngology
DX: H65.91 Unspecified nonsuppurative otitis media, right ear (principal); H90.11 Conductive hearing loss, unilateral, right ear, with unrestricted hearing on the contralateral side; H69.90 Unspecified Eustachian tube disorder, unspecified ear; Q43.8 Other specified congenital malformations of intestine; K09.8 Other cysts of oral region, not elsewhere classified; K21.9 Gastro-esophageal reflux disease without esophagitis; H90.6 Mixed conductive and sensorineural hearing loss, bilateral; H90.3 Sensorineural hearing loss, bilateral
CPT/HCPCS: 92557; 92567

== ENCOUNTER 2025-04-17 11:20 | Outpatient (CLI) | payer MEDICARE, SELFPAY ==
[2025-04-17 12:11] LABS: Hematocrit 40.7 % (37.0-47.0); Hemoglobin 12.8 g/dL (12.0-15.0); Immature Granulocyte Percent A 0.2 % (0-0.5); Lymphocytes Absolute Auto 1.62 K/mm3 (0.9-3.2); Mean Corpuscular HGB Conc 31.4 g/dl (32-36); Mean Corpuscular Hemoglobin 29.6 pg (26-34); Mean Corpuscular Volume 94.0 fl (80-100); Nucleated Red Blood Cells Absolute Auto 0.000 K/mm3 (0.0-0.012); Nucleated Red Blood Cells Perc 0.0 % (0.0-0.2); Platelet Count Result 289 k/mm3 (150-375); Red Blood Count 4.33 M/mm3 (4.2-5.4); White Blood Count 5.9 K/mm3 (4.5-10.0)
[2025-04-17 12:36] LABS: Anion Gap 3 mmol/L (4-12); Blood Urea Nitrogen 17 mg/dL (7-17); Calcium 9.5 mg/dL (8.4-10.2); Carbon Dioxide 30 mmol/L (22-30); Chloride 106 mmol/L (98-107); Estimated Glomerular Filt Rate > 60; Glucose 115 mg/dL (65-110); Potassium 3.6 mmol/L (3.4-5.0); Sodium 139 mmol/L (137-145)
== END 2025-04-17 11:21 | disposition home or self-care (01) ==
PROVIDERS: Anesthesiology; PCP Family Medicine; Visit Provider Obstetrics & Gynecology
DX: R10.20 Pelvic and perineal pain unspecified side (principal); E11.9 Type 2 diabetes mellitus without complications
CPT/HCPCS: 36415; 80048; 85025; 86850; 86900; 86901

== ENCOUNTER 2025-04-24 02:31 | Day surgery (SDC) | payer MEDICARE, SELFPAY ==
[2025-04-16 10:07] VITALS: BMI 28.3
--- NOTE | 2025-04-16 11:00 | PC.NURSE ---
[facility] has started construction of its new state of the art ER which will open Spring 2026. With this, we anticipate parking may be a challenge for some our surgical patients and families. Parking spaces are limited but are available for all Surgical, obstetrics, and ER patients sharing this lot. If you arrive and find you are having a hard time finding a parking space, please note that we understand the challenges, please drive around the hospital and park near Hospital Entrance 1. When you enter this entrance, you can ask a volunteer to direct or take you back to the surgical waiting area to check in. We appreciate everyone?s understanding of these expected challenges while we build for your future. Report to the Outpatient Waiting Room, entrance under the green pavilion located off [address], at time __9:30AM___ on date ___04/24/25__. Planned Procedure Time: __11:30AM___.? Time changes happen often and if your time is changed the preop area will call you the afternoon before. - You and your visitor will be asked to self-screen and do not enter if you have any COVID symptoms. Please call surgeon if you need to reschedule. - A mask is optional within the hospital at this time. Patients may have clear liquids (water, carbonated beverages, clear teas, apple juice) until 3 hours prior to surgery (8:30AM) with a maximum of 20 ounces. - No food from midnight until time of surgery and no smoking, or chewing tobacco (or any form of nicotine). No chewing gum, candy or mints. Take only the following medications with a SIP of water on the morning of surgery: ___NONE DO NOT STOP ANY OF YOUR OTHER PRESCRIPTION MEDICATIONS PRIOR TO SURGERY EXCEPT THE FOLLOWING Hold all vitamins and supplements for 3 days per anesthesiologist.--LAST DOSE 04/20/25 Medications to discontinue per physician NONE Date to take last dose Please no make-up, nail syriac, hairspray, perfume, deodorant, or body powder the day of surgery.? No jewelry (including any body piercings) or valuables the day of surgery, leave them at home.? Please take a shower or bath the night before, or the morning of, surgery with an antibacterial soap.? Wear comfortable, loose fitting clothing. - Jewelry must be removed prior to entering the operating room.? Rings and piercings that are not removed may be cut off. - The hospital will not accept responsibility for valuables.? - Please leave all valuables, including medications, at home the day of surgery. If you are going home after surgery, a licensed cdl driver must drive you home.? - NO public transportation without another adult if you receive anesthesia. - We recommend that an adult stay with you for 24 hours following discharge. - We also recommend that you do not drive, make important decision, drink alcoholic beverages, or take any drugs that were not prescribed by your health care provider for at least 24 hours after your discharge time. Follow any additional instructions given to you from your surgeon. Telephone instructions given to ____PATIENT and asked if any additional questions and then verbalized understanding. Patient advised to call surgeon office or pre surgery nurse liaison [phone] if any additional questions.
--- NOTE | 2025-04-21 07:27 | PM.IMHP2 ---
H&P: HPI History of Present Illness Date/Time: 04/21/25 07:27 Chief Complaint: Enlarged uterus with pelvic pain and uterine prolapse. Also has dyspareunia Narrative: 65-year-old female with enlarged uterus this been symptomatic with pain discomfort dyspareunia she also has uterine prolapse. Risks and benefits of robotic hysterectomy and bilateral salpingo-oophorectomy reviewed including but not exclusive of , aspiration pneumonia, bleeding, transfusion, perforation injury to bowel, bladder, ureters, or other internal organs with need for open laparotomy. She received the ACOG handout entitled hysterectomy as well as the de Sal handout. All questions were answered to her satisfaction. She asked to proceed Review of Systems Review of Systems: All systems reviewed & are unremarkable except as noted in HPI and below PMFSH Past Medical History Medical History (Updated 04/21/25 @ 07:30 by Rey Hawthorne MD) Pelvic pain IBS (irritable bowel syndrome) Belching Diarrhea Colon cancer screening Hypertension GERD (gastroesophageal reflux disease) Gall bladder pain Family History Family History Father Diabetes mellitus Hypertension Mother Asthma Thyroid condition Social History Social History Smoking status: Never smoker Alcohol intake: current Alcohol use details: 1 per month Substance use: never Substance use type: does not use Lack of Food: Never True Current Housing: I Have Housing Concerned About Future Housing: No Difficulty Paying Gas/Electric Bills: No Difficulty Paying for Meds: No Currently Unemployed: No Difficulty w/ Childcare or Family Care: No Living arrangements: with family Additional living arrangements comments: [facility] Spiritual care concerns: No Meds Home Medications and Allergies Home Medications ?Medication ?Instructions ?Recorded ?Confirmed ?Type atorvastatin 80 mg tablet 80 mg PO HS 08/07/23 04/16/25 History ergocalciferol (vitamin D2) 1,250 1,250 mcg PO MONTHLY 08/07/23 04/16/25 History mcg (50,000 unit) capsule rizatriptan 10 mg tablet See Rx Instructions PO .COMPLEX 08/07/23 04/16/25 History irbesartan 150 mg tablet 150 mg PO HS 11/29/23 04/16/25 History fluticasone propionate 50 2 spray intranasal DAILY PRN nasal 06/23/24 04/16/25 History mcg/actuation nasal congestion spray,suspension (Flonase Allergy Relief) denosumab 60 mg/mL subcutaneous 60 mg subcut [id number] 04/16/25 04/16/25 History syringe (Prolia) omeprazole 40 mg capsule,delayed 40 mg PO DAILY 04/16/25 04/16/25 History release tirzepatide 2.5 mg/0.5 mL 2.5 mg subcut WEEKLY 04/16/25 04/16/25 History subcutaneous pen injector (Mounjaro) Allergies Allergy/AdvReac Type Severity Reaction Status Date / Time levofloxacin (From Levaquin) Allergy Unknown Verified 04/16/25 10:01 lisinopril Allergy Unknown Verified 04/16/25 10:12 metformin Allergy Unknown Verified 04/16/25 10:12 oseltamivir (From Tamiflu) Allergy NAUSEA, Verified 04/16/25 10:12 VOMITING, HEADACHE, MEMORY PROBLEMS aspirin AdvReac AVOIDS- Verified 04/16/25 10:12 MULTIPLE BLEEDING ULCERS NSAIDS (Non-Steroidal AdvReac AVOIDS-MULTIPLE Verified 04/16/25 10:12 Anti-Inflamma BLEEDING ULCERS Exam Const: General: cooperative, healthy appearing and comfortable Nutritional Appearance: overweight Orientation/consciousness: oriented to person, oriented to place and oriented to time Resp: Effort & Inspection: normal respiratory effort Cardio: Rate: regular rate Rhythm: regular rhythm Heart sounds: S1 normal heart sound present and S2 normal heart sound present GI: Inspection: normal to inspection : External Female Exam: normal external appearance Speculum Exam - Vagina: normal appearance of the vagina Speculum Exam - Cervix: normal appearance of the cervix (Second-degree prolapse present) Bimanual exam- vagina & uterus: enlarged and Uterine tenderness Bimanual Exam- Adnexa, other: normal adnexae Assessment and Plan Assessment and plan (1) Pelvic pain: Code(s): R10.20 - Pelvic and perineal pain unspecified side Status: Acute (2) Enlarged uterus: Code(s): N85.2 - Hypertrophy of uterus Status: Acute (3) Dyspareunia: Status: Acute (4) Pelvic pain: Code(s): R10.2 - Pelvic and perineal pain Status: Acute Plan Proceed with robotic total vaginal hysterectomy and bilateral salpingo-oophorectomy
[2025-04-24] VITALS (12 sets, daily range): BP systolic 112–143; BP diastolic 62–86; PULSE 60–92; RESP 12–20; TEMP 36.1–36.8; O2SAT 93–100
--- NOTE | 2025-04-24 06:12 | WPDHPUPDATE1 ---
History and Physical Update Update Date/Time: 04/24/25 06:12 History and Physical has been reviewed, including an updated exam of the patient. There are NO changes in the patient's condition. Risks, benefits, and alternatives have been discussed and questions answered. Patient agrees to proceed with procedure.
[2025-04-24] MEDS: LACTATED RINGERS 1,000 ML 30 ML IV CONT ×2 (10:30→12:41)
[2025-04-24] MEDS: ACETAMINOPHEN 500 MG TABLET 1000 MG PO ×3 (10:30→22:42)
[2025-04-24] MEDS: KETOROLAC 15 MG/ML VIAL (*BKC) IV PUSH (10:30)
--- NOTE | 2025-04-24 10:41 | WPDANESEPPF ---
Anes - Initial Pre Proc Eval Procedure: Operation Date: 04/24/25 11:30 Proposed Procedures p Robotic Assisted Total Vaginal Hysterectomy with Bilateral Salpingo-oophorectomy - Rey Hawthorne MD Date/Time: 04/24/25 10:41 Surgeon: Rey Hawthorne MD Pre Op Diagnosis: pelvic pain, prolase, enlarged uterus Patient Data Age: 65 Gender: F Height: 1.63 m Weight: 75 kg Allergies Allergy/AdvReac Type Severity Reaction Status Date / Time levofloxacin (From Levaquin) Allergy Unknown Verified 04/24/25 10:52 lisinopril Allergy Unknown Verified 04/24/25 10:52 metformin Allergy Unknown Verified 04/24/25 10:52 oseltamivir (From Tamiflu) Allergy NAUSEA, Verified 04/24/25 10:52 VOMITING, HEADACHE, MEMORY PROBLEMS aspirin AdvReac AVOIDS- Verified 04/24/25 10:52 MULTIPLE BLEEDING ULCERS NSAIDS (Non-Steroidal AdvReac AVOIDS-MULTIPLE Verified 04/24/25 10:52 Anti-Inflamma BLEEDING ULCERS Home Medications ?Medication ?Instructions ?Recorded ?Confirmed ?Type atorvastatin 80 mg tablet 80 mg PO HS 08/07/23 04/16/25 History ergocalciferol (vitamin D2) 1,250 1,250 mcg PO MONTHLY 08/07/23 04/16/25 History mcg (50,000 unit) capsule rizatriptan 10 mg tablet See Rx Instructions PO .COMPLEX 08/07/23 04/16/25 History irbesartan 150 mg tablet 150 mg PO HS 11/29/23 04/16/25 History fluticasone propionate 50 2 spray intranasal DAILY PRN nasal 06/23/24 04/16/25 History mcg/actuation nasal congestion spray,suspension (Flonase Allergy Relief) denosumab 60 mg/mL subcutaneous 60 mg subcut [id number] 04/16/25 04/16/25 History syringe (Prolia) omeprazole 40 mg capsule,delayed 40 mg PO DAILY 04/16/25 04/16/25 History release tirzepatide 2.5 mg/0.5 mL 2.5 mg subcut WEEKLY 04/16/25 04/16/25 History subcutaneous pen injector (Mounjaro) hydrocodone 5 mg-acetaminophen 325 1 tablet PO Q4H PRN pain #20 tabs 04/24/25 Rx mg tablet Patient hx anesthesia problems: none Family hx anesthesia problems: none Results Review: All pre-operative results and documents have been reviewed as part of the pre-operative evaluation. [facility] Past Medical History Medical History Pelvic pain IBS (irritable bowel syndrome) Belching Diarrhea Colon cancer screening Hypertension GERD (gastroesophageal reflux disease) Gall bladder pain Family History Family History Father Diabetes mellitus Hypertension Mother Asthma Thyroid condition Social History Social History Smoking status: Never smoker Alcohol intake: current Alcohol use details: 1 per month Substance use: never Substance use type: does not use Lack of Food: Never True Current Housing: I Have Housing Concerned About Future Housing: No Difficulty Paying Gas/Electric Bills: No Difficulty Paying for Meds: No Currently Unemployed: No Difficulty w/ Childcare or Family Care: No Living arrangements: with family Additional living arrangements comments: [facility] Spiritual care concerns: No Anes - Eval Final PreProcedure Day of Procedure 04/24/25 10:41 Patient weight: overweight Lungs: normal air movement Airway: Mallampati scale class II Neurological: alert and oriented Last oral intake: >/= 8 hours ASA classification: II Emergent: no Anesthetic plan: proceed Anesthesia type and monitoring: general ETT and standard monitoring Results Review: All pre-operative results and documents have been reviewed as part of the pre-operative evaluation. HTN, hyperlipidemia, pt reports stress test 2023 which was nml. Lengthy discussion about positioning for this w regards to her back. Pt has not seen a surgeon in 3-4 years, deemed not operable. Will discuss w Dr Iglesias and OR team. Pt and and I have made a shared decision to position pt while she is awake, in position of comfort, even into lithotomy to make certain she feels well without symptoms. Then proceed w GA. I have answered all questions to the best of my ability. Informed Consent: The patient's anesthetic plan and its attendant risks and benefits were discussed with the patient/family/POA. Questions were solicited and answers provided to the satisfaction of the patient/family/POA.
[2025-04-24] MEDS: ceFAZolin 2 GM in SODIUM CHLORIDE 0.9% IV 50 ML 100 ML IVPB (11:31)
--- NOTE | 2025-04-24 12:28 | S_PTH ---
PATIENT: Haley Vallejo LOC: [facility] U#:[id number] AGE/SX: 65/F ROOM: RE04/24/[address]: Rey Hawthorne MD : 1960 BED: DIS: 04/25/2025 SPEC #: [id number] RECD: 04/24/25 13:42 STATUS: DOMINIQUE REQ #: [id number] MARY ANN: 04/24/25 12:[address]: Rey Guthrie DEPT: [facility] Surgical RECD BY: Alise Braden ENTERED: 04/24/25 13:42 SP TYPE: Surgical OTHR DR: Sterling Freire M.D. Tissues: A - Uterus Procedures: Green Keratin Hematoxylin and Eosin Stain Gross and Microscopic Level 5 MLH1 MSH2 MSH6 PMS2
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
--- NOTE | 2025-04-24 12:32 | P.DS_ITS ---
DS: Admitting Diagnosis Discharge Date 04/25/2025 Admitting Diagnosis Uterine prolapse and pelvic pain DS: Discharge Diagnosis Discharge Diagnosis (1) Pelvic pain: Code(s): R10.20 - Pelvic and perineal pain unspecified side Status: Acute (2) Dyspareunia: Onset Date: ~04/24/25 Status: Acute (3) Pelvic pain: Code(s): R10.2 - Pelvic and perineal pain Status: Acute DS: Summary Hospital Course Reason for hospitalization: The patient was admitted on 04/24/2025 and underwent robotic total vaginal hysterectomy and bilateral salpingo-oophorectomy Hospital Course: Patient's hospital course unremarkable. She remained afebrile. She was up, voiding without difficulty, eating regular diet, ambulating, and generally without complaints. Time Spent with Patient Time attestation: Total time spent providing and/or coordinating discharge services: Exam Const: General: cooperative, healthy appearing and comfortable Nutritional Appearance: overweight Orientation/consciousness: oriented to person, oriented to place and oriented to time Resp: Effort & Inspection: normal respiratory effort Cardio: Rate: regular rate Rhythm: regular rhythm Heart sounds: S1 normal heart sound present and S2 normal heart sound present GI: Inspection: normal to inspection : External Female Exam: normal external appearance Speculum Exam - Vagina: normal appearance of the vagina Speculum Exam - Cervix: normal appearance of the cervix (Second-degree prolapse present) Bimanual exam- vagina & uterus: enlarged and Uterine tenderness Bimanual Exam- Adnexa, other: normal adnexae DS: Data Data Completed and Pending Pending studies at discharge: Pending at discharge 04/24/25 12:28 Surgical [PTH] Routine Labs on day of discharge: Labs from last 24 hours 04/24/25 10:51 POC Capillary Glucose 113 H Discharge Plan Discharge Patient Disposition: Home Patient Language: Lithuanian Stand Alone Forms: General Discharge Instructions Follow-up/Referrals: Rey Guthrie MD [Physician, DIRECTOR OF MEDICAL EDUCATION] Discharge Medications: New hydrocodone-acetaminophen 5-325 mg tablet 1 tablet PO Q4H PRN (Reason: pain) Qty: 20 0RF Continued atorvastatin 80 mg tablet 80 mg PO HS ergocalciferol (vitamin D2) 1,250 mcg (50,000 unit) capsule 1,250 mcg PO MONTHLY Patient Comments: Jun 2024 rizatriptan 10 mg tablet See Rx Instructions PO .COMPLEX Rx Instructions: take 1 tab at onset of headache; if no relief may repeat 1 tab after at least 2 hrs; max = 3 tabs/24 hr PO irbesartan 150 mg tablet 150 mg PO HS fluticasone propionate [Flonase Allergy Relief] 50 mcg/actuation spray,suspension 2 spray intranasal DAILY PRN (Reason: nasal congestion) Rx Instructions: administer into each nostril omeprazole 40 mg capsule,delayed release(DR/EC) 40 mg PO DAILY Prolia 60 mg/mL syringe 60 mg subcut [id number] Mounjaro 2.5 mg/0.5 mL pen injector 2.5 mg SUBCUT WEEKLY Patient Comments: PLANS TO START AFTER SURGERY 04/24/25
[2025-04-24] MEDS: fentaNYL CITRATE INJ (*CRX) 100 MCG/2 ML VIAL 25 MCG IV PUSH ×4 (12:58→13:19)
--- NOTE | 2025-04-24 14:14 | PC.NURSE ---
This patient, Haley Vallejo, was received from PACU via bed on 04/24/25 at 1414. Patient/family oriented to unit policies and routines.
[2025-04-24] MEDS: oxyCODONE HCL (*CRX) 5 MG TAB IR PO (15:30)
[2025-04-24] MEDS: DEXTROSE 5%/LACTATED RINGERS 1,000 ML 125 ML IV CONT (15:30)
[2025-04-24] MEDS: KETOROLAC 30 MG/ML VIAL (*BKC) IV PUSH ×2 (16:46→22:41)
[2025-04-24] MEDS: SIMETHICONE 80 MG TAB.CHEW PO (16:47)
[2025-04-24] MEDS: DOCUSATE SODIUM 100 MG CAPSULE PO (16:47)
[2025-04-25] MEDS: ACETAMINOPHEN 500 MG TABLET 1000 MG PO ×2 (04:14→14:21)
[2025-04-25] MEDS: KETOROLAC 30 MG/ML VIAL (*BKC) IV PUSH (04:14)
[2025-04-25 04:20] VITALS: BP 129/83; PULSE 88; RESP 18; TEMP 36.7; O2SAT 98
[2025-04-25 04:53] LABS: Hematocrit 37.3 % (37.0-47.0); Hemoglobin 11.8 g/dL (12.0-15.0); Immature Granulocyte Percent A 0.2 % (0-0.5); Lymphocytes Absolute Auto 1.61 K/mm3 (0.9-3.2); Mean Corpuscular HGB Conc 31.6 g/dl (32-36); Mean Corpuscular Hemoglobin 29.6 pg (26-34); Mean Corpuscular Volume 93.7 fl (80-100); Nucleated Red Blood Cells Absolute Auto 0.000 K/mm3 (0.0-0.012); Nucleated Red Blood Cells Perc 0.0 % (0.0-0.2); Platelet Count Result 284 k/mm3 (150-375); Red Blood Count 3.98 M/mm3 (4.2-5.4); White Blood Count 9.1 K/mm3 (4.5-10.0)
[2025-04-25 09:30] VITALS: BP 119/75; PULSE 82; RESP 16; TEMP 36.8; O2SAT 97
[2025-04-25] MEDS: DOCUSATE SODIUM 100 MG CAPSULE PO (09:34)
[2025-04-25] MEDS: SIMETHICONE 80 MG TAB.CHEW PO (09:35)
[2025-04-25] MEDS: ENOXAPARIN 40 MG/0.4 ML SYRINGE SUB-Q (09:36)
--- NOTE | 2025-04-25 10:10 | PM.GYNPNOP ---
COMMUNITY CULTURAL DEVELOPMENT OFFICER - A/P Postoperative Procedures: Procedures Operation Date: 04/24/25 11:30 Actual Procedure Side Surgeon p Robotic Assisted Total Vaginal Hysterectomy with Bilateral Salpingo-oophorectomy Bilateral Rey Hawthorne MD Postoperative day: 1 Postoperative status: doing well Postoperative plan: discharge Time Spent With Patient Time: Total time spent is greater than 50% in coordination of care (as documented) at patient's floor/unit and/or counseling patient: Time with patient: less than 15 minutes COMMUNITY CULTURAL DEVELOPMENT OFFICER- PN:Subj Post-Op Subjective Date/time seen: 04/25/25 10:10 Subjective: patient reports feeling better, patient has no complaints, patient desires discharge, pain is well controlled and patient is tolerating oral intake Exam Narrative: abd soft, nt inc c/d/i mild bruising COMMUNITY CULTURAL DEVELOPMENT OFFICER - PN: Obj Data Vital Signs Vital Signs: Vital Signs - 24 hr 04/24/25 10:59 04/24/25 12:41 04/24/25 12:45 Temperature 98.1 F 97.0 F L Pulse Rate 80 77 71 Respiratory Rate 16 15 14 Blood Pressure 130/81 134/64 126/72 Pulse Oximetry 99 100 100 Oxygen Delivery Room Air Simple Face Mask Simple Face Mask Oxygen Flow Rate 8 8 04/24/25 13:00 04/24/25 13:15 04/24/25 13:30 Temperature Pulse Rate 67 62 60 Respiratory Rate 12 12 13 Blood Pressure 123/62 123/67 126/77 Pulse Oximetry 100 99 99 Oxygen Delivery Simple Face Mask Room Air Room Air Oxygen Flow Rate 8 04/24/25 13:45 04/24/25 14:00 04/24/25 14:20 Temperature 97.4 F L 97.8 F Pulse Rate 65 65 65 Respiratory Rate 14 18 12 Blood Pressure 112/67 143/80 H 136/79 Pulse Oximetry 100 97 98 Oxygen Delivery Room Air Room Air Oxygen Flow Rate 04/24/25 16:50 04/24/25 18:30 04/24/25 22:35 Temperature 98.2 F 98.1 F 98.2 F Pulse Rate 87 92 88 Respiratory Rate 20 16 16 Blood Pressure 133/86 130/86 113/69 Pulse Oximetry 97 96 93 Oxygen Delivery Oxygen Flow Rate 04/25/25 04:20 Temperature 98.0 F Pulse Rate 88 Respiratory Rate 18 Blood Pressure 129/83 Pulse Oximetry 98 Oxygen Delivery Oxygen Flow Rate Intake/Output Intake/Output: Intake & Output 04/22/25 04/23/25 04/24/25 04/25/25 23:59 23:59 23:59 23:59 Intake Total 1250 600 Output Total 1430 100 Balance -180 500 Meds/Results Medications: Active Medications Generic Name Dose Route Start Last Admin Trade Name Freq PRN Reason Stop Dose Admin Acetaminophen 1,000 mg 04/24/25 18:00 04/25/25 04:14 Acetaminophen 500 Mg Tablet PO 1,000 mg Q6HR BARBIE Administration Docusate Sodium 100 mg 04/24/25 17:00 04/25/25 09:34 Docusate Sodium 100 Mg Capsule PO 100 mg BID BARBIE Administration Enoxaparin Sodium 40 mg 04/25/25 09:00 04/25/25 09:36 Enoxaparin 40 Mg/0.4 Ml Syringe SUB-Q 40 mg DAILY BARBIE Administration Dextrose/Lactated Ringer's 1,000 mls @ 125 mls/hr 04/24/25 14:08 04/24/25 15:30 Dextrose 5%/Lactated Ringers IV CONT 125 mls/hr .Q8H BARBIE Administration Naloxone HCl 0.1 mg 04/24/25 14:08 Naloxone Hcl 0.4 Mg/Ml Vial IV PUSH Q2M PRN Respiratory rate less than 10 Ondansetron HCl 4 mg 04/24/25 14:08 Ondansetron Inj 4 Mg/2 Ml Vial IV PUSH Q6H PRN Nausea And Vomiting Oxycodone HCl 5 mg 04/24/25 14:08 04/24/25 15:30 Oxycodone Hcl (*Crx) 5 Mg Tab Ir PO 5 mg Q4H PRN Administration Pain Rated 4-6 Oxycodone HCl 10 mg 04/24/25 14:08 Oxycodone Hcl (*Crx) 5 Mg Tab Ir PO Q6H PRN Pain Rated 7-10 Simethicone 80 mg 04/24/25 17:00 04/25/25 09:35 Simethicone 80 Mg Tab.Chew PO 80 mg TIDWM BARBIE Administration Labs 04/25/25 04:16 Labs: Laboratory Results - last 24 hr 04/24/25 04/24/25 04/25/25 10:51 13:24 04:16 WBC 9.1 RBC 3.98 L Hgb 11.8 L Hct 37.3 MCV 93.7 MCH 29.6 MCHC 31.6 L RDW 13.7 Plt Count 284 MPV 10.2 Immature Gran % (Auto) 0.2 Neut % (Auto) 74.2 H Lymph % (Auto) 17.7 L Dundy % (Auto) 7.7 Eos % (Auto) 0.0 Baso % (Auto) 0.2 Lymph # (Auto) 1.61 Dundy # (Auto) 0.7 H Eos # (Auto) 0.0 Baso # (Auto) 0.0 Abs Immat Gran (auto) 0.02 Absolute Neuts (auto) 6.7 Absolute Nucleated RBC 0.000 Nucleated RBC % 0.0 POC Capillary Glucose 113 H 122 H
== END 2025-04-25 15:21 | disposition home or self-care (01) ==
LOC: ANHSURGERY 09:28 → ANHOB2 14:13
PROVIDERS: PCP Family Medicine; Visit Provider Obstetrics & Gynecology
PROC: (CPT 58552; principal; 2025-04-24 11:30)
DX: C54.1 Malignant neoplasm of endometrium (principal); N81.4 Uterovaginal prolapse, unspecified; N83.202 Unspecified ovarian cyst, left side; R10.20 Pelvic and perineal pain unspecified side; N94.10 Unspecified dyspareunia; Z79.85 Long-term (current) use of injectable non-insulin antidiabetic drugs; Z79.899 Other long term (current) drug therapy
CPT/HCPCS: 58552; S2900; 36415; 82948; 85025; 88307; 88342; J0690; A9270; J1100; J1650; J1885; J2250; J2405; J2704; J3010; J7030; J7120; J7121